=== PATIENT | female | born 1960 | race Caucasian/White ===

== ENCOUNTER → 2017-11-12 09:06 | Outpatient (CLI) | payer BC, SELFPAY ==
--- NOTE | 2017-11-12 09:13 | RAD_ITS ---
STUDY: X-RAY - LUMBAR SPINE REASON FOR EXAM: Female, 57 years old. Low back pain. Evaluate for degenerative arthritis. TECHNIQUE: 5 view(s) of the lumbar spine were obtained. COMPARISON: None FINDINGS: There is mild generalized osteopenia. Normal lumbar lordosis. There is no substantial scoliosis. There is a normal alignment of the vertebrae. Normal vertebral bodies and endplates. There is intervertebral disc space narrowing at L5-S1 with subchondral sclerosis and small osteophytes. There is mild diffuse facet sclerosis. There are calcifications overlying both renal shadows which may represent nephrocalcinosis. There are phleboliths in the pelvis. RAD/L/S Spine Min 4 Views IMPRESSION: Osteopenia with mild lumbar spondylosis as described. Calcifications overlying both renal shadows which may represent nephrocalcinosis. Electronically Signed: Robbie Garcia MD at 17:03 EST , Service support ,
--- NOTE | 2017-11-12 09:13 | RAD_ITS ---
STUDY: X-RAY - PELVIS AND LEFT HIP REASON FOR EXAM: Female, 57 years old. Bilateral hip pain. TECHNIQUE: Radiological exam, hip, unilateral, with pelvis when performed; 2 or 3 views. COMPARISON: None. FINDINGS: There is a non-specific bowel gas pattern. Normal visualized soft tissue structures. Normal bilateral iliac wings, sacroiliac joints and visualized sacrum. Normal bilateral superior and inferior pubic rami. Normal pubic symphysis. Normal bilateral ischial tuberosities. There is mild medial arthrosis of both hips. RAD/Hip 2-3 Views with Pelvis IMPRESSION: Mild medial arthrosis of both hips. Electronically Signed: Robbie Garcia MD at 17:01 EST , Service support ,
== END ==
PROVIDERS: Family Provider Family Medicine; PCP Family Medicine; Visit Provider Family Medicine
DX: M16.0 Bilateral primary osteoarthritis of hip (principal); M51.36 Other intervertebral disc degeneration, lumbar region; M85.88 Other specified disorders of bone density and structure, other site; M47.896 Other spondylosis, lumbar region; N28.89 Other specified disorders of kidney and ureter
CPT/HCPCS: 72110; 73502

== ENCOUNTER 2018-02-27 12:30 | Outpatient (RCR) | payer SELFPAY ==
--- NOTE | 2017-08-21 14:36 | HP.PTEVAL_ITS ---
Patient's Visit Information MALGORZATA PATTERSON is a 57 year old F referred to Physical Therapy by Out of Town Doctor with a diagnosis of Upper Trap. Date of Evaluation: 08/21/17 Physical Therapist: Jerica Manuel - Visit Plan Frequency: 2x /Week Duration: 4 Weeks Plan: Dry Needling - Subjective Subjective: Patient reports that she gets migraines and slept on a sleeper sofa over . Got a massage at [facility] [employer]-yesterday which helped a little bit. Most of the pain on the left side of the upper trap- radiates to the elbow. Describes as dull/achy pains. Does have numbness in her fingers on the left side- if she shakes it out it goes away quickly. more the last 3 digits. Gets SHANNON- 3x a month- controlled with medication Verapamil and break through Replax. Always the left side and the pain is along the entire head- last SHANNON was 2 weeks ago- goes to bed. Reports pain in the scapula- right handed- does carry babies on the left. PMHx: migraines Meds: Verapmil, Wellbutrin, Cymbalta, Replax - Objective Posture: FH, RS, guarding of the left side of the neck. ROM: cervical SB and rotation decreased by 25% Shoulder: WNL. Strength: Scap: fair plus, shoulder: 4 +/5 Cervical: 4/5 isometric. Palpation: tender with trigger points along the upper trap, levator, scm, medial border of the scapula and up the cervical paraspinals. - Goals Goal 1:: Patient will be I with HEP and progression Goal Time Frame: 4-6 Weeks Goal 2:: Patient will report 0/10 pain for 1 week - Rehabilitation Potential Physical Therapy Diagnosis: Patient presents with hypmobility- she has decreased ROM and increased pain in the cervical spine Rehabilitation Potential: Good - Anticipated Interventions Manual Therapy Techniques to Include: Functional dry needling Thank you for the opportunity to evaluate your patient. For Medicare and Medicare HMO plans, please review the plan of care and approve it. It will need to be FAXED BACK to us at [phone] for Medicare purposes. Please let me know if there are questions or concerns regarding this plan of care. Physician Signature: Date:
== END 2018-02-27 19:00 | disposition home or self-care (01) ==
LOC: PT 12:30
PROVIDERS: Family Provider Family Medicine; PCP Family Medicine
DX: R69 Illness, unspecified (principal)

== ENCOUNTER → 2018-08-05 08:57 | Outpatient (CLI) | payer BC, SELFPAY ==
--- NOTE | 2018-08-05 09:00 | BI_ITS ---
MAMMOGRAPHY - BILATERAL DIAGNOSTIC REASON FOR EXAM: Female, 58 years old. Left breast burning and pain. PERTINENT HISTORY: Grandmother with breast cancer. TECHNIQUE: Digital bilateral breast angy (3D mammographic acquisition) in the CC and MLO projections. 2-D mediolateral oblique (MLO) and craniocaudad (CC) views of both breasts were obtained. CAD: Full Field Digital Mammography with Computer Added Detection was performed. COMPARISON: Comparison is made with prior examination dated September 17, 2017 and February 17, 2015. FINDINGS: Breast Composition: The breasts are heterogeneously dense, which may obscure small masses. There are no dominant masses or suspicious calcifications. No other significant abnormalities are identified. There has been no significant change since the prior study. BI/DIAG MAMM W/CAD, BILAT IMPRESSION: Stable bilateral diagnostic mammogram. One year follow-up recommended. (A) ASSESSMENT CATEGORY: BIRADS Category 1: Negative. A letter regarding these results will be sent to the patient by the facility within 30 days. Approximately 10% of breast cancers are not detected by mammography. A normal mammogram should not delay biopsy of a clinically suspicious abnormality. Electronically Signed: Torsten Lamas MD at 11:25 EST Tel [phone], Service support ,
--- NOTE | 2018-08-05 09:40 | US_ITS ---
STUDY: ULTRASOUND BREAST - LEFT REASON FOR EXAM: Female, 58 years old. Pain in the left breast. TECHNIQUE: Axial and longitudinal images of the LEFT breast were performed with a high resolution ultrasound transducer. COMPARISON: Comparison is made with prior mammogram done earlier in the day. FINDINGS: LEFT Breast: The lateral aspect of the left breast was examined by ultrasound. There is homogeneous fibroglandular tissue. No solid or cystic mass lesion is seen. US/Breast Limited Unilateral IMPRESSION: Unremarkable sonogram of the lateral aspect of the left breast. ASSESSMENT CATEGORY: BIRADS Category 1: Negative. A letter regarding these results will be sent to the patient by the facility within 30 days. Electronically Signed: Torsten Lamas MD at 10:48 EST Tel [phone], Service support ,
--- OUTSIDE RECORDS SUMMARY | 2018-09-16 21:52 | XMS RPT_ITS ---
:1960 Author Organization OHIP Care Team Providers Name Role Phone Casper Franklin Primary Care Unavailable Referred, Self Attending Unavailable Sunita Andino Attending Unavailable Sunita Andino Referring Unavailable Casper Franklin Primary Care Unavailable Casper Franklin Attending Unavailable Casper Franklin Referring Unavailable Franklin, Casper Primary Care Unavailable Sunita Andino Attending Unavailable Sunita Andino Referring Unavailable Casper Franklin Primary Care Unavailable BASILIO SIMON Attending Unavailable Casper Franklin Primary Care Unavailable BASILIO SIMON Consulting Unavailable PROBLEMS PROBLEMS DATE TYPE CONDITION / CODE ATTENDING STATUS SOURCE 08/05/2018 Unknown N63.0 - Sunita Andino Active [place] Unspecified lump Community in unspecified Hospital breast / Repository N63.0(ICD-10) 05/22/2018 Unknown R69 - Illness, Referred, Self Active [place] unspecified / Community R69(ICD-10) Hospital Repository 11/12/2017 Unknown M19.90 - Casper Franklin Active [place] Unspecified Community osteoarthritis, Hospital unspecified site Repository / M19.90(ICD-10) PROCEDURES PROCEDURES No Procedure Records FoundRESULTS RESULTS DEXA BONE DENSITY Observed: 08/07/2018 Status: F Source: [place] STUDY 1:33 PM [facility] REPOSITORY [facility] Imaging Services [address] [place] [address] Dexa Bone Density Study MR#: [id number] Acct: [id number] Name: MALGORZATA SHINE Rep #: [id number] : 1960 F 58 From: Torsten Lamas MD PCP: Casper Franklin MD Status: REG CLI Study: Dexa Bone Density Study Date of Exam: 08/07/18 Exam# [id number] Ordering Dr: JUSTIN DE LA CRUZ STUDY: DUAL ENERGY X-RAY ABSORPTIOMETRY / DXA REASON FOR EXAM: Female, 58 years old. The patient is postmenopausal. Loss of height. TECHNIQUE: Bone Mineral Density (BMD) measurements of lumbar spine and bilateral hips were obtained. COMPARISON: Comparison is made with prior study dated February 17, 2015. FINDINGS: Lumbar Spine (L1-L4): g/cm2 (0.934) / T-score (-2.0) / Z-score (-0.7) Findings are suggestive of osteopenia with a moderate fracture risk. Left Femur Total: g/cm2 (0.723) / T-score (-2.3) / Z- score (-1.3) Left Femoral Neck: g/cm2 (0.678) / T-score (-2.6) / Z- score (-1.3) Right Femur Total: g/cm2 (0.784) / T-score (-1.8) / Z- score (-0.8) Right Femoral Neck: g/cm2 (0.709) / T-score (-2.4) / Z-score (-1.1) The T-Scores on the most recent prior examination were: Lumbar Spine (L1-L4): There has been improvement of bone density since the previous examination. Left Femur Total: which represents a worsening of 4.2%. Right Femur Total: which represents an improvement of 3.3%. BD/Dexa Bone Density Study IMPRESSION: The patient is considered osteopenic as outlined below according to World [place] Organization (WHO) criteria with a moderate fracture risk. There has been improvement of bone density since the previous examination. Reference Information: The T-score is the number of standard deviations above or below the standard which is normal for young adults at their peak bone mineral density. The World Health Organization (WHO) interprets the T-scores as follows: Above -1 Normal bone density Between -1 and -2.5 Osteopenia Equal to / or below -2.5 Osteoporosis As a practical clinical guideline, osteopenia may be graded as follows: Mild -1 through -1.5 Moderate -1.6 through -2.0 Severe -2.1 through -2.4 The Z-score is the number of standard deviations above or below age-matched controls. A Z-score of less than -1.5 would be considered abnormal. References: 1. NIH Osteoporosis and Related Bone Diseases http://www.osteo.org 2. International Society for Clinical Densitometry http://www.iscd.org 3. National Osteoporosis Foundation http://www.nof.org Electronically Signed: Torsten Lamas MD at 15:34 EST Tel [phone], Service support , CC: Casper Franklin MD; JUSTIN DE LA CRUZ Systems Administration Analyst: Signed BREAST LIMITED Observed: 08/05/2018 Status: F Source: [place] UNILATERAL 9:40 AM [facility] REPOSITORY [facility] Imaging Services [address] [place] [address] Breast Limited Unilateral MR#: [id number] Acct: [id number] Name: MALGORZATA SHINE Rep #: [id number] : 1960 F 58 From: Torsten Lamas MD PCP: Casper Franklin MD Status: REG CLI Study: Breast Limited Unilateral Date of Exam: 08/05/18 Exam# [id number] Ordering Dr: Sunita Andino MD STUDY: ULTRASOUND BREAST - LEFT REASON FOR EXAM: Female, 58 years old. Pain in the left breast. TECHNIQUE: Axial and longitudinal images of the LEFT breast were performed with a high resolution ultrasound transducer. COMPARISON: Comparison is made with prior mammogram done earlier in the day. FINDINGS: LEFT Breast: The lateral aspect of the left breast was examined by ultrasound. There is homogeneous fibroglandular tissue. No solid or cystic mass lesion is seen. US/Breast Limited Unilateral IMPRESSION: Unremarkable sonogram of the lateral aspect of the left breast. ASSESSMENT CATEGORY: BIRADS Category 1: Negative. A letter regarding these results will be sent to the patient by the facility within 30 days. Electronically Signed: Torsten Lamas MD at 10:48 EST Tel [phone], Service support , CC: Sunita Andino MD; Casper Franklin MD Systems Administration Analyst: Signed DIAG MAMM W/CAD, Observed: 08/05/2018 Status: F Source: [facility] 9:01 AM [facility] [place] [place] REPOSITORY [facility] Imaging Services [address] [place] [id number] DIAG MAMM W/CAD, BILAT MR#: [id number] Acct: [id number] Name: MALGORZATA SHINE Rep #: [id number] : 1960 F 58 From: Torsten Lamas MD PCP: Casper Franklin MD Status: REG CLI Study: DIAG MAMM W/CAD, BILAT Date of Exam: 08/05/18 Exam# [id number] Ordering Dr: Sunita Andino MD MAMMOGRAPHY - BILATERAL DIAGNOSTIC REASON FOR EXAM: Female, 58 years old. Left breast burning and pain. PERTINENT HISTORY: Grandmother with breast cancer. TECHNIQUE: Digital bilateral breast angy (3D mammographic acquisition) in the CC and MLO projections. 2-D mediolateral oblique (MLO) and craniocaudad (CC) views of both breasts were obtained. CAD: Full Field Digital Mammography with Computer Added Detection was performed. COMPARISON: Comparison is made with prior examination dated September 17, 2017 and February 17, 2015. FINDINGS: Breast Composition: The breasts are heterogeneously dense, which may obscure small masses. There are no dominant masses or suspicious calcifications. No other significant abnormalities are identified. There has been no significant change since the prior study. BI/DIAG MAMM W/CAD, BILAT IMPRESSION: Stable bilateral diagnostic mammogram. One year follow-up recommended. (A) ASSESSMENT CATEGORY: BIRADS Category 1: Negative. A letter regarding these results will be sent to the patient by the facility within 30 days. Approximately 10% of breast cancers are not detected by mammography. A normal mammogram should not delay biopsy of a clinically suspicious abnormality. Electronically Signed: Torsten Lamas MD at 11:25 EST Tel [phone], Service support , CC: Sunita Andino MD; Casper Franklin MD Systems Administration Analyst: Signed HIP 2-3 VIEWS WITH Observed: 11/12/2017 Status: F Source: [place] PELVIS 9:14 AM [facility] [place] [place] REPOSITORY [facility] Imaging Services [address] [place] [address] Hip 2-3 Views with Pelvis MR#: [id number] Acct: [id number] Name: MALGORZATA SHINE Rep #: [id number] : 1960 F 57 From: Robbie Garcia MD PCP: Casper Franklin MD Status: REG CLI Study: Hip 2-3 Views with Pelvis Date of Exam: 11/12/17 Exam# [id number] Ordering Dr: Casper Franklin MD STUDY: X-RAY - PELVIS AND LEFT HIP REASON FOR EXAM: Female, 57 years old. Bilateral hip pain. TECHNIQUE: Radiological exam, hip, unilateral, with pelvis when performed; 2 or 3 views. COMPARISON: None. FINDINGS: There is a non-specific bowel gas pattern. Normal visualized soft tissue structures. Normal bilateral iliac wings, sacroiliac joints and visualized sacrum. Normal bilateral superior and inferior pubic rami. Normal pubic symphysis. Normal bilateral ischial tuberosities. There is mild medial arthrosis of both hips. RAD/Hip 2-3 Views with Pelvis IMPRESSION: Mild medial arthrosis of both hips. Electronically Signed: Robbie Garcia MD at 17:01 EST , Service support , CC: Casper Franklin MD Systems Administration Analyst: Signed L/S SPINE MIN 4 Observed: 11/12/2017 Status: F Source: [place] VIEWS 9:14 AM [facility] [place] [place] REPOSITORY [facility] Imaging Services [address] [place] [address] L/S Spine Min 4 Views MR#: [id number] Acct: [id number] Name: MALGORZATA SHINE Rep #: [id number] : 1960 F 57 From: Robbie Garcia MD PCP: Casper Franklin MD Status: REG CLI Study: L/S Spine Min 4 Views Date of Exam: 11/12/17 Exam# [id number] Ordering Dr: Casper Franklin MD STUDY: X-RAY - LUMBAR SPINE REASON FOR EXAM: Female, 57 years old. Low back pain. Evaluate for degenerative arthritis. TECHNIQUE: 5 view(s) of the lumbar spine were obtained. COMPARISON: None FINDINGS: There is mild generalized osteopenia. Normal lumbar lordosis. There is no substantial scoliosis. There is a normal alignment of the vertebrae. Normal vertebral bodies and endplates. There is intervertebral disc space narrowing at L5-S1 with subchondral sclerosis and small osteophytes. There is mild diffuse facet sclerosis. There are calcifications overlying both renal shadows which may represent nephrocalcinosis. There are phleboliths in the pelvis. RAD/L/S Spine Min 4 Views IMPRESSION: Osteopenia with mild lumbar spondylosis as described. Calcifications overlying both renal shadows which may represent nephrocalcinosis. Electronically Signed: Robbie Garcia MD at 17:03 EST , Service support , CC: Casper Franklin MD Systems Administration Analyst: Signed PROGRESS Observed: 09/21/2017 Status: COMPLETED Source: [place] 2:04 PM [facility] REPOSITORY HNO ID: [id number] Author: April (Maricarmen Mckinney Service: (none) Author Type: Nurse Practitioner Type: Progress Notes Filed: 09/21/2017 2:17 PM Note Text: HPI Malgorzata Shine is a 57 year old female who presents today for CC of laceration of left hand This happened today when she use a new knife. She is also having small amount of bleeding, that is stopped with pressure. She has full range of motion of thumb and hand, able to make the OK sign. PMH not significant, see problem list. Last tetanus > 5 years BP 92/58 Pulse 72 Temp 36.6 ?C (97.8 ?F) (Tympanic) Resp 20 ALLERGIES Allergen Reactions - Codeine ACTIVE PROBLEM LIST Esophagitis, Unspecified Abdominal Pain, Epigastric Anemia, Unspecified Special Screening for Malignant Neoplasms, Colon Thyroiditis Hypoglycemia Migraines Osteoarthritis Constipation Osteoporosis Abdominal Pain Family History Problem Relation Age of Onset - Alcohol/Drug Father - Cancer Father - Hypertension Father - Prostate Cancer Paternal Grandfather - Diabetes Son Type I - Stroke Paternal Grandmother - Alzheimer's Disease Mother Social History Marital status: Spouse name: Years of education: Number of children: 3 Social History Main Topics Smoking status: Never Smoker Smokeless status: Never Used Alcohol use: Yes 0.0 oz/week Comment: 3 glasses a month Drug use: No REVIEW OF SYSTEMS PAIN ASSESSMENT: CURRENTLY HAVING PAIN; PAIN SCALE: 4 on 0-10 scale per patient GENERAL: No weight loss, malaise or fevers RESPIRATORY: Negative for cough, hemoptysis, wheezing, COPD, dyspnea or shortness of breath CARDIOVASCULAR: Negative for chest pain, leg swelling, hypertension, CHF or palpitations SKIN: Negative for lesions, rash and itching, Positive for laceration on left hand below PIP joint in fat pad Physical Exam Constitutional: She appears well-developed and well-nourished. Cardiovascular: Normal rate and regular rhythm. Pulses: Radial pulses are 2+ on the right side, and 2+ on the left side. Brisk +2 cap refill in extremities of left hand Musculoskeletal: Left hand: She exhibits tenderness (at laceration), disruption of two-point discrimination and laceration. She exhibits normal range of motion, no bony tenderness, normal capillary refill, no deformity and no swelling. Normal sensation noted. Normal strength noted. She exhibits no thumb/finger opposition. Hands: Skin: Skin is warm and dry. Laceration noted. Nursing note and vitals reviewed. LAC REPAIR Date/Time: 09/21/2017/ 2:00 pm Performed by: OMAR May Consent: Verbal consent obtained. Consent given by: patient Patient understanding: patient states understanding of the procedure being performed Body area: see diagram Location details: fat pad below pip thumb joint Laceration length: 1 cm Foreign bodies: none Tendon involvement: none, able to do thumb sign Nerve involvement: none Anesthesia: local infiltration Local anesthetic: lidocaine 1% without epinephrine Anesthetic total: 2 ml Preparation: Patient was prepped and draped in the usual sterile fashion. Irrigation solution: saline Irrigation method: lavage Amount of cleaning: extensive Skin closure: 5-0 Ethilon Number of sutures: 2 Technique: simple Approximation: close Approximation difficulty: simple Dressing: antibiotic ointment and pressure dressing Patient tolerance: Patient tolerated the procedure well with no immediate complications ASSESSMENT/PLAN: 1. Laceration of left hand without foreign body, initial encounter - ICD9: 882.0, ICD10: S61.412A (primary diagnosis) Wound Care - Keep wound clean and dry. No soaking in water. May shower/wash with soap -Clean with soap and water . Apply mupirocin ointment 2 - 3 times a day. -Tylenol or Ibuprofen for discomfort -Observe area for signs of infection: redness, warmth, foul odor, drainage or increase in discomfort. Call you primary care physician if this occurs. -Return for suture removal in 10-14 days 2. Need for vaccination - ICD9: V05.9, ICD10: Z23 - TDAP VACCINE AGE 7+ IM Diagnosis and treatment plan were discussed and questions were answered to the patient's satisfaction. Pt acknowledged understanding of concepts and follow up plan. Specific signs and symptoms that would indicate the need for higher level of care were discussed in detail warranting prompt ER evaluation. April Mckinney CNP CNOV Observed: 09/21/2017 Status: COMPLETED Source: [place] 1:30 PM [facility] REPOSITORY Office Visit (WSTR) MALGORZATA SHINE ([id number]) 1960 F Date Time Provider Department 09/21/17 1:30 PM APRIL MCKINNEY) [facility] During your visit today, we recorded the following information about you: Temperature Pulse Respiration Blood pressure 97.8 degrees 72/minute 20/minute 92/58 April Mckinney CNP 09/21/2017 2:06 PM Addendum ASSESSMENT/PLAN: 1. Laceration of left hand without foreign body, initial encounter - ICD9: 882.0, ICD10: S61.412A (primary diagnosis) Wound Care - Keep wound clean and dry. No soaking in water. May shower/wash with soap -Clean with soap and water . Apply mupirocin ointment 2 - 3 times a day. -Tylenol or Ibuprofen for discomfort -Observe area for signs of infection: redness, warmth, foul odor, drainage or increase in discomfort. Call you primary care physician if this occurs. -Return for suture removal in 10-14 days 2. Need for vaccination - ICD9: V05.9, ICD10: Z23 - TDAP VACCINE AGE 7+ IM April Mckinney CNP 09/21/2017 2:17 PM Signed HPI Malgorzata Shine is a 57 year old female who presents today for CC of laceration of left hand This happened today when she use a new knife. She is also having small amount of bleeding, that is stopped with pressure. She has full range of motion of thumb and hand, able to make the OK sign. PMH not significant, see problem list. Last tetanus ANDgt; 5 years BP 92/58 Pulse 72 Temp 36.6 ?C (97.8 ?F) (Tympanic) Resp 20 ALLERGIES Allergen Reactions - Codeine ACTIVE PROBLEM LIST Esophagitis, Unspecified Abdominal Pain, Epigastric Anemia, Unspecified Special Screening for Malignant Neoplasms, Colon Thyroiditis Hypoglycemia Migraines Osteoarthritis Constipation Osteoporosis Abdominal Pain Family History Problem Relation Age of Onset - Alcohol/Drug Father - Cancer Father - Hypertension Father - Prostate Cancer Paternal Grandfather - Diabetes Son Type I - Stroke Paternal Grandmother - Alzheimer's Disease Mother Social History Marital status: Spouse name: Years of education: Number of children: 3 Social History Main Topics Smoking status: Never Smoker Smokeless status: Never Used Alcohol use: Yes 0.0 oz/week Comment: 3 glasses a month Drug use: No REVIEW OF SYSTEMS PAIN ASSESSMENT: CURRENTLY HAVING PAIN; PAIN SCALE: 4 on 0-10 scale per patient GENERAL: No weight loss, malaise or fevers RESPIRATORY: Negative for cough, hemoptysis, wheezing, COPD, dyspnea or shortness of breath CARDIOVASCULAR: Negative for chest pain, leg swelling, hypertension, CHF or palpitations SKIN: Negative for lesions, rash and itching, Positive for laceration on left hand below PIP joint in fat pad Physical Exam Constitutional: She appears well-developed and well-nourished. Cardiovascular: Normal rate and regular rhythm. Pulses: Radial pulses are 2+ on the right side, and 2+ on the left side. Brisk +2 cap refill in extremities of left hand Musculoskeletal: Left hand: She exhibits tenderness (at laceration), disruption of two-point discrimination and laceration. She exhibits normal range of motion, no bony tenderness, normal capillary refill, no deformity and no swelling. Normal sensation noted. Normal strength noted. She exhibits no thumb/finger opposition. Hands: Skin: Skin is warm and dry. Laceration noted. Nursing note and vitals reviewed. LAC REPAIR Date/Time: 09/21/2017/ 2:00 pm Performed by: OMAR May Consent: Verbal consent obtained. Consent given by: patient Patient understanding: patient states understanding of the procedure being performed Body area: see diagram Location details: fat pad below pip thumb joint Laceration length: 1 cm Foreign bodies: none Tendon involvement: none, able to do thumb sign Nerve involvement: none Anesthesia: local infiltration Local anesthetic: lidocaine 1% without epinephrine Anesthetic total: 2 ml Preparation: Patient was prepped and draped in the usual sterile fashion. Irrigation solution: saline Irrigation method: lavage Amount of cleaning: extensive Skin closure: 5-0 Ethilon Number of sutures: 2 Technique: simple Approximation: close Approximation difficulty: simple Dressing: antibiotic ointment and pressure dressing Patient tolerance: Patient tolerated the procedure well with no immediate complications ASSESSMENT/PLAN: 1. Laceration of left hand without foreign body, initial encounter - ICD9: 882.0, ICD10: S61.412A (primary diagnosis) Wound Care - Keep wound clean and dry. No soaking in water. May shower/wash with soap -Clean with soap and water . Apply mupirocin ointment 2 - 3 times a day. -Tylenol or Ibuprofen for discomfort -Observe area for signs of infection: redness, warmth, foul odor, drainage or increase in discomfort. Call you primary care physician if this occurs. -Return for suture removal in 10-14 days 2. Need for vaccination - ICD9: V05.9, ICD10: Z23 - TDAP VACCINE AGE 7+ IM Diagnosis and treatment plan were discussed and questions were answered to the patient's satisfaction. Pt acknowledged understanding of concepts and follow up plan. Specific signs and symptoms that would indicate the need for higher level of care were discussed in detail warranting prompt ER evaluation. April Mckinney CNP Referring Provider: SELF [[id number]] Allergies As of Date: 09/21/2017 Noted Allergy Reaction CODEINE 12/19/2005 Date Reviewed: 09/21/2017 Reviewed by: Toma Quezada LPN - Fully Assessed Reason for Visit: Laceration [1747] Cmt: Left hand x 1 hour cut by a knife Primary Visit Diagnosis:Laceration of left hand without foreign body, initial encounter [S61.412A] Other Visit Diagnosis:Need for vaccination [Z23] Order(s):TDAP VACCINE AGE 7+ IM [[id number]] Order #: [id number] mupirocin (BACTROBAN) 2 % ointmentApply 1 application to affected area three times daily. Location: woundDisp: 30 gRfl: 0 Prescriptions as of 09/21/2017 Sig: POLYETHYLENE GLYCOL 3350 17 G* Take 17 g by mouth once daily* DULOXETINE 30 MG CAPSULE,CRISTINA* Take 1 capsule by mouth twice* VERAPAMIL ER (SR) 240 MG TABL* Take 1 tablet by mouth twice * COMPOUNDED PRESCRIPTION imitrex as needed WELLBUTRIN SR 150 MG TABLET, * one tab daily MUPIROCIN 2 % TOPICAL OINTMENT Apply 1 application to affect* Problem List As Of Date 09/21/2017 Noted Resolved ESOPHAGITIS, UNSPECIFIED [K20.9] INVALID FOR* ABDOMINAL PAIN EPIGASTRIC [R10.13] INVALID FOR* ANEMIA NOS [D64.9] INVALID FOR* SCREENING MAL NEOP-COLON [Z12.11] INVALID FOR* Thyroiditis [E06.9] INVALID FOR* Hypoglycemia [E16.2] INVALID FOR* Migraines [G43.909] INVALID FOR* Osteoarthritis [M19.90] INVALID FOR* Constipation [K59.00] Osteoporosis [M81.0] Abdominal pain [R10.9] Other instructions from your clinician: ASSESSMENT/PLAN: 1. Laceration of left hand without foreign body, initial encounter - ICD9: 882.0, ICD10: S61.412A (primary diagnosis) Wound Care - Keep wound clean and dry. No soaking in water. May shower/wash with soap -Clean with soap and water . Apply mupirocin ointment 2 - 3 times a day. -Tylenol or Ibuprofen for discomfort -Observe area for signs of infection: redness, warmth, foul odor, drainage or increase in discomfort. Call you primary care physician if this occurs. -Return for suture removal in 10-14 days 2. Need for vaccination - ICD9: V05.9, ICD10: Z23 - TDAP VACCINE AGE 7+ IM Prescriptions ordered this encounter Disp Refills Start End MUPIROCIN 2 % TOPICAL OINTMENT 30 g 0 09/21/2017 Route: TOPICAL Sig: Apply 1 application to affected area three times daily. Location: wound Encounter Status:Closed by APRIL MCKINNEY CNP on 09/21/17 SCREENING MAMM (CAD), Observed: 09/17/2017 Status: F Source: [place] 2:05 PM [facility] [place] [place] REPOSITORY [facility] Imaging Services [address] [place] [address] SCREENING MAMM (CAD), BILAT MR#: [id number] Acct: [id number] Name: MALGORZATA SHINE Rep #: [id number] : 1960 F 57 From: Torsten Lamas MD PCP: Casper Franklin MD Status: REG CLI Study: SCREENING MAMM (CAD), BILAT Date of Exam: 09/17/17 Exam# [id number] Ordering Dr: uSnita Andino MD MAMMOGRAPHY - BILATERAL SCREENING REASON FOR EXAM: Female, 57 years old. Routine annual screening examination. PERTINENT HISTORY: Non-contributory. TECHNIQUE: Digital bilateral breast angy (3D mammographic acquisition) in the CC and MLO projections. 2-D mediolateral oblique (MLO) and craniocaudad (CC) views of both breasts were obtained. CAD: Full Field Digital Mammography with Computer Added Detection was performed. COMPARISON: Comparison is made with prior study dated February 17, 2015 and October 05, 2010. FINDINGS: Breast Composition: The breasts are heterogeneously dense, which may obscure small masses. There are no dominant masses or suspicious calcifications. Stable bilateral benign appearing axillary lymph nodes. No other significant abnormalities are identified. There has been no significant change since the prior study. HPBI/SCREENING MAMM (CAD), BILAT IMPRESSION: Stable bilateral screening mammogram. Yearly follow-up mammogram recommended. (A) ASSESSMENT CATEGORY: BIRADS Category 2: Benign. A letter regarding these results will be sent to the patient by the facility within 30 days. Approximately 10% of breast cancers are not detected by mammography. A normal mammogram should not delay biopsy of a clinically suspicious abnormality. [id number] Electronically Signed: Torsten Lamas MD at 15:01 EST Tel [phone], Service support , CC: Sunita Andino MD; Casper Franklin MD Systems Administration Analyst: Signed ALLERGIES ALLERGIES DATE TYPE / CODE NAME / CODE REACTION SEVERITY SOURCE 02/07/2015 Drug codeine/[id number] Unknown Unknown [facility] Allergy[facility]4160 1550[facility] [place] [id number]([facility] Repository CT) 02/07/2015 Drug levofloxacin/F Unknown Unknown [facility] Allergy/4160 [id number]([place] [address](SNOMED RM) Repository CT) 12/19/2005 DRUG CODEINE [facility] INGREDI/4195 [facility] [address](SNOMED Repository CT) ENCOUNTERS ENCOUNTERS ADMIT/DISCHARGE ACCOUNT ADMITTING ENCOUNTER LOCATION SOURCE NUMBER CLASS 08/07/2018 [id number] [facility] ing:OPBD Repository 08/05/2018 [id number] [facility] ing:OPBI Repository 02/27/2018/02/28/[id number] ing:PT Repository 11/12/2017 [id number] [facility] ing:MTLAB Repository 09/21/2017/09/24/[id number] Repository 09/17/2017 [id number] [facility] ing:BI Repository PAYERS PAYERS ENCOUNTER GUARANTOR PAYER SUBSCRIBER SOURCE 08/07/2018 CASPER SHINE532 Primary CASPER Harrison [place] [facility] [place] Number: [id number] Hospital [address]Kit: (161) [id number] Repository [phone] (HP) Date:7974-47-26DG [address] [place] [address] 87701ET: 08/07/2018 Secondary NOT GIVENUNK [place] Insurance:SELF PAY [facility] Number: Effective Repository Date:2018-08-05 08/05/2018 CASPER SHINE532 Primary CASPER C [place] Insurance:ANTHEMPolic MEENANDOB: [facility], [place] Number: [id number] Hospital [address]Hrq: (330) [id number] Repository [phone] () Date:2745-77-04JH [address] [place] [address] 14118MW: 08/05/2018 Secondary NOT GIVENUNK [place] Insurance:SELF PAY [facility] Number: Effective Repository Date:2018-07-25 02/27/2018 CASPER SHINE532 Primary NOT GIVENUNK [place] Insurance:SELF PAY [place] [id number]: [phone]) Number: Effective Repository [phone] () Date:2017-08-14 11/12/2017 CASPER SHINE532 Primary CASPER C [place] Insurance:ANTHEMPolic MEENANDOB: [facility] [place] y Number: [id number] Hospital 13[address]Rng: [id number] Repository [phone] Date:7627-04-60WT [address] () [address] [place] [address] 80184TI: 11/12/2017 Secondary NOT GIVENUNK [place] Insurance:SELF PAY [facility] Number: Effective Repository Date:2017-11-12 09/17/2017 Casper Shine532 Primary Casper C [place] Insurance:ANTHEM MeenanDOB: [place], [place] [facility] [id number] Hospital [address]Vwk: ([phone]) Number: Repository [phone] () [id number] Date:[id number] [address] [place] [address] 86279ES: 09/17/2017 Secondary NOT GIVENUNK [place] Insurance[facility]LF PAY [facility] Number: Effective Repository Date:2017-08-05
== END ==
PROVIDERS: Family Provider Family Medicine; PCP Family Medicine; Referring Provider Obstetrics & Gynecology; Visit Provider Obstetrics & Gynecology
DX: N63.0 Unspecified lump in unspecified breast (principal); N64.4 Mastodynia
CPT/HCPCS: 76642; 77062; 77066; G0279

== ENCOUNTER → 2018-08-07 13:30 | Outpatient (CLI) | payer BC, SELFPAY ==
--- NOTE | 2018-08-07 13:36 | BD_ITS ---
STUDY: DUAL ENERGY X-RAY ABSORPTIOMETRY / DXA REASON FOR EXAM: Female, 58 years old. The patient is postmenopausal. Loss of height. TECHNIQUE: Bone Mineral Density (BMD) measurements of lumbar spine and bilateral hips were obtained. COMPARISON: Comparison is made with prior study dated February 17, 2015. FINDINGS: Lumbar Spine (L1-L4): g/cm2 (0.934) / T-score (-2.0) / Z-score (-0.7) Findings are suggestive of osteopenia with a moderate fracture risk. Left Femur Total: g/cm2 (0.723) / T-score (-2.3) / Z-score (-1.3) Left Femoral Neck: g/cm2 (0.678) / T-score (-2.6) / Z-score (-1.3) Right Femur Total: g/cm2 (0.784) / T-score (-1.8) / Z-score (-0.8) Right Femoral Neck: g/cm2 (0.709) / T-score (-2.4) / Z-score (-1.1) The T-Scores on the most recent prior examination were: Lumbar Spine (L1-L4): There has been improvement of bone density since the previous examination. Left Femur Total: which represents a worsening of 4.2%. Right Femur Total: which represents an improvement of 3.3%. BD/Dexa Bone Density Study IMPRESSION: The patient is considered osteopenic as outlined below according to World [place] Organization (WHO) criteria with a moderate fracture risk. There has been improvement of bone density since the previous examination. Reference Information: The T-score is the number of standard deviations above or below the standard which is normal for young adults at their peak bone mineral density. The World Health Organization (WHO) interprets the T-scores as follows: Above -1 Normal bone density Between -1 and -2.5 Osteopenia Equal to / or below -2.5 Osteoporosis As a practical clinical guideline, osteopenia may be graded as follows: Mild -1 through -1.5 Moderate -1.6 through -2.0 Severe -2.1 through -2.4 The Z-score is the number of standard deviations above or below age-matched controls. A Z-score of less than -1.5 would be considered abnormal. References: 1. NIH Osteoporosis and Related Bone Diseases http://www.osteo.org 2. International Society for Clinical Densitometry http://www.iscd.org 3. National Osteoporosis Foundation http://www.nof.org Electronically Signed: Torsten Lamas MD at 15:34 EST Tel [phone], Service support ,
--- OUTSIDE RECORDS SUMMARY | 2018-10-02 18:00 | XMS RPT_ITS ---
[...] BONE DENSITY Observed: 08/07/2018 Status: F Source: [place] STUDY 1:33 PM [facility] REPOSITORY [facility] Imaging Services [address] [place] [address] Dexa Bone Density Study MR#: [id number] Acct: [id number] Name: MALGORZATA SHINE Rep #: [id number] : 1960 F 58 From: Torsten Lamas MD PCP: Casper Franklin MD Status: REG CLI Study: Dexa Bone Density Study Date of Exam: 08/07/18 Exam# [id number] Ordering Dr: JUSTIN DE LA CRUZ STUDY: [...] Torsten Lamas MD at 15:34 EST Tel [phone], Service support , CC: Casper Franklin MD; JUSTIN DE LA CRUZ Farmworkers: 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 BREAST LIMITED Observed: 08/05/2018 Status: F Source: [place] UNILATERAL 9:40 AM [facility] REPOSITORY [facility] Imaging Services [address] [place] [address] Breast Limited Unilateral MR#: [id number] Acct: [id number] Name: MALGORZATA SHINE Rep #: [id number] : 1960 F 58 From: Torsten Lamas MD PCP: Casper Franklin MD Status: REG CLI Study: Breast Limited Unilateral Date of Exam: 08/05/18 Exam# [id number] Ordering Dr: Sunita Andino MD STUDY: ULTRASOUND [...] Torsten Lamas MD at 10:48 EST Tel [phone], Service support , CC: Sunita Andino MD; Casper Franklin MD Farm[employer]: Signed DIAG MAMM W/CAD, Observed: 08/05/2018 Status: F Source: [facility] 9:01 AM [facility] REPOSITORY [facility] Imaging Services [address] [place] [address] DIAG MAMM W/CAD, BILAT MR#: [id number] Acct: [id number] Name: MALGORZATA SHINE Rep #: [id number] : 1960 F 58 From: Torsten Lamas MD PCP: Casper Franklin MD Status: REG CLI Study: DIAG MAMM W/CAD, BILAT Date of Exam: 08/05/18 Exam# [id number] Ordering Dr: Sunita Andino MD MAMMOGRAPHY - [...] Torsten Lamas MD at 11:25 EST Tel [phone], Service support , CC: Sunita Andino MD; Casper Franklin MD [employer]: Signed HIP 2-3 VIEWS WITH Observed: 11/12/2017 Status: F Source: [place] PELVIS 9:14 AM [facility] REPOSITORY [facility] Imaging Services [address] [place] [address] Hip 2-3 Views with Pelvis MR#: [id number] Acct: [id number] Name: MALGORZATA SHINE Rep #: [id number] : 1960 F 57 From: Robbie Garcia MD PCP: Casper Franklin MD Status: REG CLI Study: Hip 2-3 Views with Pelvis Date of Exam: 11/12/17 Exam# [id number] Ordering Dr: Casper Franklin MD STUDY: X-RAY [...] Service support , CC: Casper Franklin MD Farmworkers: Signed L/S SPINE MIN 4 Observed: 11/12/2017 Status: F Source: [place] VIEWS 9:14 AM [facility] REPOSITORY [facility] Imaging Services [address] [place] [address] L/S Spine Min 4 Views MR#: [id number] Acct: [id number] Name: MALGORZATA SHINE Rep #: [id number] : 1960 F 57 From: Robbie Garcia MD PCP: Casper Franklin MD Status: REG CLI Study: L/S Spine Min 4 Views Date of Exam: 11/12/17 Exam# [id number] Ordering Dr: Casper Franklin MD STUDY: X-RAY [...] Service support , CC: Casper Franklin MD Farmworkers: Signed PROGRESS Observed: 09/21/2017 Status: COMPLETED Source: [place] 2:04 PM [facility] REPOSITORY HNO ID: [id number] Author: April (Maricarmen Mckinney Service: (none) Author [...] CNP CNOV Observed: 09/21/2017 Status: COMPLETED Source: [place] 1:30 PM [facility] REPOSITORY Office Visit (WSTR) MALGORZATA SHINE ([id number]) 1960 F Date Time Provider Department 09/21/17 [...] vaccination [Z23] Order(s):TDAP VACCINE AGE 7+ IM [26099TZB] Order #: [id number] mupirocin (BACTROBAN) 2 % ointmentApply 1 application [...] MAMM (CAD), Observed: 09/17/2017 Status: F Source: [place] BIL 2:05 PM [facility] REPOSITORY [facility] Imaging Services [address] [place] [address] SCREENING MAMM (CAD), BILAT MR#: [id number] Acct: [id number] Name: MALGORZATA SHINE Rep #: [id number] : 1960 F 57 From: Torsten Lamas MD PCP: Casper Franklin MD Status: REG CLI Study: SCREENING MAMM (CAD), BILAT Date of Exam: 09/17/17 Exam# [id number] Ordering Dr: Sunita Andino MD MAMMOGRAPHY - BILATERAL SCREENING REASON [...] delay biopsy of a clinically suspicious abnormality. [id number] Electronically Signed: Torsten Lamas MD at 15:01 EST Tel [phone], Service support , CC: Sunita Andino MD; Casper Franklin MD Farmworkers: Signed ALLERGIES ALLERGIES DATE TYPE / CODE NAME / CODE REACTION SEVERITY SOURCE 02/07/2015 Drug codeine/Q26245 Unknown Unknown [facility]ergy[facility]4160 [facility] [place] [id number](SNOMED Repository CT) 02/07/2015 Drug levofloxacin/F Unknown Unknown [facility] Allergy/4160 [id number]([place] [address](SNOMED RM) Repository CT) 12/19/2005 DRUG CODEINE [facility] INGREDI/4195 [facility] [address](SNOMED Repository CT) ENCOUNTERS ENCOUNTERS ADMIT/DISCHARGE ACCOUNT ADMITTING ENCOUNTER LOCATION SOURCE NUMBER CLASS 08/07/2018 [id number] [facility] ing:OPBD Repository 08/05/2018 [id number] [facility] ing:OPBI Repository 02/27/2018/02/28/[id number] ing:PT Repository 11/12/2017 [id number] [facility] ing:MTLAB Repository 09/21/2017/09/24/[id number] Repository 09/17/2017 [id number] [facility] ing:BI Repository PAYERS PAYERS ENCOUNTER GUARANTOR PAYER SUBSCRIBER SOURCE 08/07/2018 CASPER SHINE532 Primary CASPER Harrison [place] Insurance:[facility]MPCity Hospital[facility]: [place] Number: [id number] Hospital [address]Xte: (022) [id number] Repository [phone] (HP) Date:7197-26-20AB [address] [place] [address] 79497UQ: 08/07/2018 Secondary NOT GIVENUNK [place] Insurance:SELF PAY [facility] Number: Effective Repository Date:2018-08-05 08/05/2018 CASPER SHINE532 Primary CASPER C [place] Insurance:ANTHEMPolic MEENANDOB: [facility] [place] Number: [id number] Hospital [address]Hbx: (330) [id number] Repository [phone] () Date:4029-18-04VR [address] [place] [address] 43345XJ: 08/05/2018 Secondary NOT GIVENUNK [place] Insurance:SELF PAY [facility] Number: Effective Repository Date:2018-07-25 02/27/2018 CASPER SHINE532 Primary NOT GIVENUNK [place] Insurance:SELF PAY [place] [id number]: (330) Number: Effective Repository [phone] () Date:2017-08-14 11/12/2017 CASPER SHINE532 Primary CASPER C [place] Insurance:ANTHEMPolic MEENANDOB: [facility] [place] Number: [id number] [address]Emw: [id number] Repository [phone] Date:0778-24-78HF [address] () [address] [place] [address] 12513KM: 11/12/2017 Secondary NOT GIVENUNK [place] Insurance:SELF PAY [facility] Number: Effective Repository Date:2017-11-12 09/17/2017 Casper Shine532 Primary Casper C [place] Insurance:ANTHEM MeenanDOB: [place] [facility] [id number] Hospital [address]Nng: (330) Number: Repository [phone] () [id number] Date:1339-19-77UB [address] [place] [address] 81192PS: 09/17/2017 Secondary NOT GIVENUNK [place] Insurance:SELF PAY [facility] Number: Effective Repository Date:2017-08-05
== END ==
PROVIDERS: Family Provider Family Medicine; PCP Family Medicine
DX: M81.0 Age-related osteoporosis without current pathological fracture (principal)
CPT/HCPCS: 77080

== ENCOUNTER → 2018-08-28 09:39 | Outpatient (CLI) | payer BC, SELFPAY ==
[2018-08-28 12:29] LABS: Absolute Lymphocyte Count 6.98 X10^3/ul (0.83-4.51); Absolute Neutrophil Count 2.6 X10^3/uL (2.0-7.7); Basophil# 0.07 X10^3/uL; Basophil% 0.7 % (0-1); Differential Indicated SCAN CRITERIA MET; Eosinophils% 1.9 % (0-5); Hematocrit 42.3 % (37-47); Hemoglobin 14.1 g/dl (12.0-15.0); Lymphocyte # 6.98 X10^3/ul (4.0); Lymphocyte % 67.8 % (19-41); Mean Corp Hgb Conc 33.3 g/gl (32-36); Mean Corpuscular Hgb 31.8 pg (27.0-32.0); Mean Corpuscular Volume 95.5 fL (81-99); Mean Platelet Vol. 10.9 fl (6.2-12.0); Monocyte# 0.44 X10^3/uL; Monocyte% 4.3 % (0-10); Neutrophil # 2.58 X10^3/uL (2.7-7.7); Neutrophil % 25.1 % (47-70); POSITIVE COUNT NO; POSITIVE DIFFERENTIAL YES; POSITIVE MORPHOLOGY NO; Platelet Count 290 K/mm3 (150-450); RBC Distribution Width CV 12.5 % (11.6-14.6); RBC Distribution Width SD 43.6 fl (35.1-43.9); Red Blood Count 4.43 M/mm3 (4.2-5.4); White Blood Count 10.3 K/mm3 (4.4-11.0)
[2018-08-28 12:39] LABS: Vitamin D,25 Hydroxy 31.2 ng/mL (29.95-100.01)
[2018-08-28 12:56] LABS: Reactive Lymphocyte 1+
== END ==
PROVIDERS: Family Provider Family Medicine; PCP Family Medicine; Visit Provider Family Medicine
DX: D50.9 Iron deficiency anemia, unspecified (principal); E55.9 Vitamin D deficiency, unspecified
CPT/HCPCS: 36415; 82306; 85025

== ENCOUNTER → 2018-09-26 12:10 | Outpatient (CLI) | payer OTHER, SELFPAY ==
[2018-09-26 13:50] LABS: Anion Gap 7 (5-15); BUN 12 mg/dL (7-18); BUN/Creat Ratio 19.7 RATIO (10-20); Chloride 107 mmol/L (98-107); Cholesterol 190 mg/dL (200); Creatinine, Serum 0.61 mg/dL (0.55-1.02); EST Glomerular Filtration Rate 106 mL/min (>60); Est Glom Filt Rate - Afr Amer 128 mL/min (>60); Glucose 87 mg/dL (74-106); High Density Lipoprotein 94 mg/dL; Potassium 4.1 mmol/L (3.5-5.1); Sodium Level 141 mmol/L (136-145); Thyroid Stim Hormone (TSH) 0.74 uIU/mL (0.358-3.74); Triglycerides 66 mg/dL; Very Low Density Lipoprotein 13 mg/dL (5-40)
--- OUTSIDE RECORDS SUMMARY | 2018-12-01 01:30 | XMS RPT_ITS ---
:1960 Author Organization OHIP Care Team Providers Name Role Phone Rigoberto Casper Attending Unavailable Casper Franklin Primary Care Unavailable Casper Franklin Attending Unavailable Casper Franklin Primary Care Unavailable Casper Franklin Primary Care Unavailable Referred, Self Attending Unavailable Casper Franklin Attending Unavailable Casper Franklin Referring Unavailable Casper Franklin Primary Care Unavailable Sunita Andino Attending Unavailable Sunita Andino Referring Unavailable Casper Franklin Primary Care Unavailable BASILIO SIMON Attending Unavailable Casper Franklin Primary Care Unavailable BASILIO SIMON Consulting Unavailable PROBLEMS PROBLEMS DATE TYPE CONDITION / CODE ATTENDING STATUS SOURCE 09/29/2018 Unknown V77.91 - Screening Casper Franklin [facility] [place] for lipoid [facility] disorders / Hospital V77.91(ICD-9) Repository 09/29/2018 Unknown Z13.220 - Encounter Casper Franklin [facility] for screening for Community lipoid disorders / Hospital Z13.220(ICD-10) Repository 09/29/2018 Unknown 281.1 - Other Casper Franklin [facility] [place] vitamin B12 Community deficiency anemia / Hospital 281.1(ICD-9) Repository 09/29/2018 Unknown 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, not Hospital elsewhere Repository classified / D53.1(ICD-10) 09/29/2018 Unknown 790.6 - Other [facility] Franklin [facility] [place] abnormal blood Community chemistry / Hospital 790.6(ICD-9) Repository 09/29/2018 Unknown R94.6 - Abnormal Casper Franklin results of thyroid Community function studies / Hospital R94.6(ICD-10) Repository 08/28/2018 Unknown E55.9 - Vitamin D Casper Franklin [facility] deficiency, Community unspecified / Hospital E55.9(ICD-10) Repository 08/28/2018 Unknown D50.9 - Iron Casper Franklin [facility] [place] deficiency anemia, Community unspecified / Hospital D50.9(ICD-10) Repository 08/05/2018 Unknown N63.0 - Unspecified ShrSunita cabrera Active [place] lump in unspecified Community breast / Hospital N63.0(ICD-10) Repository 05/22/2018 Unknown R69 - Illness, Referred, Self [facility] unspecified / Community R69(ICD-10) Hospital Repository 11/12/2017 Unknown M19.90 - [place] [facility] [place] Unspecified Community osteoarthritis, Hospital unspecified site / Repository M19.90(ICD-10) PROCEDURES PROCEDURES No Procedure Records FoundRESULTS RESULTS BASIC METABOLIC Collected: 09/26/2018 Status: F Source: [place] PROFILE (BMP) 12:11 PM [facility] REPOSITORY TYPE CODE TESTS RESULT OUT OF RANGE REFERENCE UNITS LAB L501.0100 74-106 mg/dL Normal GLU 87 Result Comment: Please note revised GLUCOSE reference range effective 2017. LAB L501.1000 7-18 mg/dL Normal BUN 12 LAB L501.1100 0.55-1.02 mg/dL Normal CREAT,SERUM 0.61 Result Comment: The validity of the calculated GFR AND GFRAA in patients over 70 years has not been determined. Clinical correlation is essential. LAB L501.1110 >60 mL/min Normal EST GFR 106 Result Comment: Non- GFR Calc LAB L501.1115 >60 mL/min Normal EST GFR - AA 128 Result Comment: GFR Calc LAB L501.1300 10-20 RATIO Normal BUN/CRE 19.7 LAB L501.2200 8.5-10.1 mg/dL CA Normal 9.0 LAB L501.5300 136-145 mmol/L NA Normal 141 LAB L501.5600 3.5-5.1 mmol/L K Normal 4.1 LAB L501.5900 98-107 mmol/L CL Normal 107 LAB L501.6100 21.0-32.0 mmol/L Normal CO2 27.0 LAB L501.6200 5-15 Normal GAP 7 Performed By: #### L500.2500, L500.4100, L501.9520 #### [facility] [address] [place], [place], [id number] LIPID PROFILE Collected: 09/26/2018 Status: F Source: [place] 12:11 PM [facility] [place] REPOSITORY TYPE CODE TESTS RESULT OUT OF RANGE REFERENCE UNITS LAB L501.4900 200 mg/dL Normal CHOL 190 Result Comment: <200 mg/dL Desirable 200-240 mg/dL Borderline >240 mg/dL High Risk LAB L501.5000 mg/dL Normal TRIG 66 Result Comment: The drugs N-Acetylcysteine and Metamizole may falsely depress this assay. Serum Triglycerides Reference Interval Normal <150 mg/dL Borderline high 150 - 199 mg/dL High 200 - 499 mg/dL Very High > or = 500 mg/dL LAB L501.6400 mg/dL Normal HDL 94 Result Comment: The drugs N-Acetylcysteine and Metamizole may falsely depress this assay. Reference Range HDL <40 mg/dL Low HDL Cholesterol HDL >or= 60 mg/dL High HDL Cholesterol LAB L501.6500 0-130 mg/dL Normal LDL 83 LAB L501.6600 5-40 mg/dL Normal VLDL 13 Performed By: #### L500.2500, L500.4100, L501.9520 #### [facility] [address] [place], [place], [id number] THYROID STIM HORMONE Collected: 09/26/2018 Status: F Source: [place] (TSH) 12:11 PM [facility] [place] REPOSITORY TYPE CODE TESTS RESULT OUT OF RANGE REFERENCE UNITS LAB L501.9520 0.358-3.74 uIU/mL Normal TSH 0.74 Performed By: #### L500.2500, L500.4100, L501.9520 #### [facility] [address] [place], [place], [id number] CBC W/DIFF, AUTOMATED Collected: 08/28/2018 Status: F Source: [place] 9:46 AM [facility] [place] REPOSITORY TYPE CODE TESTS RESULT OUT OF RANGE REFERENCE UNITS LAB L100.1000 4.4-11.0 K/mm3 Normal WBC 10.3 LAB L100.1200 4.2-5.4 M/mm3 Normal RBC 4.43 LAB L100.1300 12.0-15.0 g/dl Normal HGB 14.1 LAB L100.1400 37-47 % Normal HCT 42.3 LAB L100.1500 81-99 fL Normal MCV 95.5 LAB L100.1600 27.0-32.0 pg Normal MCH 31.8 LAB L100.1700 32-36 g/gl Normal MCHC 33.3 LAB L100.1810 11.6-14.6 % Normal RDW CV 12.5 LAB L100.1820 35.1-43.9 fl Normal RDW SD 43.6 LAB L100.1900 150-450 K/mm3 Normal PLT 290 LAB L100.2000 6.2-12.0 fl Normal MPV 10.9 LAB L100.2100 47-70 % Low NEUT% 25.1 LAB L100.2200 19-41 % High LY% 67.8 LAB L100.2300 0-10 % Normal MONO% 4.3 LAB L100.2400 0-5 % Normal EO% 1.9 LAB L100.2500 0-1 % Normal BASO% 0.7 LAB L100.2550 0.0-0.9 % Normal IM GRAN % 0.200 Result Comment: IG% - Immature Granulocytes (promyelocytes, myelocytes and metamyelocytes) > 1% indicates that a LEFT SHIFT is Present. LAB L100.2620 2.0-7.7 X10 3/uL Normal Absolute Neut 2.6 LAB L100.2720 0.83-4.51 X10 3/ul High Absolute Lymph 6.98 LAB L100.4700 Normal REACTIVE LYMPH 1+ Performed By: #### L100.0100, L506.1000 #### [facility] [address] [place], [address] VITAMIN D,25 HYDROXY Collected: 08/28/2018 Status: F Source: [place] 9:46 AM [facility] [place] REPOSITORY TYPE CODE TESTS RESULT OUT OF RANGE REFERENCE UNITS LAB L506.1000 29.95-100.01 ng/mL Normal Vitamin D 31.2 25-OH Result Comment: Vitamin D 25(OH) Status Range Deficiency <20 ng/mL (50nmol/L) Insuffciency 20 - 30 ng/mL (50 - 75 nmol/L) Sufficiency 30 - 100 ng/mL (75 - 250 nmol/L) Toxicity >100 ng/mL (>250 nmol/L) Performed By: #### L100.0100, L506.1000 #### [facility] [address] [place], [address] DEXA BONE DENSITY Observed: 08/07/2018 Status: F Source: [place] STUDY 1:33 PM [facility] REPOSITORY [facility] Imaging Services [address] [place] [address] Dexa Bone Density Study MR#: [id number] Acct: [id number] Name: MALGORZATA PATTERSON Rep #: [id number] : 1960 F 58 From: Torsten Lamas MD PCP: Casper Franklin MD Status: [facility] Study: Dexa Bone Density Study Date of Exam: 08/07/18 Exam# [id number] Ordering Dr: JUSTIN DE LA CRUZ STUDY: [...] Torsten Lamas MD at 15:34 EST Tel [phone], Service support , CC: Casper Franklin MD; JUSTIN DE LA CRUZ Track Welder: Signed BREAST LIMITED Observed: 08/05/2018 Status: F Source: [place] UNILATERAL 9:40 AM [facility] REPOSITORY [facility] Imaging Services [address] [place] [address] Breast Limited Unilateral MR#: [id number] Acct: [id number] Name: MALGORZATA PATTERSON Rep #: [id number] : 1960 F 58 From: Torsten Lamas MD PCP: Casper Franklin MD Status: REG CLI Study: Breast Limited Unilateral Date of Exam: 08/05/18 Exam# [id number] Ordering Dr: Sunita Andino MD STUDY: ULTRASOUND [...] Torsten Lamas MD at 10:48 EST Tel [phone], Service support , CC: Sunita Andino MD; Casper Franklin MD Track Welder: Signed DIAG MAMM W/CAD, Observed: 08/05/2018 Status: F Source: [place] BILAT 9:01 AM [facility] REPOSITORY [facility] Imaging Services [address] [place] [address] DIAG MAMM W/CAD, BILAT MR#: [id number] Acct: [id number] Name: MALGORZATA PATTERSON Rep #: [id number] : 1960 F 58 From: Torsten Lamas MD PCP: Casper Franklin MD Status: REG CLI Study: DIAG MAMM W/CAD, BILAT Date of Exam: 08/05/18 Exam# [id number] Ordering Dr: Sunita Andino MD MAMMOGRAPHY - [...] Torsten Lamas MD at 11:25 EST Tel [phone], Service support , CC: Sunita Andino MD; Casper Franklin MD Track Welder: Signed HIP 2-3 VIEWS WITH Observed: 11/12/2017 Status: F Source: [place] PELVIS 9:14 AM [facility] [place] REPOSITORY [facility] Imaging Services [address] [place] [address] Hip 2-3 Views with Pelvis MR#: [id number] Acct: [id number] Name: MALGORZATA PATTERSON Rep #: [id number] : 1960 F 57 From: Robbie Garcia MD PCP: Casper Franklin MD Status: REG CLI Study: Hip 2-3 Views with Pelvis Date of Exam: 11/12/17 Exam# [id number] Ordering Dr: Casper Franklin MD STUDY: X-RAY [...] medial arthrosis of both hips. Electronically Signed: Robibe Garcia MD at 17:01 EST , Service support , CC: Casper Franklin MD Track Welder: Signed L/S SPINE MIN 4 Observed: 11/12/2017 Status: F Source: [place] VIEWS 9:14 AM [facility] REPOSITORY [facility] Imaging Services [address] [place] [address] L/S Spine Min 4 Views MR#: [id number] Acct: [id number] Name: MALGORZATA PATTERSON Rep #: [id number] : 1960 F 57 From: Robbie Garcia MD PCP: Casper Franklin MD Status: REG CLI Study: L/S Spine Min 4 Views Date of Exam: 11/12/17 Exam# [id number] Ordering Dr: Casper Franklin MD STUDY: X-RAY [...] Service support , CC: Casper Franklin MD Track Welder: Signed ALLERGIES ALLERGIES DATE TYPE / CODE NAME / CODE REACTION SEVERITY SOURCE 02/07/2015 Drug codeine/F006 Unknown Unknown [facility] Allergy/4160 614005([facility] [address](SNOMED M) Repository CT) 02/07/2015 Drug levofloxacin Unknown Unknown [place] [facility] Allergy/4160 /[id number]( Hospital [facility](SNOMED RXNORM) Repository CT) ENCOUNTERS ENCOUNTERS ADMIT/DISCHARGE ACCOUNT ADMITTING ENCOUNTER LOCATION SOURCE NUMBER CLASS 09/26/2018 [id number] [place] [facility] ing:MFPLAB Repository 08/28/2018 [id number] [facility] [place] [facility] ing:MFPLAB Repository 08/07/2018 [id number] Ambulatory [place] [facility] ing:OPBD Repository 08/05/2018 [id number] [facility] [place] [facility] ing:OPBI Repository 02/27/2018/ [id number] [facility]ulatory [place] 8 6 [facility] ing:PT Repository 11/12/2017 [id number] [place] [facility] ing:MTLAB Repository PAYERS PAYERS ENCOUNTER GUARANTOR PAYER SUBSCRIBER SOURCE 09/26/2018 [place] PATTER[place]532 Primary MALGORZATA MEENANDOB: [place] [id number] [address] [address]Qug: (330) Number: Repository [phone] () [id number] Date:0472-14-26[address], [place] [address]HY: 09/26/2018 Secondary NOT GIVENUNK [place] Insurance:SELF PAY [facility] Number: Effective Repository Date:2018-09-26 08/28/2018 CAS[place] PATTERSON532 Primary [place] Insurance:ANTHEMPolic MEENANDOB: [facility] Number: [id number] [address]32[address]Zhi: (330) [id number] Repository [phone] () Date:1443-59-65[address], [place] [address]YS: 08/28/2018 Secondary NOT GIVENUNK [place] Insurance:SELF PAY [facility] Number: Effective Repository Date:2018-08-28 08/07/2018 CAS[place] PATTERSON532 Primary [place] Insurance:ANTHEMPolic [place] Number: [id number] Hospital 189[address]Zhr: (330) [id number] Repository [phone] () Date:6761-16-67[address] [place] [address]ML: 08/07/2018 Secondary NOT GIVENUNK [place] Insurance:SELF PAY [facility] Number: Effective Repository Date:2018-08-05 08/05/2018 [place] PATTERSON532 Primary [place] Insurance:ANTHEMPolic MEENANDOB: [facility] [place] Number: [id number] [address]Uum: (330) [id number] Repository [phone] () Date:5735-49-04[address] [place] [address] 21463XN: 08/05/2018 Secondary NOT GIVENUNK [place] Insurance:SELF PAY [facility] Number: Effective Repository Date:2018-07-25 02/27/2018 [place] PATTERSON532 Primary NOT GIVENUNK [place] Insurance:SELF PAY [facility] [place] [place] [facility] [address]Gub: (330) Number: Effective Repository [phone] () Date:2017-08-14 11/12/2017 CAS[place] PATTERSON532 Primary [place] Insurance:ANTHEMPolic [place]: [id number] Hospital 77[address]Qrs: [id number] Repository [phone] Date:3432-54-40VG [address] () [address] [place] [address]MC: 11/12/2017 Secondary NOT GIVENUNK [place] Insurance:SELF PAY [facility] Number: Effective Repository Date:2017-11-12
== END ==
PROVIDERS: Family Provider Family Medicine; PCP Family Medicine; Visit Provider Family Medicine
DX: Z13.220 Encounter for screening for lipoid disorders (principal); D53.1 Other megaloblastic anemias, not elsewhere classified; R94.6 Abnormal results of thyroid function studies
CPT/HCPCS: 36415; 80048; 80061; 84443

== ENCOUNTER → 2018-11-20 13:53 | Outpatient (CLI) | payer OTHER, SELFPAY ==
--- NOTE | 2018-11-20 13:56 | US_ITS ---
STUDY: ULTRASOUND OF THE FEMALE PELVIS - COMPLETE REASON FOR EXAM: Female, 58 years old. Pelvic pain mostly right-sided. Partial hysterectomy. LMP: TECHNIQUE: Transabdominal and transvaginal. TECHNICAL QUALITY: Adequate. COMPARISON: 07/24/2017. FINDINGS: Postsurgical absence of the uterus. The right ovary is not visualized. The left ovary is not visualized. There is no fluid in the cul-de-sac. The pre void volume of the bladder was 493.87 ml. US/Pelvic (Non ) IMPRESSION: 1. Postsurgical absence of the uterus. 2. Nonvisualization of both ovaries. Electronically Signed: Eligio Garcia MD at 15:35 EDT , Service support ,
--- NOTE | 2018-11-20 13:57 | US_ITS ---
STUDY: ULTRASOUND OF THE FEMALE PELVIS - COMPLETE REASON FOR EXAM: Female, 58 years old. Pelvic pain mostly right-sided. Partial hysterectomy. LMP: TECHNIQUE: Transabdominal and transvaginal. TECHNICAL QUALITY: Adequate. COMPARISON: 07/24/2017. FINDINGS: Postsurgical absence of the uterus. The right ovary is not visualized. The left ovary is not visualized. There is no fluid in the cul-de-sac. The pre void volume of the bladder was 493.87 ml. US/Transvaginal Non- IMPRESSION: 1. Postsurgical absence of the uterus. 2. Nonvisualization of both ovaries. Electronically Signed: Eligio Garcia MD at 15:35 EDT , Service support ,
== END ==
PROVIDERS: Family Provider Family Medicine; PCP Family Medicine; Referring Provider Obstetrics & Gynecology; Visit Provider Obstetrics & Gynecology
DX: R10.2 Pelvic and perineal pain (principal); M54.5 Low back pain
CPT/HCPCS: 76830; 76856

== ENCOUNTER → 2018-11-27 12:36 | Outpatient (CLI) | payer OTHER, SELFPAY ==
[2018-11-27 13:42] LABS: Hemoglobin A1c 5.4 % (4.2-6.3)
[2018-11-27 13:54] LABS: Progesterone Level 0.06 ng/mL (See Comment)
[2018-11-27 13:55] LABS: Estradiol 15.9 pg/mL; T4 Free Direct 0.97 ng/dL (0.76-1.46); Thyroid Stim Hormone (TSH) 0.74 uIU/mL (0.358-3.74)
== END ==
PROVIDERS: Family Provider Family Medicine; PCP Family Medicine; Referring Provider Obstetrics & Gynecology; Visit Provider Obstetrics & Gynecology
DX: R10.9 Unspecified abdominal pain (principal)
CPT/HCPCS: 36415; 82670; 83036; 84144; 84439; 84443; 84481

== ENCOUNTER → 2019-03-09 16:19 | Outpatient (CLI) | payer OTHER, SELFPAY ==
--- NOTE | 2019-03-09 16:24 | RAD_ITS ---
STUDY: X-RAY - LEFT FOOT CLINICAL: Female, 59 years old. Fall, foot pain TECHNIQUE: 3 view(s) of the foot. COMPARISON: None. FINDINGS: Normal talus, calcaneus, and tarsal bones. Normal visualized subtalar, talonavicular, calcaneocuboid, tarsal and tarsometatarsal articulations. Normal metatarsi. Normal metatarsophalangeal joint of the great toe. Normal tibial and fibular sesamoid bones. Normal interphalangeal joint of the great toe. Normal phalanges of the great toe. Normal second through fifth metatarsophalangeal joints. Normal interphalangeal joints and phalanges of the lesser toes. The soft tissue structures are unremarkable. RAD/Foot min 3 Views IMPRESSION: Normal x-ray examination of the foot. Electronically Signed: Orestes Torres MD at 16:37 EDT Tel , Service support ,
== END ==
PROVIDERS: Family Provider Family Medicine; PCP Family Medicine; Referring Provider Family Medicine; Visit Provider Family Medicine
DX: M79.672 Pain in left foot (principal)
CPT/HCPCS: 73630

== ENCOUNTER → 2019-07-21 09:02 | Outpatient (CLI) | payer OTHER, SELFPAY ==
--- NOTE | 2019-07-21 09:06 | RAD_ITS ---
STUDY: X-RAY - LEFT HAND REASON FOR EXAM: Female, 59 years old. Hand pain TECHNIQUE: 3 view(s) of the hand. COMPARISON: None. FINDINGS: Normal radiocarpal articulation. Normal distal radioulnar joint. Normal visualized carpal bones. Normal carpal articulations Mild arthrosis of the carpometacarpal articulation of the thumb. Normal second through fifth carpometacarpal joints. Normal metacarpi. Normal metacarpophalangeal joint of the thumb. Normal interphalangeal joint of the thumb. Normal proximal and distal phalanges of the thumb. Normal metacarpophalangeal joints of the second through fifth fingers. Normal proximal and distal interphalangeal joints of the second through fifth fingers. Normal phalanges of the second through fifth fingers. The soft tissue structures are unremarkable. RAD/Hand Min 3 Views IMPRESSION: Mild degenerative changes of the thumb. . No acute fracture or other significant bony pathology Electronically Signed: Thanh Stephenson MD at 22:57 EST , Service support ,
--- NOTE | 2019-07-21 09:06 | RAD_ITS ---
STUDY: X-RAY - RIGHT HAND REASON FOR EXAM: Female, 59 years old. Pain TECHNIQUE: 3 view(s) of the hand. COMPARISON: None. FINDINGS: Normal radiocarpal articulation. Normal distal radioulnar joint. Normal visualized carpal bones. 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 Normal second through fifth carpometacarpal joints. Normal metacarpi. Normal metacarpophalangeal joint of the thumb. Normal interphalangeal joint of the thumb. Normal proximal and distal phalanges of the thumb. Normal metacarpophalangeal joints of the second through fifth fingers. Normal proximal and distal interphalangeal joints of the second through fifth fingers. Normal phalanges of the second through fifth fingers. The soft tissue structures are unremarkable. RAD/Hand Min 3 Views IMPRESSION: Degenerative changes of the base of the thumb.. No acute fracture or other significant bony pathology Electronically Signed: Thanh Stephenson MD at 21:56 EST , Service support ,
[2019-07-21 12:34] LABS: Amphetamine Urine VISTA NEGATIVE (<1000 ng/mL); Barbiturate Urine VISTA NEGATIVE (< 200 ng/mL); Benzodiazepine Urine VISTA NEGATIVE (< 200 ng/mL); Cocaine Urine VISTA NEGATIVE (< 300 ng/mL); Ecstacy Urine VISTA POSITIVE (< 500 ng/mL); Methadone Urine VISTA NEGATIVE (< 300 ng/mL); PCP Urine VISTA NEGATIVE (< 25 ng/mL); THC Urine VISTA NEGATIVE (< 50 ng/mL); Vista UDS pH Range 7
== END ==
PROVIDERS: Family Provider Family Medicine; PCP Family Medicine; Referring Provider Family Medicine; Visit Provider Family Medicine
DX: M19.041 Primary osteoarthritis, right hand (principal); M19.042 Primary osteoarthritis, left hand
CPT/HCPCS: 73130; 80307

== ENCOUNTER → 2019-08-04 13:25 | Outpatient (CLI) | payer OTHER, SELFPAY ==
[2019-08-04 13:49] LABS: Absolute Lymphocyte Count 8.06 X10^3/uL (0.83-4.51); Absolute Neutrophil Count 3.9 X10^3/uL (2.0-7.7); Basophil# 0.11 X10^3/uL; Basophil% 0.8 % (0-1); Eosinophil# 0.34 X10^3/uL; Eosinophils% 2.6 % (0-5); Hematocrit 45.1 % (37-47); Hemoglobin 15.3 g/dL (12.0-15.0); Lymphocyte # 8.06 X10^3/ul (4.0); Lymphocyte % 60.8 % (19-41); Mean Corp Hgb Conc 33.9 g/dL (32-36); Mean Corpuscular Hgb 32.3 pg (27.0-32.0); Mean Corpuscular Volume 95.1 fL (81-99); Mean Platelet Vol. 10.9 fl (6.2-12.0); Monocyte# 0.81 X10^3/uL; Monocyte% 6.1 % (0-10); NRBC Flagged by Analyzer 0 % (0-5); Neutrophil % 29.5 % (47-70); POSITIVE DIFFERENTIAL YES; Platelet Count 266 K/mm3 (150-450); RBC Distribution Width CV 12.6 % (11.6-14.6); RBC Distribution Width SD 44.3 fl (35.1-43.9); Red Blood Count 4.74 M/mm3 (4.2-5.4); White Blood Count 13.3 K/mm3 (4.4-11.0)
[2019-08-04 13:50] LABS: Differential Indicated SCAN CRITERIA MET
[2019-08-04 14:07] LABS: Reactive Lymphocyte 1+; Smudge Cells 1+
[2019-08-04 14:21] LABS: Anion Gap 4 (5-15); BUN 12 mg/dL (7-18); BUN/Creat Ratio 16.1 RATIO (10-20); Chloride 106 mmol/L (98-107); Creatinine, Serum 0.74 mg/dL (0.55-1.02); EST Glomerular Filtration Rate 84 mL/min (>60); Est Glom Filt Rate - Afr Amer 102 mL/min (>60); Glucose 86 mg/dL (74-106); Potassium 4.4 mmol/L (3.5-5.1); Sodium Level 139 mmol/L (136-145)
--- NOTE | 2019-08-04 14:30 | RAD_ITS ---
STUDY: X-RAY CHEST REASON FOR EXAM: Female, 59 years old. TECHNIQUE: 2 views COMPARISON: October 31, 2015 FINDINGS: The lungs are clear and expanded. There is no demonstrated pleural abnormality. Normal size heart. Normal mediastinum and wilton. Normal visualized pulmonary arteries. Normal visualized aortic arch and descending thoracic aorta. Normal visualized thoracic spine. Normal visualized ribs, clavicles, and shoulders. There is no demonstrated abnormality of the visualized soft tissue structures of the upper abdomen. RAD/Chest PA and Lateral IMPRESSION: Normal x-ray examination of the chest unchanged since October 31, 2015. Electronically Signed: John Velazco, at 15:13 EST Tel , Service support ,
[2019-08-05 14:34] LABS: Pathologist Review Reviewed
== END ==
PROVIDERS: Family Provider Family Medicine; PCP Family Medicine; Referring Provider Otolaryngology Otolaryngology/Facial Plastic Surgery; Visit Provider Otolaryngology Otolaryngology/Facial Plastic Surgery
DX: J40 Bronchitis, not specified as acute or chronic (principal); J32.9 Chronic sinusitis, unspecified
CPT/HCPCS: 36415; 71046; 80048; 85025; 87070; 87077; 87186; 87205

== ENCOUNTER → 2019-09-21 14:27 | Outpatient (CLI) | payer OTHER, SELFPAY ==
[2019-09-21 15:27] LABS: Erythrocyte Sedimentation Rate 8 mm/hr (0-30)
[2019-09-21 16:08] LABS: CRP < 2.90 mg/L (0.0-3.0); Rheumatoid Factor < 10.0 IU/mL (<15); Thyroid Stim Hormone (TSH) 1.01 uIU/mL (0.358-3.74)
[2019-09-23 13:17] LABS: ANTINUCLEAR ANTIBODIES DIRECT Negative (Negative)
== END ==
PROVIDERS: Family Provider Family Medicine; PCP Family Medicine; Referring Provider Family Medicine; Visit Provider Family Medicine
DX: M13.0 Polyarthritis, unspecified (principal); R68.89 Other general symptoms and signs
CPT/HCPCS: 36415; 84443; 85652; 86038; 86140; 86431

== ENCOUNTER → 2019-11-12 13:39 | Outpatient (CLI) | payer OTHER, SELFPAY ==
--- NOTE | 2019-11-12 13:45 | CT_ITS ---
STUDY: CT ABDOMEN AND PELVIS WITHOUT CONTRAST REASON FOR EXAM: Female, 59 years old. BILAT FLANK PAIN RADIATION DOSAGE (If Supplied By Facility): CTDIvol = ( 8.73 ) mGy, DLP = ( 371.46 ) mGycm TECHNIQUE: Transaxial images were obtained from the dome of the diaphragm to the symphysis pubis without oral contrast, and without intravenous contrast. Sagittal and coronal images were reconstructed. Individualized dose optimization techniques were used for this CT. COMPARISON: CT abdomen and pelvis with oral and IV contrast January 25, 2010; pelvic ultrasound November 20, 2018. FINDINGS: The visualized lung bases are unremarkable. The visualized portions of the heart are within normal limits. Normal liver. The portal vein diameter is 10.7 mm. Normal gallbladder and extrahepatic biliary system. Normal spleen. Normal pancreas. Normal bilateral adrenal glands. A pair of nonobstructing stones are seen in the lateral upper midpole calyx of the right kidney. The larger and more medial stone is 6.5 x 5 x 5 mm. There are numerous nonobstructing left renal calyceal stones. One of the largest is at the lower pole, measuring 4 x 4.5 x 2.5 mm. No hydronephrosis. Normal visualized stomach. Normal small intestine. Normal colon. There is non-visualization of the appendix. There is minimal atherosclerotic calcification of the abdominal aorta. No demonstrated aneurysm. Normal inferior vena cava. Normal retroperitoneum. Normal urinary bladder. There is absence of the uterus consistent with a prior hysterectomy. Normal abdominal wall. There is stable degenerative changes of the spine at L5-S1. CT/Abdomen/Pelvis without Cont IMPRESSION: 1. Bilateral nonobstructing nephrolithiasis again noted. No hydronephrosis. 2. The patient has undergone hysterectomy since prior study. 3. Degenerative disc disease and reactive endplate osteophytes at L5-S1. Electronically Signed: Boo Alford MD at 11:00 EST , Service support ,
== END ==
PROVIDERS: PCP Family Medicine; Referring Provider Family Medicine; Visit Provider Family Medicine
DX: N20.0 Calculus of kidney (principal); Z90.710 Acquired absence of both cervix and uterus
CPT/HCPCS: 74176

== ENCOUNTER → 2019-11-17 14:56 | Outpatient (CLI) | payer OTHER, SELFPAY ==
[2019-11-17 17:44] LABS: Absolute Lymphocyte Count 7.53 X10^3/uL (0.83-4.51); Absolute Neutrophil Count 3.1 X10^3/uL (2.0-7.7); Basophil# 0.09 X10^3/uL; Basophil% 0.8 % (0-1); Eosinophil# 0.18 X10^3/uL; Eosinophils% 1.6 % (0-5); Hematocrit 47.1 % (37-47); Hemoglobin 15.4 g/dL (12.0-15.0); Lymphocyte # 7.53 X10^3/ul (4.0); Lymphocyte % 65.3 % (19-41); Mean Corp Hgb Conc 32.7 g/dL (32-36); Mean Corpuscular Hgb 31.5 pg (27.0-32.0); Mean Corpuscular Volume 96.3 fL (81-99); Mean Platelet Vol. 11.5 fl (6.2-12.0); Monocyte# 0.66 X10^3/uL; Monocyte% 5.7 % (0-10); NRBC Flagged by Analyzer 0 % (0-5); Neutrophil # 3.05 X10^3/uL (2.7-7.7); Neutrophil % 26.3 % (47-70); POSITIVE DIFFERENTIAL YES; Platelet Count 267 K/mm3 (150-450); RBC Distribution Width CV 12.5 % (11.6-14.6); RBC Distribution Width SD 44.6 fl (35.1-43.9); Red Blood Count 4.89 M/mm3 (4.2-5.4); White Blood Count 11.5 K/mm3 (4.4-11.0)
[2019-11-17 17:51] LABS: Differential Indicated SCAN CRITERIA MET
[2019-11-17 18:00] LABS: Vitamin D,25 Hydroxy 37.4 ng/mL
[2019-11-17 18:12] LABS: ALB/GLOB Ratio 1.2 RATIO (0.9-2.4); AST(SGOT) 16 U/L (15-37); Alanine Aminotransfer ALT/SGPT 27 U/L (13-56); Albumin, Serum 4.1 g/dL (3.2-5.0); Alkaline Phosphatase 93 U/L (45-117); Anion Gap 5 (5-15); BUN 10 mg/dL (7-18); BUN/Creat Ratio 13.9 RATIO (10-20); Calcium,Total 9.3 mg/dL (8.5-10.1); Chloride 105 mmol/L (98-107); Creatinine, Serum 0.72 mg/dL (0.55-1.02); EST Glomerular Filtration Rate 88 mL/min (>60); Est Glom Filt Rate - Afr Amer 106 mL/min (>60); Ferritin 27 ng/mL (8-252); Globulin 3.3 g/dL (2.2-4.2); Glucose 84 mg/dL (74-106); Iron Binding Capacity,Total 343 ug/dL (250-450); Potassium 3.9 mmol/L (3.5-5.1); Protein, Total 7.4 g/dL (6.4-8.2); Sodium Level 139 mmol/L (136-145); Thyroid Stim Hormone (TSH) 0.93 uIU/mL (0.358-3.74)
[2019-11-17 18:18] LABS: Anisocytosis RARE; Atypical Lymphocyte 2+ %; Macrocytosis RARE; Platelet Estimate ADEQUATE (ADEQ)
[2019-11-17 18:38] LABS: Vitamin B12 > 2000 pg/mL (211-911)
[2019-11-18 12:31] LABS: Pathologist Review Reviewed
== END ==
PROVIDERS: PCP Family Medicine; Referring Provider Family Medicine; Visit Provider Family Medicine
DX: R53.83 Other fatigue (principal); Z86.39 Personal history of other endocrine, nutritional and metabolic disease
CPT/HCPCS: 36415; 80053; 82306; 82607; 82728; 83550; 84443; 85025

== ENCOUNTER → 2020-03-08 16:58 | Outpatient (CLI) | payer OTHER, SELFPAY ==
--- NOTE | 2020-03-08 17:01 | RAD_ITS ---
STUDY: X-RAY - RIGHT FOOT CLINICAL: Female, 60 years old. Dorsal foot pain after wording high heels for a long period of time. TECHNIQUE: 3 view(s) of the foot. COMPARISON: None. FINDINGS: Normal talus, calcaneus, and tarsal bones. Normal visualized subtalar, talonavicular, calcaneocuboid, tarsal and tarsometatarsal articulations. Normal metatarsi. Normal metatarsophalangeal joint of the great toe. Normal tibial and fibular sesamoid bones. Normal interphalangeal joint of the great toe. Normal phalanges of the great toe. Normal second through fifth metatarsophalangeal joints. Normal interphalangeal joints and phalanges of the lesser toes. The soft tissue structures are unremarkable. RAD/Foot min 3 Views IMPRESSION: Normal x-ray examination of the foot. Electronically Signed: Omar Ramirez DO at 19:20 EDT Tel [phone], Service support ,
== END ==
PROVIDERS: PCP Family Medicine; Referring Provider Family Medicine; Visit Provider Family Medicine
DX: M79.671 Pain in right foot (principal)
CPT/HCPCS: 73630

== ENCOUNTER → 2020-09-07 15:21 | Outpatient (CLI) | payer OTHER, SELFPAY | PROVIDERS: PCP Family Medicine; Visit Provider Nurse Practitioner Adult Health | DX: Z20.828 Contact with and (suspected) exposure to other viral communicable diseases (principal) | CPT/HCPCS: 87635; U0003 ==

== ENCOUNTER → 2020-10-04 13:31 | Outpatient (CLI) | payer OTHER, SELFPAY ==
[2020-09-28 13:50] VITALS: BMI 25.4
== END ==
PROVIDERS: PCP Family Medicine; Referring Provider Internal Medicine Cardiovascular Disease; Visit Provider Internal Medicine Cardiovascular Disease
DX: R00.2 Palpitations (principal)
CPT/HCPCS: 93225; 93226

== ENCOUNTER → 2020-10-13 08:55 | Outpatient (CLI) | payer OTHER, SELFPAY ==
[2020-09-28 13:50] VITALS: BMI 25.4
--- NOTE | 2020-10-13 09:00 | BI_ITS ---
MAMMOGRAPHY - BILATERAL DIAGNOSTIC REASON FOR EXAM: Female, 60 years old. Left lateral breast pain. PERTINENT HISTORY: Grandmother with breast cancer. TECHNIQUE: Digital bilateral breast angy (3D mammographic acquisition) in the CC and MLO projections. 2-D mediolateral oblique (MLO) and craniocaudad (CC) views of both breasts were obtained. CAD: Full Field Digital Mammography with Computer Added Detection was performed. COMPARISON: Comparison is made with prior examination dated 08/05/2018 and 09/17/2017. FINDINGS: Breast Composition: The breasts are heterogeneously dense, which may obscure small masses. There are no dominant masses or suspicious calcifications. Benign-appearing bilateral axillary lymph nodes. No other significant abnormalities are identified. There has been no significant change since the prior study. BI/DIAG MAMM W/CAD, BILAT IMPRESSION: Stable bilateral diagnostic mammogram. One year follow-up recommended. (A) ASSESSMENT CATEGORY: BIRADS Category 2: Benign. A letter regarding these results will be sent to the patient by the facility within 30 days. Approximately 10% of breast cancers are not detected by mammography. A normal mammogram should not delay biopsy of a clinically suspicious abnormality. Electronically Signed: Torsten Lamas MD at 10:12 EST , Service support ,
--- NOTE | 2020-10-13 09:01 | US_ITS ---
STUDY: ULTRASOUND BREAST - LEFT REASON FOR EXAM: Female, 60 years old. Pain in the left breast. TECHNIQUE: Axial and longitudinal images of the LEFT breast were performed with a high resolution ultrasound transducer. # OF IMAGES: 60 COMPARISON: Comparison is made with prior mammogram done earlier in the day. FINDINGS: LEFT Breast: The lateral aspect of the left breast was examined. No sonographic abnormality is seen. US/Breast Limited Unilateral IMPRESSION: No sonographic abnormality is seen. ASSESSMENT CATEGORY: BIRADS Category 1: Negative. A letter regarding these results will be sent to the patient by the facility within 30 days. Electronically Signed: Torsten Lamas MD at 12:59 EST , Service support ,
== END ==
PROVIDERS: PCP Family Medicine; Referring Provider Nurse Practitioner Family; Visit Provider Nurse Practitioner Family
DX: N64.4 Mastodynia (principal)
CPT/HCPCS: 76642; 77062; 77066; G0279

== ENCOUNTER → 2020-10-14 11:10 | Outpatient (CLI) | payer OTHER, SELFPAY ==
[2020-09-28 13:50] VITALS: BMI 25.4
[2020-10-14 18:00] LABS: Anion Gap 5 (5-15); BUN 10 mg/dL (7-18); BUN/Creat Ratio 14.1 RATIO (10-20); Calcium,Total 9.1 mg/dL (8.5-10.1); Chloride 108 mmol/L (98-107); Cholesterol 162 mg/dL (200); Creatinine, Serum 0.71 mg/dL (0.55-1.02); EST Glomerular Filtration Rate 88 mL/min (>60); Est Glom Filt Rate - Afr Amer 107 mL/min (>60); Glucose 89 mg/dL (74-106); High Density Lipoprotein 92 mg/dL; Potassium 4.1 mmol/L (3.5-5.1); Sodium Level 140 mmol/L (136-145); Triglycerides 40 mg/dL; Very Low Density Lipoprotein 8 mg/dL (5-40)
== END ==
PROVIDERS: PCP Family Medicine; Referring Provider Family Medicine; Visit Provider Family Medicine
DX: Z13.1 Encounter for screening for diabetes mellitus (principal); Z13.220 Encounter for screening for lipoid disorders
CPT/HCPCS: 36415; 80048; 80061

== ENCOUNTER → 2020-10-17 14:20 | Outpatient (CLI) | payer OTHER, SELFPAY ==
[2020-09-28 13:50] VITALS: BMI 25.4
--- NOTE | 2020-10-17 14:25 | RAD_ITS ---
STUDY: X-RAY - UNILATERAL RIBS ( RIGHT ) WITH CHEST REASON FOR EXAM: Female, 60 years old. RIGHT AXILLARY/ ANTERIOR RIB PAIN S/P FALL TECHNIQUE - RIBS: 3 view(s) of the ribs. TECHNIQUE - CHEST: 08/04/2019 COMPARISON: None. FINDINGS - RIBS: Normal visualized ribs without a demonstrated fracture. FINDINGS - CHEST: The lungs are clear and expanded. There is no demonstrated pleural abnormality. Normal size heart. Normal mediastinum and wilton. Normal visualized pulmonary arteries. Normal visualized aortic arch and descending thoracic aorta. Normal visualized thoracic spine. Normal visualized ribs, clavicles, and shoulders. There is no demonstrated abnormality of the visualized soft tissue structures of the upper abdomen. RAD/Ribs Uni Min 3V w/PA Chest IMPRESSION: RIBS: Normal x-ray examination of the ribs. CHEST: Normal x-ray examination of the chest. Electronically Signed: Orestes Torres MD at 15:33 EST Tel , Service support ,
== END ==
PROVIDERS: PCP Family Medicine; Referring Provider Nurse Practitioner Adult Health; Visit Provider Nurse Practitioner Adult Health
DX: S23.41XA Sprain of ribs, initial encounter (principal); W19.XXXA Unspecified fall, initial encounter
CPT/HCPCS: 71101

== ENCOUNTER → 2020-10-21 10:01 | Outpatient (CLI) | payer OTHER, SELFPAY ==
[2020-09-28 13:50] VITALS: BMI 25.4
[2020-10-21 12:13] LABS: Absolute Lymphocyte Count 6.91 X10^3/uL (0.83-4.51); Absolute Neutrophil Count 2.6 X10^3/uL (2.0-7.7); Basophil# 0.06 X10^3/uL; Basophil% 0.6 % (0-1); Eosinophil# 0.37 X10^3/uL; Eosinophils% 3.5 % (0-5); Hematocrit 43.1 % (37-47); Hemoglobin 14.6 g/dL (12.0-15.0); Lymphocyte # 6.91 X10^3/ul (4.0); Lymphocyte % 64.5 % (19-41); Mean Corp Hgb Conc 33.9 g/dL (32-36); Mean Corpuscular Volume 94.5 fL (81-99); Mean Platelet Vol. 11.8 fl (6.2-12.0); Monocyte# 0.72 X10^3/uL; Monocyte% 6.7 % (0-10); NRBC Flagged by Analyzer 0 % (0-5); Neutrophil # 2.64 X10^3/uL (2.7-7.7); Neutrophil % 24.5 % (47-70); POSITIVE DIFFERENTIAL YES; Platelet Count 267 K/mm3 (150-450); RBC Distribution Width CV 12.5 % (11.6-14.6); RBC Distribution Width SD 43.7 fl (35.1-43.9); Red Blood Count 4.56 M/mm3 (4.2-5.4); White Blood Count 10.7 K/mm3 (4.4-11.0)
[2020-10-21 12:18] LABS: Differential Indicated SCAN CRITERIA MET
[2020-10-21 12:33] LABS: Vitamin B12 1517 pg/mL (211-911); Vitamin D,25 Hydroxy 54.6 ng/mL
[2020-10-21 13:07] LABS: Ferritin 50 ng/mL (8-252)
== END ==
PROVIDERS: PCP Family Medicine; Referring Provider Family Medicine; Visit Provider Family Medicine
DX: E55.9 Vitamin D deficiency, unspecified (principal); D53.1 Other megaloblastic anemias, not elsewhere classified
CPT/HCPCS: 36415; 82306; 82607; 82728; 85025

== ENCOUNTER → 2020-11-14 | Outpatient (CLI) | payer OTHER, SELFPAY ==
[2020-09-28 13:50] VITALS: BMI 25.4
== END | disposition home or self-care (01) ==
LOC: LABSPEC 14:35
PROVIDERS: PCP Family Medicine; Referring Provider Family Medicine; Visit Provider Family Medicine
DX: Z20.822 Contact with and (suspected) exposure to COVID-19 (principal)
CPT/HCPCS: 87635; U0005; U0003

== ENCOUNTER → 2020-11-21 08:11 | Outpatient (CLI) | payer OTHER, SELFPAY ==
[2020-11-16 14:19] VITALS: BMI 25.4
--- NOTE | 2020-11-21 08:12 | US_ITS ---
EXAM: US SOFT TISSUES OF THE NECK CLINICAL INDICATION: Right posterior lymphadenopathy 2 enlarged nodes TECHNIQUE: Real-time ultrasound scan of the soft tissues of the neck with image documentation. This report was created using [employer] report generation technology. COMPARISON: None. FINDINGS: SOFT TISSUES: Unremarkable. No abscess. No foreign body. LYMPH NODES: Small reactive appearing lymph nodes are identified with preserved reniform shape most of which demonstrate central echogenic wilton. The lymph nodes measure less than 5 mm in short axis. US/Head/Neck Soft Tissue IMPRESSION: Reactive appearing lymph nodes without dominant jenelle mass. Electronically Signed: Rober Mcnulty MD ([place]) at 15:18 EDT , Service support ,
== END ==
PROVIDERS: PCP Family Medicine; Referring Provider Family Medicine; Visit Provider Family Medicine
DX: R59.1 Generalized enlarged lymph nodes (principal)
CPT/HCPCS: 76536

== ENCOUNTER → 2020-12-01 13:26 | Outpatient (CLI) | payer OTHER, SELFPAY ==
[2020-09-28 13:50] VITALS: BMI 25.4
[2020-11-16 14:19] VITALS: BMI 25.4
--- NOTE | 2020-12-01 13:29 | BD_ITS ---
STUDY: DUAL ENERGY X-RAY ABSORPTIOMETRY / DXA REASON FOR EXAM: Female, 60 years old. 627.8Menopausal post menopausal BONE DENSITY REASON FOR EXAM TECHNIQUE: Bone Mineral Density (BMD) measurements of lumbar spine and bilateral hips were obtained. COMPARISON: Comparison is made with prior study dated 08/07/2018. FINDINGS: Lumbar Spine (L1-L4): g/cm2 (0.915) / T-score (-2.1) / Z-score (-0.7) Findings are suggestive of osteopenia with a high fracture risk. Left Femur Total: g/cm2 (0.662) / T-score (-2.7) / Z-score (-1.7) Left Femoral Neck: g/cm2 (0.655) / T-score (-2.8) / Z-score (-1.4) Right Femur Total: g/cm2 (0.692) / T-score (-2.5) / Z-score (-1.4) Right Femoral Neck: g/cm2 (0.648) / T-score (-2.8) / Z-score (-1.4) The T-Scores on the most recent prior examination were: Lumbar Spine (L1-L4): There has been worsening of bone density since the previous examination. Left Femur Total: which represents a worsening of 8.4%. Right Femur Total: which represents a worsening of 11.7%. BD/Dexa Bone Density Study IMPRESSION: The patient is considered osteoporotic as outlined below according to World [employer] Organization (WHO) criteria with a high fracture risk. There has been worsening of bone density since the previous examination. Reference Information: The T-score is the number of standard deviations above or below the standard which is normal for young adults at their peak bone mineral density. The World Health Organization (WHO) interprets the T-scores as follows: Above -1 Normal bone density Between -1 and -2.5 Osteopenia Equal to / or below -2.5 Osteoporosis As a practical clinical guideline, osteopenia may be graded as follows: Mild -1 through -1.5 Moderate -1.6 through -2.0 Severe -2.1 through -2.4 The Z-score is the number of standard deviations above or below age-matched controls. A Z-score of less than -1.5 would be considered abnormal. References: 1. NIH Osteoporosis and Related Bone Diseases www osteo.org 2. International Society for Clinical Densitometry www iscd.org 3. National Osteoporosis Foundation www nof.org Electronically Signed: Torsten Lamas MD at 13:08 EDT , Service support ,
== END ==
PROVIDERS: PCP Family Medicine; Referring Provider Family Medicine; Visit Provider Family Medicine
DX: M81.0 Age-related osteoporosis without current pathological fracture (principal)
CPT/HCPCS: 77080

== ENCOUNTER 2020-12-22 09:30 | Outpatient (RCR) | payer OTHER, SELFPAY ==
[2020-11-16 14:19] VITALS: BMI 25.4
--- NOTE | 2020-11-24 12:49 | HP.PTEVAL_ITS ---
Patient's Visit Information MALGORZATA PATTERSON is a 60 year old F referred to Physical Therapy by Dr. Satya Nixon MD with a diagnosis of L knee pain. Date of Evaluation: 11/24/20 Physical Therapist: Timothy Cole DPT - Visit Plan Frequency: 2x /Week Duration: 4 Weeks Plan: to increase LE strength to support patellar stability, increase flexbility, increase balance and stair negotiation. manual knee extension mobs, quad, HS strengthening. IE HEP: hip add with ball ,hip abd with YTB, hamstring stretch, gastroc stretch - Subjective Pt was skiing in [facility] and ski got caught with R LE ER and didnt feel great pain just thought it was muscle pain. Imaging- none. Pt has been wearing knee brace for 3 weeks and that provided some support. Pt reports yesterday was the best day. Pain: 3/10. medial aspect of knee sharp pain, achey, very tender to touch. worse: 5/10 descending steps sitting too long, side sitting better: 3/10 straight leg. home setup: bedroom is upstairs. having trouble picking uo laundry. sleep: pain wakes up at night but is able to go back to sleep if in wrong position. occupation: not working currently. Meds: tried antiinflammatory and that seemed to help but does not take oftne. BP meds for migraines. PMHx: unremarkable, - Objective Posture: FH,RS. Gait: decreased stand time on L leg, antaglic. Stairs: ascend with single HR step to with two steps recip, descend with step to pattern and bilateral HR. palpation: tender along medial aspect of knee, patellar mobility poor mobility medial/lateral, increase pain with inferior. HR/TR: able with no increase in pain. SLS:10 seconds on R with single UE support 8 seconds on L with UE support. ROM: hip: flex: WFL ext L: 5, all other planes WFL knee: L 130-40deg. R WFL, ankle: WFL. Strength: hip: flex 4-/5 ext: 3+/5, abd/add: 4- /5, IR/ER: 4-/5. knee: flex/ext: 4/5 ankle: DF/PF: 4/5. Special Test: varus/valgus test -, mcmurrary test + - Goals Goal 1:: Pt will be I with HEP and progression Goal Time Frame: 4-6 Weeks Goal 2:: Pt will ambulate >300ft with proper gait mechanics in order to promote I fucntional mobility Goal Time Frame: 4-6 Weeks Goal 3:: Pt will be able to perform stair negotiation reciporcally with single HR in order to demonstrate improved LE strength. Goal Time Frame: 4-6 Weeks Goal 4:: LTG: pt. to have increased ROM of L knee to full without increase in symptoms. Goal Time Frame: 2-4 Weeks Goal 5:: LTG: Pt. to have increased LLE strength increased by 1/2 grade of all effected musculature. Goal Time Frame: 4-6 Weeks - Rehabilitation Potential Physical Therapy Diagnosis: Pt presents with decreasd ROM, decreased strength, and poor stability impacting ability to perform I functional mobility. Her symptoms do appear to be most likely coming from a medial meniscal injury. I would like to work on getting her knee straight both with stretching and joint mobs and progress to strengthening. If not improving alternate course of action may be required. Rehabilitation Potential: Good - Anticipated Interventions Patient/Client Instruction: Educate patient on: Plan of Care For the Purpose of:: To improve muscle performance and motor function Therapeutic Exercise to Include: Strength training, Power training, Endurance training, Balance training, Coordination, Agility training, Body mechanics, Postural training, Flexibilty training, Gait and locomotor training For the Purpose of:: To improve muscle performance and motor function, To improve performance and independence with ADL's Cryotherapy (ice pack, ice massage): Yes Thermo therapy (hot pack): Yes Thank you for the opportunity to evaluate your patient. For Medicare and Medicare HMO plans, please review the plan of care and approve it. It will need to be FAXED BACK to us at [phone] for Medicare purposes. For Medicare only, by signing this I certify the plan of care. Please let me know if there are questions or concerns regarding this plan of care. Physician Signature: Date:
--- NOTE | 2020-12-22 14:10 | HP.PTDCSUM ---
It has been my pleasure to treat MALGORZATA PATTERSON referred by Dr. Satya Nixon MD, with the diagnosis of L knee pain for a total of 5 visit(s). Discharge Date: 12/22/20 Please see the following information for a summary of their discharge status. Subjective: Pt. arrived today with reports that she is nolonger having much L knee pain. She reports occassional soreness, but overall is doing very well. Pt. is back to most activities without limitations. She is having some low back pain that is bothering her near L4/S1 range that radiates into B hips, and did have some groin pain B the other day. She has been using ice and heat with some mild success. She is following up with physician about her back next week. L knee Pain Intensity (Out of 10): 0 Lumbar spine Pain Intensity (Out of 10): 4 % Improvement: 90 Objective/Function: Pt's knee is overall doing very well. She has full ROM without increase in symptoms with self over pressue. Pt. has good HS length and good quad length. MMT: 5/5 throughout without increase in symptoms. GAIT: Pt. has normal gait pattern without increase in symptoms. Pt. reports no pain with walking today. STAIRS: pt. was able to negotiate a full flight of stairs without use of HRs with reciprocal pattern and no pain. I did assess her back which she had difficulty with flexing, but extension progressions did very well and reduced her along with allowing her to flex better post. Pt. left with less LBP. Pt. is to trial these exercises prior to following up with physician. Pt. consents. I will DC her this date for her L knee. Goal 1:: Pt will be I with HEP and progression Goal Progress: Goal Met Goal 2:: Pt will ambulate >300ft with proper gait mechanics in order to promote I fucntional mobility Goal Progress: Goal Met Goal 3:: Pt will be able to perform stair negotiation reciporcally with single HR in order to demonstrate improved LE strength. Goal Progress: Goal Met Goal 4:: LTG: pt. to have increased ROM of L knee to full without increase in symptoms. Goal Progress: Goal Met Goal 5:: LTG: Pt. to have increased LLE strength increased by 1/2 grade of all effected musculature. Goal Progress: Goal Met Plan: Pt. to be DC to HEP for L knee at this point in time. Discharge Comments: Pt. did well with her progression with stability of her L knee. Pt. is having occassional soreness, but not much. She reports overall being 75% better. Pt. is hasving some low back pain presents, which I gave her some extension progression for HEP. Pt. will be DC back to physician at this point in time. If there are questions or concerns regarding this patient's physical therapy, please feel free to call me at [phone]. Thank you for the referral of this patient. Sincerely, Timothy Cole DPT
== END 2020-12-22 15:07 | disposition home or self-care (01) ==
LOC: PT 09:30
PROVIDERS: PCP Family Medicine; Referring Provider Family Medicine; Visit Provider Family Medicine
DX: M81.0 Age-related osteoporosis without current pathological fracture (principal); M25.562 Pain in left knee
CPT/HCPCS: 97110; 97162; 97164

== ENCOUNTER → 2020-12-30 15:24 | Outpatient (CLI) | payer OTHER, SELFPAY | PROVIDERS: PCP Family Medicine; Visit Provider Family Medicine | DX: Z20.822 Contact with and (suspected) exposure to COVID-19 (principal) | CPT/HCPCS: 87635; U0002 ==

== ENCOUNTER → 2021-01-05 14:04 | Outpatient (CLI) | payer OTHER, SELFPAY ==
[2020-11-16 14:19] VITALS: BMI 25.4
[2021-01-05 14:11] VITALS: BP 119/49; PULSE 72; RESP 16; TEMP 36.6; O2SAT 72; BMI 23.8
[2021-01-05] MEDS: Zoledronic Acid 5 MG 100 ML 300 MG IV (14:21)
[2021-01-05] MEDS: 0.9% NaCl Peripheral Flush Adult/Peds IV (14:24)
[2021-01-05 14:47] VITALS: BP 103/44; PULSE 76; RESP 16; O2SAT 97
== END ==
PROVIDERS: PCP Family Medicine; Referring Provider Family Medicine; Visit Provider Family Medicine
DX: M81.0 Age-related osteoporosis without current pathological fracture (principal)
CPT/HCPCS: 96365; A4216; J3489

== ENCOUNTER 2021-01-23 14:30 | Outpatient (RCR) | payer OTHER, SELFPAY ==
[2020-11-16 14:19] VITALS: BMI 25.4
--- NOTE | 2021-01-05 14:35 | HP.PTEVAL ---
Patient's Visit Information MALGORZATA PATTERSON is a 60 year old F referred to Physical Therapy by Dr. Jesus Lopez DO with a diagnosis of Lumbar Pain. Date of Evaluation: 01/05/21 Physical Therapist: Jerica Manuel DPT - Visit Plan Frequency: 2x /Week Duration: 4 Weeks Plan: Aquatic Therapy- focus on LE and core strength/stabilization - Subjective Patient reports that she has always had a low disk issues. She was carrying something around Easter and she was in so much pain and did home stuff like Advil. Went and saw Dr. Lopez who did an x-ray and she showed arthritis and ordered an MRI. Wants her to do water therapy. Its gotten a lot better but its not there. The pain is in the low back and she is more aware of it. Worst: 310 Agg: lifting heavy things, over did in the pool. Best: being in the pool, heat, Advil. No radiating pain. Describes the pain as dull and achy. No N/T in the foot. Feels that she is 85% back to normal. She has not had any injections. But does have an injection for osteoporosis today. MRI scheduled next week- follow up with Dr. Lopez after. No change in bowel or bladder. Busy person but does not work. - Objective Posture: FH, RS- can correct with tactile and verbal cues- can correct but is unable to maintain. Gait: no deviation noted HR/TR: able with UE A. SLS: 15 sec without LOB but did have increased sway Sensation: WFL to gross touch in LE. Reflex: Patellar bilateral WFL. ROM: Lumbar: Flexion: hands to ankles, Extn: WFL, SB: WFL, Rotation: WFL. Hip/Knee/Ankle: WFL. Strength: Core: fair minus, Hip: Left 4-/5 throughout Right: 4/5 throughout Knee: 5/5, Ankle: 5/5. Flex: HS: mod, Gastroc: severe. Special Test: Slump: positive, SLR: positive, Dural Signs: positive. Palpation: tender along belt line and into the gluts bilaterally - Goals Goal 1:: Patient will be I with HEP and progression Goal Time Frame: 4-6 Weeks Goal 2:: Patient will maintain proper posture t/o tx session to demo increased core s/s. Goal Time Frame: 4-6 Weeks Goal 3:: Patient will report no back pain for 1 week Goal Time Frame: 4-6 Weeks - Rehabilitation Potential Physical Therapy Diagnosis: Patient presents with hypomobility- she has decrease LE strength, core s/s, flexibility and muscular endurance leading to poor posture and increased pain with ADL's. - Anticipated Interventions Patient/Client Instruction: Educate patient on: Benefits of Fitness Program For the Purpose of:: To decrease pain Therapeutic Exercise to Include: Strength training, Endurance training, Balance training, Agility training, Body mechanics, Postural training, Flexibilty training, Gait and locomotor training, Neuromotor development, In an aquatic setting, Dynamic Lumbar Stabilization, Scapular Strength/Stabilization For the Purpose of:: To improve muscle performance and motor function Thank you for the opportunity to evaluate your patient. For Medicare and Medicare HMO plans, please review the plan of care and approve it. It will need to be FAXED BACK to us at [phone] for Medicare purposes. For Medicare only, by signing this I certify the plan of care. Please let me know if there are questions or concerns regarding this plan of care. Physician Signature: Date:
--- NOTE | 2021-01-23 14:54 | HP.PTREVAL ---
Dr. Jesus Lopez, DO, It has been my pleasure to treat MALGORZATA PATTERSON over the last 5 visits for Lumbar Pain. Please see the progress note below for an update on the physical therapy plan of care! Subjective: Patient reports that she is better- she still has a little bit of pain- the pain comes and goes. Lifting heavier objects is pretty sore. Objective/Function: Posture: FH, RS- can correct with tactile and verbal cues- can correct but is unable to maintain. Gait: no deviation noted HR/TR: able with UE A. Sensation: WFL to gross touch in LE. Reflex: Patellar bilateral WFL. ROM: Lumbar: Flexion: hands to ankles, Extn: WFL, SB: WFL, Rotation: WFL. Hip/Knee/Ankle: WFL. Strength: Core: fair, Hip: Left 4/5 throughout Right: 4/5 throughout Knee: 5/5, Ankle: 5/5. Flex: HS: mod, Gastroc: severe. Special Test: Slump: positive, SLR: positive, Dural Signs: positive. Palpation: tender along belt line and into the gluts bilaterally Plan Plan: 01/23/2021: Continue with [facility] in [place] for instruction of core and mechanics (making up missed apts due to illness). *Discuss rescheduling missed appts. *f/u with postural corrections and good gait mechanics. *Add hip flexor/quad and piriformis stretches next. Aquatic Therapy- focus on LE and core strength/stabilization Goals Goal 1:: Patient will be I with HEP and progression Goal Time Frame: 4-6 Weeks Goal Progress: Progressing Goal 2:: Patient will maintain proper posture t/o tx session to demo increased core s/s. Goal Time Frame: 4-6 Weeks Goal Progress: Progressing Goal 3:: Patient will report no back pain for 1 week Goal Time Frame: 4-6 Weeks Goal Progress: Progressing Anticipated Interventions Patient/Client Instruction: Educate patient on: Benefits of Fitness Program For the Purpose of:: To decrease pain Therapeutic Exercise to Include: Strength training, Endurance training, Balance training, Agility training, Body mechanics, Postural training, Flexibilty training, Gait and locomotor training, Neuromotor development, In an aquatic setting, Dynamic Lumbar Stabilization, Scapular Strength/Stabilization For the Purpose of:: To improve muscle performance and motor function Please do not hesitate to contact me at [phone] by phone or if you have questions or concerns regarding this new plan of care! Sincerely, TAHIR SilverioT
== END 2021-01-23 19:00 | disposition home or self-care (01) ==
LOC: PT 14:30
PROVIDERS: PCP Family Medicine; Visit Provider Orthopaedic Surgery
DX: M54.5 Low back pain (principal)
CPT/HCPCS: 97113; 97162; 97164

== ENCOUNTER → 2021-03-31 10:09 | Outpatient (CLI) | payer OTHER, SELFPAY ==
[2021-02-15 13:40] VITALS: BMI 23.8
[2021-03-31 12:38] LABS: Free T3 2.8 pg/mL (2.18-3.98); T4 Total, Thyroxin 7.9 ug/dL (4.8-13.9)
== END ==
PROVIDERS: PCP Family Medicine; Referring Provider Family Medicine; Visit Provider Family Medicine
DX: E04.1 Nontoxic single thyroid nodule (principal)
CPT/HCPCS: 36415; 84436; 84443; 84481

== ENCOUNTER → 2021-04-18 08:59 | Outpatient (CLI) | payer OTHER, SELFPAY ==
[2021-02-15 13:40] VITALS: BMI 23.8
--- NOTE | 2021-04-18 09:03 | US_ITS ---
STUDY: THYROID ULTRASOUND REASON FOR EXAM: Female, 61 years old. Thyroid nodule. TECHNIQUE: Ultrasound evaluation of the thyroid was performed with real-time and static chang-scale imaging. COMPARISON: None. FINDINGS: RIGHT LOBE: The right lobe of the thyroid gland measures 1.5 x 1.8 x 1.8 cm. There is a homogeneous echotexture. There is a 0.3 cm cystic nodule in the mid thyroid. No abnormal vascularity on DOPPLER imaging. LEFT LOBE: The left lobe of the thyroid gland measures 4.7 x 1.6 x 1.6 cm. There is a homogeneous echotexture. In the upper pole is 0.6 x 0.3 x 0.4 cm cyst with internal soft tissue nodule. Also in the posterior upper pole there is a 0.5 cm isoechoic mass. ISTHMUS: The isthmus measures 0.5 cm. The regional lymph nodes are normal. US/Thyroid IMPRESSION: 1. Bilateral thyroid cysts. These require no follow-up. 2. Mixed solid and cystic nodule in the right thyroid. This could consider is a TIRADS category TR 2 this nodule is considered benign and no follow-up is necessary. Electronically Signed: Omar Ramirez DO at 17:32 EDT Tel [phone], Service support ,
== END ==
PROVIDERS: PCP Family Medicine; Referring Provider Family Medicine; Visit Provider Family Medicine
DX: E04.1 Nontoxic single thyroid nodule (principal)
CPT/HCPCS: 76536

== ENCOUNTER 2021-07-14 11:00 | Outpatient (RCR) | payer OTHER, SELFPAY ==
[2021-02-15 13:40] VITALS: BMI 23.8
--- NOTE | 2021-05-09 12:34 | HP.OTEVAL_ITS ---
Patient's Visit Information MALGORZATA PATTERSON is a 61 year old F, referred to Occupational Therapy by Dr. Satya Nixon MD, with a diagnosis of bilateral cmc OA. Date of Evaluation: 05/08/21 Occupational Therapist: Shanika Carbajal, REGLA/Cornelia, CHT - Subjective This 61 year old female was seen for OT eval with dx of bilateral thumb OA, CMC bilaterally. 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 pt states she did get a thumb brace on line and they do help some- pt would like to know what she can do to decrease her pain and gain more ind. with ADLs and IADL s - ADLs Dressing: Pants, Socks, Shoes Kitchen: Chop with knife, Peel fruits & vegetables, Ziplock bags, Take dish out of oven Household: Vacuum, Sweep/mop Miscellaneous: Operate spray bottle, Operate aerosol cans - Pain right thumb 2 Pain Intensity Range: 9 left thumb 2 Pain Intensity Range: 9 - ROM Wrist: right 60/55 left 65/45 CMC: right 30 left 20 MP: right 45* left 35* IP: right 30 left 45 Radial Abduction: right 30 left 45 Opposition: right 10 left 10 - Strength Water Resources Technical Officer: right 30# left 25# Lateral Pinch: right 4# left 2# Tripod Pinch: right unable left unable - Sensation Sensation Comments: denies - Quick DASH-Disab of Arm,Shoulder& Hand Quick DASH Score: 22.7250 - Goals Goal:: pt will demo a increase in bilateral presales senior specialist strength by 10# or greater to increase pts ind, with ALDs by d/c. pt will demo increase in pinch strength by 3# with no pain greater than 1/10 and use of supportive thumb braces by d/c Goal:: pt will report pain no greater than 2/10 with use of bilateral hands with ADLs by following joint protection wilda. by d/c Goal:: Pt will demo understanding of joint protection and ergonomics when performing BADLs and IADLs by d/c. Pt will demo understanding of adaptive Equipment use to decrease stress on joints to allow pt to perform BADSL and IADLS at ASHLEY level. - Rehabilitation General Assessment: pt demo with thumb instability due to OA of cmc- this is increasing pain with presales senior specialist and pinch and limiting her ind. with ADLs and IADLs- pt would benefit from skilled OT services 2x week for 4 weeks to ensure understanding of joint protection wilda. thumb stabilization ex. ed. on ad. eq. to limit stress on joints and home modification. Pt agree to POC. Rehabilitation Potential: Good - Anticipated Interventions A/AAROM/PROM, Strengthening, Modalities, Orthoses, Joint Protection/Energy Conservation, Ergonomic Education, Education re assistive Equipment, Education re Diagnosis - Visit Plan Frequency: 1-2x /Week Duration: 4 Weeks TEXT: Thank you for the opportunity to evaluate your patient. For Medicare and Medicare HMO plans, please review the plan of care and approve it. It will need to be FAXED BACK to us at [phone] for Medicare purposes. Please let me know if there are questions or concerns regarding this plan of care. Physician Signature: Date:
--- NOTE | 2021-05-31 17:59 | HP.PTEVAL_ITS ---
Patient's Visit Information MALGORZATA PATTERSON is a 61 year old F referred to Physical Therapy by Dr. Satya Nixon MD with a diagnosis of Cervicalgia. Date of Evaluation: 05/31/21 Physical Therapist: ANKUR Murphy - Visit Plan Frequency: 1-2x /Week Duration: 6 Weeks Plan: 2X/ week for 4 weeks for centralization of symptoms using extension principle, c-spine ROM, pec stretches, MT if needed for tight musculature and pain relief with HEP. HEP: supine chin tucks and corner pec stretch - Subjective Pt got out of bed last Saturday and she turned her neck quick and had some spasms down the L side of her neck and she can not lay down at night. It is all on the L side. It has not gotten any better. Worst part is waking up in the middle of the night with spasms. She went for an hour massage 2 days ago and a chiropractor appt yesterday. She takes Advil and ices it. If she turns slightly to the L it will spasm and she can not raise her L arm up over her head she gets a shooting pain down her L arm and into her neck. She is R handed. She normally sleeps on her L side. She has some tingling in her L hand and that has been going on for awhile. She reports no arm weakness. He did not do an x- ray of the neck. The chiropractor feels it could be OA. PCP is on muscle relaxors (way too strong at bed time and do not help) and he just called in prednizone 40 mg X 5 days. She reports that the spasms are like a edson Horse when she is sleeping. This has not happened before. History of L sided migraines. - Pain neck pain Pain Intensity (Out of 10): 2 Pain Intensity Range: 9 Comment: with ADvil - Objective R hand dominant: R 55# and L 52#. C-spine AROM: flexion 75%, extension 50%, S B L 0(increase pain), SB R 75%, Rot R75%, Rot L 25% (increase pain). L arm to approx 120 degrees elevation due to pain. Tightness in L pec muscle. Chin tuck in sitting X 10... increase neck rotation to the L and less pain... repeated with 2 X 10 and same result. Pt had tenderness at approx C5 on the L side and at mid trap junction on the L. PROM I was not able to rotate her neck to the L more than active due to increase in pain. Chin tucks in supine 3 X 10... pt sat up and felt even more ROM than in sitting - Balance/Special Test Scores Oswestry Neck Score: 13 - Goals Goal 1:: I HEP Goal Time Frame: 4-6 Weeks Goal 2:: Sit with upright posture during treatment sessions Goal Time Frame: 4-6 Weeks Goal 3:: Decrease neck pain and be able to sleep lying down again Goal Time Frame: 4-6 Weeks Goal 4:: Increase L c-spine roatation to 50% normal ROM and SB L to 25% NORMAL ROM Goal Time Frame: 4-6 Weeks - Rehabilitation Potential Rehabilitation Potential: Good - Anticipated Interventions Patient/Client Instruction: Educate patient on: Condition, Plan of Care For the Purpose of:: To decrease pain, To decrease swelling/inflammation, To increase ROM, To improve nutrient delivery to tissue, To improve muscle performance and motor function, To improve ability to perform ADL's, To increase tolerance to activity/condition/position, To improve performance and independence with ADL's, To improve health of tissue, To decrease soft tissue restriction, To increase flexibility/ROM Therapeutic Exercise to Include: Strength training, Postural training, Flexibilty training, Passive ROM, Active ROM, Scapular Strength/Stabilization For the Purpose of:: To decrease pain, To decrease swelling/inflammation, To increase ROM, To improve nutrient delivery to tissue, To improve muscle perfor chato and motor function, To increase tolerance to activity/condition/position, To improve health of tissue, To decrease soft tissue restriction, To increase flexibility/ROM Manual Therapy Techniques to Include: Mobilization, Passive ROM, Soft tissue mobilization For the Purpose of:: To decrease pain, To decrease swelling/inflammation, To increase ROM, To improve nutrient delivery to tissue, To improve muscle performance and motor function, To decrease soft tissue restriction, To increase flexibility/ROM IF ES: Yes Cryotherapy (ice pack, ice massage): Yes Ultrasound (thermal/non thermal): Yes For the Purpose of:: To decrease pain, To decrease swelling/inflammation, To increase ROM, To improve nutrient delivery to tissue Thank you for the opportunity to evaluate your patient. For Medicare and Medicare HMO plans, please review the plan of care and approve it. It will need to be FAXED BACK to us at [phone] for Medicare purposes. For Medicare only, by signing this I certify the plan of care. Please let me know if there are questions or concerns regarding this plan of care. Physician Signature: Date:
--- NOTE | 2021-10-18 13:47 | HP.PT.NRP ---
MALGORZATA PATTERSON was seen in my office for initial evaluation on 05/31/21. The following Plan of Care was established for this patient: Initial Frequency: 1-2x /Week Initial Duration: 6 Weeks Patient/Client Instruction: Educate patient on: Condition, Plan of Care For the Purpose of:: To decrease pain, To decrease swelling/inflammation, To increase ROM, To improve nutrient delivery to tissue, To improve muscle performance and motor function, To improve ability to perform ADL's, To increase tolerance to activity/condition/position, To improve performance and independence with ADL's, To improve health of tissue, To decrease soft tissue restriction, To increase flexibility/ROM Therapeutic Exercise to Include: Strength training, Postural training, Flexibilty training, Passive ROM, Active ROM, Scapular Strength/Stabilization For the Purpose of:: To decrease pain, To decrease swelling/inflammation, To increase ROM, To improve nutrient delivery to tissue, To improve muscle performance and motor function, To increase tolerance to activity/condition/position, To improve health of tissue, To decrease soft tissue restriction, To increase flexibility/ROM Manual Therapy Techniques to Include: Mobilization, Passive ROM, Soft tissue mobilization For the Purpose of:: To decrease pain, To decrease swelling/inflammation, To increase ROM, To improve nutrient delivery to tissue, To improve muscle performance and motor function, To decrease soft tissue restriction, To increase flexibility/ROM IF ES: Yes Cryotherapy (ice pack, ice massage): Yes Ultrasound (thermal/non thermal): Yes For the Purpose of:: To decrease pain, To decrease swelling/inflammation, To increase ROM, To improve nutrient delivery to tissue This patient was last seen in our office 07/14/21. Pertinent comments regarding their Physical therapy will appear below: [facility] PT At this point I will be discontinuing this patient from physical therapy. I would be happy to see this patient again in the future if found appropriate by the physician. Thank you! Dana Dias, ANKUR Balance/Gait/Functional tests - Balance/Special Test Scores Oswestry Neck Score: 2
== END 2021-07-14 19:00 | disposition home or self-care (01) ==
LOC: PT 11:00
PROVIDERS: PCP Family Medicine; Visit Provider Family Medicine
DX: M18.0 Bilateral primary osteoarthritis of first carpometacarpal joints (principal)
CPT/HCPCS: 97018; 97110; 97140; 97161; 97166; 97530

== ENCOUNTER → 2021-07-17 | Outpatient (CLI) | payer OTHER, SELFPAY | END | disposition home or self-care (01) | LOC: LABSPEC 07-18 12:53 | PROVIDERS: PCP Family Medicine; Visit Provider Registered Nurse | DX: J06.9 Acute upper respiratory infection, unspecified (principal) | CPT/HCPCS: 87633; 87635; U0005; U0003 ==

== ENCOUNTER → 2021-08-24 | Outpatient (CLI) | payer OTHER, SELFPAY | END | disposition home or self-care (01) | PROVIDERS: PCP Family Medicine | DX: Z20.822 Contact with and (suspected) exposure to COVID-19 (principal) | CPT/HCPCS: 87633; 87635; U0005; U0003 ==

== ENCOUNTER 2021-09-13 13:58 | Outpatient (CLI) | payer OTHER, SELFPAY ==
[2021-09-13 15:45] LABS: Absolute Lymphocyte Count 10.07 X10^3/uL (0.83-4.51); Absolute Neutrophil Count 4.6 X10^3/uL (2.0-7.7); Basophil# 0.07 X10^3/uL; Basophil% 0.4 % (0-1); Eosinophil# 0.23 X10^3/uL; Eosinophils% 1.4 % (0-5); Hematocrit 42.3 % (37-47); Hemoglobin 13.8 g/dL (12.0-15.0); Lymphocyte # 10.07 X10^3/ul (0.83-4.51); Lymphocyte % 63.5 % (19-41); Mean Corp Hgb Conc 32.6 g/dL (32-36); Mean Corpuscular Hgb 31.6 pg (27.0-32.0); Mean Corpuscular Volume 96.8 fL (81-99); Monocyte# 0.81 X10^3/uL; Monocyte% 5.1 % (0-10); NRBC Flagged by Analyzer 0 % (0-5); Neutrophil # 4.64 X10^3/uL (2.7-7.7); Neutrophil % 29.3 % (47-70); POSITIVE DIFFERENTIAL YES; Platelet Count 282 K/mm3 (150-450); RBC Distribution Width SD 46.3 fl (35.1-43.9); Red Blood Count 4.37 M/mm3 (4.2-5.4); White Blood Count 15.9 K/mm3 (4.4-11.0)
[2021-09-13 15:53] LABS: Differential Indicated SCAN CRITERIA MET
[2021-09-13 16:06] LABS: Differential Comment SCANNED
[2021-09-13 16:39] LABS: ALB/GLOB Ratio 1.3 RATIO (0.9-2.4); AST(SGOT) 14 U/L (15-37); Alanine Aminotransfer ALT/SGPT 30 U/L (13-56); Albumin, Serum 3.7 g/dL (3.2-5.0); Alkaline Phosphatase 86 U/L (45-117); Anion Gap 5 (5-15); BUN 17 mg/dL (7-18); BUN/Creat Ratio 24.1 RATIO (10-20); Calcium,Total 8.8 mg/dL (8.5-10.1); Chloride 107 mmol/L (98-107); EST Glomerular Filtration Rate 89 mL/min (>60); Est Glom Filt Rate - Afr Amer 108 mL/min (>60); Free T3 2.5 pg/mL (2.18-3.98); Globulin 2.9 g/dL (2.2-4.2); Glucose 80 mg/dL (74-106); Potassium 4.3 mmol/L (3.5-5.1); Protein, Total 6.6 g/dL (6.4-8.2); Sodium Level 143 mmol/L (136-145); T4 Total, Thyroxin 5.7 ug/dL (4.8-13.9); Thyroid Stim Hormone (TSH) 0.78 uIU/mL (0.358-3.74)
== END 2021-09-13 23:59 | disposition short-term general hospital (02) ==
PROVIDERS: PCP Family Medicine; Referring Provider Family Medicine; Visit Provider Family Medicine
DX: R53.83 Other fatigue (principal)
CPT/HCPCS: 36415; 80053; 84436; 84443; 84481; 85025

== ENCOUNTER 2021-09-18 07:58 | Outpatient (CLI) | payer OTHER, SELFPAY | END 2021-09-18 23:59 | disposition short-term general hospital (02) | PROVIDERS: PCP Family Medicine; Referring Provider Nurse Practitioner Family; Visit Provider Nurse Practitioner Family | DX: Z20.822 Contact with and (suspected) exposure to COVID-19 (principal) | CPT/HCPCS: 87635; U0003; U0005 ==

== ENCOUNTER 2021-09-21 16:04 | Outpatient (CLI) | payer OTHER, SELFPAY | END 2021-09-21 23:59 | disposition short-term general hospital (02) | LOC: LABSPEC 16:05 | PROVIDERS: PCP Family Medicine; Referring Provider Family Medicine; Visit Provider Registered Nurse | DX: U07.1 COVID-19 (principal) | CPT/HCPCS: 87635; U0003; U0005 ==

== ENCOUNTER 2021-09-26 12:17 | Outpatient (CLI) | payer OTHER, SELFPAY ==
[2021-09-26] MEDS: 0.9% Saline Lock 10 ML Syringe IV (12:36)
[2021-09-26 12:37] VITALS: BP 124/73; PULSE 72; RESP 16; TEMP 36.6; O2SAT 98; BMI 25.6
[2021-09-26 13:02] VITALS: BP 106/57; PULSE 58; RESP 16; TEMP 36.9; O2SAT 100
[2021-09-26 13:54] VITALS: BP 110/45; PULSE 64; RESP 16; TEMP 36.7; O2SAT 99
== END 2021-09-26 23:59 | disposition home or self-care (01) ==
LOC: MS3OUT 12:17 → MS3 12:18
PROVIDERS: PCP Family Medicine; Referring Provider Nurse Practitioner Acute Care; Visit Provider Nurse Practitioner Acute Care
DX: Z23 Encounter for immunization (principal); U07.1 COVID-19
CPT/HCPCS: J7050; M0245; Q0245; A4216

== ENCOUNTER 2021-10-23 15:40 | Outpatient (CLI) | payer OTHER, SELFPAY ==
--- NOTE | 2021-10-23 15:42 | BI_ITS ---
MAMMOGRAPHY - BILATERAL SCREENING REASON FOR EXAM: Female, 61 years old. Routine annual screening examination. PERTINENT HISTORY: Grandmother with breast cancer. TECHNIQUE: Digital bilateral breast haley (3D mammographic acquisition) in the CC and MLO projections. 2-D mediolateral oblique (MLO) and craniocaudad (CC) views of both breasts were obtained. CAD: Full Field Digital Mammography with Computer Added Detection was performed. COMPARISON: Comparison is made with prior study dated 10/13/2020 and 08/05/2018. FINDINGS: Breast Composition: The breasts are heterogeneously dense, which may obscure small masses. There are no dominant masses or suspicious calcifications. Stable small benign-appearing bilateral axillary lymph nodes. No other significant abnormalities are identified. There has been no significant change since the prior study. BI/SCRN MAMM (CAD)W/HALEY BILAT IMPRESSION: Stable bilateral screening mammogram. Yearly follow-up mammogram recommended. (A) ASSESSMENT CATEGORY: BIRADS Category 2: Benign. A letter regarding these results will be sent to the patient by the facility within 30 days. Approximately 10% of breast cancers are not detected by mammography. A normal mammogram should not delay biopsy of a clinically suspicious abnormality. [id number] Electronically Signed: Torsten Lamas MD at 8:38 EST ,
== END 2021-10-23 23:59 | disposition home or self-care (01) ==
LOC: OPBI 15:40
PROVIDERS: PCP Family Medicine; Referring Provider Family Medicine; Visit Provider Family Medicine
DX: Z12.31 Encounter for screening mammogram for malignant neoplasm of breast (principal); Z80.3 Family history of malignant neoplasm of breast
CPT/HCPCS: 77063; 77067

== ENCOUNTER 2021-12-18 13:30 | Outpatient (CLI) | payer OTHER, SELFPAY ==
--- NOTE | 2021-12-18 13:32 | US_ITS ---
STUDY: ULTRASOUND BREAST - LEFT REASON FOR EXAM: Female, 61 years old. Pain in the left breast. TECHNIQUE: Axial and longitudinal images of the LEFT breast were performed with a high resolution ultrasound transducer. # OF IMAGES: 37 COMPARISON: Comparison is made with prior mammogram dated 10/23/2021 and prior sonogram of the left breast dated 10/13/2020. FINDINGS: LEFT Breast: The entire lateral aspect of the left breast was examined by ultrasound. No sonographic abnormality is seen. US/Breast Limited Unilateral IMPRESSION: No sonographic abnormality is seen. ASSESSMENT CATEGORY: BIRADS Category 1: Negative. A letter regarding these results will be sent to the patient by the facility within 30 days. Electronically Signed: Torsten Lamas MD at 14:33 EDT ,
== END 2021-12-18 23:59 | disposition home or self-care (01) ==
PROVIDERS: PCP Family Medicine; Visit Provider Student in an Organized Health Care Education/Training Program
DX: N64.4 Mastodynia (principal)
CPT/HCPCS: 76642

== ENCOUNTER → 2022-01-26 | Outpatient (CLI) | payer OTHER, SELFPAY ==
[2022-01-26 12:55] LABS: CREATININE FINGERSTICK < 0.9 mg/dL (0.55-1.02); EGFR FINGERSTICK > 60.0000 mL/min (>60)
--- NOTE | 2022-01-26 13:00 | MRI_ITS ---
STUDY: BILATERAL BREAST MR WITHOUT AND WITH CONTRAST REASON FOR EXAM: Female, 62 years old. Left breast pain. Grandmother with breast cancer. TECHNIQUE: Multi-sequence multi-echo imaging of both breasts was performed with a dedicated breast coil. T1-weighted and T2-weighted images were performed before the administration of contrast. T1-weighted images were also performed after the intravenous administration of 12 mL of Dotarem contrast. COMPARISON: Mammograms dated 10/23/2021 and unilateral left breast ultrasound dated 12/18/2021. FINDINGS: RIGHT BREAST: The breast tissue is heterogeneously dense with minimal background enhancement. There are no abnormal enhancing masses or areas of non-mass enhancement in the right breast. LEFT BREAST: The breast tissue is heterogeneously dense with minimal background enhancement. There are no abnormal enhancing masses or areas of non-mass enhancement in the left breast. There are no enlarged or abnormal lymph nodes. There is no abnormality in the visualized regions of the chest or liver. MRI/Breast Bilateral W/O and W IMPRESSION: No abnormality on the breast MRI examination with contrast. Annual screening mammogram recommended. CATEGORY: BIRADS Category 2: Benign. A letter regarding these results will be sent to the patient by the facility within 30 days. Electronically Signed: Robbie Garcia MD at 9:30 EDT ,
== END | disposition home or self-care (01) ==
LOC: MRI 12:24
PROVIDERS: PCP Family Medicine; Referring Provider Student in an Organized Health Care Education/Training Program; Visit Provider Student in an Organized Health Care Education/Training Program
DX: N64.4 Mastodynia (principal)
CPT/HCPCS: 77049; A9575; A4216; C8908

== ENCOUNTER 2022-02-16 09:46 | Emergency (ER) | payer OTHER, SELFPAY ==
[2022-02-16 09:46] VITALS: BP 117/74; PULSE 81; RESP 16; TEMP 36.8; O2SAT 96; BMI 23.8
--- NOTE | 2022-02-16 10:07 | CT_ITS ---
STUDY: CT BRAIN WITHOUT CONTRAST REASON FOR EXAM: Female, 62 years old. fall, headache RADIATION DOSAGE (If Supplied By Facility): CTDIvol = ( 44.99 ) mGy, DLP = ( 779.24 ) mGycm TECHNIQUE: Transaxial CT imaging of the brain was performed without administration of intravenous contrast material. Individualized dose optimization techniques were used for this CT. COMPARISON: No relevant priors. FINDINGS: Normal soft tissue structures. Normal calvarium. Normal size ventricles and extra-axial spaces for the patient''s age. Normal white matter tracts of the cerebral hemispheres. Normal basal ganglia and thalami. Normal brainstem. Normal cerebellum. There is no intracranial hemorrhage. There are no findings of an acute ischemic infarction. Normal visualized paranasal sinuses. CT/Brain/Head without Contrast IMPRESSION: Normal unenhanced CT scan of the brain. Electronically Signed: Orestes Torres MD at 11:18 EDT ,
--- NOTE | 2022-02-16 10:07 | CT_ITS ---
STUDY: CT FACIAL BONES WITHOUT CONTRAST REASON FOR EXAM: Female, 62 years old. fall facial pain RADIATION DOSAGE (If Supplied By Facility): CTDIvol = ( 29.38 ) mGy, DLP = ( 569.49 ) mGycm TECHNIQUE: The patient was scanned in a multi detector CT scanner. Sagittal and coronal images were reconstructed. Individualized dose optimization techniques were used for this CT. COMPARISON: None. FINDINGS: Normal soft tissue structures. Normal orbital murillo and orbital contents. Normal nasal bones and anterior nasal spine. Normal facial bones. There is no demonstrated fracture. Normal visualized paranasal sinuses. CT/Sinus/Facial Bone IMPRESSION: Normal unenhanced CT of the facial bones. Electronically Signed: Orestes Torres MD at 11:34 EDT ,
--- NOTE | 2022-02-16 10:07 | CT_ITS ---
STUDY: CT CERVICAL SPINE WITHOUT CONTRAST REASON FOR EXAM: Female, 62 years old. fall, neck pain RADIATION DOSAGE (If Supplied By Facility): CTDIvol = ( 19.97 ) mGy, DLP = ( 435.05 ) mGycm TECHNIQUE: High resolution transaxial imaging was performed without contrast material. Sagittal and coronal images were reconstructed. Individualized dose optimization techniques were used for this CT. COMPARISON: None FINDINGS: Normal craniovertebral junction. Normal anterior atlantoaxial articulation. Normal odontoid process. There is reversal of the normal cervical lordosis. Normal vertebral bodies and posterior osseous elements. C2-3: Normal endplates. Normal disc height and morphology. Normal central canal and intervertebral neuroforamina. C3-4: Normal endplates. Normal disc height and morphology. Normal central canal and intervertebral neuroforamina. C4-5: Mild broad disc osteophyte complex and bilateral uncovertebral hypertrophy produces mild spinal stenosis and mild bilateral neural foraminal stenosis. C5-6: Mild broad discussed by complex bilaterally due to hypertrophy produces mild spinal stenosis and mild bilateral neural foraminal stenosis. C6-7: Mild broad disc artifact complex bilaterally due to hypertrophy produces mild spinal stenosis and mild bilateral neural foraminal stenosis. C7-T1: Normal endplates. Normal disc height and morphology. Normal central canal and intervertebral neuroforamina. Normal visualized soft tissue structures. CT/Spine Cervical without Contras IMPRESSION: 1. No acute fractures or fixation. 2. Degenerative disc disease with reversal of the normal lordotic curvature. Electronically Signed: Orestes Torres MD at 11:31 EDT ,
--- NOTE | 2022-02-16 10:09 | RAD_ITS ---
STUDY: X-RAY - LEFT KNEE REASON FOR EXAM: Female, 62 years old. fall, knee pain TECHNIQUE: 4 view(s) of the knee. COMPARISON: None. FINDINGS: Normal visualized distal femur. Normal visualized proximal tibia and fibula. Normal proximal tibiofibular articulation. Normal medial femorotibial compartment. Normal lateral femorotibial compartment. Normal patellofemoral articulation. The soft tissue structures are unremarkable. RAD/Knee 4 or More Views IMPRESSION: Normal x-ray examination of the knee. Electronically Signed: Orestes Torres MD at 11:19 EDT ,
--- NOTE | 2022-02-16 10:11 | EX.ED.DYSGE1 ---
HPI <JIM Nagy - Last Filed: 02/16/22 11:40> History of Present Illness Chief Complaint: Fall Narrative Narrative: 62-year-old female who is currently on any blood thinners presents to the emergency department after a fall from a stool in the standing position. Patient was using a stool to reach something, she lost her balance fell falling on her left side and striking her face on the ground. Patient has pain to the left knee, face, nose. Patient does have a laceration to the lower lip, patient denies any dental pain. Patient denies any LOC. Patient here for evaluation [facility] <JIM Nagy - Last Filed: 02/16/22 11:40> [facility] Medical History (Updated 02/16/22 @ 10:[address] Antonio Velazquez MD) Bilateral nephrolithiasis Bloating Constipation COVID-19 virus detected (09/21/21) Depression Irritable bowel syndrome with constipation Migraine Osteoarthrosis of hip Palpitations Thyroid nodule Home Medications bupropion HCl 150 mg 24 hr tablet, extended release 150 mg PO QAM tab 09/27/20 [History Last Taken Unknown] celecoxib 200 mg capsule 200 mg PO DAILY PRN 09/27/20 [History Last Taken Unknown] cholecalciferol (vitamin D3) 25 mcg (1,000 unit) tablet 25 mcg PO DAILY 09/27/20 [History Last Taken Unknown] fluticasone propionate 50 mcg/actuation nasal spray,suspension 1 spray INTRANASAL DAILY PRN 09/27/20 [History Last Taken Unknown] magnesium oxide 400 mg (241.3 mg magnesium) tablet 400 mg PO DAILY 09/27/20 [History Last Taken Unknown] riboflavin (vitamin B2) 25 mg tablet 25 mg PO DAILY 09/27/20 [History Last Taken Unknown] sumatriptan succinate 6 mg/0.5 mL subcutaneous pen injector 6 mg SC Q1-4H PRN 09/27/20 [History Last Taken Unknown] tramadol 50 mg tablet 50 mg PO TID PRN 09/27/20 [History Last Taken Unknown] verapamil 80 mg tablet 80 mg PO BID 09/27/20 [History Last Taken Unknown] duloxetine 20 mg capsule,delayed release 40 mg PO DAILY cap 09/28/20 [History Last Taken Unknown] esomeprazole magnesium 40 mg capsule,delayed release 40 mg PO DAILY PRN cap 09/28/20 [History Last Taken Unknown] verapamil 120 mg tablet,extended release 120 mg PO QHS tab 09/28/20 [History Last Taken Unknown] diclofenac sodium 1 % topical gel 2 g TOPICAL ONCE 05/23/21 [History Last Taken Unknown] doxycycline hyclate 100 mg capsule 100 mg PO BID #60 cap 05/23/21 [Rx Last Taken Unknown] zoledronic acid 5 mg/100 mL in mannitol 5 %-water intravenous piggybck 5 ea .ROUTE 05/23/21 [History Last Taken Unknown] lactobacillus combo no.11 15 billion cell sprinkle capsule 1 cap PO DAILY 06/12/21 [History Last Taken Unknown] loratadine 10 mg tablet 10 mg PO DAILY PRN 06/12/21 [History Last Taken Unknown] prednisone 20 mg tablet 40 mg PO DAILY PRN tab 06/12/21 [History Last Taken Unknown] tizanidine 2 mg tablet 2 - 4 mg PO BID PRN tab 06/12/21 [History Last Taken Unknown] rifaximin 550 mg tablet 550 mg PO TID #42 tab 07/27/21 [Rx Last Taken Unknown] penicillin V potassium 500 mg PO 4X/DAY #20 tab 02/16/22 [Rx Last Taken Unknown] Allergy/AdvReac Type Severity Reaction Status Date / Time naproxen [From Naprosyn] Allergy Intermediate GI upset Verified 02/16/22 09:49 omeprazole [From Prilosec] Allergy Intermediate headache Verified 02/16/22 09:49 codeine Allergy Unknown Verified 02/16/22 09:49 levofloxacin [From Levaquin] Allergy Unknown Verified 02/16/22 09:49 Family History Son Diabetes Grandmother Breast cancer Surgical History History of hysterectomy Social History Smoking Status: Never smoker alcohol intake: current ROS <JIM Nayg - Last Filed: 02/16/22 11:40> ROS ED ROS Narrative Constitutional: Negative for fever, chills, weight loss, weakness Eyes: Negative for vision loss, vision change, double vision ENT: Negative for any sore throat, ear pain, congestion. Positive for lower lip laceration, nasal laceration Cardiovascular: Negative for any chest pain, tightness, palpitations Respiratory: Negative for any cough, sputum production, hemoptysis, dyspnea, dyspnea on exertion, orthopnea Gastrointestinal: Negative for any abdominal pain, nausea, vomiting, diarrhea, constipation, blood in stool, blood in vomit : Negative for any urinary frequency, dysuria, retention, blood in urine Muscle skeletal: Negative for any muscle joint pain, stiffness, myalgias, arthralgias, neck pain, back pain. Positive for left knee pain Neurological: Negative for any syncope, numbness or tingling, dizziness. Positive for headache Skin: Negative for any rashes, lumps, itching, abrasions, lacerations Psychiatric: Negative for any depression, anxiety, stress, suicidal ideation, homicidal ideation Hematologic: Negative for any easy bruising, excessive bruising, easy bleeding Allergies: Negative for any eczema, hives, rash EXAM <JIM Nagy - Last Filed: 02/16/22 11:40> Physical Exam Narrative Exam Narrative: Vital signs reviewed. HEET: Head normocephalic atraumatic, TMs clear bilaterally. Posterior pharynx is clear, moist mucous membranes. Nares clear bilaterally. Pupils are equal round react to light. Negative for hematemesis, septal hematoma. Patient does have a laceration to the midline of the lower lip. It does cross the vermilion border. It does appear that may be the lower tooth that go through the lower lip. Patient has no dental pain. Teeth are stable. Patient does have a superficial laceration across the bridge of the nose. Patient has no tongue, posterior pharynx injury. No neck injury. Neck: Supple with no lymphadenopathy or tenderness. No signs of meningismus, negative jolt sign. Cardiac: Regular rate and rhythm no murmurs gallops or rubs, equal peripheral pulses bilaterally. Respiratory: Lungs clear to auscultation bilaterally. No chest tenderness. Abdomen: Soft, nontender, nondistended. No abdominal bruit or pulsatile masses. No hepatosplenomegaly Extremities: No peripheral edema, no signs of gross trauma or deformity. Patient has pain to the inferior anterior knee, patient does have intact extensor mechanism. He does have pain on palpation. Neuro: Cranial nerves II through XII intact, no focal neurological deficits. Neurovascular intact Skin: Clean dry and intact with no rash, purpura, petechiae, vesicles or pustules. Backs/flank: No CVA tenderness, no midline spinal tenderness, no deformity. Psych: Normal mood and affect. No SI, HI or acute psychosis. Const Vital Signs: 02/16/22 09:46 02/16/22 10:26 Temperature 98.2 F Temperature Source Temporal Pulse Rate 81 Respiratory Rate 16 Respiratory Effort Normal Non-Labored Respiratory Depth Normal Respiratory Pattern Normal Blood Pressure 117/74 Blood Pressure Mean 88 Pulse Ox 96 Oxygen Delivery Method Room Air Room Air Positive well nourished and well developed General Appearance ED: well developed <Dr. Antonio Velazquez MD - Last Filed: 02/16/22 10:52> Physical Exam Const Vital Signs: 02/16/22 09:46 02/16/22 10:26 Temperature 98.2 F Temperature Source Temporal Pulse Rate 81 Respiratory Rate 16 Respiratory Effort Normal Non-Labored Respiratory Depth Normal Respiratory Pattern Normal Blood Pressure 117/74 Blood Pressure Mean 88 Pulse Ox 96 Oxygen Delivery Method Room Air Room Air MDM <JIM Nagy - Last Filed: 02/16/22 11:40> [facility] Narrative Medical decision making narrative: Patient appears well patient appears nontoxic, vital signs are stable. Patient presents to the emergency department after a mechanical fall off his stool, she presents with facial lacerations, left lower lip laceration. Patient did receive multiple scans of her cervical spine, head as well as facial bones, these were all negative for any acute process. Patient did receive a left knee x-ray, this was unremarkable, read by the ER attending. Patient received a [place] here for discomfort, the lip wound was irrigated, sutured by ER attending, with 6 total sutures of Vicryl 5?0. 4 in the inside, 2 on the outside, patient tolerated well. Patient be placed on Pen-Vee K 4 times a day for 5 days to decrease any signs of infection. Patient instructed to rest, ice, to use Tylenol for any discomfort. She will follow-up with her PCP and instructed return here for any worsening symptoms, fever chills, or drainage from the lip. Patient be diagnosed with 1. Fall 2. Concussion 3. Facial contusions 4. Complicated lip laceration 5. Left knee contusion Lab Data Attestation: I reviewed the patient's lab results. Radiography Diagnostic Testing: Clinical Impression(s) from Imaging Studies Brain CT 02/16/22 10:07 IMPRESSION: Normal unenhanced CT scan of the brain. Electronically Signed: Orestes Torres MD at 11:18 EDT Reading Location ID and State: [id number] / [employer] , Service support , Cervical Spine CT 02/16/22 10:07 IMPRESSION: 1. No acute fractures or fixation. 2. Degenerative disc disease with reversal of the normal lordotic curvature. Electronically Signed: Orestes Torres MD at 11:31 EDT Reading Location ID and State: [id number] / [employer] , Service support , Facial/Sinus 02/16/22 10:07 IMPRESSION: Normal unenhanced CT of the facial bones. Electronically Signed: Orestes Torres MD at 11:34 EDT Reading Location ID and State: [id number] / [employer] , Service support , Knee X-Ray 02/16/22 10:09 IMPRESSION: Normal x-ray examination of the knee. Electronically Signed: Orestes Torres MD at 11:19 EDT Reading Location ID and State: [id number] / [employer] , Service support , <Dr. Anotnio Velazquez MD - Last Filed: 02/16/22 10:52> [facility] Narrative Medical decision making narrative: I have personally performed a face to face assessment of the patient and have reviewed the RICHY Note. I performed a substantive portion of the visit including all aspects of the following. My coleman findings include: History is [62-year-old female on a stepstool lost her balance fell striking her face and chin causing a laceration to her lower lip on the inside and out. Also injuring her left knee. No LOC. Not on any blood thinners. Denies any neck pain. No other complaints. Tetanus will be updated.] Exam is [62-year-old female no acute distress vital signs stable afebrile. H EENT exam she has a through and through lip laceration midline of her lower lip. It is about an inch in length on the inner surface of the lip and about half inch on the outer surface. Dentition intact. Jaw nontender swollen. No malocclusion. C-spine nontender. Scalp nontender. Lungs are clear. Heart regular rhythm. Chest wall nontender. Abdomen soft nontender. Pelvic girdle intact. Patient is moving all 4 extremities. She has a contusion to the medial aspect of her left knee but her tendons and ligaments are intact. She is able to flex and extend both knees, hips, ankles and feet. Neurologically she is awake and alert. GCS of 15.] Medical Decision Making [female fall with a head injury. CAT scan C-spine x-ray will be obtained. We did a block of the sensory nerve to the lip. Washed the laceration out with saline. Explored. Closed using a total of 6 simple interrupted 5-0 Vicryl sutures. Proper hemostasis and wound closure is obtained. The inner laceration was approximately 1 inch in length. Required 4 sutures. The outer laceration was about a half an inch in length. And required to sutures.] Other additions or changes: [None] Radiography Diagnostic Testing: Clinical Impression(s) from Imaging Studies Brain CT 02/16/22 10:07 IMPRESSION: Normal unenhanced CT scan of the brain. Electronically Signed: Orestes Torres MD at 11:18 EDT , Cervical Spine CT 02/16/22 10:07 IMPRESSION: 1. No acute fractures or fixation. 2. Degenerative disc disease with reversal of the normal lordotic curvature. Electronically Signed: Orestes Torres MD at 11:31 EDT , Facial/Sinus 02/16/22 10:07 IMPRESSION: Normal unenhanced CT of the facial bones. Electronically Signed: Orestes Torres MD at 11:34 EDT , Knee X-Ray 02/16/22 10:09 IMPRESSION: Normal x-ray examination of the knee. Electronically Signed: Orestes Torres MD at 11:19 EDT , <Dr. Antonio Velazquez MD - Last Filed: 02/16/22 10:52> Lacerations Through and through lower lip laceration: Length: 1 in Depth: Sub Q Shape: Linear Prep: Sterile Conditions Laceration repair: Local, Nerve block and Skin sutures Number of Sutures/[place]: 6 Suture Information: Vicryl and 5-0 Comment: Through and through lip laceration of the lower lip. 4 sutures on the inner surface. 2 on the outer surface. 2 simple interrupted 5-0 Vicryl. Patient tolerated procedure well. Regional nerve block was done. Discharge Plan Triage Chief Complaint: Fall ED Midlevel Provider: Leonardo Wise ED Provider: Antonio Velazquez Dx/Rx/DC Orders Clinical Impression: Fall, Laceration of lip, Contusion of knee, left, Head injury Instructions: After a Concussion, Concussion Dc, ED Contusion, Lower Extremity, ED Laceration, Lip or Mouth Prescriptions: New penicillin V potassium 500 mg tablet 500 mg PO 4X/DAY Qty: 20 RF: 0 No Action verapamil 120 mg tablet extended release 120 mg PO QHS RF: 0 esomeprazole magnesium 40 mg capsule,delayed release(DR/EC) 40 mg PO DAILY PRN (Reason: Heartburn) RF: 0 bupropion HCl 150 mg tablet extended release 24 hr 150 mg PO QAM RF: 0 tramadol 50 mg tablet 50 mg PO TID PRN (Reason: Pain, Mild) RF: 0 celecoxib [Celebrex] 200 mg capsule 200 mg PO DAILY PRN (Reason: Anxiety) RF: 0 cholecalciferol (vitamin D3) 25 mcg (1,000 unit) tablet 25 mcg PO DAILY RF: 0 fluticasone propionate [Allergy Relief (fluticasone)] 50 mcg/actuation spray,suspension 1 spray INTRANASAL DAILY PRN (Reason: ALLERGIES) RF: 0 verapamil 80 mg tablet 80 mg PO BID RF: 0 sumatriptan succinate 6 mg/0.5 mL pen injector 6 mg SC Q1-4H PRN (Reason: Headache) RF: 0 magnesium oxide 400 mg (241.3 mg magnesium) tablet 400 mg PO DAILY RF: 0 riboflavin (vitamin B2) 25 mg tablet 25 mg PO DAILY RF: 0 duloxetine 20 mg capsule,delayed release(DR/EC) 40 mg PO DAILY RF: 0 loratadine [Claritin] 10 mg tablet 10 mg PO DAILY PRN (Reason: Allergic Symptoms) RF: 0 zoledronic [id number]-ptqif [Reclast] 5 mg/100 mL piggyback 5 ea .Route RF: 0 diclofenac sodium 1 % gel 2 g topical ONCE RF: 0 doxycycline hyclate 100 mg capsule 100 mg PO BID Qty: 60 RF: 0 prednisone 20 mg tablet 40 mg PO DAILY PRN (Reason: Inflammation) RF: 0 Probiotic 15 billion cell capsule, sprinkle 1 cap PO DAILY RF: 0 tizanidine 2 mg tablet 2 - 4 mg PO BID PRN (Reason: Anxiety) RF: 0 Xifaxan 550 mg tablet 550 mg PO TID Qty: 42 RF: 0 Primary Care Provider: Leonardo Argueta Referrals: Leonardo Argueta MD [Primary Care Provider] - Activity Restrictions/Additional Instructions: Please take antibiotics until completion. Use Tylenol for any pain. Use ice, return for any signs or symptoms Print Language: Occitan Disposition Disposition: Home, Self Care
[2022-02-16] MEDS: HYDROcodone Bitartrate/Apap 5/325 Tablet PO (10:19)
[2022-02-16] MEDS: Diphth,Pertuss(Acell),Tet Vac 0.5 ML Vial IM (10:21)
[2022-02-16] MEDS: Lidocaine 1% (20 ml mdv) 20 ML Vial 3 ML INFILT (10:21)
== END 2022-02-16 11:58 | disposition home or self-care (01) ==
LOC: ED 11:16
PROVIDERS: Emergency Provider Emergency Medicine; PCP Family Medicine; Visit Provider Emergency Medicine
DX: S01.511A Laceration without foreign body of lip, initial encounter (principal); S06.0X0A Concussion without loss of consciousness, initial encounter; S00.83XA Contusion of other part of head, initial encounter; S80.02XA Contusion of left knee, initial encounter; W17.89XA Other fall from one level to another, initial encounter; Y93.89 Activity, other specified; F32.A Depression, unspecified; Z79.899 Other long term (current) drug therapy; Z86.16 Personal history of COVID-19
CPT/HCPCS: 12051; 70450; 70486; 72125; 73564; 90715; 99282

== ENCOUNTER → 2022-07-02 | Outpatient (CLI) | payer OTHER, SELFPAY ==
--- NOTE | 2022-07-02 11:49 | NM_ITS ---
CLINICAL: 62-year-old female with history of early satiety. SEMI-SOLID PHASE 99m Tc SULFUR COLLOID GASTRIC EMPTYING STUDY COMPARISON: None available FINDINGS: The patient was administered 1.2 mCi of 99m Tc sulfur colloid mixed with oatmeal and consumed per os. Image acquisitions in the anterior-posterior projections were obtained for 60 minutes. There is prompt visualization of the stomach. There is no gastroesophageal reflux identified. The T ? emptying was calculated to be 20.56 minutes, (Normal: 12-56 minutes). NM/Gastric Emptying Study IMPRESSION: 1. NORMAL 99m Tc sulfur colloid semi-solid phase (oatmeal) gastric emptying imaging examination. A. There is normal and preserved semi-solid phase gastric emptying compared to normal controls. (Gloria et al, J Nucl Med Tech 38: 186, 2010). Electronically Signed: Orestes Espinal, at 20:45 EDT ,
== END | disposition home or self-care (01) ==
PROVIDERS: PCP Family Medicine; Referring Provider Nurse Practitioner Adult Health; Visit Provider Nurse Practitioner Adult Health
DX: R68.81 Early satiety (principal)
CPT/HCPCS: 78264; A9541

== ENCOUNTER → 2022-08-17 | Outpatient (CLI) | payer OTHER, SELFPAY ==
--- NOTE | 2022-08-17 13:41 | STE_ITS ---
Reason For Study: PALPITATIONS, CHEST PAIN Stress Results Protocol: Raymundo Protocol Maximum Predicted HR: 156 bpm Target HR: 133 bpm % Maximum Predicted HR: 83 % DurationHeart Rate Stage (mm:ss) (bpm) BP BASELINE 70 122/70 STAGE 1 3:00 92 120/62 STAGE 2 3:00 98 132/62 STAGE 3 3:00 123 138/52 STAGE 4 0:31 129 / RECOVERY 72 130/82 Stress Duration: 9:31 mm:ss Maximum Stress HR: 129 bpm Baseline Echocardiogram Findings Stress Echo Wall motion Data Resting WM Intermediate WM Stress WM ECHO/Stress Test Echo w/o Contrast Interpretation Summary Decide stress echocardiogram. 62-year-old lady with a history of chest pain. Stress protocol: Resting EKG demonstrates normal sinus rhythm with a rate of 67 bpm normal inter vals are noted resting blood pressure is 122/70 mmHg. The patient exercised according to the r egular Raymundo protocol for total duration of 9 minutes and 31 seconds patient completed 31 seconds int o stage IV of the Raymundo protocol the maximum heart rate attained was 130 bpm which was 83% of max impacted heart rate the maximum workload was 11.7 metabolic equivalents. At rest there were no ST o r T wave changes noted to suggest ischemia and at peak exercise upsloping ST changes only were n oted with did not meet the criteria for ischemia. No clinical angina was noted. The test was term inated due to leg fatigue. Target heart rate was also achieved. The peak blood pressure was 140/8 2 mmHg. Stress echocardiogram. The resting echocardiogram demonstrated preserved ejecti on fraction of 60% with no wall motion abnormalities noted at rest. At peak exercise there was thi ckening of all murillo and reduction of low ventricular cavity size peaking at 70%. No new wall motion abnormalities were noted. Conclusion: Normal exercise myocardial perfusion stress test at a high workload. Good functional aerobic capacity. No clinical angina Ordering Physician: Shanika Patrick Performed By: Aure Wilcox, SIM, RVT
== END | disposition home or self-care (01) ==
PROVIDERS: PCP Family Medicine; Visit Provider Physician Assistant Medical
DX: R07.9 Chest pain, unspecified (principal); R00.2 Palpitations
CPT/HCPCS: 93017; 93350; Q9957; A4216

== ENCOUNTER → 2022-11-22 | Outpatient (CLI) | payer OTHER, SELFPAY ==
--- NOTE | 2022-11-22 15:23 | RAD_ITS ---
EXAM: XR BILATERAL HIPS WITH PELVIS WHEN PERFORMED, 2 VIEWS CLINICAL INDICATION: BILATERAL HIP PAIN TECHNIQUE: Frontal view of the bilateral hips with pelvis when performed. This report was created using [employer] report generation technology. COMPARISON: None. FINDINGS: BONES/JOINTS: Unremarkable. No displaced fracture. No destructive or sclerotic lesions. Note that overlapping bowel shadows may however obscure fine detail. Sacroiliac joint is unremarkable. No widening of the pubic symphysis. The articular structures are unremarkable. SOFT TISSUES: Unremarkable. No soft tissue swelling or gas. RAD/Hips B/L min 2 views w/ Pelvis IMPRESSION: No evidence of displaced pelvic or hip fracture. Electronically Signed: Dennys Casas MD at 15:44 EDT ,
== END | disposition home or self-care (01) ==
LOC: RAD 15:19
PROVIDERS: PCP Family Medicine; Referring Provider Anesthesiology Pain Medicine; Visit Provider Anesthesiology Pain Medicine
DX: M25.559 Pain in unspecified hip (principal)
CPT/HCPCS: 73521

== ENCOUNTER → 2023-01-03 | Outpatient (CLI) | payer OTHER, SELFPAY ==
--- NOTE | 2023-01-03 07:02 | CT_ITS ---
STUDY: CT ABDOMEN AND PELVIS WITH CONTRAST REASON FOR EXAM: Female, 62 years old. PELVIC AND PERINEAL PAIN. Patient has history of chronic lymphocytic leukemia. RADIATION DOSAGE (If Supplied By Facility): CTDIvol = ( 13.82 ) mGy, DLP = ( 654.93 ) mGycm TECHNIQUE: Transaxial images were obtained from the dome of the diaphragm to the symphysis pubis with oral contrast. Oral and amp; IV Readi-CAT and amp; 100mL Isovue-300 was administered. Sagittal and coronal images were reconstructed. Individualized dose optimization techniques were used for this CT. COMPARISON: Comparison is made with prior study dated November 12, 2019. FINDINGS: Stable minimal scarring in the medial aspect of the right middle lobe as well as the lingular segment of the left upper lobe. The visualized portions of the heart are within normal limits. Normal liver. Normal gallbladder and extrahepatic biliary system. Normal spleen. Normal pancreas. Normal bilateral adrenal glands. There are 2 tiny nonobstructive intrarenal calculi in the upper pole of the right kidney. 2 tiny nonobstructive calculi are also seen in the upper pole calyx of the left kidney. Retroaortic left renal vein. Normal visualized stomach. Normal small intestine. Large amount of fecal material is seen throughout the colon. Scattered sigmoid diverticula. There is non-visualization of the appendix. There is scattered atherosclerotic calcification of the abdominal aorta, without a demonstrated aneurysm. Normal inferior vena cava. Normal retroperitoneum. Normal urinary bladder. There is absence of the uterus consistent with a prior hysterectomy. Normal abdominal wall. Disc space narrowing and disc degeneration at the L5-S1 level. CT/Abdomen/Pelvis WITH Contrast IMPRESSION: Small bilateral nonobstructive intrarenal calculi in the upper poles of both kidneys. Sigmoid diverticulosis. Prior hysterectomy. Electronically Signed: Torsten Lamas MD at 11:01 EDT ,
[2023-01-03 07:46] LABS: CREATININE FINGERSTICK < 0.9 mg/dL (0.55-1.02); EGFR FINGERSTICK > 60.0000 mL/min (>60)
== END | disposition home or self-care (01) ==
PROVIDERS: PCP Family Medicine; Referring Provider Student in an Organized Health Care Education/Training Program; Visit Provider Student in an Organized Health Care Education/Training Program
DX: N20.0 Calculus of kidney (principal); C95.91 Leukemia, unspecified, in remission; K57.30 Diverticulosis of large intestine without perforation or abscess without bleeding; Z90.710 Acquired absence of both cervix and uterus
CPT/HCPCS: 74177; Q9967

== ENCOUNTER → 2023-01-14 | Outpatient (CLI) | payer OTHER, SELFPAY ==
--- NOTE | 2023-01-14 12:49 | CT_ITS ---
INDICATION: CP -- OVER READ ONLY, CALCIUM SCORE EXAMINATION: CT CHEST WITHOUT CONTRAST - CT Chest W/O Contrast Injection TECHNIQUE: Helically acquired images were obtained of the chest. A radiation dose optimization technique was used for this scan. IV Contrast dosage and agent: None. COMPARISON: None. FINDINGS: LUNGS, PLEURA AND LARGE AIRWAYS: Minimal linear scarring in the anterior medial aspect of the right middle lobe as well as in the medial aspect of the lingular segment of the left upper lobe. No mass lesion or infiltration is seen. No pleural effusion or thickening. No pneumothorax. THYROID: No thyroid lesions. HEART AND PERICARDIUM: Heart size is normal. No pericardial effusion. CORONARY ARTERIES: Coronary artery calcification is not seen. VESSELS: Thoracic aorta is not dilated. MEDIASTINUM AND SILVIA: No mediastinal or hilar adenopathy. Esophagus is unremarkable. No hiatal hernia. UPPER ABDOMEN: No acute pathology. BONES: No suspicious lytic or blastic abnormality. CT/Cardiac Calcium Scoring IMPRESSION: Mild scarring in the anterior medial aspect of the right middle lobe as well as the lingular segment of the left upper lobe. Electronically Signed: Torsten Lamas MD at 15:14 EDT ,
--- NOTE | 2023-01-14 12:49 | CT_ITS ---
INDICATION: CP -- OVER READ ONLY, CALCIUM SCORE EXAMINATION: CT CHEST WITHOUT CONTRAST - CT Chest W/O Contrast Injection TECHNIQUE: Helically acquired images were obtained of the chest. A radiation dose optimization technique was used for this scan. IV Contrast dosage and agent: None. COMPARISON: None. FINDINGS: LUNGS, PLEURA AND LARGE AIRWAYS: Minimal linear scarring in the anterior medial aspect of the right middle lobe as well as in the medial aspect of the lingular segment of the left upper lobe. No mass lesion or infiltration is seen. No pleural effusion or thickening. No pneumothorax. THYROID: No thyroid lesions. HEART AND PERICARDIUM: Heart size is normal. No pericardial effusion. CORONARY ARTERIES: Coronary artery calcification is not seen. VESSELS: Thoracic aorta is not dilated. MEDIASTINUM AND SILVIA: No mediastinal or hilar adenopathy. Esophagus is unremarkable. No hiatal hernia. UPPER ABDOMEN: No acute pathology. BONES: No suspicious lytic or blastic abnormality. CT/Limited Chest CT Cardiac Only IMPRESSION: Mild scarring in the anterior medial aspect of the right middle lobe as well as the lingular segment of the left upper lobe. Electronically Signed: Torsten Lamas MD at 15:14 EDT ,
--- NOTE | 2023-01-14 13:58 | CA.SCORE ---
Calcium Scoring Date of Study:: 01/14/23 Indications Indications: Assessment of cardiac risk Coronary Calcium Scoring: High-resolution Computed Tomographic imaging of the chest was performed on [01/14/2023], with particular attention paid to the coronary arteries. Images from the examination were analyzed for the presence and extent of coronary artery calcification , using coronary calcium quantification software. The patient tolerated the procedure well and there were no complications. The results of the coronary calcification analysis are provided below. Findings Coronary Artery Left Main (LM): 0 Left Anterior Descending (LAD): 0 Left Circumflex (LCX): 0 Right Coronary Artery (RCA): 0 Total Agatston Score: 0 Percentile Rankin Calcium Scoring Interpretation: Different methods to categorize the overall amount of coronary plaque. Overall amount CAC SIS Visual of coronary plaque P1 Mild -100 <2 1-2 vessels with mild amount of plaque P2 Moderate 101-300 3-4 1-2 vessels with moderate amount, 3 vessels with mild amount of plaque P3 Severe 301-999 5-7 3 vessels with moderate amount, 1 vessel with severe amount of plaque P4 Extensive >1000 >8 2-3 vessels with severe amount of plaque Conclusion: No significant atherosclerotic plaquing noted
== END | disposition home or self-care (01) ==
LOC: CT 12:47
PROVIDERS: PCP Family Medicine; Referring Provider Physician Assistant Medical; Visit Provider Physician Assistant Medical
DX: R07.9 Chest pain, unspecified (principal); Z82.49 Family history of ischemic heart disease and other diseases of the circulatory system
CPT/HCPCS: 75571; 76380

== ENCOUNTER → 2023-02-21 | Outpatient (CLI) | payer OTHER, SELFPAY ==
--- NOTE | 2023-02-21 09:32 | RAD_ITS ---
STUDY: X-RAY - BILATERAL RIBS WITH CHEST REASON FOR EXAM: Female, 63 years old. Right rib injury 3 weeks ago. Posterior pain extending under the right breast. TECHNIQUE - RIBS: 4 view(s) of the ribs. TECHNIQUE - CHEST: Single PA view of the chest. COMPARISON: Chest, August 04, 2019. Right RIBS, October 17, 2020 FINDINGS - RIBS : Normal visualized ribs without a demonstrated fracture. FINDINGS - CHEST: The lungs are clear and expanded. There is no demonstrated pleural abnormality. Normal size heart. Normal mediastinum and wilton. Normal visualized pulmonary arteries. Normal visualized aortic arch and descending thoracic aorta. There are diffuse degenerative changes of the visualized thoracic spine. There is degenerative osteoarthritis of the bilateral shoulders. There is no demonstrated abnormality of the visualized soft tissue structures of the upper abdomen. RAD/Ribs Chin Min 4V w/PA Chest IMPRESSION: RIBS: Normal x-ray examination of the bilateral ribs. CHEST: Degenerative changes, as described above. No demonstrated acute cardiopulmonary process. No major interval change. Electronically Signed: Omar Ramirez DO at 19:34 EDT Reading Location ID and State: [address] [place] [address] Tel [phone], Service support ,
== END | disposition home or self-care (01) ==
LOC: MTRAD 09:32
PROVIDERS: PCP Family Medicine; Referring Provider Family Medicine; Visit Provider Family Medicine
DX: R07.81 Pleurodynia (principal)
CPT/HCPCS: 71111

== ENCOUNTER → 2023-03-05 | Outpatient (CLI) | payer OTHER, SELFPAY ==
[2023-03-05 12:50] LABS: Absolute Lymphocyte Count 10.23 X10^3/uL (0.83-4.51); Absolute Neutrophil Count 4.7 X10^3/uL (2.0-7.7); Basophil% 0.6 % (0-1); Eosinophils% 1.2 % (0-5); Hematocrit 46.5 % (37-47); Hemoglobin 15.4 g/dL (12.0-15.0); Lymphocyte # 10.23 X10^3/ul (0.83-4.51); Lymphocyte % 62.8 % (19-41); Mean Corp Hgb Conc 33.1 g/dL (32-36); Mean Corpuscular Hgb 32.5 pg (27.0-32.0); Mean Corpuscular Volume 98.1 fL (81-99); Mean Platelet Vol. 11.1 fl (6.2-12.0); Monocyte# 1.05 X10^3/uL; Monocyte% 6.4 % (0-10); NRBC Flagged by Analyzer 0 % (0-5); Neutrophil # 4.67 X10^3/uL (2.7-7.7); Neutrophil % 28.7 % (47-70); POSITIVE DIFFERENTIAL YES; Platelet Count 298 K/mm3 (150-450); RBC Distribution Width CV 13.2 % (11.6-14.6); RBC Distribution Width SD 47.8 fl (35.1-43.9); Red Blood Count 4.74 M/mm3 (4.2-5.4); White Blood Count 16.3 K/mm3 (4.4-11.0)
[2023-03-05 13:03] LABS: Differential Indicated SCAN CRITERIA MET
[2023-03-05 13:39] LABS: Vitamin D,25 Hydroxy 43.2 ng/mL
[2023-03-05 14:25] LABS: ALB/GLOB Ratio 1.1 RATIO (0.9-2.4); AST(SGOT) 16 U/L (15-37); Alanine Aminotransfer ALT/SGPT 32 U/L (13-56); Albumin, Serum 3.6 g/dL (3.2-5.0); Alkaline Phosphatase 107 U/L (45-117); Anion Gap 5 (5-15); BUN 23 mg/dL (7-18); BUN/Creat Ratio 31.1 RATIO (10-20); Calcium,Total 9.2 mg/dL (8.5-10.1); Chloride 105 mmol/L (98-107); Creatinine, Serum 0.74 mg/dL (0.55-1.02); EST Glomerular Filtration Rate 84 mL/min (>60); Est Glom Filt Rate - Afr Amer 101 mL/min (>60); Ferritin 59 ng/mL (8-252); Globulin 3.4 g/dL (2.2-4.2); Glucose 81 mg/dL (74-106); Iron 147 ug/dL (50-170); Iron Binding Capacity,Total 310 ug/dL (250-450); PERCENT IRON SATURATION 47.4 % (15.0-55.0); Potassium 4.1 mmol/L (3.5-5.1); Sodium Level 138 mmol/L (136-145); Thyroid Stim Hormone (TSH) 0.75 uIU/mL (0.358-3.74)
== END | disposition home or self-care (01) ==
LOC: MTLAB 10:47
PROVIDERS: PCP Family Medicine; Referring Provider Family Medicine; Visit Provider Family Medicine
DX: R53.83 Other fatigue (principal); M81.0 Age-related osteoporosis without current pathological fracture; Z86.2 Personal history of diseases of the blood and blood-forming organs and certain disorders involving the immune mechanism
CPT/HCPCS: 36415; 80053; 82306; 82728; 83540; 83550; 84443; 85025

== ENCOUNTER 2023-04-16 10:59 | Day surgery (SDC) | payer OTHER, SELFPAY ==
[2023-04-16] VITALS (8 sets, daily range): BP systolic 98–116; BP diastolic 53–71; PULSE 56–65; RESP 14–16; TEMP 36.3–36.8; O2SAT 96–99; BMI 25.3
[2023-04-16] MEDS: Lactated Ringers 1,000 ML 15 ML IV (11:31)
--- NOTE | 2023-04-16 11:47 | HP.PCM_ITS ---
History and Physical Date of Admission: 04/16/23 Sonya Shine is a 62 year old female that presents today for an egd and colonoscopy Last colonoscopy 10 yrs ago, last EGD 15-20 yrs ago, diagnosed with a hiatal hernia. Last office visit 07/12/[address] Byrd for irritable bowel syndrome with constipation. Takes Miralax daily which is very helpful at managing her constipation, as well as eating a healthy diet. Gets LBP if constipation not controlled; then also has worse heartburn, even to the point of regurgitation. If heartburn flares then she just eats oatmeal for a couple of days. Only takes esomeprazole prn, was concerned about side effects if taken daily. No issues with diarrhea. Gets full quickly, then tender epigastrium, feels bloated--these are regardless of constipation; not relieved with course of doxycycline last year. Has early satiety, can't eat as much as she used to. No nausea or vomiting. No melena or hematochezia. 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 Intake Vital Signs 07/26/2209:33 12/19/2313:03 12/19/2313:03 Height 5 ft 2 in 5 ft 2 in 5 ft 2 in Weight: 141 lb BMI 25.7 BP 116/72 Blood Pressure Location Lt brachial Position Sitting Respiration 18 Pulse 70 Pulse Source Monitor Pulse Oximetry (%) 94 Intake Visit Reasons: 2 M Pockets And Pieces Necktie Operator Required: No Is patient in pain?: No Allergies naproxen [From Naprosyn] Allergy (Intermediate, Verified 12/19/22 14:05) GI upsetomeprazole [From Prilosec] Allergy (Intermediate, Verified 12/19/22 14:05) headachecodeine Allergy (Verified 12/19/22 14:05) Unknownlevofloxacin [From Levaquin] Allergy (Verified 12/19/22 14:05) Unknown Medications bupropion HCl 150 mg 24 hr tablet, extended release 150 mg PO QAM 09/27/20 [History Confirmed 12/19/22] cholecalciferol (vitamin D3) 25 mcg (1,000 unit) tablet 25 mcg PO DAILY 09/27/20 [History Confirmed 12/19/22] magnesium oxide 400 mg (241.3 mg magnesium) tablet 400 mg PO DAILY 09/27/20 [History Confirmed 12/19/22] riboflavin (vitamin B2) 25 mg tablet 25 mg PO DAILY 09/27/20 [History Confirmed 12/19/22] sumatriptan succinate 6 mg/0.5 mL subcutaneous pen injector 6 mg subcut Q1-4H PRN Headache 09/27/20 [History Confirmed 12/19/22] tramadol 50 mg tablet 50 mg PO TID PRN Pain, Mild 09/27/20 [History Confirmed 12/19/22] verapamil 80 mg tablet 80 mg PO BID SHANNON 09/27/20 [History Confirmed 12/19/22] duloxetine 20 mg capsule,delayed release 40 mg PO DAILY 09/28/20 [History Confirmed 12/19/22] verapamil 120 mg tablet,extended release 120 mg PO QHS SHANNON 09/28/20 [History Confirmed 12/19/22] diclofenac sodium 1 % topical gel 2 g topical ONCE PRN Pain 05/23/21 [History Confirmed 12/19/22] zoledronic acid 5 mg/100 mL in mannitol 5 %-water intravenous piggybck (Reclast) 5 ea .Route .YEARLY 05/23/21 [History Confirmed 12/19/22] loratadine 10 mg tablet (Claritin) 10 mg PO DAILY PRN Allergic Symptoms 06/12/21 [History Confirmed 12/19/22] calcium citrate 250 mg calcium-vitamin D3 5 mcg (200 unit) tablet 1 tab PO BID 06/26/22 [History Confirmed 12/19/22] coenzyme Q10 100 mg capsule (CoQ-10) 100 mg PO DAILY 06/26/22 [History Confirmed 12/19/22] cyanocobalamin (vitamin B-12) 1,000 mcg tablet (Vitamin B-12) 1,000 mcg PO DAILY 06/26/22 [History Confirmed 12/19/22] mogligpt-qjt-Yw-FA 1 mg tablet 1 tab PO DAILY 06/26/22 [History Confirmed 12/19/22] vitamin C 500 mg-quercetin 250 mg-bioflavonoids, citrus 33 mg capsule (Quercetin Complex) 1 cap PO DAILY 06/26/22 [History Confirmed 12/19/22] Nurse's Note: Per patient, no changes in medications PFSH Medical History Alcohol use Anemia Anxiety Arthritis Back pain Bilateral nephrolithiasis Bloating Cardiology follow-up encounter Chest pain Constipation COVID-19 virus detected (09/21/21) Depression Easy bruising Gastric reflux History of echocardiogram History of hiatal hernia History of leukemia History of steroid therapy Hypertension Hypoglycemia Irritable bowel syndrome with constipation Kidney stones Migraine Non-smoker Osteoarthrosis of hip Palpitations Post-menopausal Thyroid nodule Wears contact lenses Wears glasses Surgical History History of carpal tunnel surgery of right wrist History of hysterectomy Hx of section Hx of tonsillectomy Family History Son DiabetesGrandmother Breast cancer Social History Smoking Status: Never smoker alcohol intake: current ROS Const Const: Negative for fatigue, weakness, fever(s) or headache(s) Eyes Eyes: Negative for blind spots, loss of peripheral vision or transient loss of vision ENT ENT: Negative for headache(s), dizziness, tinnitus, Nosebleed/epistaxis or balance problems Cardio Chest Pain: No Palpitations: No Edema: None Muscle aches with walking: None Resp Respiratory: Negative for SOB with activity, SOB at rest, SOB orthopnea\SOB lying down or Cough GI GI: Negative nausea, vomiting, heartburn or vomiting blood/hematemesis : Negative for hematuria Musc Musc: Negative for muscle aches/ myalgia, muscle weakness, joint pain or balance problems Neuro Neuro: Negative for dizziness, lightheadedness, near syncope, syncope, orthostatic symptoms, headache(s) or weakness Stone Hematologic/Lymphatic: Negative for easy bleeding Endo Endo: Negative for fatigue Cardiology Exam Const Appearance: cooperative, healthy appearing, comfortable, no acute distress and well developed Orientation: alert, awake and oriented x3 Head Head: normal to inspection Ears: hearing grossly normal bilaterally Nose: external nose normal Face and Sinus: face symmetric Mouth: oral mucosae normal, lip normal and moist mucous membranes Eyes General: appearance normal, both eyes and all related structures Eyelids: eyelids normal Conjunctivae: conjunctivae normal Pupils: PERRL EOM: EOM intact bilaterally Neck Neck: normal visual inspection and trachea midline; Negative no JVD Carotids: Negative bruit Chest Chest inspection: normal inspection of the chest Auscultation: Bilateral: Clear to Auscultation Cardio Palpation: normal PMI Rate: regular rate Rhythm: regular rhythm Heart sounds: S1 normal and S2 normal; Negative rub, gallop or murmur GI GI: soft, no hepatosplenomegaly and bowel sounds present Neuro General: patient alert, patient awake, patient oriented x3 and CN's II-XI intact bilaterally Extremities Pulses: Normal: Right Posterior Tibial Pulse, Left Posterior Tibial Pulse, Right Radial Pulse and Left Radial Pulse Lower Extremity Edema: None: Bilateral Psych Psychological: normal affect Supplemental Info Supplemental Information Stress echo 08/2022: ? Stress protocol: Resting EKG demonstrates normal sinus rhythm with a rate of 67 bpm normal intervals are noted resting blood pressure is 122/70 mmHg. The patient exercised according to the regular Raymundo protocol for total duration of 9 minutes and 31 seconds patient completed 31 seconds into stage IV of the Raymundo protocol the maximum heart rate attained was 130 bpm which was 83% of max impacted heart rate the maximum workload was 11.7 metabolic equivalents. At rest there were no ST or T wave changes noted to suggest ischemia and at peak exercise upsloping ST changes only were noted with did not meet the criteria for ischemia. No clinical angina was noted. The test was terminated due to leg fatigue. Target heart rate was also achieved. The peak blood pressure was 140/82 mmHg. ? Stress echocardiogram. The resting echocardiogram demonstrated preserved ejection fraction of 60% with no wall motion abnormalities noted at rest. At peak exercise there was thickening of all murillo and reduction of low ventricular cavity size peaking at 70%. No new wall motion abnormalities were noted. (1) Constipation: Status: Acute Plan: Continue daily miralax. Add castor oil which she has at home, titrate as needed. (2) GERD (gastroesophageal reflux disease): Status: Acute Plan: Try daily PPI, rx sent in for esomeprazole 40 mg qam (3) Early satiety: Status: Acute Plan: Will get gastric emptying study, will send portal msg with result, then will see what EGD shows She will be scheduled for EGD to evnd for esophagitis, lemus's, hiatal hernia, PUD, duodenitis; and screening colonoscopy, with f/u 2 wks later Orders: Orders Gastric Emptying Study Today R68.81 - Early satiety Medications: Changed From esomeprazole magnesium 40 mg PO DAILY PRN Heartburn To esomeprazole magnesium 40 mg PO QAM PRN 90 caps 3RF Heartburn Discontinued rifaximin (Xifaxan) Discontinued Reason: None 550 mg PO TID 42 tabs 0RF IBS-d
--- NOTE | 2023-04-16 12:00 | IMM_PTH ---
PATIENT: MALGORZATA PATTERSON LOC: EN U#:[id number] AGE/SX: 63/F ROOM: RE04/16/[address]: Dr. Gene Byrd DO : 1960 BED: DIS: 04/16/2023 SPEC #: [id number] RECD: 04/16/23 14:07 STATUS: JUNAID REQ #: [id number] JAMES: 04/16/23 12:[address]: Gene Byrd DEPT: IMMUNOHISTOCHEMISTRY RECD BY: Tanika Rendon ENTERED: 04/16/23 14:08 SP TYPE: IMMUNO OTHR DR: Elvira Hardin DO Tissues: B - Stomach, NOS Procedures: H Pylori (initial) PHYSICIAN & INSTITUTION [place] [address] SPECIMEN INFORMATION: Tissue Source: B - Antrum Clinical Info: Constipation, GERD, early satiety Specimen Number: [id number] CPT code: 36255 METHODOLOGY: Deparaffinized sections of prefer/formalin-fixed tissue or PAP/DQ stained slides are incubated with monoclonal/polyclonal antibodies/oligonucleotide probes. Localization is made via biotin free immunoperoxidase method. Appropriate controls are performed and reacted as expected. Results on target cell population are indicated in the following table: RESULTS: ANTIBODY / CLONE RESULT Block B H Pylori (polyclonal) negative These tests were developed and their performance characteristics determined by [facility]. They may not have been cleared or approved by the U.S. Food and Drug Administration. The FDA has determined that such clearance or approval is not necessary. The above immunohistochemical/dualISH markers are ordered and reviewed by the Pathologist. INTERPRETATION: B. Antrum, biopsy: Negative for Helicobacter pylori organisms. AM:niyah 04/17/2023
--- NOTE | 2023-04-16 12:00 | EGD_PTH ---
PATIENT: MALGORZATA PATTERSON LOC: [facility] U#:[id number] AGE/SX: 63/F ROOM: RE04/16/[address]: Dr. Gene Byrd DO : 1960 BED: DIS: 04/16/2023 SPEC #: [id number] RECD: 04/16/23 13:14 STATUS: JUNAID KIRTI #: [id number] JAMES: 04/16/23 12:[address]: Gene Byrd DEPT: SURGICAL PATHOLOGY RECD BY: Jennifer Lynn ENTERED: 04/16/23 13:26 SP TYPE: EGD BIOPSY OT DR: Elvira Hardin DO Tissues: A - Duodenum, NOS B - Gastric mucous membrane C - Gastric mucous membrane D - Esophagus, NOS Procedures: Surgery Specimen Level IV HEADER OPERATION: Colonoscopy, EGD with biopsies (MAC) PRE-OP DIAGNOSIS: Constipation, GERD, early satiety TISSUE SUBMITTED: A - Duodenum, B - Antrum for H. pylori and path, C - Gastric body, D - Random esophagus MICROSCOPIC DIAGNOSIS A. Duodenum, biopsy: No pathologic change. B. Gastric antrum, biopsy: Mild chronic inflammation. See comment. C. Gastric body, biopsy: Mild chronic inflammation. D. Esophagus, random biopsy: No pathologic change. AM:niyah 04/17/2023 COMMENT B. The results of immunohistochemistry for Helicobacter pylori will be reported separately ([id number]). MICROSCOPIC DESCRIPTION Slides are reviewed. GROSS DESCRIPTION A - Received in fixative is one container labeled with the patient's name and designated duodenum. The specimen consists of two irregular fragments of light clayton soft tissue that in aggregate measure 0.6 x 0.3 x 0.1 cm. The specimen is totally submitted in one cassette. B - Received in fixative is one container labeled with the patient's name and designated antrum biopsy. The specimen consists of two irregular fragments of light clayton soft tissue that in aggregate measure 0.6 x 0.3 x 0.1 cm. The specimen is totally submitted in one cassette. C - Received in fixative is one container labeled with the patient's name and designated gastric body. The specimen consists of two irregular fragments of light clayton soft tissue that in aggregate measure 0.5 x 0.5 x 0.1 cm. The specimen is totally submitted in one cassette. D - Received in fixative is one container labeled with the patient's name and designated random esophagus. The specimen consists of two irregular fragments of light clayton soft tissue that in aggregate measure 0.7 x 0.4 x 0.1 cm. The specimen is totally submitted in one cassette. / SJ:rg 04/16/2023 TC:3 CPT: 23062 x4
--- NOTE | 2023-04-16 12:48 | OP.CCLET_ITS ---
04/16/2023 Elvira Hardin Do Re : Upper GI endoscopy procedure for Sonya Shine Dear Lashawn This procedure was performed on Sunday, April 16, 2023. My impressions and recommendations are as follows: Impressions : - Esophageal mucosal changes suggestive of eosinophilic esophagitis. Biopsied. - Small hiatal hernia. - Erythematous mucosa in the antrum. Biopsied. - No gross lesions in the second portion of the duodenum. Biopsied. Recommendations : - Discharge patient to home. - Resume previous diet. - Continue present medications. - Await pathology results. My findings are described in the full procedure note, which is enclosed. If I can be of further assistance, please feel free to contact me at . Sincerely, Gene Byrd, 04/16/2023 12:48:18 PM This report has been signed electronically.
--- NOTE | 2023-04-16 12:48 | OP.EGD_ITS ---
Patient Name: Sonya Shine Procedure Date: 04/16/2023 11:37 AM Date of : 1960 Age: 63 Procedure: Upper GI endoscopy Indications: Functional Dyspepsia, Heartburn Providers: Gene Byrd DO Medicines: Monitored Anesthesia Care Patient Profile: This is a 63 year old female. Refer to note in patient chart for documentation of history and physical. Patient has symptoms of chronic heartburn and chronic nausea. Complications: No immediate complications. Procedure: Pre-Anesthesia Assessment: - Prior to the procedure, a History and Physical was performed, and patient medications and allergies were reviewed. The patient is competent. The risks and benefits of the procedure and the sedation options and risks were discussed with the patient. All questions were answered and informed consent was obtained. Patient identification and proposed procedure were verified by the physician in the pre-procedure area. Mental Status Examination: alert and oriented. Airway Examination: normal oropharyngeal airway and neck mobility. Respiratory Examination: clear to auscultation. Prophylactic Antibiotics: The patient does not require prophylactic antibiotics. Prior Anticoagulants: The patient has taken no previous anticoagulant or antiplatelet agents. After reviewing the risks and benefits, the patient was deemed in satisfactory condition to undergo the procedure. The anesthesia plan was to use monitored anesthesia care (MAC). Immediately prior to administration of medications, the patient was re-assessed for adequacy to receive sedatives. The heart rate, respiratory rate, oxygen saturations, blood pressure, adequacy of pulmonary ventilation, and response to care were monitored throughout the procedure. The physical status of the patient was re-assessed after the procedure. After obtaining informed consent, the endoscope was passed under direct vision. Throughout the procedure, the patient's blood pressure, pulse, and oxygen saturations were monitored continuously. The pediatric colonoscope was introduced through the mouth, and advanced to the second part of duodenum. The upper GI endoscopy was accomplished without difficulty. The patient tolerated the procedure well. Scope In: 12:18:57 PM Scope Out: 12:25:23 PM Total Procedure Duration Time 0 hours 6 minutes 26 seconds Findings: Mucosal changes including ringed esophagus, small-caliber esophagus, circumferential folds and congestion (edema) were found in the lower third of the esophagus. Biopsies were obtained from the proximal and distal esophagus with cold forceps for histology of suspected eosinophilic esophagitis. Verification of patient identification for the specimen was done. Estimated blood loss was minimal. A small hiatal hernia was present. Patchy mildly erythematous mucosa without bleeding was found in the gastric antrum. Biopsies were taken with a cold forceps for histology. Verification of patient identification for the specimen was done. Estimated blood loss was minimal. No gross lesions were noted in the second portion of the duodenum. Biopsies were taken with a cold forceps for histology. Verification of patient identification for the specimen was done. Estimated blood loss was minimal. Impression: - Esophageal mucosal changes suggestive of eosinophilic esophagitis. Biopsied. - Small hiatal hernia. - Erythematous mucosa in the antrum. Biopsied. - No gross lesions in the second portion of the duodenum. Biopsied. Recommendation: - Discharge patient to home. - Resume previous diet. - Continue present medications. - Await pathology results. Procedure Code(s): --- Professional --- 25885, Esophagogastroduodenoscopy, flexible, transoral; with biopsy, single or multiple CPT copyright 2017 [employer] [place] [employer]. All rights reserved. The codes documented in this report are preliminary and upon electrician assistant review may be revised to meet current compliance requirements. Gene Byrd DO 04/16/2023 12:48:18 PM This report has been signed electronically. Number of Addenda: 0 Note Initiated On: 04/16/2023 11:37 AM
--- NOTE | 2023-04-16 12:51 | OP.CCLET_ITS ---
04/16/2023 Elvira Hardin Do Re : Colonoscopy procedure for Sonya Shine Dear Lashawn This procedure was performed on Sunday, April 16, 2023. My impressions and recommendations are as follows: Impressions : - Diverticulosis in the recto-sigmoid colon, in the sigmoid colon and in the descending colon. - The examination was otherwise normal on direct and retroflexion views. - No specimens collected. Recommendations : - Discharge patient to home. - Resume previous diet. - Continue present medications. - Repeat colonoscopy in 10 years for screening purposes. My findings are described in the full procedure note, which is enclosed. If I can be of further assistance, please feel free to contact me at . Sincerely, Gene Byrd, 04/16/2023 12:50:58 PM This report has been signed electronically.
--- NOTE | 2023-04-16 12:51 | OP.COLON_ITS ---
Patient Name: Sonya Shine Procedure Date: 04/16/2023 12:26 PM Date of : 1960 Age: 63 Procedure: Colonoscopy Indications: Screening for colorectal malignant neoplasm Providers: Gene Byrd DO Medicines: Monitored Anesthesia Care Patient Profile: This is a 63 year old female. Refer to note in patient chart for documentation of history and physical. Patient has symptoms of chronic heartburn and chronic nausea. Last Colonoscopy: more than 10 years ago. Complications: No immediate complications. Procedure: Pre-Anesthesia Assessment: - Prior to the procedure, a History and Physical was performed, and patient medications and allergies were reviewed. The patient is competent. The risks and benefits of the procedure and the sedation options and risks were discussed with the patient. All questions were answered and informed consent was obtained. Patient identification and proposed procedure were verified by the physician in the pre-procedure area. Mental Status Examination: alert and oriented. Airway Examination: normal oropharyngeal airway and neck mobility. Respiratory Examination: clear to auscultation. Prophylactic Antibiotics: The patient does not require prophylactic antibiotics. Prior Anticoagulants: The patient has taken no previous anticoagulant or antiplatelet agents. After reviewing the risks and benefits, the patient was deemed in satisfactory condition to undergo the procedure. The anesthesia plan was to use monitored anesthesia care (MAC). Immediately prior to administration of medications, the patient was re-assessed for adequacy to receive sedatives. The heart rate, respiratory rate, oxygen saturations, blood pressure, adequacy of pulmonary ventilation, and response to care were monitored throughout the procedure. The physical status of the patient was re-assessed after the procedure. After I obtained informed consent, the scope was passed under direct vision. Throughout the procedure, the patient's blood pressure, pulse, and oxygen saturations were monitored continuously. The pediatric colonoscope was introduced through the anus and advanced to the cecum, identified by appendiceal orifice and ileocecal valve. The colonoscopy was performed without difficulty. The patient tolerated the procedure well. The quality of the bowel preparation was good. Scope In: 12:27:36 PM Scope Withdrawal Time 0 hours 7 minutes 56 seconds Scope Out: 12:39:10 PM Total Procedure Duration Time 0 hours 11 minutes 34 seconds Findings: The perianal and digital rectal examinations were normal. A few small-mouthed diverticula were found in the recto-sigmoid colon, sigmoid colon and descending colon. The exam was otherwise without abnormality on direct and retroflexion views. Impression: - Diverticulosis in the recto-sigmoid colon, in the sigmoid colon and in the descending colon. - The examination was otherwise normal on direct and retroflexion views. - No specimens collected. Recommendation: - Discharge patient to home. - Resume previous diet. - Continue present medications. - Repeat colonoscopy in 10 years for screening purposes. Procedure Code(s): --- Professional --- G0121, Colorectal cancer screening; colonoscopy on individual not meeting criteria for high risk CPT copyright 2017 [employer]. All rights reserved. The codes documented in this report are preliminary and upon sausage meat trimmer review may be revised to meet current compliance requirements. Gene Byrd DO 04/16/2023 12:50:58 PM This report has been signed electronically. Number of Addenda: 0 Note Initiated On: 04/16/2023 12:26 PM
== END 2023-04-16 14:07 | disposition home or self-care (01) ==
LOC: EN 11:03 → AC 11:05
PROVIDERS: PCP Family Medicine; Referring Provider Internal Medicine Gastroenterology; Visit Provider Internal Medicine Gastroenterology
PROC: 0DJD8ZZ Inspection of Lower Intestinal Tract, Via Natural or Artificial Opening Endoscopic (ICD-10-PCS; CPT 45378; principal; 2023-04-16 11:55)
DX: Z12.11 Encounter for screening for malignant neoplasm of colon (principal); C91.10 Chronic lymphocytic leukemia of B-cell type not having achieved remission; K57.30 Diverticulosis of large intestine without perforation or abscess without bleeding; K30 Functional dyspepsia; K44.9 Diaphragmatic hernia without obstruction or gangrene; K21.9 Gastro-esophageal reflux disease without esophagitis; K58.1 Irritable bowel syndrome with constipation; I10 Essential (primary) hypertension; G43.709 Chronic migraine without aura, not intractable, without status migrainosus; F32.A Depression, unspecified; F41.9 Anxiety disorder, unspecified; F10.90 Alcohol use, unspecified, uncomplicated; R68.81 Early satiety; Z79.899 Other long term (current) drug therapy; Z86.16 Personal history of COVID-19
CPT/HCPCS: G0121; 43239; 88305; 88342; J7120; J2405

== ENCOUNTER 2023-05-14 09:38 | Outpatient (CLI) | payer OTHER, SELFPAY ==
[2023-05-16 16:09] LABS: Beef <0.10 kU/L (Class 0); Chocolate <0.10 kU/L (Class 0); Clam <0.10 kU/L (Class 0); Codfish <0.10 kU/L (Class 0); Corn <0.10 kU/L (Class 0); Egg, White <0.10 kU/L (Class 0); Egg, Whole <0.10 kU/L (Class 0); Milk (Cow) <0.10 kU/L (Class 0); Peanut <0.10 kU/L (Class 0); Pork <0.10 kU/L (Class 0); SCALLOP <0.10 kU/L (Class 0); SESAME SEED <0.10 kU/L (Class 0); Shrimp <0.10 kU/L (Class 0); Soybean <0.10 kU/L (Class 0); Walnut, (Food) <0.10 kU/L (Class 0); Wheat <0.10 kU/L (Class 0)
== END 2023-05-14 23:59 | disposition home or self-care (01) ==
LOC: LAB 09:39
PROVIDERS: PCP Family Medicine; Referring Provider Internal Medicine Gastroenterology; Visit Provider Internal Medicine Gastroenterology
DX: K59.09 Other constipation (principal); K21.9 Gastro-esophageal reflux disease without esophagitis
CPT/HCPCS: 36415; 86003; 86005

== ENCOUNTER 2023-06-06 14:56 | Outpatient (RCR) | payer SELFPAY | END 2023-06-06 19:00 | disposition home or self-care (01) | LOC: PT 14:56 | PROVIDERS: PCP Family Medicine | DX: M54.2 Cervicalgia (principal) ==

== ENCOUNTER → 2023-07-23 | Outpatient (CLI) | payer OTHER, SELFPAY ==
[2023-07-23 12:44] LABS: Absolute Lymphocyte Count 8.58 X10^3/uL (0.83-4.51); Absolute Neutrophil Count 4.4 X10^3/uL (2.0-7.7); Basophil% 0.7 % (0-1); Differential Indicated SCAN CRITERIA MET; Eosinophil# 0.31 X10^3/uL; Eosinophils% 2.1 % (0-5); Hematocrit 47.2 % (37-47); Hemoglobin 15.1 g/dL (12.0-15.0); Lymphocyte # 8.58 X10^3/ul (0.83-4.51); Lymphocyte % 58.5 % (19-41); Mean Corpuscular Hgb 31.7 pg (27.0-32.0); Mean Corpuscular Volume 99.2 fL (81-99); Mean Platelet Vol. 10.9 fl (6.2-12.0); Monocyte# 1.19 X10^3/uL; Monocyte% 8.1 % (0-10); NRBC Flagged by Analyzer 0 % (0-5); Neutrophil # 4.43 X10^3/uL (2.7-7.7); Neutrophil % 30.3 % (47-70); POSITIVE DIFFERENTIAL YES; Platelet Count 338 K/mm3 (150-450); RBC Distribution Width CV 13.1 % (11.6-14.6); RBC Distribution Width SD 48.1 fl (35.1-43.9); Red Blood Count 4.76 M/mm3 (4.2-5.4); White Blood Count 14.7 K/mm3 (4.4-11.0)
[2023-07-23 13:06] LABS: Differential Comment SCANNED
[2023-07-23 13:12] LABS: Vitamin B12 1083 pg/mL (211-911); Vitamin D,25 Hydroxy 59.9 ng/mL
[2023-07-23 13:16] LABS: ALB/GLOB Ratio 1.2 RATIO (0.9-2.4); AST(SGOT) 16 U/L (15-37); Alanine Aminotransfer ALT/SGPT 27 U/L (13-56); Albumin, Serum 3.8 g/dL (3.2-5.0); Alkaline Phosphatase 102 U/L (45-117); Anion Gap 4 (5-15); BUN 15 mg/dL (7-18); BUN/Creat Ratio 22.8 RATIO (10-20); Calcium,Total 9.1 mg/dL (8.5-10.1); Chloride 107 mmol/L (98-107); Creatinine, Serum 0.66 mg/dL (0.55-1.02); EST Glomerular Filtration Rate 96 mL/min (>60); Est Glom Filt Rate - Afr Amer 116 mL/min (>60); Ferritin 49 ng/mL (8-252); Free T3 2.7 pg/mL (2.18-3.98); Globulin 3.3 g/dL (2.2-4.2); Glucose 88 mg/dL (74-106); Magnesium 2.8 mg/dL (1.6-2.6); Potassium 4.1 mmol/L (3.5-5.1); Protein, Total 7.1 g/dL (6.4-8.2); Sodium Level 141 mmol/L (136-145); T4 Free Direct 0.88 ng/dL (0.76-1.46); Thyroid Stim Hormone (TSH) 0.65 uIU/mL (0.358-3.74)
[2023-07-24 18:07] LABS: Anti-Thyroglobulin AB < 1.0 IU/mL (0.0-0.9); Thyroglobulin, Serum Qt. 17.5 ng/mL (1.5-38.5); Thyroid Peroxidase AB < 9 IU/mL (0-34)
== END | disposition home or self-care (01) ==
LOC: MFPLAB 11:07
PROVIDERS: PCP Family Medicine; Visit Provider Family Medicine
DX: R53.83 Other fatigue (principal)
CPT/HCPCS: 36415; 80053; 82306; 82607; 82728; 83735; 84432; 84439; 84443; 84481; 85025; 86376; 86800

== ENCOUNTER → 2023-09-13 | Outpatient (CLI) | payer OTHER, SELFPAY ==
--- OUTSIDE RECORDS SUMMARY | 2023-09-13 16:34 | XMS RPT_ITS | CCD ---
Author Name Unknown Address [address] [place] [address] Organization [facility] Care Team Providers Care Credit Analyst Name Role Phone SHAYNA EDMONDS Admitting Unavailable SHAYNA EDMONDS Attending Unavailable SHAYNA EDMONDS Primary Care Unavailable Satya Franklin MD Primary Care Provider Mary Gonzalez MD Unavailable Satya Franklin MD Primary Care Provider Mary Gonzalez MD Unavailable Laya Hardin DO Primary Care Provider [phone] Satya Franklin MD Primary Care Provider Mary Gonzalez MD Unavailable Laya Hardin DO Primary Care Provider [phone] Mary Gonzalez MD Unavailable LAYA HARDIN Primary Care Unavailable MARY GONZALEZ Referring Unavailmukesh e ASHLEY-MARY GARZA Attending UnavailLAYA Antoine Primary Care Unavailable ASHLEY-MARY GARZA Referring Unavailmukesh e ASHLEY-MARY GARZA Attending UnavailLAYA Antoine Primary Care Unavailable MARY GONZALEZ Attending UnavailTOSHA Olmos Attending Unavailable LAYA HARDIN Primary Care Unavailable LAYA HARDIN Primary Care Unavailable MARY GONZALEZ Referring UnavailLAYA Antoine Primary Care Unavailable KARL MAGALLON Attending Unavailable LAYA HARDIN Referring Unavailable LAYA HARDIN Primary Care Unavailable TOSHA DISLA Attending Unavailable LAYA HARDIN Primary Care Unavailable MARY GONZALEZ Referring UnavailTOSHA Olmos Attending Unavailable LAYA HARDIN Primary Care Unavailable ALYA HARDIN Primary Care Unavailable MARY GONZALEZ Referring UnavailTOSHA Olmos Attending Unavailable LAYA HARDIN Primary Care Unavailable Allergies Allergy Classification Reported Allergen(s) Allergy Type Date of Onset Reaction(s) Facility (20 sources) Codeine; Translations: [CODEINE] Drug Allergy 12-19-2005 Vomiting [facility] Work Phone: (20 sources) levoFLOXacin; Translations: [LEVOFLOXACIN] Drug Allergy 09-28-2020 Other: See Comments [facility] Work Phone: (20 sources) Naproxen; Translations: [NAPROXEN] Drug Allergy 09-28-2020 GI Upset [facility] Work Phone: Medications Current Medications Medication Drug Class(es) Dates Sig (Normalized) Sig (Original) cefdinir 300 mg oral capsule (2 sources) Cephalosporin Antibacterial Start: 07-11-2023 End: 07-25-2023 take 1 capsule by mouth twice daily cefdinir (OMNICEF) 300 mg capsule Take 1 capsule by mouth two times a day for 14 days. 28 capsule 0 07/11/2023 07/25/2023 Active Completed/Discontinued Medications Medication Drug Class(es) Dates Sig (Normalized) Sig (Original) amoxicillin 875 mg / clavulanate 125 mg oral tablet (20 sources) Penicillin-class Antibacterial Start: 07-05-2023 End: 07-19-2023 take 1 tablet by mouth every twelve hours amoxicillin-clavul anate potassium (AUGMENTIN) 875-125 mg per tablet Take 1 tablet by mouth every 12 hours for 14 days. 28 tablet 0 07/05/2023 07/11/2023 Discontinued Problems Active Problems Problem Classification Problem Date Documented Da te Episodic/Chronic Abdominal pain (20 sources) Epigastric pain; Translations: [Epigastric pain] Onset: 06-25-2008 06-25-2008 Episodic Diseases of white blood cells (20 sources) Leukocytosis; Translations: [Elevated white blood cell count, unspecified] Onset: 10-09-2021 10-09-2021 Chronic Fever of unknown origin (1 source) Fever, unspecified; Translations: [Fever, unspecified] Onset: 03-22-2020 Episodic Headache; including migraine (20 sources) Migraine; Translations: [Migraine, unspecified, not intractable, without status migrainosus] Onset: 11-12-2011 11-12-2011 Chronic Immunity disorders (20 sources) Hypogammaglobulinem ia; 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] Onset: 11-20-2021 11-20-2021 Chronic Immunizations and screening for infectious disease (3 sources) Encounter for observation for suspected exposure to other biological agents ruled out; Translations: [Encounter for observation for suspected exposure to other biological agents ruled out] Onset: 03-22-2020 Episodic Leukemias (20 sources) Chronic lymphoid leukemia, disease; Translations: [Chronic lymphocytic leukemia of B-cell type not having achieved remission] Onset: 01-31-2022 Chronic Osteoarthritis (20 sources) Osteoarthritis; Translations: [Unspecified osteoarthritis, unspecified site] Onset: 11-12-2011 11-12-2011 Chronic Osteoporosis (20 sources) Osteoporosis; Translations: [Age-related osteoporosis without current pathological fracture] 12-05-2015 Chronic Other endocrine disorders (20 sources) Hypoglycemia; Translations: [Hypoglycemia, unspecified] Onset: 11-12-2011 11-12-2011 Chronic Other gastrointestinal disorders (20 sources) Constipation; Translations: [Constipation, unspecified] 12-05-2015 Episodic Other gastrointestinal disorders (4 sources) Splenomegaly; Translations: [Splenomegaly, not elsewhere classified] Episodic Other lower respiratory disease (3 sources) Multiple nodules of lung; Translations: [Other nonspecific abnormal finding of lung field] Episodic Other skin disorders (2 sources) Finding of neck region; Translations: [Localized swelling, mass and lump, neck] Episodic Other upper respiratory disease (20 sources) Chronic rhinitis; Translations: [Chronic rhinitis] Onset: 10-09-2021 10-09-2021 Chronic Other upper respiratory disease (20 sources) Vasomotor rhinitis; Translations: [Vasomotor rhinitis] Onset: 11-20-2021 11-20-2021 Chronic Other upper respiratory disease (1 source) Nasal discharge; Translations: [Other specified disorders of nose and nasal sinuses] Episodic Other upper respiratory infections (2 sources) Chronic sinusitis; Translations: [Other chronic sinusitis] Chronic Thyroid disorders (20 sources) Thyroiditis; Translations: [Thyroiditis, unspecified] Onset: 11-12-2011 11-12-2011 Chronic Unclassified (1 source) APPOINTMENT CANCELLED Unclassified (1 source) Established Patient Onset: 09-18-2022 Past or Other Problems Problem Classification Problem Date Documented Da te Episodic/Chronic Deficiency and other anemia (20 sources) Anemia; Translations: [Anemia, unspecified] Onset: 06-25-2008 06-25-2008 Episodic Esophageal disorders (20 sources) Esophagitis; Translations: [Esophagitis, unspecified] Onset: 06-25-2008 06-25-2008 Episodic Malaise and fatigue (20 sources) Malaise and fatigue; Translations: [Other malaise] Onset: 10-09-2021 10-09-2021 Episodic Other screening for suspected conditions (not mental disorders or infectious disease) (20 sources) Patient encounter status; Translations: [Encounter for screening for malignant neoplasm of colon] Onset: 06-25-2008 06-25-2008 Episodic Other upper respiratory infections (20 sources) Recurrent acute sinusitis; Translations: [Acute recurrent sinusitis, unspecified] Onset: 10-09-2021 10-09-2021 Episodic Residual codes; unclassified (17 sources) Inadequate sleep hygiene; Translations: [Inadequate sleep hygiene] Onset: 10-01-2022 Episodic Results Test Name Value Interpretation Reference Range Facil ity Vital Signs Date Time Vital Sign Value Performing Clinician Julioi litmars 05-21-2023 14:13040 Body height 157.5 cm Mary Gonzalez MD Work Phone: [facility] 05-21-2023 14:13040 Body temperature 97.3 [degF] Mary Gonzalez MD Work Phone: [facility] 05-21-2023 14:13040 Body weight 64.41 kg Mary Gonzalez MD Work Phone: [facility] 05-21-2023 14:13-040 Diastolic blood pressure 66 mm[Hg] Mary Gonzalez MD Work Phone: [facility] 05-21-2023 14:13-0400 Heart rate 75 /min Mary Gonzalez MD Work Phone: [facility] 05-21-2023 14:13-0400 SaO2% (BldA) [Mass fraction] 95 % Mary Gonzalez MD Work Phone: [facility] 05-21-2023 14:13-0400 Systolic blood pressure 102 mm[Hg] Mary Gonzalez MD Work Phone: [facility] 04-09-2023 14:08-0400 Body height 157.5 cm Tosha Disla MD Work Phone: [facility] 04-09-2023 14:08-0400 Body temperature 97 [degF] Tosha Disla MD Work Phone: [facility] 04-09-2023 14:08-0400 Body weight 63.87 kg Tosha Disla MD Work Phone: [facility] 04-09-2023 14:08-0400 Diastolic blood pressure 53 mm[Hg] Tosha Disla MD Work Phone: [facility] 04-09-2023 14:08-0400 Heart rate 70 /min Tosha Disla MD Work Phone: [facility] 04-09-2023 14:08-0400 Respiratory rate 16 /min Tosha Disla MD Work Phone: [facility] 04-09-2023 14:08-0400 SaO2% (BldA) [Mass fraction] 97 % Tosha Disla MD Work Phone: [facility] 04-09-2023 14:08-0400 Systolic blood pressure 119 mm[Hg] Tosha Disla MD Work Phone: [facility] 10-01-2022 15:35-0500 Body height 157.5 cm Tosha Disla MD Work Phone: [facility] 10-01-2022 15:35-0500 Body weight 66.68 kg Tosha Disla MD Work Phone: [facility] 10-01-2022 15:35-0500 Diastolic blood pressure 54 mm[Hg] Tosha Disla MD Work Phone: [facility] 10-01-2022 15:35-0500 Heart rate 73 /min Tosha Disla MD Work Phone: [facility] 10-01-2022 15:35-0500 Respiratory rate 17 /min Tosha Disla MD Work Phone: [facility] 10-01-2022 15:35-0500 SaO2% (BldA) [Mass fraction] 93 % Tosha Disla MD Work Phone: [facility] 10-01-2022 15:35-0500 Systolic blood pressure 112 mm[Hg] Tosha Disla MD Work Phone: [facility] 09-18-2022 14:07-0500 Body height 157.5 cm Mary Gonzalez MD Work Phone: [facility] 09-18-2022 14:07-0500 Body weight 65.32 kg Mary Gonzalez MD Work Phone: [facility] 09-18-2022 14:07-0500 Diastolic blood pressure 74 mm[Hg] Mary Gonzalez MD Work Phone: [facility] 09-18-2022 14:07-0500 Heart rate 72 /min Mary Gonzalez MD Work Phone: [facility] 09-18-2022 14:07-0500 SaO2% (BldA) [Mass fraction] 93 % Mary Gonzalez MD Work Phone: [facility] 09-18-2022 14:07-0500 Systolic blood pressure 120 mm[Hg] Mary Gonzalez MD Work Phone: [facility] 05-25-2022 11:10-0400 Body height 157.5 cm Ansley Tolliver DO Work Phone: [facility] 05-25-2022 11:10-0400 Body weight 64.41 kg Ansley Trejoey DO Work Phone: [facility] 05-25-2022 11:10-0400 Diastolic blood pressure 80 mm[Hg] Asnley Trejoey DO Work Phone: [facility] 05-25-2022 11:10-0400 Heart rate 60 /min Ansley Tolliver DO Work Phone: [facility] 05-25-2022 11:10-0400 Respiratory rate 16 /min Ansley Tolliver DO Work Phone: [facility] 05-25-2022 11:10-0400 Systolic blood pressure 130 mm[Hg] Ansley Tolliver DO Work Phone: [facility] 04-03-2022 14:58-0400 Body height 157.5 cm Mary Gonzalez MD Work Phone: [facility] 04-03-2022 14:58-0400 Body temperature 97.3 [degF] Mary Gonzalez MD Work Phone: [facility] 04-03-2022 14:58-0400 Body weight 64.5 kg Mary Gonzalez MD Work Phone: [facility] 04-03-2022 14:58-0400 Diastolic blood pressure 76 mm[Hg] Mary Gonzalez MD Work Phone: [facility] 04-03-2022 14:58-0400 Heart rate 75 /min Mary Gonzalez MD Work Phone: [facility] 04-03-2022 14:58-0400 SaO2% (BldA) [Mass fraction] 94 % Mary Gonzalez MD Work Phone: [facility] 04-03-2022 14:58-0400 Systolic blood pressure 124 mm[Hg] Mary Gonzalez MD Work Phone: [facility] 01-31-2022 08:32-0400 Body height 157.5 cm Tosha Disla MD Work Phone: [facility] 01-31-2022 08:32-0400 Body temperature 97.2 [degF] Tosha Disla MD Work Phone: [facility] 01-31-2022 08:32-0400 Body weight 63.05 kg Tosha Disla MD Work Phone: [facility] 01-31-2022 08:32-0400 Diastolic blood pressure 61 mm[Hg] Tosha Disla MD Work Phone: [facility] 01-31-2022 08:32-0400 Heart rate 63 /min Tosha Disla MD Work Phone: [facility] 01-31-2022 08:32-0400 Respiratory rate 16 /min Tosha Disla MD Work Phone: [facility] 01-31-2022 08:32-0400 SaO2% (BldA) [Mass fraction] 96 % Tosha Disla MD Work Phone: [facility] 01-31-2022 08:32-0400 Systolic blood pressure 119 mm[Hg] Tosha Disla MD Work Phone: [facility] 12-26-2021 13:21-0400 Body height 157.5 cm Mary Gonzalez MD Work Phone: [facility] 12-26-2021 13:21-0400 Body temperature 97.3 [degF] Mary Gonzalez MD Work Phone: [facility] 12-26-2021 13:21-0400 Diastolic blood pressure 76 mm[Hg] Mary Gonzalez MD Work Phone: [facility] 12-26-2021 13:21-0400 Heart rate 67 /min Mary Gonzalez MD Work Phone: [facility] 12-26-2021 13:21-0400 SaO2% (BldA) [Mass fraction] 95 % Mary Gonzalez MD Work Phone: [facility] 12-26-2021 13:21-0400 Systolic blood pressure 125 mm[Hg] Mary Gonzalez MD Work Phone: [facility] 12-04-2021 14:12-0400 Body height 157.5 cm Mary Gonzalez MD Work Phone: [facility] 12-04-2021 14:12-0400 Body temperature 97.3 [degF] Mary Gonzalez MD Work Phone: [facility] 12-04-2021 14:12-0400 Body weight 64.95 kg Mary Gonzalez MD Work Phone: [facility] 12-04-2021 14:12-0400 Diastolic blood pressure 70 mm[Hg] Mary Gonzalez MD Work Phone: [facility] 12-04-2021 14:12-0400 Heart rate 73 /min Mary Goznalez MD Work Phone: [facility] 12-04-2021 14:12-0400 SaO2% (BldA) [Mass fraction] 98 % Mary Gonzalez MD Work Phone: [facility] 12-04-2021 14:12-0400 Systolic blood pressure 116 mm[Hg] Mary Gonzalez MD Work Phone: [facility] Encounters Encounter Date Encounter Type Care Provider Facility Start: 09-04-2023 End: 09-05-2023 ambulatory LAYA HARDIN Facility:[facility] Start: 07-18-2023 Telephone encounter Tosha becerra MD Work Phone: Allergy Procedures Date Procedure Procedure Detail Performing Clinician Start: 06-08-2022 Ct maxillofacial w/o contrast material Ansley Tolliver DO Work Phone: Start: 04-13-2022 Ct thorax w/contrast material Mary Gonzalez MD Work Phone: Start: 12-13-2021 Ct abdomen & pelvis w/contrast material Mary Gonzalez MD Work Phone: Start: 12-13-2021 Ct soft tissue neck w/contrast material Mary Gonzalez MD Work Phone: Start: 12-13-2021 Ct thorax w/contrast material Mary Gonzalez MD Work Phone: Start: 12-12-2015 Colonoscopy Mary Torres MD Work Phone: Plan of Treatment Date Care Activity Detail Author Start: 02-17-2032 Urine microalbumin profile DTaP,Tdap,Td Vaccine (4 - Td or Tdap) [facility] Start: 09-21-2027 Urine microalbumin profile [facility] Start: 05-17-2026 Diabetes Screening Diabetes Screening [facility] Start: 01-10-2026 DIABETES SCREEN DIABETES SCREEN [facility] Start: 12-11-2025 Colonoscopy COLONOSCOPY [facility] Start: 12-11-2025 COLORECTAL CANCER SCREENING COLORECTAL CANCER SCREENING [facility] Start: 08-09-2025 DIABETES SCREEN DIABETES SCREEN [facility] Start: 04-02-2025 DIABETES SCREEN DIABETES SCREEN [facility] Start: 12-04-2024 DIABETES SCREEN DIABETES SCREEN [facility] Start: 05-10-2023 Influenza vaccination [facility] Start: 2023 ADVANCE DIRECTIVE DISCUSSION ADVANCE DIRECTIVE DISCUSSION [facility] Start: 2023 BONE DENSITY BONE DENSITY [facility] Start: 2023 Bone Density Screening Bone Density Screening [facility] Start: 01-07-2023 End: 01-08-2024 CBC W Auto Differential panel - Blood CBC + DIFF Lab STAT CLL (chronic lymphocytic leukemia) (HCC) Hypogammaglobulinemia (HCC) Expected: 01/07/2023, Expires: 01/08/2024 [facility] Work Phone: Immunizations Immunization Date Immunization Notes Care Provider Fa yuriyty 06-04-2022 influenza, injectabl e, quadrivalent, contains preservative Ct (I-Stat) Work Phone: [facility] 06-04-2022 influenza virus vaccine, unspecified formulation Tsoha Disla MD Work Phone: [facility] 01-31-2022 pneumococcal (PCV20) vaccine, 20 valent (PREVNAR 20) Tosha Disla MD Work Phone: [facility] 01-31-2022 pneumococcal PCV20 vaccine (PREVNAR 20) 0.5 mL injection Tosha Disla MD Work Phone: [facility] Work Phone: Payers Date Payer Category Payer Private Health Insurance [facility] [employer] [id number] 2019-Present [phone] [address] [place] [address] HMO [id number] 2019 Private Health Insurance [facility] [employer] [id number] 2019-Present [phone] [address] [place] [address] O [id number] 2019 Unknown [id number] 1960 Unknown [id number] Private Health Insurance [facility] 5757 Social History Date Type Detail Facility Start: 09-21-2017 End: 05-25-2022 Tobacco smoking status NHIS Never smoked tobacco [facility] Start: 12-04-2021 End: 04-09-2023 Alcohol intake Current drinker of alcohol (finding) [facility] Start: 12-04-2021 End: 01-15-2023 Alcohol intake [facility] Start: 1960 Sex Assigned At Not on file [facility] Start: 11-24-2021 End: 08-09-2022 Exposure to SARS-CoV-2 (event) Not sure [facility] Start: 09-21-2017 End: 05-25-2022 Tobacco use and exposure Smokeless tobacco non-user [facility] Start: 01-15-2023 End: 01-28-2023 Tobacco use panel [facility] Adult Depression Scr eening Assessment 0 [facility] Clinical Notes 12-04-2021 to 07-18-2023 Telephone Encounter - Bianca Mora - 07/18/2023 2:37 PM ESTTelephone Encounter - Tosha Disla MD - 07/18/2023 1:45 PM ESTTelephone Encounter - Bianca Mora - 07/18/2023 1:28 PM EST Note Date & Type Note Facility 07-18-2023 Miscellaneous Notes Patient aware and verbalized understanding. I would recommend giving it more time. Tosha Disla MD Patient called in today and stated that she has been taking the Cefdinir for 7 days and she stated she is still coughing up yellow mucus. She asked if she should give it more time or would you like to call her something else into her pharmacy. documented in this encounter [facility] 07-11-2023 Miscellaneous Notes Called pt and updated with Dr. Disla's new rx. Pt agreeable. Addended by: TOSHA DISLA. on: 07/11/2023 08:15 AM Modules accepted: Orders I sent a prescription for cefdinir. Tosha Disla MD Pt called in 07/10/23 @ 1609. She had a video visit with Dr. Disla on 07/05/23. Pt has a sinus infection. She stated she is not feeling any better and was wondering if she needed a different medication than what was ordered? Please advise documented in this encounter [facility] 07-05-2023 Note HNO ID: [id number] Author: Tosha Disla MD Service: ? Author Type: Physician Type: Progress Notes Filed: 07/05/2023 7:03 AM Note Text: VIRTUAL VISIT PROGRESS NOTE This is a virtual visit using [employer] Zoom Video Visit. It required patient-provider interaction for the medical decision making as documented below. I have communicated my name and active licensure. The patient's identity and physical location were verified at the time of this visit. Either the patient or their legal premium representative has been informed of the risks and benefits of -- and alternatives to -- treatment through a remote evaluation and consents to proceed with the evaluation remotely. Malgorzata Shine is a 63 year old female seen for urgent visit for sinus pressure and drainage for the past week and a half. Patient notes starting Augmentin due to previous trend of immunosuppression and recurrent sinus infections. She has not noted major relief does note that her had the same symptoms and had fairly prolonged recovery.. HISTORY REVIEWED (electronic chart updated): PAST MEDICAL HISTORY Diagnosis Date Abdominal pain Abdominal pain, epigastric Adjustment disorder with depressed mood Anemia, unspecified Anemia, unspecified Calculus of kidney right CLL (chronic lymphocytic leukemia) (HCC) Constipation COVID-19 Esophagitis, unspecified Need for prophylactic hormone replacement therapy (postmenopausal) Osteoporosis Other forms of migraine Sinus infection Snoring Thyroiditis, unspecified PAST SURGICAL HISTORY Procedure Laterality Date COLONOSCOPY FLX DX W/COLLJ SPEC WHEN PFRMD 06/25/08 COLONOSCOPY FLX DX W/COLLJ SPEC WHEN PFRMD 12/12/15 Colonoscopy EGD TRANSORAL BIOPSY SINGLE/MULTIPLE 06/25/08 PAST SURGICAL HISTORY OF 2005 GOSIA Leonard PAST SURGICAL HISTORY OF partial hysterectomy FAMILY HISTORY Problem Relation Age of Onset Alcohol/Drug Father Hypertension Father other (Cancer- liver) Father Prostate Cancer Paternal Grandfather other (Diabetes- type I) Son Type I Stroke Paternal Grandmother Alzheimer's Disease Mother Thyroid Sister Arthritis Sister Hypertension Brother Diabetes Maternal Grandmother Social History Tobacco Use Smoking status: Never Smokeless tobacco: Never Vaping Use Vaping Use: Never used Substance Use Topics Alcohol use: Yes Alcohol/week: 0.0 standard drinks of alcohol Comment: 3 glasses a month Drug use: No Current Outpatient Medications Medication Sig folic acid 400 mcg tablet 1 tablet Orally Once a day for 30 day(s) polyethylene glycol 3350 (MIRALAX) 17 gram/dose powder prn Ca carb-Ca gluc-Mg ox-Mg gluco (CALCIUM MAGNESIUM) 500 mg calcium -250 mg tab 1 tablet with a meal Orally Once a day for 30 day(s) cholecalciferol, vitamin D3, (D3-5000 ORAL) 1 capsule. Ipratropium [place] (ATROVENT) 21 mcg (0.03 %) nasal spray Use 2 Sprays in the nose every 12 hours. Azelastine HCl (OPTIVAR) 0.05 % ophthalmic solution Use 1 Drop in both eyes twice daily. hydrOXYzine HCl (ATARAX) 25 mg tablet Take 1 tablet 2 hours before bedtime. cyanocobalamin (VITAMIN B-12) 1,000 mcg tab Take by mouth. DULoxetine (CYMBALTA) 20 mg capsule Take 40 mg by mouth once daily. magnesium oxide (MAG-OX) 400 mg (241.3 mg magnesium) tablet Take 400 mg by mouth. Riboflavin 25 mg tab Take 25 mg by mouth. buPROPion XL (WELLBUTRIN XL) 150 mg 24 hr tablet Take 150 mg by mouth once daily. esomeprazole (NEXIUM) 20 mg capsule take 1 capsule by mouth twice a day EVERY OTHER DAY verapamil (CALAN, ISOPTIN) 80 mg tablet Take 1 tablet by mouth twice daily. verapamil SR (CALAN SR, ISOPTIN SR) 120 mg CR tablet Take 1 tablet by mouth daily at bedtime. No current facility-administered medications for this visit. ALLERGIES Allergen Reactions Naproxen GI Upset nausea Codeine Vomiting Dizziness and vomiting Levofloxacin Other: See Comments nausea REVIEW OF SYSTEMS: GENERAL: Notes fatigue and malaise HEENT: admits to nasal congestion with clear rhinorrhea, sinus pressure NECK: denies swelling or pain in neck RESPIRATORY: no cough, no wheezing or shortness of breath CARDIOVASCULAR: no chest pain, no palpitations GI: normal appetite, tolerating PO well, BMs normal, and no abdominal pain MUSCULOSKELETAL: denies any painful or swollen joints, no muscle aches SKIN: no rash PSYCH: denies depressed or anxious mood, sleep is normal PHYSICAL EXAMINATION: VIDEO EXAM: (if completed, performed via video enabled technology) GENERAL: alert and appropriate, in no distress, well-hydrated, well nourished, and happy, smiling, interactive SKIN: no rash noted HEAD: normocephalic, no abnormality or lesion noted EYES: no injection and visual acuity is grossly normal EARS: hearing grossly normal NOSE: rhinorrhea noted OROPHARYNX: moist mucus membranes NECK: full ROM, no cervical LNs noted RESPIRATORY: breathing non-labored CHEST: equal chest rise (more content not included)... [facility] 07-05-2023 History of Present illness Narrative VIRTUAL VISIT PROGRESS NOTE This is a virtual visit using [employer] Video Visit. It required patient-provider interaction for the medical decision making as documented below. I have communicated my name and active licensure. The patient's identity and physical location were verified at the time of this visit. Either the patient or their legal premium representative has been informed of the risks and benefits of -- and alternatives to -- treatment through a remote evaluation and consents to proceed with the evaluation remotely. Malgorzata Shine is a 63 year old female seen for urgent visit for sinus pressure and drainage for the past week and a half. Patient notes starting Augmentin due to previous trend of immunosuppression and recurrent sinus infections. She has not noted major relief does note that her had the same symptoms and had fairly prolonged recovery.. HISTORY REVIEWED (electronic chart updated): PAST MEDICAL HISTORY Diagnosis Date Abdominal pain Abdominal pain, epigastric Adjustment disorder with depressed mood Anemia, unspecified Anemia, unspecified Calculus of kidney right CLL (chronic lymphocytic leukemia) (HCC) Constipation COVID-19 Esophagitis, unspecified Need for prophylactic hormone replacement therapy (postmenopausal) Osteoporosis Other forms of migraine Sinus infection Snoring Thyroiditis, unspecified PAST SURGICAL HISTORY Procedure Laterality Date COLONOSCOPY FLX DX W/COLLJ SPEC WHEN PFRMD 06/25/08 COLONOSCOPY FLX DX W/COLLJ SPEC WHEN PFRMD 12/12/15 Colonoscopy EGD TRANSORAL BIOPSY SINGLE/MULTIPLE 06/25/08 PAST SURGICAL HISTORY OF 2005 D& C PAST SURGICAL HISTORY OF partial hysterectomy FAMILY HISTORY Problem Relation Age of Onset Alcohol/Drug Father Hypertension Father other (Cancer- liver) Father Prostate Cancer Paternal Grandfather other (Diabetes- type I) Son Type I Stroke Paternal Grandmother Alzheimer's Disease Mother Thyroid Sister Arthritis Sister Hypertension Brother Diabetes Maternal Grandmother Social History Tobacco Use Smoking status: Never Smokeless tobacco: Never Vaping Use Vaping Use: Never used Substance Use Topics Alcohol use: Yes Alcohol/week: 0.0 standard drinks of alcohol Comment: 3 glasses a month Drug use: No Current Outpatient Medications Medication Sig folic acid 400 mcg tablet 1 tablet Orally Once a day for 30 day(s) polyethylene glycol 3350 (MIRALAX) 17 gram/dose powder prn Ca carb-Ca gluc-Mg ox-Mg gluco (CALCIUM MAGNESIUM) 500 mg calcium -250 mg tab 1 tablet with a meal Orally Once a day for 30 day(s) cholecalciferol, vitamin D3, (D3-5000 ORAL) 1 capsule. Ipratropium [place] (ATROVENT) 21 mcg (0.03 %) nasal spray Use 2 Sprays in the nose every 12 hours. Azelastine HCl (OPTIVAR) 0.05 % ophthalmic solution Use 1 Drop in both eyes twice daily. hydrOXYzine HCl (ATARAX) 25 mg tablet Take 1 tablet 2 hours before bedtime. cyanocobalamin (VITAMIN B-12) 1,000 mcg tab Take by mouth. DULoxetine (CYMBALTA) 20 mg capsule Take 40 mg by mouth once daily. magnesium oxide (MAG-OX) 400 mg (241.3 mg magnesium) tablet Take 400 mg by mouth. Riboflavin 25 mg tab Take 25 mg by mouth. buPROPion XL (WELLBUTRIN XL) 150 mg 24 hr tablet Take 150 mg by mouth once daily. esomeprazole (NEXIUM) 20 mg capsule take 1 capsule by mouth twice a day EVERY OTHER DAY verapamil (CALAN, ISOPTIN) 80 mg tablet Take 1 tablet by mouth twice daily. verapamil SR (CALAN SR, ISOPTIN SR) 120 mg CR tablet Take 1 tablet by mouth daily at bedtime. No current facility-administered medications for this visit. ALLERGIES Allergen Reactions Naproxen GI Upset nausea Codeine Vomiting Dizziness and vomiting Levofloxacin Other: See Comments nausea REVIEW OF SYSTEMS: GENERAL: Notes fatigue and malaise HEENT: admits to nasal congestion with clear rhinorrhea, sinus pressure NECK: denies swelling or pain in neck RESPIRATORY: no cough, no wheezing or shortness of breath CARDIOVASCULAR: no chest pain, no palpitations GI: normal appetite, tolerating PO well, BMs normal, and no abdominal pain MUSCULOSKELETAL: denies any painful or swollen joints, no muscle aches SKIN: no rash PSYCH: denies depressed or anxious mood, sleep is normal PHYSICAL EXAMINATION: VIDEO EXAM: (if completed, performed via video enabled technology) GENERAL: alert and appropriate, in no distress, well-hydrated, well nourished, and happy, smiling, interactive SKIN: no rash noted HEAD: normocephalic, no abnormality or lesion noted EYES: no injection and visual acuity is grossly normal EARS: hearing grossly normal NOSE: rhinorrhea noted OROPHARYNX: moist mucus membranes NECK: full ROM, no cervical LNs noted RESPIRATORY: breathing non-labored CHEST: equal chest rise with normal respiratory effort ASSESSMENT: (J01.91) Acute recurrent sinusitis, unspecified location (primary encounter diagnosis) (D80.1) Hypogammaglobulinemia (HCC) (C91.10) CLL (chronic lymphocytic leukemia) ([facility]) (J30.0) Vasomotor rhinitis (J31.0) Chronic rhinitis (R53.81, R53.83) Malaise and fatigue (D84.9) Immunosuppressed status ([facility]) (D72.820) Lymphocytosis PLAN: Finish current course of Augmentin Add nasal irrigation with saline Sudafed extended release to relieve pressure. Patient was instructed to monitor blood pressure and avoid using caffeine while on Sudafed in the morning only Follow-up as scheduled Consider for IgG replacement if frequency of sinus infections or bronchitis increases. There are no Patient Instructions on file for this visit. I spent a total of 21 minutes on the date of the service which included preparing to see the patient, [id number] patient care, completing clinical documentation, performing a medically appropriate examination, counseling and educating the patient/family/caregiver, and ordering medications, tests, or procedures Tosha Disla MD documented in this encounter [facility] 07-04-2023 Miscellaneous Notes Patient called in to report that she is having issues with head pressure,congestion, body ache and a scratchy throat. Patient denies having a fever or sob. She has not had a recent Covid test, but was encouraged to do so jose cruz. Patient sent to scheduling for a virtual appointment tomorrow at [address] Montgomery per her request. documented in this encounter [facility] 06-19-2023 Miscellaneous Notes Patient called office requesting a refill for Amoxicillin-Clavulanic acid 875-125mg, 28 tablets. [facility]. Patient stated that she is currently taking Amox-Marguerite for post nasal drainage. Has taken for 5 days at present. However patient is leaving for [place] this Saturday and always takes back up dose with her, due to her leukemia. MARY JANE 04/09/[address] Disla. documented in this encounter [facility] 05-21-2023 Note HNO ID: [id number] Author: Mary Gonzalez MD Service: ? Author Type: Physician Type: Progress Notes Filed: 06/23/2023 10:27 PM Note Text: Malgorzata Shine 1960 May 21, 2023 HPI: Malgorzata Shine is a 63 year old female who presents as a new referral from Dr. Disla for lymphocytosis. Per notes from Dr. Disla: I reviewed her recent blood work noted that she would benefit from Prevnar. She wishes to postpone this since she is babysitting multiple grandchildren in the next few days and does not want to be sore. She notes concerns that her lymphocyte count has remained elevated even when she is not sick. She is awaiting referral to hematology has an appointment in the next week or so. She sees him for recurrent sinusitis. Colonoscopy 12/12/15: MORELIA. No CBCs in system except 09/2021. ALC noted of 11.38 with WBC 15.10. Had some blood work done in [place] - has had this for years on her labs from PCP's office from before and was never told or had this worked up with the ALC being elevated. She is not sure how elevated though. Drinks alcohol once week - vodka (no wine due to migraines). Non smoker. Sinus infections - bad one February 2021. Last one was Sep 2021. Usually gets about 3-4 per year. Notices she gets sick easily. No real PNA or UTIs. Babysits her grandchildren. [place] weird before this past sinus infection. Says she was so fatigued and weak that she needed a nap. Describes as a crash . Says it has gotten better now. Lots of OA in joints. +NS - occasionally sheets but clothes for the most part. No weight loss. Eating and drinking ok. Has a spot with LAD on the L side of her neck. Interval History: Today she is here for follow up. GI did an EGD on 05/17/23 and found eosinophilic esophagitis. Has been having GERD symptoms for about a year. Had a food allergy test but hasn't heard from them yet but she didn't see anything wrong. Taking Nexium. Has some ongoing pain in the R groin just above the bend. [facility] did a test and ovary on that side was ok. CT a/p 01/03/23 from [place] was normal. Has been going to pain doc in [place] for pain in her thumbs and her lower back. Still having issues with hair loss. Remembers going on a MVI and that helped. No B symptoms. PAST MEDICAL HISTORY Diagnosis Date Abdominal pain Abdominal pain, epigastric Adjustment disorder with depressed mood Anemia, unspecified Anemia, unspecified Calculus of kidney right CLL (chronic lymphocytic leukemia) (HCC) Constipation COVID-19 Esophagitis, unspecified Need for prophylactic hormone replacement therapy (postmenopausal) Osteoporosis Other forms of migraine Sinus infection Snoring Thyroiditis, unspecified PAST SURGICAL HISTORY Procedure Laterality Date COLONOSCOPY FLX DX W/COLLJ SPEC WHEN PFRMD 06/25/08 COLONOSCOPY FLX DX W/COLLJ SPEC WHEN PFRMD 12/12/15 Colonoscopy EGD TRANSORAL BIOPSY SINGLE/MULTIPLE 06/25/08 PAST SURGICAL HISTORY OF 2005 DAND C PAST SURGICAL HISTORY OF partial hysterectomy Current Outpatient Medications Medication Sig Dispense Refill traMADol (ULTRAM) 50 mg tablet take 1 to 2 tablets by mouth daily if needed folic acid 400 mcg tablet 1 tablet Orally Once a day for 30 day(s) eletriptan (RELPAX) 40 mg tablet prn celecoxib (CELEBREX) 200 mg capsule 1 capsule with food Orally Once a day for 30 day(s) dexAMETHasone 0.1 % ophthalmic solution instill 1 drop into both eyes twice a day for 14 days then DISCONTINUE polyethylene glycol 3350 (MIRALAX) 17 gram/dose powder prn Ca carb-Ca gluc-Mg ox-Mg gluco (CALCIUM MAGNESIUM) 500 mg calcium -250 mg tab 1 tablet with a meal Orally Once a day for 30 day(s) cholecalciferol, vitamin D3, (D3-5000 ORAL) 1 capsule. Ipratropium [place] (ATROVENT) 21 mcg (0.03 %) nasal spray Use 2 Sprays in the nose every 12 hours. 90 mL 3 Azelastine HCl (OPTIVAR) 0.05 % ophthalmic solution Use 1 Drop in both eyes twice daily. 6 mL 11 hydrOXYzine HCl (ATARAX) 25 mg tablet Take 1 tablet 2 hours before bedtime. 180 tablet 3 cyanocobalamin (VITAMIN B-12) 1,000 mcg tab Take by mouth. DULoxetine (CYMBALTA) 20 mg capsule Take 40 mg by mouth once daily. magnesium oxide (MAG-OX) 400 mg (241.3 mg magnesium) tablet Take 400 mg by mouth. Riboflavin 25 mg tab Take 25 mg by mouth. buPROPion XL (WELLBUTRIN XL) 150 mg 24 hr tablet Take 150 mg by mouth once daily. esomeprazole (NEXIUM) 20 mg capsule take 1 capsule by mouth twice a day EVERY OTHER DAY verapamil (CALAN, ISOPTIN) 80 mg tablet Take 1 tablet by mouth twice daily. verapamil SR (CALAN SR, ISOPTIN SR) 120 mg CR tablet Take 1 tablet by mouth daily at bedtime. No current facility-administered medications for this visit. ALLERGIES Allergen Reactions Naproxen GI Upset nausea Codeine Vomiting Dizziness and vomiting Levofloxacin Other: See Comments nausea FAMILY HISTORY Problem Relation Age of Onset Alcohol/Drug Father Hypert (more content not included)... [facility] 05-21-2023 History of Present illness Narrative Malgorzata Shine 1960 May 21, 2023 HPI: Malgorzata Shine is a 63 year old female who presents as a new referral from Dr. Disla for lymphocytosis. Per notes from Dr. Disla: I reviewed her recent blood work noted that she would benefit from Prevnar. She wishes to postpone this since she is babysitting multiple grandchildren in the next few days and does not want to be sore. She notes concerns that her lymphocyte count has remained elevated even when she is not sick. She is awaiting referral to hematology has an appointment in the next week or so. She sees him for recurrent sinusitis. Colonoscopy 12/12/15: MORELIA. No CBCs in system except 09/2021. ALC noted of 11.38 with WBC 15.10. Had some blood work done in [place] - has had this for years on her labs from PCP's office from before and was never told or had this worked up with the ALC being elevated. She is not sure how elevated though. Drinks alcohol once week - vodka (no wine due to migraines). Non smoker. Sinus infections - bad one February 2021. Last one was Sep 2021. Usually gets about 3-4 per year. Notices she gets sick easily. No real PNA or UTIs. Babysits her grandchildren. [place] weird before this past sinus infection. Says she was so fatigued and weak that she needed a nap. Describes as a crash . Says it has gotten better now. Lots of OA in joints. +NS - occasionally sheets but clothes for the most part. No weight loss. Eating and drinking ok. Has a spot with LAD on the L side of her neck. Interval History: Today she is here for follow up. GI did an EGD on 05/17/23 and found eosinophilic esophagitis. Has been having GERD symptoms for about a year. Had a food allergy test but hasn't heard from them yet but she didn't see anything wrong. Taking Nexium. Has some ongoing pain in the R groin just above the bend. [facility] did a test and ovary on that side was ok. CT a/p 01/03/23 from [place] was normal. Has been going to pain doc in [place] for pain in her thumbs and her lower back. Still having issues with hair loss. Remembers going on a MVI and that helped. No B symptoms. PAST MEDICAL HISTORY Diagnosis Date Abdominal pain Abdominal pain, epigastric Adjustment disorder with depressed mood Anemia, unspecified Anemia, unspecified Calculus of kidney right CLL (chronic lymphocytic leukemia) (HCC) Constipation COVID-19 Esophagitis, unspecified Need for prophylactic hormone replacement therapy (postmenopausal) Osteoporosis Other forms of migraine Sinus infection Snoring Thyroiditis, unspecified PAST SURGICAL HISTORY Procedure Laterality Date COLONOSCOPY FLX DX W/COLLJ SPEC WHEN PFRMD 06/25/08 COLONOSCOPY FLX DX W/COLLJ SPEC WHEN PFRMD 12/12/15 Colonoscopy EGD TRANSORAL BIOPSY SINGLE/MULTIPLE 06/25/08 PAST SURGICAL HISTORY OF 2005 D& C PAST SURGICAL HISTORY OF partial hysterectomy Current Outpatient Medications Medication Sig Dispense Refill traMADol (ULTRAM) 50 mg tablet take 1 to 2 tablets by mouth daily if needed folic acid 400 mcg tablet 1 tablet Orally Once a day for 30 day(s) eletriptan (RELPAX) 40 mg tablet prn celecoxib (CELEBREX) 200 mg capsule 1 capsule with food Orally Once a day for 30 day(s) dexAMETHasone 0.1 % ophthalmic solution instill 1 drop into both eyes twice a day for 14 days then DISCONTINUE polyethylene glycol 3350 (MIRALAX) 17 gram/dose powder prn Ca carb-Ca gluc-Mg ox-Mg gluco (CALCIUM MAGNESIUM) 500 mg calcium -250 mg tab 1 tablet with a meal Orally Once a day for 30 day(s) cholecalciferol, vitamin D3, (D3-5000 ORAL) 1 capsule. Ipratropium [place] (ATROVENT) 21 mcg (0.03 %) nasal spray Use 2 Sprays in the nose every 12 hours. 90 mL 3 Azelastine HCl (OPTIVAR) 0.05 % ophthalmic solution Use 1 Drop in both eyes twice daily. 6 mL 11 hydrOXYzine HCl (ATARAX) 25 mg tablet Take 1 tablet 2 hours before bedtime. 180 tablet 3 cyanocobalamin (VITAMIN B-12) 1,000 mcg tab Take by mouth. DULoxetine (CYMBALTA) 20 mg capsule Take 40 mg by mouth once daily. magnesium oxide (MAG-OX) 400 mg (241.3 mg magnesium) tablet Take 400 mg by mouth. Riboflavin 25 mg tab Take 25 mg by mouth. buPROPion XL (WELLBUTRIN XL) 150 mg 24 hr tablet Take 150 mg by mouth once daily. esomeprazole (NEXIUM) 20 mg capsule take 1 capsule by mouth twice a day EVERY OTHER DAY verapamil (CALAN, ISOPTIN) 80 mg tablet Take 1 tablet by mouth twice daily. verapamil SR (CALAN SR, ISOPTIN SR) 120 mg CR tablet Take 1 tablet by mouth daily at bedtime. No current facility-administered medications for this visit. ALLERGIES Allergen Reactions Naproxen GI Upset nausea Codeine Vomiting Dizziness and vomiting Levofloxacin Other: See Comments nausea FAMILY HISTORY Problem Relation Age of Onset Alcohol/Drug Father Hypertension Father other (Cancer- liver) Father Prostate Cancer Paternal Grandfather other (Diabetes- type I) Son Type I Stroke Paternal Grandmother Alzheimer's Disease Mother Thyroid Sister Arthritis Sister Hypertension Brother Diabetes Maternal Grandmother Social History Tobacco Use Smoking status: Never Smokeless tobacco: Never Vaping Use Vaping Use: Never used Substance Use Topics Alcohol use: Yes Alcohol/week: 0.0 standard drinks of alcohol Comment: 3 glasses a month Drug use: No I have reviewed the PMHx, PSHx, social history and ROS on May 21, 2023 - all new information noted. Review of Systems: Constitutional: No fevers, chills, drenching night sweats or unintentional weight loss. +Some fatigue. HEENT: No yellowing of the eyes, no vision changes, no hearing loss or ear pain, no nosebleeds or drainage, no sore throat. +recurrent sinus infections. +hair loss. Neck: No complaints. Chest: No SOB or cough, no CARBAJAL, no hemoptysis, no wheezing. Breast: No complaints. Heart: No chest pain, pressure or tightness. No racing heartbeat. Abdominal: No pain or difficulty with swallowing, no N/V, no early satiety, no abdominal pain or bloating, no diarrhea or constipation, no change in bowel habits, no blood in the urine. Genitourinary: No pain or burning with urination, no incontinence, no blood in the urine. Extremities: no pain or swelling. Neurological: No headaches, no numbness or tingling in the extremities, no double vision. Skin: No rashes or ulcerations, no change in pigmentation. Nodes: Recent enlargement in her L side of her neck about 2 weeks ago. Heme: No easy bruising or bleeding, no yellowing of the eyes or darkening of urine. Psychiatric: no anxiety or depression. Immunologic: No recurrent or persistent infections of the sinuses, lungs or urinary tract. Endocrine: No hair or nail changes, no polyuria, polydipsia, or polyphagia. Appetite normal. I have performed the physical exam on May 21, 2023 - all new findings noted below. Physical Exam: BP 102/66[right arm[ Pulse 75 Temp 97.3 Ht 5' 2 (1.58m) Wt 142 lb (64.4kg) SpO2 95% BMI 25.97 kg/(m^2). ECOG PS: 0 Pain Intensity: 0/10 General: Age-appropriate well developed. Appears well. HEENT: Normocephalic, no sclera icterus, external ears normal, oral cavity clear. +hair loss per pt. Neck: Supple, no thyroid nodules, no JVD. Chest: Clear bilaterally, no wheezes, not labored. Heart: Normal S1 and S2, no abnormal sounds, peripheral pulses synchronized. Abdomen: Soft, nontender, nondistended, bowel sounds present, no organomegaly or mass, no rigidity. ?Splenomegaly R lower pelvic spot TTP - ? Muscle. /Rectal: deferred Extremities: No cyanosis, clubbing, gross deformities, or palpable cords. Neurological: Cranial nerves II through XII are intact bilaterally, strength normal in the upper and lower extremities, no focal deficits. Skin: Warm and dry with no rashes or ulcerations. Nodes: No palpable adenopathy in the cervical, supraclavicular, infraclavicular, or axillary regions. LN noted on L side of neck - about a cm in size. Hematologic: no bruising or petechiae. Psychiatric: Alert and oriented x3. Emotional well-being assessment was performed. Pt denies depression, distress, and or problems with coping or adjustment. Labs CBC: Recent Labs 05/17/23 1512 WBC 13.65* HB 14.7 HCT 43.8 PLT 263 MCV 95.2 RDWCV 12.5 NEUTP 28.0 ABSNEUT 3.82 LYMPHP 67.0 MONOP 2.0 ALC 9.15 COAG: No results for input(s): APTT , INR in the last 168 hours. BMP: Recent Labs 05/17/23 1512 GLUC 81 NA 141 K 4.8 CHLOR 102 CO2 27 ANION 12 BUN 17 CREAT 0.78 CHEM: Recent Labs 05/17/23 1512 ALB 4.5 TPROT 6.2* CA 9.9 Lab Results Component Value Date LD 215 (H) 05/17/2023 LD 200 01/10/2023 LD 204 08/09/2022 LD 210 04/02/2022 LD 232 (H) 12/04/2021 No results found for: URICACID Lab Results Component Value Date IGA 38 (L) 01/10/2023 IGA 40 (L) 12/04/2021 IGA 49 (L) 12/21/2011 Lab Results Component Value Date IGG 610 (L) 05/17/2023 IGG 654 (L) 01/10/2023 IGG 621 (L) 03/05/2022 IGG 633 (L) 12/04/2021 IGG 698 (L) 10/09/2021 Lab Results Component Value Date IGM 35 (L) 01/10/2023 IGM 38 (L) 12/04/2021 Radiology: CT n/c/a/p 12/13/21: MORELIA in the neck. 0.7 cm pleural-based nodule at the posterior aspect of the medial right lower lobe. Subtle groundglass opacity in the right lower lobe adjacent to the nodule. Comparison with any prior outside chest CT would be helpful to assess chronicity. If none are available follow-up CT chest in 3-4 months recommended. No intrathoracic lymphadenopathy. Mildly enlarged bilateral external iliac lymph nodes. Bilateral nephrolithiasis. No hydronephrosis. Pathology: - Flow cytometry 12/04/21: The findings are diagnostic of chronic lymphocytic leukemia/small lymphocytic lymphoma (CLL/SLL). Correlation with the clinical findings is suggested. Assessment and Plan: 1) CLL - noted on flow cytometry of peripheral blood. - CABRERA Stage 0 - currently on observation. - labs stable. 2) Possible splenomegaly - recommend an US of the spleen. - however CTs do not show this as of 12/13/21. 3) Chronic sinus infections - not necessary to do IVIG at this time. - will defer to Dr. Disla though as this could change. 4) Lung nodule - RLL - needs repeat CT in 03/2022. Ordered but was not done. 5) Osteoporosis - Prolia thru [facility]. Got only 1 injection so far. 6) Hypogammaglobulinemia - may need IVIG but will defer to Dr. Disla. 7) Eosinophilic esophagitis - on Nexium first. - GI doc in [place]. - recommend repeat EGD in about 8 weeks. I reviewed with the patient her diagnosis of CLL. I reviewed with the patient that she does not need treatment for her CLL. I also discussed that if treatment was warranted, that chemotherapy would the be treatment and we could meet to discuss further. The patient was able to ask questions and all were answered to her satisfaction. I would like to see her back in 4 months for results. I would hold off on IVIG for now. We discussed reasons to treat her including pancytopenia, B symptoms, doubling of ALC <12 mo time. Reviewed NCCN guidelines with her as well. Continue follow up with pain management for epidural injections. Parts of the HPI, ROS, exam and impression/plan may have been copied from my personal previous clinical note and remain pertinent. Current changes have been made and documented today. Other parts or data were deleted if not relevant for today. The documentation has been reviewed and edited as necessary to support the clinical decision making for today's visit. Mary Gonzalez MD documented in this encounter [facility] 04-09-2023 Note HNO ID: [id number] Author: Tosha Disla MD Service: ? Author Type: Physician Type: Progress Notes Filed: 04/09/2023 3:04 PM Note Text: Allergy AND Immunology Established Visit PATIENT NAME: Malgorzata Shine SERVICE DATE: 04/09/2023 HPI: Malgorzata Shine is a 63 year old female who presents for follow up of recurrent sinusitis, hypogammaglobulinemia, immunosuppression. She has noted more frequent need for antibiotics. She has recurrence of sinus infections ad fatigue within a few weeks of finishing antibiotic regimen' Most recent IgG levels have been in the 600 range.. PAST MEDICAL HISTORY Diagnosis Date Abdominal pain Abdominal pain, epigastric Adjustment disorder with depressed mood Anemia, unspecified Anemia, unspecified Calculus of kidney right CLL (chronic lymphocytic leukemia) (HCC) Constipation COVID-19 Esophagitis, unspecified Need for prophylactic hormone replacement therapy (postmenopausal) Osteoporosis Other forms of migraine Sinus infection Snoring Thyroiditis, unspecified ACTIVE PROBLEM LIST Esophagitis, Unspecified Abdominal Pain, Epigastric Anemia, Unspecified Special Screening for Malignant Neoplasms, Colon Thyroiditis Hypoglycemia Migraines Osteoarthritis Constipation Osteoporosis Abdominal Pain Acute Recurrent Sinusitis Chronic Rhinitis Leukocytosis Malaise and Fatigue Hypogammaglobulinemia (Hcc) Vasomotor Rhinitis Cll (Chronic Lymphocytic Leukemia) (Hcc) Immunosuppressed Status (Hcc) Poor Sleep Hygiene PAST SURGICAL HISTORY Procedure Laterality Date COLONOSCOPY FLX DX W/COLLJ SPEC WHEN PFRMD 06/25/08 COLONOSCOPY FLX DX W/COLLJ SPEC WHEN PFRMD 12/12/15 Colonoscopy EGD TRANSORAL BIOPSY SINGLE/MULTIPLE 06/25/08 PAST SURGICAL HISTORY OF 2005 DAND Aisha PAST SURGICAL HISTORY OF partial hysterectomy Social History Tobacco Use Smoking status: Never Smokeless tobacco: Never Vaping Use Vaping Use: Never used Substance Use Topics Alcohol use: Yes Alcohol/week: 0.0 standard drinks of alcohol Comment: 3 glasses a month Drug use: No CURRENT OUTPATIENT MEDICATIONS: Current Outpatient Medications Medication Sig Dispense Refill Ipratropium [place] (ATROVENT) 21 mcg (0.03 %) nasal spray Use 2 Sprays in the nose every 12 hours. 90 mL 3 Azelastine HCl (OPTIVAR) 0.05 % ophthalmic solution Use 1 Drop in both eyes twice daily. 6 mL 11 hydrOXYzine HCl (ATARAX) 25 mg tablet Take 1 tablet 2 hours before bedtime. 180 tablet 3 cyanocobalamin (VITAMIN B-12) 1,000 mcg tab Take by mouth. DULoxetine (CYMBALTA) 20 mg capsule Take 40 mg by mouth once daily. cholecalciferol (VITAMIN D3) 1,000 unit tab tablet Take 25 mcg by mouth. magnesium oxide (MAG-OX) 400 mg (241.3 mg magnesium) tablet Take 400 mg by mouth. Riboflavin 25 mg tab Take 25 mg by mouth. buPROPion XL (WELLBUTRIN XL) 150 mg 24 hr tablet Take 150 mg by mouth once daily. esomeprazole (NEXIUM) 20 mg capsule take 1 capsule by mouth twice a day EVERY OTHER DAY verapamil (CALAN, ISOPTIN) 80 mg tablet Take 1 tablet by mouth twice daily. verapamil SR (CALAN SR, ISOPTIN SR) 120 mg CR tablet Take 1 tablet by mouth daily at bedtime. polyethylene glycol 3350 (MIRALAX, GLYCOLAX) 17 gram/dose powder Take 17 g by mouth once daily. (that is one (1) capful in 8oz of liquid each day) 527 g 11 No current facility-administered medications for this visit. ALLERGIES: ALLERGIES Allergen Reactions Naproxen GI Upset nausea Codeine Vomiting Dizziness and vomiting Levofloxacin Other: See Comments nausea REVIEW OF SYSTEMS: HEENT: sinus trouble and hoarseness RESPIRATORY: No cough, hemoptysis, recent chest infection, wheezing CONSTITUTIONALl: No acute distress. No weight loss or gain, no fevers or chills CARDIOVASCULAR: negative for chest pain, leg swelling or palpitations. GASTROINTESTINAL: Negative for abdominal discomfort, No blood in stools or black stools MUSCULOSKELETAL: negative for joint pain or swelling, back pain or muscle pain. NEUROLOGIC:Negative for focal numbness or weakness, headaches and dizziness or syncope. DERM/SKIN: no new rashes, hives, or skin eruptions. PSYCHIATRIC: Negative for sleep disturbance, mood disorder and recent psychosocial stressors HEMATOLOGIC/LYMPHATIC/IMMUNOLOGIC:N egative for cold or heat intolerance, polyuria, polydipsia and goiter. PHYSICAL EXAM: BP 119/53 Pulse 70 Temp (Src) 97 (Temporal Artery) Resp 16 Ht 5' 2 (1.58m) Wt 140 lb 12.8 oz (63.9kg) SpO2 97% BMI 25.75 kg/(m2). General appearance: Well appearing, alert, in no acute distress, well-hydrated, well nourished. HENT: External ears normal, canals clear, TM's normal Eyes: no scleral icterus, PERRLA, EOMS, no conjunctivitis Nose/Sinuses: Positive findings: mucosa erythematous and swollen, purulent rhinorrhea Oropharynx: Lips, mucosa, and tongue normal, teeth and gums normal, oropharynx normal M (more content not included)... [facility] 04-09-2023 History of Present illness Narrative Images from the original note were not included. Allergy & Immunology Established Visit PATIENT NAME: Malgorzata Shine SERVICE DATE: 04/09/2023 HPI: Malgorzata Shine is a 63 year old female who presents for follow up of recurrent sinusitis, hypogammaglobulinemia, immunosuppression. She has noted more frequent need for antibiotics. She has recurrence of sinus infections ad fatigue within a few weeks of finishing antibiotic regimen' Most recent IgG levels have been in the 600 range.. PAST MEDICAL HISTORY Diagnosis Date Abdominal pain Abdominal pain, epigastric Adjustment disorder with depressed mood Anemia, unspecified Anemia, unspecified Calculus of kidney right CLL (chronic lymphocytic leukemia) (HCC) Constipation COVID-19 Esophagitis, unspecified Need for prophylactic hormone replacement therapy (postmenopausal) Osteoporosis Other forms of migraine Sinus infection Snoring Thyroiditis, unspecified ACTIVE PROBLEM LIST Esophagitis, Unspecified Abdominal Pain, Epigastric Anemia, Unspecified Special Screening for Malignant Neoplasms, Colon Thyroiditis Hypoglycemia Migraines Osteoarthritis Constipation Osteoporosis Abdominal Pain Acute Recurrent Sinusitis Chronic Rhinitis Leukocytosis Malaise and Fatigue Hypogammaglobulinemia (Hcc) Vasomotor Rhinitis Cll (Chronic Lymphocytic Leukemia) (Hcc) Immunosuppressed Status (Hcc) Poor Sleep Hygiene PAST SURGICAL HISTORY Procedure Laterality Date COLONOSCOPY FLX DX W/COLLJ SPEC WHEN PFRMD 06/25/08 COLONOSCOPY FLX DX W/COLLJ SPEC WHEN PFRMD 12/12/15 Colonoscopy EGD TRANSORAL BIOPSY SINGLE/MULTIPLE 06/25/08 PAST SURGICAL HISTORY OF 2006 D& C PAST SURGICAL HISTORY OF partial hysterectomy Social History Tobacco Use Smoking status: Never Smokeless tobacco: Never Vaping Use Vaping Use: Never used Substance Use Topics Alcohol use: Yes Alcohol/week: 0.0 standard drinks of alcohol Comment: 3 glasses a month Drug use: No CURRENT OUTPATIENT MEDICATIONS: Current Outpatient Medications Medication Sig Dispense Refill Ipratropium [place] (ATROVENT) 21 mcg (0.03 %) nasal spray Use 2 Sprays in the nose every 12 hours. 90 mL 3 Azelastine HCl (OPTIVAR) 0.05 % ophthalmic solution Use 1 Drop in both eyes twice daily. 6 mL 11 hydrOXYzine HCl (ATARAX) 25 mg tablet Take 1 tablet 2 hours before bedtime. 180 tablet 3 cyanocobalamin (VITAMIN B-12) 1,000 mcg tab Take by mouth. DULoxetine (CYMBALTA) 20 mg capsule Take 40 mg by mouth once daily. cholecalciferol (VITAMIN D3) 1,000 unit tab tablet Take 25 mcg by mouth. magnesium oxide (MAG-OX) 400 mg (241.3 mg magnesium) tablet Take 400 mg by mouth. Riboflavin 25 mg tab Take 25 mg by mouth. buPROPion XL (WELLBUTRIN XL) 150 mg 24 hr tablet Take 150 mg by mouth once daily. esomeprazole (NEXIUM) 20 mg capsule take 1 capsule by mouth twice a day EVERY OTHER DAY verapamil (CALAN, ISOPTIN) 80 mg tablet Take 1 tablet by mouth twice daily. verapamil SR (CALAN SR, ISOPTIN SR) 120 mg CR tablet Take 1 tablet by mouth daily at bedtime. polyethylene glycol 3350 (MIRALAX, GLYCOLAX) 17 gram/dose powder Take 17 g by mouth once daily. (that is one (1) capful in 8oz of liquid each day) 527 g 11 No current facility-administered medications for this visit. ALLERGIES: ALLERGIES Allergen Reactions Naproxen GI Upset nausea Codeine Vomiting Dizziness and vomiting Levofloxacin Other: See Comments nausea REVIEW OF SYSTEMS: HEENT: sinus trouble and hoarseness RESPIRATORY: No cough, hemoptysis, recent chest infection, wheezing CONSTITUTIONALl: No acute distress. No weight loss or gain, no fevers or chills CARDIOVASCULAR: negative for chest pain, leg swelling or palpitations. GASTROINTESTINAL: Negative for abdominal discomfort, No blood in stools or black stools MUSCULOSKELETAL: negative for joint pain or swelling, back pain or muscle pain. NEUROLOGIC:Negative for focal numbness or weakness, headaches and dizziness or syncope. DERM/SKIN: no new rashes, hives, or skin eruptions. PSYCHIATRIC: Negative for sleep disturbance, mood disorder and recent psychosocial stressors HEMATOLOGIC/LYMPHATIC/IMMUNOLOGIC:N egative for cold or heat intolerance, polyuria, polydipsia and goiter. PHYSICAL EXAM: BP 119/53 Pulse 70 Temp (Src) 97 (Temporal Artery) Resp 16 Ht 5' 2 (1.58m) Wt 140 lb 12.8 oz (63.9kg) SpO2 97% BMI 25.75 kg/(m^2). General appearance: Well appearing, alert, in no acute distress, well-hydrated, well nourished. HENT: External ears normal, canals clear, TM's normal Eyes: no scleral icterus, PERRLA, EOMS, no conjunctivitis Nose/Sinuses: Positive findings: mucosa erythematous and swollen, purulent rhinorrhea Oropharynx: Lips, mucosa, and tongue normal, teeth and gums normal, oropharynx normal [place] Classification:Class II Respiratory: Lungs clear to auscultation. No wheezing, rhonchi, rales Cardiovascular: RRR without murmur, gallop, or rubs. No ectopy Gastroenterology: normal appearing abdomen on inspection Musculoskeletal: No joint pain, muscle weakness, or impaired gait Integumentary: Negative for lesions, rash, and itching. Psychiatric: Alert and oriented x 3. No mood disorders noted, calm affect. DATA: Diagnostic tests reviewed for today's visit were personally reviewed by me: Most recent labs and imaging results. No textual results found for the specified procedure(s). No question data found. Glucose (mg/dL) Date Value 01/10/2023 79 12/21/2011 91 Potassium (mmol/L) Date Value 01/10/2023 3.9 12/21/2011 3.8 Sodium (mmol/L) Date Value 01/10/2023 141 12/21/2011 140 Chloride (mmol/L) Date Value 01/10/2023 103 12/21/2011 104 CO2 (mmol/L) Date Value 01/10/2023 27 12/21/2011 27 Creatinine (mg/dL) Date Value 01/10/2023 0.68 12/21/2011 0.61 BUN (mg/dL) Date Value 01/10/2023 15 12/21/2011 14 Anion Gap (mmol/L) Date Value 01/10/2023 11 12/21/2011 9 Calcium (mg/dL) Date Value 12/21/2011 9.3 Calcium, Total (mg/dL) Date Value 01/10/2023 9.7 Protein, Total (g/dL) Date Value 01/10/2023 6.5 12/21/2011 6.7 Albumin (g/dL) Date Value 01/10/2023 4.5 12/21/2011 4.4 Bilirubin, Total (mg/dL) Date Value 01/10/2023 0.2 12/21/2011 0.2 Alkaline Phosphatase (U/L) Date Value 01/10/2023 102 12/21/2011 82 AST (U/L) Date Value 01/10/2023 14 12/21/2011 17 ALT (U/L) Date Value 01/10/2023 17 12/21/2011 18 WBC Date Value Ref Range Status 01/10/2023 12.07 (H) 3.70 - 11.00 k/uL Final RBC Date Value Ref Range Status 01/10/2023 4.55 3.90 - 5.20 m/uL Final Hemoglobin Date Value Ref Range Status 01/10/2023 14.7 11.5 - 15.5 g/dL Final Hematocrit Date Value Ref Range Status 01/10/2023 43.0 36.0 - 46.0 % Final MCV Date Value Ref Range Status 01/10/2023 94.5 80.0 - 100.0 fL Final MCH Date Value Ref Range Status 01/10/2023 32.3 26.0 - 34.0 pg Final MCHC Date Value Ref Range Status 01/10/2023 34.2 30.5 - 36.0 g/dL Final RDW-CV Date Value Ref Range Status 01/10/2023 13.0 11.5 - 15.0 % Final Platelet Count Date Value Ref Range Status 01/10/2023 228 150 - 400 k/uL Final MPV Date Value Ref Range Status 01/10/2023 10.8 9.0 - 12.7 fL Final Abs Neut (Segs + Bands) Date Value Ref Range Status 01/10/2023 2.41 1.45 - 7.50 k/uL Final Lymphocytes % Date Value Ref Range Status 01/10/2023 77.0 % Final Abs Lymph (Normal + Reactive) Date Value Ref Range Status 01/10/2023 9.29 (H) 1.00 - 4.00 k/uL Final Monocytes % Date Value Ref Range Status 01/10/2023 1.0 % Final Abs Coffee Date Value Ref Range Status 01/10/2023 0.12 <0.87 k/uL Final Eosin% Date Value Ref Range Status 01/10/2023 2.0 % Final Abs Eosin Date Value Ref Range Status 01/10/2023 0.24 <0.46 k/uL Final Basophils % Date Value Ref Range Status 01/10/2023 0.0 % Final Abs Baso Date Value Ref Range Status 01/10/2023 0.00 <0.11 k/uL Final IgG Date Value Ref Range Status 01/10/2023 654 (L) 700 - 1,600 mg/dL Final No follow-ups on file. (J01.91) Acute recurrent sinusitis, unspecified location (primary encounter diagnosis) (D80.1) Hypogammaglobulinemia (HCC) (C91.10) CLL (chronic lymphocytic leukemia) (HCC) (J30.0) Vasomotor rhinitis (J31.0) Chronic rhinitis (R53.81, R53.83) Malaise and fatigue (D84.9) Immunosuppressed status (HCC) (Z72.821) Poor sleep hygiene PLAN: There are no Patient Instructions on file for this visit. Extend Augmentin additional week. Repeat IgG levels Follow up as scheduled Consider for IgG replacement if infections worsen. I spent a total of 22 minutes on the date of the service which included preparing to see the patient, [id number] patient care, completing clinical documentation, performing a medically appropriate examination, counseling and educating the patient/family/caregiver, and ordering medications, tests, or procedures. Tosha Disla MD documented in this encounter [facility] 03-21-2023 Miscellaneous Notes Addended by: TOSHA DISLA. on: 03/21/2023 12:15 PM Modules accepted: Orders Rx for Atrovent nasal sent. Tosha Disla MD Spoke with patient to update her on the new prescription. She is also requesting a refill on the Ipatropium [place] nasal spray (not on current medication list). I sent Rx for Augmentin. Tosha Disla MD Patient called and requested an antibiotic, can someone reach out at earliest convinience. Leonarda Gallegos documented in this encounter [facility] 03-20-2023 Miscellaneous Notes Pt informed - states she will call her PCP to get labs ordered. Fatigue can come from her CLL however her numbers look stable. I don't see a reason for her fatigue in the labs I see her. Would encourage her to get Vit D, TSH and B12 levels checked. PCP can do. I don't see a reason to see her earlier unless she wants me to. Patient called today with c/o of fatigue for 3 weeks. See scanned 03/05 lab results from PCP. Hgb 15.4 Ferritin 59 Patient scheduled 05/21 for 4 month visit. Any other intervention or move up visit? documented in this encounter [facility] 01-28-2023 Note HNO ID: [id number] Author: Tosha Disla MD Service: ? Author Type: Physician Type: Progress Notes Filed: 01/28/2023 3:31 PM Note Text: VIRTUAL VISIT PROGRESS NOTE This is a virtual visit using [employer] video visit. It required patient-provider interaction for the medical decision making as documented below. I have communicated my name and active licensure. The patient's identity and physical location were verified at the time of this visit. Either the patient or their legal premium representative has been informed of the risks and benefits of -- and alternatives to -- treatment through a remote evaluation and consents to proceed with the evaluation remotely. Malgorzata Shine is a 63 year old female seen for follow-up of immunosuppression, recurrent sinusitis, CLL, recurrent bronchitis. Patient notes that she has done very well up until traveling to [place] previously and quired COVID with subsequent sinus infection. She recovered after course of Augmentin. She had recently seen hematology oncology and then a watch and wait mode on CLL. HISTORY REVIEWED (electronic chart updated): PAST MEDICAL HISTORY Diagnosis Date Abdominal pain Abdominal pain, epigastric Adjustment disorder with depressed mood Anemia, unspecified Anemia, unspecified Calculus of kidney right CLL (chronic lymphocytic leukemia) (HCC) Constipation COVID-19 Esophagitis, unspecified Need for prophylactic hormone replacement therapy (postmenopausal) Osteoporosis Other forms of migraine Sinus infection Snoring Thyroiditis, unspecified PAST SURGICAL HISTORY Procedure Laterality Date COLONOSCOPY FLX DX W/COLLJ SPEC WHEN PFRMD 06/25/08 COLONOSCOPY FLX DX W/COLLJ SPEC WHEN PFRMD 12/12/15 Colonoscopy EGD TRANSORAL BIOPSY SINGLE/MULTIPLE 06/25/08 PAST SURGICAL HISTORY OF 2005 DAND C PAST SURGICAL HISTORY OF partial hysterectomy FAMILY HISTORY Problem Relation Age of Onset Alcohol/Drug Father Hypertension Father other (Cancer- liver) Father Prostate Cancer Paternal Grandfather other (Diabetes- type I) Son Type I Stroke Paternal Grandmother Alzheimer's Disease Mother Thyroid Sister Arthritis Sister Hypertension Brother Diabetes Maternal Grandmother Social History Tobacco Use Smoking status: Never Smokeless tobacco: Never Vaping Use Vaping Use: Never used Substance Use Topics Alcohol use: Yes Alcohol/week: 0.0 standard drinks Comment: 3 glasses a month Drug use: No Current Outpatient Medications Medication Sig hydrOXYzine HCl (ATARAX) 25 mg tablet Take 1 tablet 2 hours before bedtime. cyanocobalamin (VITAMIN B-12) 1,000 mcg tab Take by mouth. DULoxetine (CYMBALTA) 20 mg capsule Take 40 mg by mouth once daily. cholecalciferol (VITAMIN D3) 1,000 unit tab tablet Take 25 mcg by mouth. magnesium oxide (MAG-OX) 400 mg (241.3 mg magnesium) tablet Take 400 mg by mouth. Riboflavin 25 mg tab Take 25 mg by mouth. buPROPion XL (WELLBUTRIN XL) 150 mg 24 hr tablet Take 150 mg by mouth once daily. esomeprazole (NEXIUM) 20 mg capsule take 1 capsule by mouth twice a day EVERY OTHER DAY verapamil (CALAN, ISOPTIN) 80 mg tablet Take 1 tablet by mouth twice daily. verapamil SR (CALAN SR, ISOPTIN SR) 120 mg CR tablet Take 1 tablet by mouth daily at bedtime. polyethylene glycol 3350 (MIRALAX, GLYCOLAX) 17 gram/dose powder Take 17 g by mouth once daily. (that is one (1) capful in 8oz of liquid each day) No current facility-administered medications for this visit. ALLERGIES Allergen Reactions Naproxen GI Upset nausea Codeine Vomiting Dizziness and vomiting Levofloxacin Other: See Comments nausea REVIEW OF SYSTEMS: GENERAL: feeling well without fatigue, no recent change in weight HEENT: denies SHANNON, change in hearing or vision, no other ENT complaints NECK: denies swelling or pain in neck RESPIRATORY: no cough, no wheezing or shortness of breath CARDIOVASCULAR: no chest pain, no palpitations GI: normal appetite, tolerating PO well, BMs normal, and no abdominal pain MUSCULOSKELETAL: denies any painful or swollen joints, no muscle aches SKIN: no rash PSYCH: denies depressed or anxious mood, sleep is normal PHYSICAL EXAMINATION: VIDEO EXAM: (if completed, performed via video enabled technology) GENERAL: alert and appropriate, in no distress, well-hydrated, well nourished, and happy, smiling, interactive SKIN: no rash noted HEAD: normocephalic, no abnormality or lesion noted EYES: no injection and visual acuity is grossly normal EARS: hearing grossly normal NOSE: external nose normal without rhinorrhea OROPHARYNX: moist mucus membranes NECK: full ROM, no cervical LNs noted RESPIRATORY: breathing non-labored CHEST: equal chest rise with normal respiratory effort ASSESSMENT: (J01.91) Acute recurrent sinusitis, unspecified location (primary encounter diagnosis) (D80.1) Hypogammaglobulinemia (HCC) (C91.10) CLL (chronic lymphocytic leukemia (more content not included)... [facility] 01-08-2023 Miscellaneous Notes Patient notified. Kylah Rizo RN Looks like they . All there now. Apologize to pt please Patient called in stating that she went to get her labs drawn for her upcoming appointment, however there are no current orders. She wanted to make sure that she was supposed to get labs done prior to appointment. Please advise. documented in this encounter [facility] 12-12-2022 Instructions Karl Magallon APRN.SUPERINTENDENT DRILLING - 12/12/2022 1:30 PM EDT - Supportive care with rest, fluids, and Tylenol (acetaminophen) - Augmentin (amoxicillin-clavulanic acid) 1 tablet twice daily for 14 days - Follow up if symptoms worsen or do not improve documented in this encounter [facility] 12-12-2022 Note HNO ID: [id number] Author: Karl Magallon APRN.CNS Service: ? Author Type: Nurse Specialist Type: Progress Notes Filed: 12/12/2022 1:32 PM Note Text: VIRTUAL VISIT PROGRESS NOTE This is a virtual visit using [employer] video visit. It required patient-provider interaction for the medical decision making as documented below. I have communicated my name and active licensure. The patient's identity and physical location were verified at the time of this visit. Either the patient or their legal premium representative has been informed of the risks and benefits of -- and alternatives to -- treatment through a remote evaluation and consents to proceed with the evaluation remotely. Malgorzata Shine is a 62 year old female with a history of recurrent sinusitis, hypogammaglobulinemia, CLL, and vasomotor rhinitis being seen for acute visit. Patient travel to [place] for a wedding a couple of weeks ago. She started to feel sick with aches, fever, chills, and congestion 10 days ago. She tested positive to COVID. Symptoms have progressed to facial pain, cough, and thick yellow secretions. Mucinex and Tylenol are helping, but she feels like she needs an antibiotic. She flew to [place] 1 month ago and started to feel sick. She took Augmentin with complete recovery. Bladder irritability has improved hydroxyzine 12.5 mg. Higher doses were too sedating for her. Records were reviewed and summarized as follows: 10/09/21 Skin testing negative to inhalent allergens 01/31/22 diagnosed with CLL, asking about IgGRT - follow clinical course - early antibiotic intervention - Start Atrovent 10/01/22 CT and ENT with no anatomic anomalies to explain infections - trial of hydroxyzine to reduce bladder and interstitial cystitis HISTORY REVIEWED (electronic chart updated): PAST MEDICAL HISTORY Diagnosis Date Abdominal pain Abdominal pain, epigastric Adjustment disorder with depressed mood Anemia, unspecified Anemia, unspecified Calculus of kidney right CLL (chronic lymphocytic leukemia) (HCC) Constipation COVID-19 Esophagitis, unspecified Need for prophylactic hormone replacement therapy (postmenopausal) Osteoporosis Other forms of migraine Sinus infection Snoring Thyroiditis, unspecified PAST SURGICAL HISTORY Procedure Laterality Date COLONOSCOPY FLX DX W/COLLJ SPEC WHEN PFRMD 06/25/08 COLONOSCOPY FLX DX W/COLLJ SPEC WHEN PFRMD 12/12/15 Colonoscopy EGD TRANSORAL BIOPSY SINGLE/MULTIPLE 06/25/08 PAST SURGICAL HISTORY OF 2005 DAND C PAST SURGICAL HISTORY OF partial hysterectomy FAMILY HISTORY Problem Relation Age of Onset Alcohol/Drug Father Hypertension Father other (Cancer- liver) Father Prostate Cancer Paternal Grandfather other (Diabetes- type I) Son Type I Stroke Paternal Grandmother Alzheimer's Disease Mother Thyroid Sister Arthritis Sister Hypertension Brother Diabetes Maternal Grandmother Social History Tobacco Use Smoking status: Never Smokeless tobacco: Never Vaping Use Vaping Use: Never used Substance Use Topics Alcohol use: Yes Alcohol/week: 0.0 standard drinks Comment: 3 glasses a month Drug use: No Current Outpatient Medications Medication Sig hydrOXYzine HCl (ATARAX) 25 mg tablet Take 1 tablet 2 hours before bedtime. cyanocobalamin (VITAMIN B-12) 1,000 mcg tab Take by mouth. DULoxetine (CYMBALTA) 20 mg capsule Take 40 mg by mouth once daily. cholecalciferol (VITAMIN D3) 1,000 unit tab tablet Take 25 mcg by mouth. magnesium oxide (MAG-OX) 400 mg (241.3 mg magnesium) tablet Take 400 mg by mouth. Riboflavin 25 mg tab Take 25 mg by mouth. buPROPion XL (WELLBUTRIN XL) 150 mg 24 hr tablet Take 150 mg by mouth once daily. esomeprazole (NEXIUM) 20 mg capsule take 1 capsule by mouth twice a day EVERY OTHER DAY verapamil (CALAN, ISOPTIN) 80 mg tablet Take 1 tablet by mouth twice daily. verapamil SR (CALAN SR, ISOPTIN SR) 120 mg CR tablet Take 1 tablet by mouth daily at bedtime. polyethylene glycol 3350 (MIRALAX, GLYCOLAX) 17 gram/dose powder Take 17 g by mouth once daily. (that is one (1) capful in 8oz of liquid each day) No current facility-administered medications for this visit. ALLERGIES Allergen Reactions Naproxen GI Upset nausea Codeine Vomiting Dizziness and vomiting Levofloxacin Other: See Comments nausea Review of Systems Constitutional: Negative for chills and fever. HENT: Positive for congestion, postnasal drip and sinus pain. Negative for rhinorrhea, sore throat and trouble swallowing. Respiratory: Positive for cough. Negative for chest tightness, shortness of breath and wheezing. Cardiovascular: Negative for chest pain. Genitourinary: Negative for difficulty urinating. Hematological: Negative for adenopathy. Physical Exam Constitutional: General: She is not in acute distress. Appearance: Normal appearance. She is not ill-appearing. Pulmonary: Effort: Pulmonary effort is normal. Neur (more content not included)... [facility] 12-12-2022 History of Present illness Narrative VIRTUAL VISIT PROGRESS NOTE This is a virtual visit using [employer] video visit. It required patient-provider interaction for the medical decision making as documented below. I have communicated my name and active licensure. The patient's identity and physical location were verified at the time of this visit. Either the patient or their legal premium representative has been informed of the risks and benefits of -- and alternatives to -- treatment through a remote evaluation and consents to proceed with the evaluation remotely. Malgorzata Shine is a 62 year old female with a history of recurrent sinusitis, hypogammaglobulinemia, CLL, and vasomotor rhinitis being seen for acute visit. Patient travel to [place] for a [place] a couple of weeks ago. She started to feel sick with aches, fever, chills, and congestion 10 days ago. She tested positive to COVID. Symptoms have progressed to facial pain, cough, and thick yellow secretions. Mucinex and Tylenol are helping, but she feels like she needs an antibiotic. She flew to [place] 1 month ago and started to feel sick. She took Augmentin with complete recovery. Bladder irritability has improved hydroxyzine 12.5 mg. Higher doses were too sedating for her. Records were reviewed and summarized as follows: 10/09/21 Skin testing negative to inhalent allergens 01/31/22 diagnosed with CLL, asking about IgGRT - follow clinical course - early antibiotic intervention - Start Atrovent 10/01/22 CT and ENT with no anatomic anomalies to explain infections - trial of hydroxyzine to reduce bladder and interstitial cystitis HISTORY REVIEWED (electronic chart updated): PAST MEDICAL HISTORY Diagnosis Date Abdominal pain Abdominal pain, epigastric Adjustment disorder with depressed mood Anemia, unspecified Anemia, unspecified Calculus of kidney right CLL (chronic lymphocytic leukemia) (HCC) Constipation COVID-19 Esophagitis, unspecified Need for prophylactic hormone replacement therapy (postmenopausal) Osteoporosis Other forms of migraine Sinus infection Snoring Thyroiditis, unspecified PAST SURGICAL HISTORY Procedure Laterality Date COLONOSCOPY FLX DX W/COLLJ SPEC WHEN PFRMD 06/25/08 COLONOSCOPY FLX DX W/COLLJ SPEC WHEN PFRMD 12/12/15 Colonoscopy EGD TRANSORAL BIOPSY SINGLE/MULTIPLE 06/25/08 PAST SURGICAL HISTORY OF 2005 D& C PAST SURGICAL HISTORY OF partial hysterectomy FAMILY HISTORY Problem Relation Age of Onset Alcohol/Drug Father Hypertension Father other (Cancer- liver) Father Prostate Cancer Paternal Grandfather other (Diabetes- type I) Son Type I Stroke Paternal Grandmother Alzheimer's Disease Mother Thyroid Sister Arthritis Sister Hypertension Brother Diabetes Maternal Grandmother Social History Tobacco Use Smoking status: Never Smokeless tobacco: Never Vaping Use Vaping Use: Never used Substance Use Topics Alcohol use: Yes Alcohol/week: 0.0 standard drinks Comment: 3 glasses a month Drug use: No Current Outpatient Medications Medication Sig hydrOXYzine HCl (ATARAX) 25 mg tablet Take 1 tablet 2 hours before bedtime. cyanocobalamin (VITAMIN B-12) 1,000 mcg tab Take by mouth. DULoxetine (CYMBALTA) 20 mg capsule Take 40 mg by mouth once daily. cholecalciferol (VITAMIN D3) 1,000 unit tab tablet Take 25 mcg by mouth. magnesium oxide (MAG-OX) 400 mg (241.3 mg magnesium) tablet Take 400 mg by mouth. Riboflavin 25 mg tab Take 25 mg by mouth. buPROPion XL (WELLBUTRIN XL) 150 mg 24 hr tablet Take 150 mg by mouth once daily. esomeprazole (NEXIUM) 20 mg capsule take 1 capsule by mouth twice a day EVERY OTHER DAY verapamil (CALAN, ISOPTIN) 80 mg tablet Take 1 tablet by mouth twice daily. verapamil SR (CALAN SR, ISOPTIN SR) 120 mg CR tablet Take 1 tablet by mouth daily at bedtime. polyethylene glycol 3350 (MIRALAX, GLYCOLAX) 17 gram/dose powder Take 17 g by mouth once daily. (that is one (1) capful in 8oz of liquid each day) No current facility-administered medications for this visit. ALLERGIES Allergen Reactions Naproxen GI Upset nausea Codeine Vomiting Dizziness and vomiting Levofloxacin Other: See Comments nausea Review of Systems Constitutional: Negative for chills and fever. HENT: Positive for congestion, postnasal drip and sinus pain. Negative for rhinorrhea, sore throat and trouble swallowing. Respiratory: Positive for cough. Negative for chest tightness, shortness of breath and wheezing. Cardiovascular: Negative for chest pain. Genitourinary: Negative for difficulty urinating. Hematological: Negative for adenopathy. Physical Exam Constitutional: General: She is not in acute distress. Appearance: Normal appearance. She is not ill-appearing. Pulmonary: Effort: Pulmonary effort is normal. Neurological: Mental Status: She is alert. Psychiatric: Mood and Affect: Mood normal. Behavior: Behavior is cooperative. Pertinent Lab Results Component Latest Ref Rng & Units 10/09/2021 03/05/2022 Pneumo Serotype 1 IgG (P13,PNX) ug/mL 0.43 2.92 Pneumo Serotype 3 IgG (P13,PNX) ug/mL 0.24 0.73 Pneumo Serotype 4 IgG (P7,P13,PNX) ug/mL 0.08 0.48 Pneumo Serotype 5 IGG (P13,PNX) ug/mL 1.68 3.62 Pneumo Serotype 6B IgG (P7,P13,PNX) ug/mL 0.80 3.29 Pneumo Serotype 7F IgG (P13,PNX) ug/mL 1.04 4.39 Pneumo Serotype 8 IgG (PNX) ug/mL 1.27 11.38 Pneumo Serotype 9N IgG (PNX) ug/mL 0.88 0.74 Pneumo Serotype 9V IgG (P7,P13,PNX) ug/mL 0.51 0.62 Pneumo Serotype 12F IgG (PNX) ug/mL 0.06 0.86 Pneumo Serotype 14 IgG (P7,P13,PNX) ug/mL 5.71 8.79 Pneumo Serotype 18C IgG (P7,P13,PNX) ug/mL 2.29 9.68 Pneumo Serotype 19F IgG (P7,P13,PNX) ug/mL 1.17 16.94 Pneumo Serotype 23F IgG (P7,P13,PNX) ug/mL 0.12 2.35 IgG 700-1,600 mg/dL 698 (L) 621 (L) Immunizations pneumococcal (PCV20) vaccine 01/31/2022 pneumococcal (PPV23) vaccine 07/19/2016 ASSESSMENT/PLAN: (J01.91) Acute recurrent sinusitis, unspecified location (primary encounter diagnosis) (D80.1) Hypogammaglobulinemia (HCC) (C91.10) CLL (chronic lymphocytic leukemia) ([facility]) (J30.0) Vasomotor rhinitis Recurrent sinus infections in the setting of hypogammaglobulinemia and CLL. - Supportive care with rest, fluids, and acetaminophen - Augmentin (amoxicillin-clavulanic acid) 1 tablet twice daily for 14 days - Follow up if symptoms worsen or do not improve Patient Instructions - Supportive care with rest, fluids, and Tylenol (acetaminophen) - Augmentin (amoxicillin-clavulanic acid) 1 tablet twice daily for 14 days - Follow up if symptoms worsen or do not improve I spent a total of 33 minutes on the date of the service which included preparing to see the patient, [id number] patient care, completing clinical documentation, obtaining and/or reviewing separately obtained history, performing a medically appropriate examination, counseling and educating the patient/family/caregiver, ordering medications, tests, or procedures, and independently interpreting results (not separately reported) Karl Magallon APRN.[employer] Allergy & Clinical Immunology documented in this encounter [facility] 11-05-2022 Miscellaneous Notes Patient called requesting the following refill. [place] and does not have her backup antibiotic she keeps on hand. She wanted to know if you could call in a refill for her to take with her? Requested Prescriptions Pending Prescriptions Disp Refills amoxicillin-clavulanic acid (AUGMENTIN) 875-125 mg per tablet 28 tablet 0 Sig: Take 1 tablet by mouth every 12 hours for 14 days. Patient Phone numbers: [phone] (home) Request is for script(s) to be escript to pharmacy. Charity Lorenzana documented in this encounter [facility] 10-01-2022 Note HNO ID: [id number] Author: Tosha Disla MD Service: ? Author Type: Physician Type: Progress Notes Filed: 10/01/2022 4:01 PM Note Text: Allergy AND Immunology Established Visit PATIENT NAME: Malgorzata Shine SERVICE DATE: 10/01/2022 HPI: Malgorzata Shine is a 62 year old female who presents for follow-up of hypogammaglobulinemia, recurrent sinusitis. Patient notes recent flareup with sinus infections. She had seen ENT and both CT and ENT evaluation did not indicate any anatomic anomalies that would make her more prone to sinus infections. 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 She has stopped exercising regularly and notes that she is not going to her arthritis classes at the with water aerobics.. PAST MEDICAL HISTORY Diagnosis Date Abdominal pain Abdominal pain, epigastric Adjustment disorder with depressed mood Anemia, unspecified Anemia, unspecified Calculus of kidney right CLL (chronic lymphocytic leukemia) (HCC) Constipation COVID-19 Esophagitis, unspecified Need for prophylactic hormone replacement therapy (postmenopausal) Osteoporosis Other forms of migraine Sinus infection Snoring Thyroiditis, unspecified ACTIVE PROBLEM LIST Esophagitis, Unspecified Abdominal Pain, Epigastric Anemia, Unspecified Special Screening for Malignant Neoplasms, Colon Thyroiditis Hypoglycemia Migraines Osteoarthritis Constipation Osteoporosis Abdominal Pain Acute Recurrent Sinusitis Chronic Rhinitis Leukocytosis Malaise and Fatigue Hypogammaglobulinemia (Hcc) Vasomotor Rhinitis Cll (Chronic Lymphocytic Leukemia) (Hcc) Immunosuppressed Status (Hcc) PAST SURGICAL HISTORY Procedure Laterality Date COLONOSCOPY FLX DX W/COLLJ SPEC WHEN PFRMD 06/25/08 COLONOSCOPY FLX DX W/COLLJ SPEC WHEN PFRMD 12/12/15 Colonoscopy EGD TRANSORAL BIOPSY SINGLE/MULTIPLE 06/25/08 PAST SURGICAL HISTORY OF 2005 GOSIA Leonard PAST SURGICAL HISTORY OF partial hysterectomy Social History Tobacco Use Smoking status: Never Smokeless tobacco: Never Vaping Use Vaping Use: Never used Substance Use Topics Alcohol use: Yes Alcohol/week: 0.0 standard drinks Comment: 3 glasses a month Drug use: No CURRENT OUTPATIENT MEDICATIONS: Current Outpatient Medications Medication Sig Dispense Refill amoxicillin-clavulanic acid (AUGMENTIN) 875-125 mg per tablet Take 1 tablet by mouth every 12 hours for 14 days. 28 tablet 0 Calcium Citrate-Vitamin D3 250 mg-5 mcg (200 unit) tab Take by mouth. cyanocobalamin (VITAMIN B-12) 1,000 mcg tab Take by mouth. diclofenac (VOLTAREN) 1 % topical gel Apply 2 g to affected area. DULoxetine (CYMBALTA) 20 mg capsule Take 40 mg by mouth once daily. penicillin V potassium (V-CILLIN, VEETIDS) 500 mg tablet Take by mouth. SUMAtriptan (IMITREX) 6 mg/0.5 mL kit Sumatriptan Succinate Active 6 MG SC every 1 to 4 hours September 27, 2020 12:00am do not exceed 2 doses in a 24 hour period coenzyme Q10 (COENZYME Q-10) 100 mg cap capsule Take by mouth. zoledronic acid (RECLAST) 5 mg/100 mL pgbk PREMIX piggyback Zoledronic Ubpw-Izvrgznz-Mkvyu (Reclast) 5 mg/100 mL piggyback Active 5 EACH .Route .YEARLY May 22, 2021 11:00pm Yearly infusion starting 12/06/2020 valACYclovir (VALTREX) 1 gram TAKE 1 TABLET BY MOUTH THREE TIMES A DAY FOR 7 DAYS fluticasone (FLONASE) 50 mcg/actuation nasal spray Use 2 Sprays in each nostril once daily. 15.8 mL 5 traMADol (ULTRAM) 50 mg tablet take 1 tablet by mouth three times a day if needed for 7 days celecoxib (CELEBREX) 200 mg capsule Take by mouth. cholecalciferol (VITAMIN D3) 1,000 unit tab tablet Take 25 mcg by mouth. magnesium oxide (MAG-OX) 400 mg (241.3 mg magnesium) tablet Take 400 mg by mouth. Riboflavin 25 mg tab Take 25 mg by mouth. XIFAXAN 550 mg tablet buPROPion XL (WELLBUTRIN XL) 150 mg 24 hr tablet Take 150 mg by mouth once daily. esomeprazole (NEXIUM) 20 mg capsule take 1 capsule by mouth twice a day EVERY OTHER DAY verapamil SR (CALAN SR, ISOPTIN SR) 120 mg CR tablet Take by mouth. verapamil (CALAN, ISOPTIN) 80 mg tablet Take 1 tablet by mouth twice daily. verapamil SR (CALAN SR, ISOPTIN SR) 120 mg CR tablet Take 1 tablet by mouth daily at bedtime. polyethylene glycol 3350 (MIRALAX, GLYCOLAX) 17 gram/dose powder Take 17 g by mouth once daily. (that is one (1) capful in 8oz of liquid each day) 527 g 11 COMPOUNDED PRESCRIPTION imitrex as needed 0 bupropion hcl(WELLBUTRIN SR 150 MG TAB) Take by mouth. DO NOT CRUSH. SWALLOW WHOLE 0 No current facility-administered medications for this visit. ALLERGIES: ALLERGIES Allergen Reactions Naproxen GI Upset nausea Codeine Vomiting Dizziness and vomiting Levofloxacin Other: See Comments nausea REVIEW OF SYSTEMS: MARLEEN (more content not included)... [facility] 10-01-2022 History of Present illness Narrative Images from the original note were not included. Allergy & Immunology Established Visit PATIENT NAME: Malgorzata Shine SERVICE DATE: 10/01/2022 HPI: Malgorzata Shine is a 62 year old female who presents for follow-up of hypogammaglobulinemia, recurrent sinusitis. Patient notes recent flareup with sinus infections. She had seen ENT and both CT and ENT evaluation did not indicate any anatomic anomalies that would make her more prone to sinus infections. 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 She has stopped exercising regularly and notes that she is not going to her arthritis classes at the with water aerobics.. PAST MEDICAL HISTORY Diagnosis Date Abdominal pain Abdominal pain, epigastric Adjustment disorder with depressed mood Anemia, unspecified Anemia, unspecified Calculus of kidney right CLL (chronic lymphocytic leukemia) (HCC) Constipation COVID-19 Esophagitis, unspecified Need for prophylactic hormone replacement therapy (postmenopausal) Osteoporosis Other forms of migraine Sinus infection Snoring Thyroiditis, unspecified ACTIVE PROBLEM LIST Esophagitis, Unspecified Abdominal Pain, Epigastric Anemia, Unspecified Special Screening for Malignant Neoplasms, Colon Thyroiditis Hypoglycemia Migraines Osteoarthritis Constipation Osteoporosis Abdominal Pain Acute Recurrent Sinusitis Chronic Rhinitis Leukocytosis Malaise and Fatigue Hypogammaglobulinemia (Hcc) Vasomotor Rhinitis Cll (Chronic Lymphocytic Leukemia) (Hcc) Immunosuppressed Status (Hcc) PAST SURGICAL HISTORY Procedure Laterality Date COLONOSCOPY FLX DX W/COLLJ SPEC WHEN PFRMD 06/25/08 COLONOSCOPY FLX DX W/COLLJ SPEC WHEN PFRMD 12/12/15 Colonoscopy EGD TRANSORAL BIOPSY SINGLE/MULTIPLE 06/25/08 PAST SURGICAL HISTORY OF 2006 D& C PAST SURGICAL HISTORY OF partial hysterectomy Social History Tobacco Use Smoking status: Never Smokeless tobacco: Never Vaping Use Vaping Use: Never used Substance Use Topics Alcohol use: Yes Alcohol/week: 0.0 standard drinks Comment: 3 glasses a month Drug use: No CURRENT OUTPATIENT MEDICATIONS: Current Outpatient Medications Medication Sig Dispense Refill amoxicillin-clavulanic acid (AUGMENTIN) 875-125 mg per tablet Take 1 tablet by mouth every 12 hours for 14 days. 28 tablet 0 Calcium Citrate-Vitamin D3 250 mg-5 mcg (200 unit) tab Take by mouth. cyanocobalamin (VITAMIN B-12) 1,000 mcg tab Take by mouth. diclofenac (VOLTAREN) 1 % topical gel Apply 2 g to affected area. DULoxetine (CYMBALTA) 20 mg capsule Take 40 mg by mouth once daily. penicillin V potassium (V-CILLIN, VEETIDS) 500 mg tablet Take by mouth. SUMAtriptan (IMITREX) 6 mg/0.5 mL kit Sumatriptan Succinate Active 6 MG SC every 1 to 4 hours September 27, 2020 12:00am do not exceed 2 doses in a 24 hour period coenzyme Q10 (COENZYME Q-10) 100 mg cap capsule Take by mouth. zoledronic acid (RECLAST) 5 mg/100 mL pgbk PREMIX piggyback Zoledronic Qirk-Jhpfravt-Ijcec (Reclast) 5 mg/100 mL piggyback Active 5 EACH .Route .YEARLY May 22, 2021 11:00pm Yearly infusion starting 12/06/2020 valACYclovir (VALTREX) 1 gram TAKE 1 TABLET BY MOUTH THREE TIMES A DAY FOR 7 DAYS fluticasone (FLONASE) 50 mcg/actuation nasal spray Use 2 Sprays in each nostril once daily. 15.8 mL 5 traMADol (ULTRAM) 50 mg tablet take 1 tablet by mouth three times a day if needed for 7 days celecoxib (CELEBREX) 200 mg capsule Take by mouth. cholecalciferol (VITAMIN D3) 1,000 unit tab tablet Take 25 mcg by mouth. magnesium oxide (MAG-OX) 400 mg (241.3 mg magnesium) tablet Take 400 mg by mouth. Riboflavin 25 mg tab Take 25 mg by mouth. XIFAXAN 550 mg tablet buPROPion XL (WELLBUTRIN XL) 150 mg 24 hr tablet Take 150 mg by mouth once daily. esomeprazole (NEXIUM) 20 mg capsule take 1 capsule by mouth twice a day EVERY OTHER DAY verapamil SR (CALAN SR, ISOPTIN SR) 120 mg CR tablet Take by mouth. verapamil (CALAN, ISOPTIN) 80 mg tablet Take 1 tablet by mouth twice daily. verapamil SR (CALAN SR, ISOPTIN SR) 120 mg CR tablet Take 1 tablet by mouth daily at bedtime. polyethylene glycol 3350 (MIRALAX, GLYCOLAX) 17 gram/dose powder Take 17 g by mouth once daily. (that is one (1) capful in 8oz of liquid each day) 527 g 11 COMPOUNDED PRESCRIPTION imitrex as needed 0 bupropion hcl(WELLBUTRIN SR 150 MG TAB) Take by mouth. DO NOT CRUSH. SWALLOW WHOLE 0 No current facility-administered medications for this visit. ALLERGIES: ALLERGIES Allergen Reactions Naproxen GI Upset nausea Codeine Vomiting Dizziness and vomiting Levofloxacin Other: See Comments nausea REVIEW OF SYSTEMS: HEENT: sinus trouble RESPIRATORY: No cough, hemoptysis, recent chest infection, wheezing CONSTITUTIONALl: No acute distress. No weight loss or gain, no fevers or chills CARDIOVASCULAR: negative for chest pain, leg swelling or palpitations. GASTROINTESTINAL: Negative for abdominal discomfort, No blood in stools or black stools MUSCULOSKELETAL: negative for joint pain or swelling, back pain or muscle pain. NEUROLOGIC:Negative for focal numbness or weakness, headaches and dizziness or syncope. DERM/SKIN: no new rashes, hives, or skin eruptions. PSYCHIATRIC: Negative for sleep disturbance, mood disorder and recent psychosocial stressors HEMATOLOGIC/LYMPHATIC/IMMUNOLOGIC:N egative for cold or heat intolerance, polyuria, polydipsia and goiter. PHYSICAL EXAM: BP 112/54 Pulse 73 Resp 17 Ht 5' 2 (1.58m) Wt 147 lb (66.7kg) SpO2 93% BMI 26.88 kg/(m^2). General appearance: Well appearing, alert, in no acute distress, well-hydrated, well nourished. HENT: External ears normal, canals clear, TM's normal Eyes: no scleral icterus, PERRLA, EOMS, no conjunctivitis Nose/Sinuses: Nares normal. Septum midline. Mucosa normal. No drainage or sinus tenderness. Oropharynx: Lips, mucosa, and tongue normal, teeth and gums normal, oropharynx normal [place] Classification:Class II Respiratory: Lungs clear to auscultation. No wheezing, rhonchi, rales Cardiovascular: RRR without murmur, gallop, or rubs. No ectopy Gastroenterology: normal appearing abdomen on inspection Musculoskeletal: No joint pain, muscle weakness, or impaired gait Integumentary: Negative for lesions, rash, and itching. Psychiatric: Alert and oriented x 3. No mood disorders noted, calm affect. DATA: Diagnostic tests reviewed for today's visit were personally reviewed by me: Most recent labs and imaging results. No textual results found for the specified procedure(s). No question data found. Glucose (mg/dL) Date Value 08/09/2022 95 12/21/2011 91 Potassium (mmol/L) Date Value 08/09/2022 4.1 12/21/2011 3.8 Sodium (mmol/L) Date Value 08/09/2022 138 12/21/2011 140 Chloride (mmol/L) Date Value 08/09/2022 103 12/21/2011 104 CO2 (mmol/L) Date Value 08/09/2022 29 12/21/2011 27 Creatinine (mg/dL) Date Value 08/09/2022 0.71 12/21/2011 0.61 BUN (mg/dL) Date Value 08/09/2022 19 12/21/2011 14 Anion Gap (mmol/L) Date Value 08/09/2022 6 12/21/2011 9 Calcium (mg/dL) Date Value 12/21/2011 9.3 Calcium, Total (mg/dL) Date Value 08/09/2022 9.2 Protein, Total (g/dL) Date Value 08/09/2022 6.0 12/21/2011 6.7 Albumin (g/dL) Date Value 08/09/2022 4.2 12/21/2011 4.4 Bilirubin, Total (mg/dL) Date Value 08/09/2022 0.2 12/21/2011 0.2 Alkaline Phosphatase (U/L) Date Value 08/09/2022 112 12/21/2011 82 AST (U/L) Date Value 08/09/2022 13 12/21/2011 17 ALT (U/L) Date Value 08/09/2022 19 12/21/2011 18 WBC Date Value Ref Range Status 08/09/2022 12.63 (H) 3.70 - 11.00 k/uL Final RBC Date Value Ref Range Status 08/09/2022 4.44 3.90 - 5.20 m/uL Final Hemoglobin Date Value Ref Range Status 08/09/2022 14.3 11.5 - 15.5 g/dL Final Hematocrit Date Value Ref Range Status 08/09/2022 41.8 36.0 - 46.0 % Final MCV Date Value Ref Range Status 08/09/2022 94.1 80.0 - 100.0 fL Final MCH Date Value Ref Range Status 08/09/2022 32.2 26.0 - 34.0 pg Final MCHC Date Value Ref Range Status 08/09/2022 34.2 30.5 - 36.0 g/dL Final RDW-CV Date Value Ref Range Status 08/09/2022 12.5 11.5 - 15.0 % Final Platelet Count Date Value Ref Range Status 08/09/2022 267 150 - 400 k/uL Final MPV Date Value Ref Range Status 08/09/2022 11.1 9.0 - 12.7 fL Final Abs Neut (Segs + Bands) Date Value Ref Range Status 08/09/2022 2.53 1.45 - 7.50 k/uL Final Lymph% Date Value Ref Range Status 08/09/2022 73.0 % Final Abs Lymph (Normal + Reactive) Date Value Ref Range Status 08/09/2022 9.22 (H) 1.00 - 4.00 k/uL Final Coffee% Date Value Ref Range Status 08/09/2022 5.0 % Final Abs Coffee Date Value Ref Range Status 08/09/2022 0.63 <0.87 k/uL Final Eosin% Date Value Ref Range Status 08/09/2022 1.0 % Final Abs Eosin Date Value Ref Range Status 08/09/2022 0.13 <0.46 k/uL Final Baso% Date Value Ref Range Status 08/09/2022 1.0 % Final Abs Baso Date Value Ref Range Status 08/09/2022 0.13 (H) <0.11 k/uL Final IgG Date Value Ref Range Status 03/05/2022 621 (L) 700-1,600 mg/dL Final No follow-ups on file. (J01.91) Acute recurrent sinusitis, unspecified location (primary encounter diagnosis) (J31.0) Chronic rhinitis (C91.10) CLL (chronic lymphocytic leukemia) (HCC) (R53.81, R53.83) Malaise and fatigue (J30.0) Vasomotor rhinitis (D80.1) Hypogammaglobulinemia (HCC) (D84.9) Immunosuppressed status ([facility]) PLAN: There are no Patient Instructions on file for this visit. Keep antibiotic on hand for recurrence of infections Sleep hygiene with goal of greater than 60 about her sleep per night Trial hydroxyzine 2 hours before bedtime to reduce bladder and interstitial cystitis I spent a total of 30 minutes on the date of the service which included preparing to see the patient, [id number] patient care, completing clinical documentation, performing a medically appropriate examination, counseling and educating the patient/family/caregiver, and ordering medications, tests, or procedures. Tosha Disla MD documented in this encounter [facility] 09-26-2022 Miscellaneous Notes Patient does have a scheduled appointment in [place] on 10/01/22 and was updated on the prescription that was sent in. Rx for Augmentin sent. Patient needs to set up follow up with next available provider. Tosha Disla MD Patient called in requesting an antibiotic for a sinus infection. Patient reports swollen glands, productive cough with yellow mucus and head pressure. Patient denies any sob, fever etc. Prescription can be sent to her pharmacy on record. Patient called in 09/26/22 @ 9:24 am. She stated she is very sick and want to know if she can get a prescription of some sort.till she see you on 10/01/22. Can someone reach out to patient or send prescription to pharmacy of patient choice Thank you Leonarda Gallegos documented in this encounter [facility] 09-18-2022 Note HNO ID: [id number] Author: Mary Gonzalez MD Service: ? Author Type: Physician Type: Progress Notes Filed: 04/16/2023 9:38 PM Note Text: Malgorzata Shine 1960 September 18, 2022 HPI: Malgorzata Shine is a 62 year old female who presents as a new referral from Dr. Disla for lymphocytosis. Per notes from Dr. Disla: I reviewed her recent blood work noted that she would benefit from Prevnar. She wishes to postpone this since she is babysitting multiple grandchildren in the next few days and does not want to be sore. She notes concerns that her lymphocyte count has remained elevated even when she is not sick. She is awaiting referral to hematology has an appointment in the next week or so. She sees him for recurrent sinusitis. Colonoscopy 12/12/15: [facility]. No CBCs in system except 09/2021. ALC noted of 11.38 with WBC 15.10. Had some blood work done in [place] - has had this for years on her labs from PCP's office from before and was never told or had this worked up with the ALC being elevated. She is not sure how elevated though. Drinks alcohol once week - vodka (no wine due to migraines). Non smoker. Sinus infections - bad one February 2021. Last one was Sep 2021. Usually gets about 3-4 per year. Notices she gets sick easily. No real PNA or UTIs. Babysits her grandchildren. [place] weird before this past sinus infection. Says she was so fatigued and weak that she needed a nap. Describes as a crash . Says it has gotten better now. Lots of OA in joints. +NS - occasionally sheets but clothes for the most part. No weight loss. Eating and drinking ok. Has a spot with LAD on the L side of her neck. Interval History: Today she is here for follow up. Having issues with pain in her joints and does not have a irrigation system operator or ortho. Takes tylenol that doesn't help much. Took some tramadol and it took the edge off. She had some prednisone left over at home and that helped. She is wondering if she should see a irrigation system operator. Has been going to pain doc in [place] for pain in her thumbs and her lower back. Still having issues with hair loss. Remembers going on a MVI and that helped. No B symptoms. PAST MEDICAL HISTORY Diagnosis Date Abdominal pain Abdominal pain, epigastric Adjustment disorder with depressed mood Anemia, unspecified Anemia, unspecified Calculus of kidney right CLL (chronic lymphocytic leukemia) (HCC) Constipation COVID-19 Esophagitis, unspecified Need for prophylactic hormone replacement therapy (postmenopausal) Osteoporosis Other forms of migraine Sinus infection Snoring Thyroiditis, unspecified PAST SURGICAL HISTORY Procedure Laterality Date COLONOSCOPY FLX DX W/COLLJ SPEC WHEN PFRMD 06/25/08 COLONOSCOPY FLX DX W/COLLJ SPEC WHEN PFRMD 12/12/15 Colonoscopy EGD TRANSORAL BIOPSY SINGLE/MULTIPLE 06/25/08 PAST SURGICAL HISTORY OF 2005 DAND C PAST SURGICAL HISTORY OF partial hysterectomy Current Outpatient Medications Medication Sig Dispense Refill Calcium Citrate-Vitamin D3 250 mg-5 mcg (200 unit) tab Take by mouth. cyanocobalamin (VITAMIN B-12) 1,000 mcg tab Take by mouth. diclofenac (VOLTAREN) 1 % topical gel Apply 2 g to affected area. DULoxetine (CYMBALTA) 20 mg capsule Take 40 mg by mouth once daily. penicillin V potassium (V-CILLIN, VEETIDS) 500 mg tablet Take by mouth. SUMAtriptan (IMITREX) 6 mg/0.5 mL kit Sumatriptan Succinate Active 6 MG SC every 1 to 4 hours September 27, 2020 12:00am do not exceed 2 doses in a 24 hour period coenzyme Q10 (COENZYME Q-10) 100 mg cap capsule Take by mouth. zoledronic acid (RECLAST) 5 mg/100 mL pgbk PREMIX piggyback Zoledronic Zkpw-Qcruomfr-Pnhlr (Reclast) 5 mg/100 mL piggyback Active 5 EACH .Route .YEARLY May 22, 2021 11:00pm Yearly infusion starting 12/06/2020 valACYclovir (VALTREX) 1 gram TAKE 1 TABLET BY MOUTH THREE TIMES A DAY FOR 7 DAYS fluticasone (FLONASE) 50 mcg/actuation nasal spray Use 2 Sprays in each nostril once daily. 15.8 mL 5 traMADol (ULTRAM) 50 mg tablet take 1 tablet by mouth three times a day if needed for 7 days celecoxib (CELEBREX) 200 mg capsule Take by mouth. cholecalciferol (VITAMIN D3) 1,000 unit tab tablet Take 25 mcg by mouth. magnesium oxide (MAG-OX) 400 mg (241.3 mg magnesium) tablet Take 400 mg by mouth. Riboflavin 25 mg tab Take 25 mg by mouth. XIFAXAN 550 mg tablet buPROPion XL (WELLBUTRIN XL) 150 mg 24 hr tablet Take 150 mg by mouth once daily. esomeprazole (NEXIUM) 20 mg capsule take 1 capsule by mouth twice a day EVERY OTHER DAY verapamil SR (CALAN SR, ISOPTIN SR) 120 mg CR tablet Take by mouth. verapamil (CALAN, ISOPTIN) 80 mg tablet Take 1 tablet by mouth twice daily. verapamil SR (CALAN SR, ISOPTIN SR) 120 mg CR tablet Take 1 tablet by mouth daily at bedtime. polyethylene glycol 3350 (MIRALAX, GLYCOLAX) 17 gram/dose powder Take 17 g by mouth once daily. (that is one (1) capful in 8oz of liquid each day) (more content not included)... [facility] 09-18-2022 History of Present illness Narrative Malgorzata Shine 1960 September 18, 2022 HPI: Malgorzata Shine is a 62 year old female who presents as a new referral from Dr. Disla for lymphocytosis. Per notes from Dr. Disla: I reviewed her recent blood work noted that she would benefit from Prevnar. She wishes to postpone this since she is babysitting multiple grandchildren in the next few days and does not want to be sore. She notes concerns that her lymphocyte count has remained elevated even when she is not sick. She is awaiting referral to hematology has an appointment in the next week or so. She sees him for recurrent sinusitis. Colonoscopy 12/12/15: MORELIA. No CBCs in system except 09/2021. ALC noted of 11.38 with WBC 15.10. Had some blood work done in [place] - has had this for years on her labs from PCP's office from before and was never told or had this worked up with the ALC being elevated. She is not sure how elevated though. Drinks alcohol once week - vodka (no wine due to migraines). Non smoker. Sinus infections - bad one February 2021. Last one was Sep 2021. Usually gets about 3-4 per year. Notices she gets sick easily. No real PNA or UTIs. Babysits her grandchildren. [place] weird before this past sinus infection. Says she was so fatigued and weak that she needed a nap. Describes as a crash . Says it has gotten better now. Lots of OA in joints. +NS - occasionally sheets but clothes for the most part. No weight loss. Eating and drinking ok. Has a spot with LAD on the L side of her neck. Interval History: Today she is here for follow up. Having issues with pain in her joints and does not have a irrigation system operator or ortho. Takes tylenol that doesn't help much. Took some tramadol and it took the edge off. She had some prednisone left over at home and that helped. She is wondering if she should see a irrigation system operator. Has been going to pain doc in [place] for pain in her thumbs and her lower back. Still having issues with hair loss. Remembers going on a MVI and that helped. No B symptoms. PAST MEDICAL HISTORY Diagnosis Date Abdominal pain Abdominal pain, epigastric Adjustment disorder with depressed mood Anemia, unspecified Anemia, unspecified Calculus of kidney right CLL (chronic lymphocytic leukemia) (HCC) Constipation COVID-19 Esophagitis, unspecified Need for prophylactic hormone replacement therapy (postmenopausal) Osteoporosis Other forms of migraine Sinus infection Snoring Thyroiditis, unspecified PAST SURGICAL HISTORY Procedure Laterality Date COLONOSCOPY FLX DX W/COLLJ SPEC WHEN PFRMD 06/25/08 COLONOSCOPY FLX DX W/COLLJ SPEC WHEN PFRMD 12/12/15 Colonoscopy EGD TRANSORAL BIOPSY SINGLE/MULTIPLE 10/17/08 PAST SURGICAL HISTORY OF 2005 D& C PAST SURGICAL HISTORY OF partial hysterectomy Current Outpatient Medications Medication Sig Dispense Refill Calcium Citrate-Vitamin D3 250 mg-5 mcg (200 unit) tab Take by mouth. cyanocobalamin (VITAMIN B-12) 1,000 mcg tab Take by mouth. diclofenac (VOLTAREN) 1 % topical gel Apply 2 g to affected area. DULoxetine (CYMBALTA) 20 mg capsule Take 40 mg by mouth once daily. penicillin V potassium (V-CILLIN, VEETIDS) 500 mg tablet Take by mouth. SUMAtriptan (IMITREX) 6 mg/0.5 mL kit Sumatriptan Succinate Active 6 MG SC every 1 to 4 hours September 27, 2020 12:00am do not exceed 2 doses in a 24 hour period coenzyme Q10 (COENZYME Q-10) 100 mg cap capsule Take by mouth. zoledronic acid (RECLAST) 5 mg/100 mL pgbk PREMIX piggyback Zoledronic Uzip-Axsnpzxc-Pxcqz (Reclast) 5 mg/100 mL piggyback Active 5 EACH .Route .YEARLY May 22, 2021 11:00pm Yearly infusion starting 12/06/2020 valACYclovir (VALTREX) 1 gram TAKE 1 TABLET BY MOUTH THREE TIMES A DAY FOR 7 DAYS fluticasone (FLONASE) 50 mcg/actuation nasal spray Use 2 Sprays in each nostril once daily. 15.8 mL 5 traMADol (ULTRAM) 50 mg tablet take 1 tablet by mouth three times a day if needed for 7 days celecoxib (CELEBREX) 200 mg capsule Take by mouth. cholecalciferol (VITAMIN D3) 1,000 unit tab tablet Take 25 mcg by mouth. magnesium oxide (MAG-OX) 400 mg (241.3 mg magnesium) tablet Take 400 mg by mouth. Riboflavin 25 mg tab Take 25 mg by mouth. XIFAXAN 550 mg tablet buPROPion XL (WELLBUTRIN XL) 150 mg 24 hr tablet Take 150 mg by mouth once daily. esomeprazole (NEXIUM) 20 mg capsule take 1 capsule by mouth twice a day EVERY OTHER DAY verapamil SR (CALAN SR, ISOPTIN SR) 120 mg CR tablet Take by mouth. verapamil (CALAN, ISOPTIN) 80 mg tablet Take 1 tablet by mouth twice daily. verapamil SR (CALAN SR, ISOPTIN SR) 120 mg CR tablet Take 1 tablet by mouth daily at bedtime. polyethylene glycol 3350 (MIRALAX, GLYCOLAX) 17 gram/dose powder Take 17 g by mouth once daily. (that is one (1) capful in 8oz of liquid each day) 527 g 11 COMPOUNDED PRESCRIPTION imitrex as needed 0 bupropion hcl(WELLBUTRIN SR 150 MG TAB) Take by mouth. DO NOT CRUSH. SWALLOW WHOLE 0 No current facility-administered medications for this visit. ALLERGIES Allergen Reactions Naproxen GI Upset nausea Codeine Vomiting Dizziness and vomiting Levofloxacin Other: See Comments nausea FAMILY HISTORY Problem Relation Age of Onset Alcohol/Drug Father Hypertension Father other (Cancer- liver) Father Prostate Cancer Paternal Grandfather other (Diabetes- type I) Son Type I Stroke Paternal Grandmother Alzheimer's Disease Mother Thyroid Sister Arthritis Sister Hypertension Brother Diabetes Maternal Grandmother Social History Tobacco Use Smoking status: Never Smokeless tobacco: Never Vaping Use Vaping Use: Never used Substance Use Topics Alcohol use: Yes Alcohol/week: 0.0 standard drinks Comment: 3 glasses a month Drug use: No I have reviewed the PMHx, PSHx, social history and ROS on September 18, 2022 - all new information noted. Review of Systems: Constitutional: No fevers, chills, drenching night sweats or unintentional weight loss. +Some fatigue. HEENT: No yellowing of the eyes, no vision changes, no hearing loss or ear pain, no nosebleeds or drainage, no sore throat. +recurrent sinus infections. +hair loss. Neck: No complaints. Chest: No SOB or cough, no CARBAJAL, no hemoptysis, no wheezing. Breast: No complaints. Heart: No chest pain, pressure or tightness. No racing heartbeat. Abdominal: No pain or difficulty with swallowing, no N/V, no early satiety, no abdominal pain or bloating, no diarrhea or constipation, no change in bowel habits, no blood in the urine. Genitourinary: No pain or burning with urination, no incontinence, no blood in the urine. Extremities: no pain or swelling. Achy hands. Neurological: No headaches, no numbness or tingling in the extremities, no double vision. Skin: No rashes or ulcerations, no change in pigmentation. Nodes: Recent enlargement in her L side of her neck about 2 weeks ago. Heme: No easy bruising or bleeding, no yellowing of the eyes or darkening of urine. Psychiatric: no anxiety or depression. Immunologic: No recurrent or persistent infections of the sinuses, lungs or urinary tract. Endocrine: No hair or nail changes, no polyuria, polydipsia, or polyphagia. Appetite normal. I have performed the physical exam on September 18, 2022 - all new findings noted below. Physical Exam: BP 120/74[left arm[ Pulse 72 Ht 5' 2 (1.58m) Wt 144 lb (65.3kg) SpO2 93% BMI 26.33 kg/(m^2). ECOG PS: 0 Pain Intensity: 0/10 General: Age-appropriate well developed. Appears well. HEENT: Normocephalic, no sclera icterus, external ears normal, oral cavity clear. +hair loss per pt. Neck: Supple, no thyroid nodules, no JVD. Chest: Clear bilaterally, no wheezes, not labored. Heart: Normal S1 and S2, no abnormal sounds, peripheral pulses synchronized. Abdomen: Soft, nontender, nondistended, bowel sounds present, no organomegaly or mass, no rigidity. ?Splenomegaly /Rectal: deferred Extremities: No cyanosis, clubbing, gross deformities, or palpable cords. Neurological: Cranial nerves II through XII are intact bilaterally, strength normal in the upper and lower extremities, no focal deficits. Skin: Warm and dry with no rashes or ulcerations. Nodes: No palpable adenopathy in the cervical, supraclavicular, infraclavicular, or axillary regions. ? LN noted on L side of neck. Hematologic: no bruising or petechiae. Psychiatric: Alert and oriented x3. Emotional well-being assessment was performed. Pt denies depression, distress, and or problems with coping or adjustment. Labs CBC: No results for input(s): WBC, HB, HCT, PLT, MCV, RDWCV, NEUTP, ABSNEUT, LYMPHP, MONOP, EODINP in the last 168 hours. ALC 11.39 COAG: No results for input(s): APTT, INR in the last 168 hours. BMP: No results for input(s): GLUC, NA, K, CHLOR, CO2, ANION, BUN, CREAT in the last 168 hours. CHEM: No results for input(s): ALB, TPROT, CA, MG in the last 168 hours. Appointment on 08/09/2022 Component Date Value WBC 08/09/2022 12.63 (A) RBC 08/09/2022 4.44 Hemoglobin 08/09/2022 14.3 Hematocrit 08/09/2022 41.8 MCV 08/09/2022 94.1 MCH 08/09/2022 32.2 MCHC 08/09/2022 34.2 RDW-CV 08/09/2022 12.5 Platelet Count 08/09/2022 267 MPV 08/09/2022 11.1 NRBC 08/09/2022 0.0 Absolute nRBC 08/09/2022 <0.01 Neut% 08/09/2022 20.0 Abs Neut (Segs + Bands) 08/09/2022 2.53 Lymph% 08/09/2022 73.0 Abs Lymph (Normal + Reac* 08/09/2022 9.22 (A) Coffee% 08/09/2022 5.0 Abs Coffee 08/09/2022 0.63 Eosin% 08/09/2022 1.0 Abs Eosin 08/09/2022 0.13 Baso% 08/09/2022 1.0 Abs Baso 08/09/2022 0.13 (A) Platelet Estimate 08/09/2022 Adequate Red Cell Morph 08/09/2022 Reviewed: unremarkable Diff Type 08/09/2022 Manual Protein, Total 08/09/2022 6.0 (A) Albumin 08/09/2022 4.2 Calcium, Total 08/09/2022 9.2 Bilirubin, Total 08/09/2022 0.2 Alkaline Phosphatase 08/09/2022 112 AST 08/09/2022 13 ALT 08/09/2022 19 Glucose 08/09/2022 95 BUN 08/09/2022 19 Creatinine 08/09/2022 0.71 Sodium 08/09/2022 138 Potassium 08/09/2022 4.1 Chloride 08/09/2022 103 CO2 08/09/2022 29 Anion Gap 08/09/2022 6 (A) Estimated Glomerular Paul* 08/09/2022 95 LD 08/09/2022 204 Magnesium 08/09/2022 2.3 TSH 08/09/2022 0.553 Lab Results Component Value Date LD 204 08/09/2022 LD 210 04/02/2022 LD 232 (H) 12/04/2021 No results found for: URICACID Lab Results Component Value Date IGA 40 (L) 12/04/2021 IGA 49 (L) 12/21/2011 Lab Results Component Value Date IGG 621 (L) 03/05/2022 IGG 633 (L) 12/04/2021 IGG 698 (L) 10/09/2021 Lab Results Component Value Date IGM 38 (L) 12/04/2021 Radiology: CT n/c/a/p 12/13/21: MORELIA in the neck. 0.7 cm pleural-based nodule at the posterior aspect of the medial right lower lobe. Subtle groundglass opacity in the right lower lobe adjacent to the nodule. Comparison with any prior outside chest CT would be helpful to assess chronicity. If none are available follow-up CT chest in 3-4 months recommended. No intrathoracic lymphadenopathy. Mildly enlarged bilateral external iliac lymph nodes. Bilateral nephrolithiasis. No hydronephrosis. Pathology: - Flow cytometry 12/04/21: The findings are diagnostic of chronic lymphocytic leukemia/small lymphocytic lymphoma (CLL/SLL). Correlation with the clinical findings is suggested. Assessment and Plan: 1) CLL - noted on flow cytometry of peripheral blood. - CABRERA Stage 0 - currently on observation. - labs stable. 2) Possible splenomegaly - recommend an US of the spleen. - however CTs do not show this as of 12/13/21. 3) Chronic sinus infections - not necessary to do IVIG at this time. - will defer to Dr. Disla though as this could change. 4) Lung nodule - RLL - needs repeat CT in 03/2022. Already ordered. 5) Osteoporosis - Prolia thru [facility]. Got only 1 injection so far. 6) Hypogammaglobulinemia - may need IVIG but will defer to Dr. Disla. I reviewed with the patient her diagnosis of CLL. I reviewed with the patient that she does not need treatment for her CLL. I also discussed that if treatment was warranted, that chemotherapy would the be treatment and we could meet to discuss further. The patient was able to ask questions and all were answered to her satisfaction. I would like to see her back in 4 months for results. I would hold off on IVIG for now. We discussed reasons to treat her including pancytopenia, B symptoms, doubling of ALC <12 mo time. Reviewed NCCN guidelines with her as well. Continue follow up with pain management for epidural injections. Parts of the HPI, ROS, exam and impression/plan may have been copied from my personal previous clinical note and remain pertinent. Current changes have been made and documented today. Other parts or data were deleted if not relevant for today. The documentation has been reviewed and edited as necessary to support the clinical decision making for today's visit. Mary Gonzalez MD documented in this encounter [facility] 06-10-2022 Miscellaneous Notes Please let patient know her CT sinus did not show any abnormalities with her sinus cavities. Her nasal symptoms are not related to a sinus disorder. Ok to follow with her hearing specialist. 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 These sit near her ears which is most likely causing her ear pain/pressure. The arthritis is on both sides but worse on the left. I would discuss this with her dentist. Thanks. documented in this encounter [facility] 06-08-2022 History of Present illness Narrative Radiology Service Progress Note PATIENT NAME: Malgorzata Shine DATE OF SERVICE: June 08, 2022 TIME: 3:11 PM PATIENT IDENTITY VERIFICATION COMPLETED USING TWO (2) IDENTIFIERS: Name and Date of confirmed by patient verbally. FALL SCREENING: Has the patient had 2 falls in the last year or 1 fall with injury or currently using an Ambulatory Assistive Device (Walker, Cane, Wheelchair, Crutches, etc.)? No PATIENT GENDER DATA: Female. status: : No status: NO. PATIENT RELEVANT IMPLANT DATA REVIEWED: Yes RADIOLOGY DEPARTMENT: CT; Exam(s) Completed: Sinus PERIPHERAL IV DATA: Not applicable SIGNED BY: RT Jesus(R) June 08, 2022 3:11 PM documented in this encounter [facility] 05-25-2022 Miscellaneous Notes Patient called today with c/o of not feeling well for a few days. She did not discuss any specific symptoms. She has some bone pain. Patient scheduled with PCP on Monday 05/28. Patient will have standing lab work drawn. Patient will update office. documented in this encounter [facility] 05-25-2022 Nurse Note Review of Systems Constitutional: Positive for LOSS OF APPETITE, CHILLS, and NIGHT SWEAT Negative for Weight Loss and Fever Dental: Negative for teeth grinding, T.M.J. symptoms, braces Eyes: Negative for failing vision, blindness, double vision, dry eyes, and glaucoma Ears:Positive for HEARING LOSS Negative for Drainage, Pain, and History of ear surgery Nose: Positive for DRAINAGE and SINUS INFECTION Negative for Obstruction, Nose bleed, and Dryness Throat: Positive for FREQUENT SORE THROAT, LUMP IN NECK, and HOARSNESS Oral: Postive for SNORING Negative for Mouth breathing and Difficulty swallowing GI: Positive for STOMACH PAIN, NAUSEA, REFLUX, HIATAL HERNIA, and ACID INDIGESTION : Negative for burning, bleeding, pain, or other problems passing urine Heart::Positive for IRREGULAR HEART BEAT Negative for Chest Pain, Murmurs, and Valve problems Lungs:Negative for cough or shortness of breath Neurological: Positive for HEADACHES and MIGRAINES Negative for Convulsions, Seizures, and Memory loss Endocrine: Negative for dry skin, dry hair, and heat or cold intolerance Hematologic:Positive for BRUSING Negative for Swollen glands, Easy bleeding, and Anemia Psychiatric: Positive for DEPRESSION Negative for Moodiness, Nervousness, and Anxiety documented in this encounter [facility] 05-25-2022 History of Present illness Narrative HPI: Malgorzata Shine is a 62 year old female who presents to the office for evaluation of postnasal drainage and concern for sinus issues. Recently diagnosed with leukemia. She started experiencing her symptoms around a year ago. She has a lot of nasal drainage along with a raw throat. She has soreness and facial pressure. She intermittently experiences pressure in her left ear. Has a hard time tolerating antihistamines. Nasal steroid sprays have not helped in the past. She was prescribed antibiotics with minimal relief. Sense of smell and taste are normal. PAST MEDICAL HISTORY Diagnosis Date Abdominal pain Abdominal pain, epigastric Adjustment disorder with depressed mood Anemia, unspecified Anemia, unspecified Calculus of kidney right CLL (chronic lymphocytic leukemia) (HCC) Constipation COVID-19 Esophagitis, unspecified Need for prophylactic hormone replacement therapy (postmenopausal) Osteoporosis Other forms of migraine Sinus infection Snoring Thyroiditis, unspecified Current Outpatient Medications Medication Sig Dispense Refill fluticasone (FLONASE) 50 mcg/actuation nasal spray Use 2 Sprays in each nostril once daily. 15.8 mL 5 traMADol (ULTRAM) 50 mg tablet take 1 tablet by mouth three times a day if needed for 7 days celecoxib (CELEBREX) 200 mg capsule Take by mouth. cholecalciferol (VITAMIN D3) 1,000 unit tab tablet Take 25 mcg by mouth. magnesium oxide (MAG-OX) 400 mg (241.3 mg magnesium) tablet Take 400 mg by mouth. Riboflavin 25 mg tab Take 25 mg by mouth. XIFAXAN 550 mg tablet take 1 tablet by mouth three times a day for IBS-D buPROPion XL (WELLBUTRIN XL) 150 mg 24 hr tablet Take 150 mg by mouth once daily. esomeprazole (NEXIUM) 20 mg capsule take 1 capsule by mouth twice a day EVERY OTHER DAY verapamil SR (CALAN SR, ISOPTIN SR) 120 mg CR tablet Take by mouth. verapamil (CALAN, ISOPTIN) 80 mg tablet Take 1 tablet by mouth twice daily. verapamil SR (CALAN SR, ISOPTIN SR) 120 mg CR tablet Take 1 tablet by mouth daily at bedtime. polyethylene glycol 3350 (MIRALAX, GLYCOLAX) 17 gram/dose powder Take 17 g by mouth once daily. (that is one (1) capful in 8oz of liquid each day) 527 g 11 COMPOUNDED PRESCRIPTION imitrex as needed 0 bupropion hcl(WELLBUTRIN SR 150 MG TAB) Take by mouth. DO NOT CRUSH. SWALLOW WHOLE 0 No current facility-administered medications for this visit. ALLERGIES Allergen Reactions Naproxen GI Upset nausea Codeine Vomiting Dizziness and vomiting Levofloxacin Other: See Comments nausea PAST SURGICAL HISTORY Procedure Laterality Date COLONOSCOPY FLX DX W/COLLJ SPEC WHEN PFRMD 06/25/08 COLONOSCOPY FLX DX W/COLLJ SPEC WHEN PFRMD 12/12/15 Colonoscopy EGD TRANSORAL BIOPSY SINGLE/MULTIPLE 06/25/08 PAST SURGICAL HISTORY OF 2006 D& C PAST SURGICAL HISTORY OF partial hysterectomy Social History Tobacco Use Smoking status: Never Smokeless tobacco: Never Vaping Use Vaping Use: Never used Substance Use Topics Alcohol use: Yes Alcohol/week: 0.0 standard drinks Comment: 3 glasses a month Drug use: No FAMILY HISTORY Problem Relation Age of Onset Alcohol/Drug Father Hypertension Father other (Cancer- liver) Father Prostate Cancer Paternal Grandfather other (Diabetes- type I) Son Type I Stroke Paternal Grandmother Alzheimer's Disease Mother Thyroid Sister Arthritis Sister Hypertension Brother Diabetes Maternal Grandmother Review of Systems Nursing Notes: Francia Ann MA 05/25/2022 11:22 AM Signed Review of Systems Constitutional: Positive for LOSS OF APPETITE, CHILLS, and NIGHT SWEAT Negative for Weight Loss and Fever Dental: Negative for teeth grinding, T.M.J. symptoms, braces Eyes: Negative for failing vision, blindness, double vision, dry eyes, and glaucoma Ears:Positive for HEARING LOSS Negative for Drainage, Pain, and History of ear surgery Nose: Positive for DRAINAGE and SINUS INFECTION Negative for Obstruction, Nose bleed, and Dryness Throat: Positive for FREQUENT SORE THROAT, LUMP IN NECK, and HOARSNESS Oral: Postive for SNORING Negative for Mouth breathing and Difficulty swallowing GI: Positive for STOMACH PAIN, NAUSEA, REFLUX, HIATAL HERNIA, and ACID INDIGESTION : Negative for burning, bleeding, pain, or other problems passing urine Heart::Positive for IRREGULAR HEART BEAT Negative for Chest Pain, Murmurs, and Valve problems Lungs:Negative for cough or shortness of breath Neurological: Positive for HEADACHES and MIGRAINES Negative for Convulsions, Seizures, and Memory loss Endocrine: Negative for dry skin, dry hair, and heat or cold intolerance Hematologic:Positive for BRUSING Negative for Swollen glands, Easy bleeding, and Anemia Psychiatric: Positive for DEPRESSION Negative for Moodiness, Nervousness, and Anxiety Physical Exam BP 130/80 (BP Site: Right Arm, BP Position: Sitting, BP Cuff Size: Regular Adult) Pulse 60 Resp 16 Ht 157.5 cm (5' 2 ) Wt 64.4 kg (142 lb) BMI 25.97 kg/m General Appearance: Well-developed, well-nourished, no acute distress Communication: Reasonable historian whose voice is normal. Psych/Mental Status: Oriented x 3 and a normal affect. Head/Face: Normocephalic, without evidence of trauma. There are no palpable lesions in the scalp. Facial muscles appear to be functioning normally. Sinuses are nonerythematous and nontender. Temporomandibular joints move satisfactorily and are nontender. Eyes: Extraocular muscles appear intact. Salivary Glands: Parotid/Emery's-normal to palpation without evidence of duct abnormality. Submandibular/Randolph's-without evidence of palpable abnormality and no visible duct lesions. Ears: External ears appear normally formed. Canals appear of normal caliber without inflammatory changes. No wax bilaterally . Visualized tympanic membranes are not inflamed and with normal landmarks. Nose: External nose is grossly normal. Anterior rhinoscopy finds the mucous membranes to be moist and without obvious lesions. There is mild septal deviation with prominence of the inferior turbinates. Oral Cavity/Oropharynx: The mucous membranes of the pharynx, lips and tongue appear grossly normal. Dentition is unremarkable. Palate and floor of mouth are intact. Neck: There are no masses, adenopathy, or thyromegaly and the trachea is midline. Respiratory: no stridor or wheezing ASSESSMENT/PLAN: 1. Other chronic sinusitis - ICD9: 473.8, ICD10: J32.8 - CT SINUS WO IVCON 2. Nasal drainage - ICD9: 478.19, ICD10: J34.89 Given her ongoing symptoms despite medications and history of cancer, I recommended a CT sinus. Recommended starting Flonase again once daily. Proper use discussed. Procedure: Nasal Endoscopy, bilateral Topical lidocaine and decongestant applied to the nasal cavity. After an adequate time had elapsed, a rigid endoscope was used. No purulent drainage or epistaxis. No masses, polyps, or foreign bodies. Nasopharynx was patent. Scope was removed and patient tolerated it well. Attestation: Scribe Statement: I Dana Goss-VERONICA Lr am scribing for and in the presence of, Ansley Tolliver DO. Physician Statement: I, Ansley Tolliver DO, personally performed the services described in this documentation, as scribed by VERONICA Cline in my presence, and it is both accurate and complete. I have confirmed and edited as necessary, the PFSH and ROS obtained by others. 30 minute total time including preparation, obtaining/reviewing history, exam, interpreting results, ordering, counseling/education, referring/communicating and documentation. Ansley Tolliver DO documented in this encounter [facility] 05-08-2022 Miscellaneous Notes Patient called in and said she will be going out of town for a week and wanted to know if you would call in a prescription for antibiotics in case she gets a sinus infection. She said you told her you would do this for her so she could have the antibiotics on hand. If you do order the prescription, please send it to [facility]. documented in this encounter [facility] 04-13-2022 History of Present illness Narrative Radiology Service Progress Note DATE OF SERVICE: April 13, 2022 TIME: 4:00 PM PATIENT IDENTITY VERIFICATION COMPLETED USING TWO (2) STANDARD IDENTIFIERS: Name and Date of confirmed by patient verbally and Name and Date of confirmed by identification band. FALL SCREENING: Has the patient had 2 falls in the last year or 1 fall with injury or currently using an Ambulatory Assistive Device (Walker, Cane, Wheelchair, Crutches, etc.)? No PATIENT GENDER DATA: Female. status: : No status: NO. PATIENT RELEVANT IMPLANT DATA REVIEWED: Not Applicable ALLERGIES: Reviewed and unchanged CONTRAST ALLERGY: NO. EXAM: CT -CONTRAST INDUCED NEPHROPATHY RISK FACTORS: Patient age > 60 years CREATININE: Creatinine Date Value Ref Range Status 04/02/2022 0.62 0.58 - 0.96 mg/dL Final 12/04/2021 0.82 0.58 - 0.96 mg/dL Final 12/21/2011 0.61 (L) 0.70 - 1.40 mg/dL Final Estimated Glomerular Filtration Rate Date Value Ref Range Status 04/02/2022 100 >=60 mL/min/1.73m Final Comment: Estimated Glomerular Filtration Rate (eGFR) is calculated using the 2020 CKD-EPI creatinine equation. This equation utilizes serum creatinine, sex, and age as parameters. The creatinine assay has traceable calibration to isotope dilution-mass spectrometry. Refer to KDIGO guidelines for clinical interpretation. In patients with unstable renal function, e.g. those with acute kidney injury, the eGFR may not accurately reflect actual GFR. eGFR- Date Value Ref Range Status 12/21/2011 >60 Final P.O.C.T. RESULTS: POC done: Yes, See Lab Tab April 13, 2022 TREATMENT: N/A PERIPHERAL IV DATA: Ambulatory: A peripheral IV was started in the Right antecubital site with a Angio cath/Butterfly: 24 gauge. RADIOLOGY DEPARTMENT: CT; Exam(s) Completed: Chest SIGNATURE: RT Rachel(R) PATIENT NAME: Malgorzata Shine DATE: April 13, 2022 TIME: 4:00 PM documented in this encounter [facility] 04-13-2022 Miscellaneous Notes Patient called notes relapse of sinus infection with purulent drainage. She had requested an additional course of antibiotics. I discussed that she should start this given her immune compromised state and set up a follow-up visit. Tosha Disla MD documented in this encounter [facility] 04-03-2022 History of Present illness Narrative Malgorzata Shine 1960 April 03, 2022 HPI: Malgorzata Shine is a 62 year old female who presents as a new referral from Dr. Disla for lymphocytosis. Per notes from Dr. Disla: I reviewed her recent blood work noted that she would benefit from Prevnar. She wishes to postpone this since she is babysitting multiple grandchildren in the next few days and does not want to be sore. She notes concerns that her lymphocyte count has remained elevated even when she is not sick. She is awaiting referral to hematology has an appointment in the next week or so. She sees him for recurrent sinusitis. Colonoscopy 12/12/15: MORELIA. No CBCs in system except 09/2021. ALC noted of 11.38 with WBC 15.10. Had some blood work done in [place] - has had this for years on her labs from PCP's office from before and was never told or had this worked up with the ALC being elevated. She is not sure how elevated though. Drinks alcohol once week - vodka (no wine due to migraines). Non smoker. Sinus infections - bad one February 2021. Last one was Sep 2021. Usually gets about 3-4 per year. Notices she gets sick easily. No real PNA or UTIs. Babysits her grandchildren. [place] weird before this past sinus infection. Says she was so fatigued and weak that she needed a nap. Describes as a crash . Says it has gotten better now. Lots of OA in joints. +NS - occasionally sheets but clothes for the most part. No weight loss. Eating and drinking ok. Has a spot with LAD on the L side of her neck. Interval History: Today she is here for follow up. Still having issues with hair loss. Remembers going on a MVI and that helped. No B symptoms. PAST MEDICAL HISTORY Diagnosis Date Abdominal pain Abdominal pain, epigastric Adjustment disorder with depressed mood Anemia, unspecified Anemia, unspecified Calculus of kidney right CLL (chronic lymphocytic leukemia) (HCC) Constipation COVID-19 Esophagitis, unspecified Need for prophylactic hormone replacement therapy (postmenopausal) Osteoporosis Other forms of migraine Sinus infection Snoring Thyroiditis, unspecified PAST SURGICAL HISTORY Procedure Laterality Date COLONOSCOPY FLX DX W/COLLJ SPEC WHEN PFRMD 06/25/08 COLONOSCOPY FLX DX W/COLLJ SPEC WHEN PFRMD 12/12/15 Colonoscopy EGD TRANSORAL BIOPSY SINGLE/MULTIPLE 06/25/08 PAST SURGICAL HISTORY OF 2006 D& C PAST SURGICAL HISTORY OF partial hysterectomy Current Outpatient Medications Medication Sig Dispense Refill amoxicillin-clavulanic acid (AUGMENTIN) 875-125 mg per tablet Take 1 tablet by mouth every 12 hours for 14 days. 28 tablet 0 Ipratropium [place] (ATROVENT) 21 mcg (0.03 %) nasal spray Use 2 Sprays in the nose every 12 hours. 30 mL 3 traMADol (ULTRAM) 50 mg tablet take 1 tablet by mouth three times a day if needed for 7 days celecoxib (CELEBREX) 200 mg capsule Take by mouth. (Patient not taking: Reported on 01/10/2022 ) cholecalciferol (VITAMIN D3) 1,000 unit tab tablet Take 25 mcg by mouth. diclofenac (VOLTAREN) 1 % topical gel Apply 2 g to affected area. (Patient not taking: Reported on 01/31/2022 ) doxycycline hyclate (VIBRAMYCIN) 100 mg capsule Take 100 mg by mouth. (Patient not taking: Reported on 01/10/2022 ) eletriptan (RELPAX) 40 mg tablet 1 tablet as needed one time (Patient not taking: Reported on 01/31/2022) fluticasone (FLONASE) 50 mcg/actuation nasal spray Use 1 [place] in the nose as needed. folic acid 400 mcg tablet Take 1 tablet by mouth. (Patient not taking: Reported on 01/10/2022 ) magnesium oxide (MAG-OX) 400 mg (241.3 mg magnesium) tablet Take 400 mg by mouth. meloxicam (MOBIC) 15 mg tablet Take 1 tablet by mouth. (Patient not taking: Reported on 01/10/2022 ) Riboflavin 25 mg tab Take 25 mg by mouth. XIFAXAN 550 mg tablet take 1 tablet by mouth three times a day for IBS-D (Patient not taking: Reported on 01/10/2022) buPROPion XL (WELLBUTRIN XL) 150 mg 24 hr tablet Take 150 mg by mouth once daily. DULoxetine (CYMBALTA) 60 mg capsule Take 60 mg by mouth once daily. (Patient not taking: Reported on 01/10/2022 ) esomeprazole (NEXIUM) 20 mg capsule take 1 capsule by mouth twice a day EVERY OTHER DAY verapamil SR (CALAN SR, ISOPTIN SR) 120 mg CR tablet Take by mouth. DULoxetine (CYMBALTA) 20 mg capsule Take 2 capsules by mouth once daily. (Patient not taking: Reported on 01/31/2022 ) verapamil (CALAN, ISOPTIN) 80 mg tablet Take 1 tablet by mouth twice daily. verapamil SR (CALAN SR, ISOPTIN SR) 120 mg CR tablet Take 1 tablet by mouth daily at bedtime. esomeprazole (NEXIUM) 40 mg capsule Take 1 capsule by mouth daily before breakfast. 1/2 hr before meal. polyethylene glycol 3350 (MIRALAX, GLYCOLAX) 17 gram/dose powder Take 17 g by mouth once daily. (that is one (1) capful in 8oz of liquid each day) 527 g 11 COMPOUNDED PRESCRIPTION imitrex as needed (Patient not taking: Reported on 01/31/2022) 0 bupropion hcl(WELLBUTRIN SR 150 MG TAB) Take by mouth. DO NOT CRUSH. SWALLOW WHOLE 0 No current facility-administered medications for this visit. ALLERGIES Allergen Reactions Naproxen GI Upset nausea Codeine Vomiting Dizziness and vomiting Levofloxacin Other: See Comments nausea FAMILY HISTORY Problem Relation Age of Onset Alcohol/Drug Father Hypertension Father other (Cancer- liver) Father Prostate Cancer Paternal Grandfather other (Diabetes- type I) Son Type I Stroke Paternal Grandmother Alzheimer's Disease Mother Thyroid Sister Arthritis Sister Hypertension Brother Diabetes Maternal Grandmother Social History Tobacco Use Smoking status: Never Smoker Smokeless tobacco: Never Used Vaping Use Vaping Use: Never used Substance Use Topics Alcohol use: Yes Alcohol/week: 0.0 standard drinks Comment: 3 glasses a month Drug use: No I have reviewed the PMHx, PSHx, social history and ROS on April 03, 2022 - all new information noted. Review of Systems: Constitutional: No fevers, chills, drenching night sweats or unintentional weight loss. +Some fatigue. HEENT: No yellowing of the eyes, no vision changes, no hearing loss or ear pain, no nosebleeds or drainage, no sore throat. +recurrent sinus infections. +hair loss. Neck: No complaints. Chest: No SOB or cough, no CARBAJAL, no hemoptysis, no wheezing. Breast: No complaints. Heart: No chest pain, pressure or tightness. No racing heartbeat. Abdominal: No pain or difficulty with swallowing, no N/V, no early satiety, no abdominal pain or bloating, no diarrhea or constipation, no change in bowel habits, no blood in the urine. Genitourinary: No pain or burning with urination, no incontinence, no blood in the urine. Extremities: no pain or swelling. Neurological: No headaches, no numbness or tingling in the extremities, no double vision. Skin: No rashes or ulcerations, no change in pigmentation. Nodes: Recent enlargement in her L side of her neck about 2 weeks ago. Heme: No easy bruising or bleeding, no yellowing of the eyes or darkening of urine. Psychiatric: no anxiety or depression. Immunologic: No recurrent or persistent infections of the sinuses, lungs or urinary tract. Endocrine: No hair or nail changes, no polyuria, polydipsia, or polyphagia. Appetite normal. I have performed the physical exam on April 03, 2022 - all new findings noted below. Physical Exam: BP 124/76 Pulse 75 Temp (Src) 97.3 (Tympanic) Ht 5' 2 (1.58m) Wt 142 lb 3.2 oz (64.5kg) SpO2 94% BMI 26.00 kg/(m^2). ECOG PS: 0 Pain Intensity: 0/10 General: Age-appropriate well developed. Appears well. HEENT: Normocephalic, no sclera icterus, external ears normal, oral cavity clear. +hair loss per pt. Neck: Supple, no thyroid nodules, no JVD. Chest: Clear bilaterally, no wheezes, not labored. Heart: Normal S1 and S2, no abnormal sounds, peripheral pulses synchronized. Abdomen: Soft, nontender, nondistended, bowel sounds present, no organomegaly or mass, no rigidity. ?Splenomegaly /Rectal: deferred Extremities: No cyanosis, clubbing, gross deformities, or palpable cords. Neurological: Cranial nerves II through XII are intact bilaterally, strength normal in the upper and lower extremities, no focal deficits. Skin: Warm and dry with no rashes or ulcerations. Nodes: No palpable adenopathy in the cervical, supraclavicular, infraclavicular, or axillary regions. ? LN noted on L side of neck. Hematologic: no bruising or petechiae. Psychiatric: Alert and oriented x3. Emotional well-being assessment was performed. Pt denies depression, distress, and or problems with coping or adjustment. Labs CBC: Recent Labs 04/02/22 1521 WBC 17.26* HB 14.6 HCT 43.0 PLT 242 MCV 97.5 RDWCV 13.1 NEUTP 29.0 ABSNEUT 5.01 LYMPHP 66.0 MONOP 3.0 ALC 11.39 COAG: No results for input(s): APTT, INR in the last 168 hours. BMP: Recent Labs 04/02/22 1521 GLUC 90 NA 140 K 4.1 CHLOR 103 CO2 28 ANION 9 BUN 16 CREAT 0.62 CHEM: Recent Labs 04/02/22 1521 ALB 4.2 TPROT 6.0* CA 8.8 Lab Results Component Value Date LD 210 04/02/2022 LD 232 (H) 12/04/2021 No results found for: URICACID Lab Results Component Value Date IGA 40 (L) 12/04/2021 IGA 49 (L) 12/21/2011 Lab Results Component Value Date IGG 621 (L) 03/05/2022 IGG 633 (L) 12/04/2021 IGG 698 (L) 10/09/2021 Lab Results Component Value Date IGM 38 (L) 12/04/2021 Radiology: CT n/c/a/p 12/13/21: MORELIA in the neck. 0.7 cm pleural-based nodule at the posterior aspect of the medial right lower lobe. Subtle groundglass opacity in the right lower lobe adjacent to the nodule. Comparison with any prior outside chest CT would be helpful to assess chronicity. If none are available follow-up CT chest in 3-4 months recommended. No intrathoracic lymphadenopathy. Mildly enlarged bilateral external iliac lymph nodes. Bilateral nephrolithiasis. No hydronephrosis. Pathology: - Flow cytometry 12/04/21: The findings are diagnostic of chronic lymphocytic leukemia/small lymphocytic lymphoma (CLL/SLL). Correlation with the clinical findings is suggested. Assessment and Plan: 1) CLL - noted on flow cytometry of peripheral blood. - CABRERA Stage 0 - currently on observation. - labs stable. 2) Possible splenomegaly - recommend an US of the spleen. - however CTs do not show this as of 12/13/21. 3) Chronic sinus infections - not necessary to do IVIG at this time. - will defer to Dr. Disla though as this could change. 4) Lung nodule - RLL - needs repeat CT in 03/2022. Ordered today. 5) Osteoporosis - Prolia thru [facility]. Got only 1 injection so far. 6) Hypogammaglobulinemia - may need IVIG but will defer to Dr. Disla. I reviewed with the patient her diagnosis of CLL. I reviewed with the patient that she does not need treatment for her CLL. I also discussed that if treatment was warranted, that chemotherapy would the be treatment and we could meet to discuss further. The patient was able to ask questions and all were answered to her satisfaction. I would like to see her back in 4 months for results. I would hold off on IVIG for now. We discussed reasons to treat her including pancytopenia, B symptoms, doubling of ALC <12 mo time. Reviewed NCCN guidelines with her as well. Continue follow up with pain management for epidural injections. Parts of the HPI, ROS, exam and impression/plan may have been copied from my personal previous clinical note and remain pertinent. Current changes have been made and documented today. Other parts or data were deleted if not relevant for today. The documentation has been reviewed and edited as necessary to support the clinical decision making for today's visit. Mary Gonzalez MD documented in this encounter [facility] 03-26-2022 History of Present illness Narrative VIRTUAL VISIT PROGRESS NOTE This is a virtual visit using [employer] video visit. It required patient-provider interaction for the medical decision making as documented below. Malgorzata Shine is a 62 year old female seen for follow-up of chronic rhinitis, recurrent sinusitis. Patient notes that she had 1 episode of sinus pressure since her last visit and thought this was going to progress to sinus infection but this resolved on its own. She has noted no recent problems. She is scheduled for follow-up with ENT and hematology. She had pneumonia vaccine and subsequent post vaccine titers which showed improvement in response to vaccine. HISTORY REVIEWED (electronic chart updated): PAST MEDICAL HISTORY Diagnosis Date Abdominal pain Abdominal pain, epigastric Adjustment disorder with depressed mood Anemia, unspecified Anemia, unspecified Calculus of kidney right CLL (chronic lymphocytic leukemia) (HCC) Constipation COVID-19 Esophagitis, unspecified Need for prophylactic hormone replacement therapy (postmenopausal) Osteoporosis Other forms of migraine Sinus infection Snoring Thyroiditis, unspecified PAST SURGICAL HISTORY Procedure Laterality Date COLONOSCOPY FLX DX W/COLLJ SPEC WHEN PFRMD 06/25/08 COLONOSCOPY FLX DX W/COLLJ SPEC WHEN PFRMD 12/12/15 Colonoscopy EGD TRANSORAL BIOPSY SINGLE/MULTIPLE 06/25/08 PAST SURGICAL HISTORY OF 2005 D& C PAST SURGICAL HISTORY OF partial hysterectomy FAMILY HISTORY Problem Relation Age of Onset Alcohol/Drug Father Hypertension Father other (Cancer- liver) Father Prostate Cancer Paternal Grandfather other (Diabetes- type I) Son Type I Stroke Paternal Grandmother Alzheimer's Disease Mother Thyroid Sister Arthritis Sister Hypertension Brother Diabetes Maternal Grandmother Social History Tobacco Use Smoking status: Never Smoker Smokeless tobacco: Never Used Vaping Use Vaping Use: Never used Substance Use Topics Alcohol use: Yes Alcohol/week: 0.0 standard drinks Comment: 3 glasses a month Drug use: No Current Outpatient Medications Medication Sig amoxicillin-clavulanic acid (AUGMENTIN) 875-125 mg per tablet Take 1 tablet by mouth every 12 hours for 14 days. Ipratropium [place] (ATROVENT) 21 mcg (0.03 %) nasal spray Use 2 Sprays in the nose every 12 hours. traMADol (ULTRAM) 50 mg tablet take 1 tablet by mouth three times a day if needed for 7 days cholecalciferol (VITAMIN D3) 1,000 unit tab tablet Take 25 mcg by mouth. fluticasone (FLONASE) 50 mcg/actuation nasal spray Use 1 [place] in the nose as needed. magnesium oxide (MAG-OX) 400 mg (241.3 mg magnesium) tablet Take 400 mg by mouth. Riboflavin 25 mg tab Take 25 mg by mouth. buPROPion XL (WELLBUTRIN XL) 150 mg 24 hr tablet Take 150 mg by mouth once daily. esomeprazole (NEXIUM) 20 mg capsule take 1 capsule by mouth twice a day EVERY OTHER DAY verapamil SR (CALAN SR, ISOPTIN SR) 120 mg CR tablet Take by mouth. verapamil (CALAN, ISOPTIN) 80 mg tablet Take 1 tablet by mouth twice daily. verapamil SR (CALAN SR, ISOPTIN SR) 120 mg CR tablet Take 1 tablet by mouth daily at bedtime. esomeprazole (NEXIUM) 40 mg capsule Take 1 capsule by mouth daily before breakfast. 1/2 hr before meal. polyethylene glycol 3350 (MIRALAX, GLYCOLAX) 17 gram/dose powder Take 17 g by mouth once daily. (that is one (1) capful in 8oz of liquid each day) bupropion hcl(WELLBUTRIN SR 150 MG TAB) Take by mouth. DO NOT CRUSH. SWALLOW WHOLE celecoxib (CELEBREX) 200 mg capsule Take by mouth. (Patient not taking: Reported on 01/10/2022 ) diclofenac (VOLTAREN) 1 % topical gel Apply 2 g to affected area. (Patient not taking: Reported on 01/31/2022 ) doxycycline hyclate (VIBRAMYCIN) 100 mg capsule Take 100 mg by mouth. (Patient not taking: Reported on 01/10/2022 ) eletriptan (RELPAX) 40 mg tablet 1 tablet as needed one time (Patient not taking: Reported on 01/31/2022) folic acid 400 mcg tablet Take 1 tablet by mouth. (Patient not taking: Reported on 01/10/2022 ) meloxicam (MOBIC) 15 mg tablet Take 1 tablet by mouth. (Patient not taking: Reported on 01/10/2022 ) XIFAXAN 550 mg tablet take 1 tablet by mouth three times a day for IBS-D (Patient not taking: Reported on 01/10/2022) DULoxetine (CYMBALTA) 60 mg capsule Take 60 mg by mouth once daily. (Patient not taking: Reported on 01/10/2022 ) DULoxetine (CYMBALTA) 20 mg capsule Take 2 capsules by mouth once daily. (Patient not taking: Reported on 01/31/2022 ) COMPOUNDED PRESCRIPTION imitrex as needed (Patient not taking: Reported on 01/31/2022) No current facility-administered medications for this visit. ALLERGIES Allergen Reactions Naproxen GI Upset nausea Codeine Vomiting Dizziness and vomiting Levofloxacin Other: See Comments nausea REVIEW OF SYSTEMS: GENERAL: feeling well without fatigue, no recent change in weight HEENT: denies SHANNON, change in hearing or vision, no other ENT complaints NECK: denies swelling or pain in neck RESPIRATORY: no cough, no wheezing or shortness of breath CARDIOVASCULAR: no chest pain, no palpitations GI: normal appetite, tolerating PO well, BMs normal and no abdominal pain MUSCULOSKELETAL: denies any painful or swollen joints, no muscle aches SKIN: no rash PSYCH: denies depressed or anxious mood, sleep is normal PHYSICAL EXAMINATION: VIDEO EXAM: (if completed, performed via video enabled technology) GENERAL: alert and appropriate, in no distress, well-hydrated, well nourished and happy, smiling, interactive SKIN: no rash noted HEAD: normocephalic, no abnormality or lesion noted EYES: no injection and visual acuity is grossly normal EARS: hearing grossly normal NOSE: external nose normal without rhinorrhea OROPHARYNX: moist mucus membranes NECK: full ROM, no cervical LNs noted RESPIRATORY: breathing non-labored CHEST: equal chest rise with normal respiratory effort ASSESSMENT: (J01.91) Acute recurrent sinusitis, unspecified location (primary encounter diagnosis) (J31.0) Chronic rhinitis (C91.10) CLL (chronic lymphocytic leukemia) (HCC) (R53.81, R53.83) Malaise and fatigue (J30.0) Vasomotor rhinitis (D80.1) Hypogammaglobulinemia (HCC) (D84.9) Immunosuppressed status (HCC) PLAN: Continue to monitor for worsening of symptoms Await ENT input Follow-up in 6 4 to 6 months There are no Patient Instructions on file for this visit. I spent a total of 25 minutes on the date of the service which included preparing to see the patient, [id number] patient care, completing clinical documentation, performing a medically appropriate examination, counseling and educating the patient/family/caregiver and ordering medications, tests, or procedures Tosha Disla MD documented in this encounter [facility] 03-20-2022 Miscellaneous Notes Called and updated patient. No further questions at this time. Addended by: TOSHA DISLA. on: 03/20/2022 08:27 AM Modules accepted: Orders I sent in Rx for Augmentin. Recommend COVID testing as well and if follow up with next available provider after COVI testing (virtual versus live) Tosha Disla MD Patient called into office and requesting a prescription for an antibiotic. She says due to her leukemia when she feels like she is getting a sinus infection Dr. Disla calls in an antibiotic. Patient currently having post nasal drainage, pressure behind eyes, not feeling a 100%. Fatigue, chills. No fever. Patient has not taken a COVID test, but she says she has not been exposed. Please advise. documented in this encounter [facility] 02-28-2022 Miscellaneous Notes Called and updated patient. No further questions at this time. Addended by: TOSHA DISLA on: 02/28/2022 10:03 AM Modules accepted: Orders I put in a referral to Dr. Tolliver. I sent a prescription for Augmentin. Tosha Disla MD Patient transferred back to nurse line. Patient said at her last appointment you discussed her seeing ENT. She wanted to see if you could put in a referral for ENT and who you would recommend. She is struggling with a sinus infection and wanted to know if you could call in another antibiotic. Please advise. Patient called requesting a refill. She is currently feeling very weak and states it's another sinus infection. She has already used her back up antibiotic you prescribed to her. Requesting medications to be escript to the [facility] Cleopatra Falk Pss documented in this encounter [facility] 01-31-2022 Miscellaneous Notes Addended by: TOSHA DISLA on: 01/31/2022 10:50 AM Modules accepted: Orders documented in this encounter [facility] 01-31-2022 History of Present illness Narrative Images from the original note were not included. Allergy & Immunology Established Visit PATIENT NAME: Malgorzata Shine SERVICE DATE: 01/31/2022 HPI: Malgorzata Shine is a 62 year old female who presents for follow up of recurrent sinus infections. She has been diagnosed with CLL and follows up with Dr. Galeana. She has questions related to what to do with her immune function. She notes frequent contact with young infants to small children and has infectious exposure as a result. She is regularly caring for her grandchildren. I discussed that she would benefit from Prevnar 20 and we should check immune response to this. I suspect that she will respond well with inducible vaccine response in the past based on her baseline levels. She had questions related to IgG replacement. I discussed that we would follow her clinical course and IgG levels but at the current time this was unlikely to be necessary. PAST MEDICAL HISTORY Diagnosis Date Abdominal pain Abdominal pain, epigastric Adjustment disorder with depressed mood Anemia, unspecified Anemia, unspecified Calculus of kidney right CLL (chronic lymphocytic leukemia) (HCC) Constipation COVID-19 Esophagitis, unspecified Need for prophylactic hormone replacement therapy (postmenopausal) Osteoporosis Other forms of migraine Sinus infection Snoring Thyroiditis, unspecified ACTIVE PROBLEM LIST Esophagitis, Unspecified Abdominal Pain, Epigastric Anemia, Unspecified Special Screening for Malignant Neoplasms, Colon Thyroiditis Hypoglycemia Migraines Osteoarthritis Constipation Osteoporosis Abdominal Pain Acute Recurrent Sinusitis Chronic Rhinitis Leukocytosis Malaise and Fatigue Hypogammaglobulinemia (Hcc) Vasomotor Rhinitis Cll (Chronic Lymphocytic Leukemia) (Hcc) PAST SURGICAL HISTORY Procedure Laterality Date COLONOSCOPY FLX DX W/COLLJ SPEC WHEN PFRMD 06/25/08 COLONOSCOPY FLX DX W/COLLJ SPEC WHEN PFRMD 12/12/15 Colonoscopy EGD TRANSORAL BIOPSY SINGLE/MULTIPLE 06/25/08 PAST SURGICAL HISTORY OF 2006 D& C PAST SURGICAL HISTORY OF partial hysterectomy Social History Tobacco Use Smoking status: Never Smoker Smokeless tobacco: Never Used Vaping Use Vaping Use: Never used Substance Use Topics Alcohol use: Yes Alcohol/week: 0.0 standard drinks Comment: 3 glasses a month Drug use: No CURRENT OUTPATIENT MEDICATIONS: Current Outpatient Medications Medication Sig Dispense Refill traMADol (ULTRAM) 50 mg tablet take 1 tablet by mouth three times a day if needed for 7 days cholecalciferol (VITAMIN D3) 1,000 unit tab tablet Take 25 mcg by mouth. fluticasone (FLONASE) 50 mcg/actuation nasal spray Use 1 [place] in the nose as needed. magnesium oxide (MAG-OX) 400 mg (241.3 mg magnesium) tablet Take 400 mg by mouth. Riboflavin 25 mg tab Take 25 mg by mouth. buPROPion XL (WELLBUTRIN XL) 150 mg 24 hr tablet Take 150 mg by mouth once daily. esomeprazole (NEXIUM) 20 mg capsule take 1 capsule by mouth twice a day EVERY OTHER DAY verapamil SR (CALAN SR, ISOPTIN SR) 120 mg CR tablet Take by mouth. verapamil (CALAN, ISOPTIN) 80 mg tablet Take 1 tablet by mouth twice daily. verapamil SR (CALAN SR, ISOPTIN SR) 120 mg CR tablet Take 1 tablet by mouth daily at bedtime. esomeprazole (NEXIUM) 40 mg capsule Take 1 capsule by mouth daily before breakfast. 1/2 hr before meal. polyethylene glycol 3350 (MIRALAX, GLYCOLAX) 17 gram/dose powder Take 17 g by mouth once daily. (that is one (1) capful in 8oz of liquid each day) 527 g 11 bupropion hcl(WELLBUTRIN SR 150 MG TAB) Take by mouth. DO NOT CRUSH. SWALLOW WHOLE 0 Ipratropium [place] (ATROVENT) 21 mcg (0.03 %) nasal spray Use 2 Sprays in the nose every 12 hours. 30 mL 3 celecoxib (CELEBREX) 200 mg capsule Take by mouth. (Patient not taking: Reported on 01/10/2022 ) diclofenac (VOLTAREN) 1 % topical gel Apply 2 g to affected area. (Patient not taking: Reported on 01/31/2022 ) doxycycline hyclate (VIBRAMYCIN) 100 mg capsule Take 100 mg by mouth. (Patient not taking: Reported on 01/10/2022 ) eletriptan (RELPAX) 40 mg tablet 1 tablet as needed one time (Patient not taking: Reported on 01/31/2022) folic acid 400 mcg tablet Take 1 tablet by mouth. (Patient not taking: Reported on 01/10/2022 ) meloxicam (MOBIC) 15 mg tablet Take 1 tablet by mouth. (Patient not taking: Reported on 01/10/2022 ) XIFAXAN 550 mg tablet take 1 tablet by mouth three times a day for IBS-D (Patient not taking: Reported on 01/10/2022) DULoxetine (CYMBALTA) 60 mg capsule Take 60 mg by mouth once daily. (Patient not taking: Reported on 01/10/2022 ) DULoxetine (CYMBALTA) 20 mg capsule Take 2 capsules by mouth once daily. (Patient not taking: Reported on 01/31/2022 ) COMPOUNDED PRESCRIPTION imitrex as needed (Patient not taking: Reported on 01/31/2022) 0 No current facility-administered medications for this visit. ALLERGIES: ALLERGIES Allergen Reactions Naproxen GI Upset nausea Codeine Vomiting Dizziness and vomiting Levofloxacin Other: See Comments nausea REVIEW OF SYSTEMS: HEENT: sinus trouble RESPIRATORY: No cough, hemoptysis, recent chest infection, wheezing CONSTITUTIONALl: No acute distress. No weight loss or gain, no fevers or chills CARDIOVASCULAR: negative for chest pain, leg swelling or palpitations. GASTROINTESTINAL: Negative for abdominal discomfort, No blood in stools or black stools MUSCULOSKELETAL: negative for joint pain or swelling, back pain or muscle pain. NEUROLOGIC:Negative for focal numbness or weakness, headaches and dizziness or syncope. DERM/SKIN: no new rashes, hives, or skin eruptions. PSYCHIATRIC: Negative for sleep disturbance, mood disorder and recent psychosocial stressors HEMATOLOGIC/LYMPHATIC/IMMUNOLOGIC:N egative for cold or heat intolerance, polyuria, polydipsia and goiter. PHYSICAL EXAM: BP 119/61 Pulse 63 Temp (Src) 97.2 (Temporal Artery) Resp 16 Ht 5' 2 (1.58m) Wt 139 lb (63.1kg) SpO2 96% BMI 25.42 kg/(m^2). General appearance: Well appearing, alert, in no acute distress, well-hydrated, well nourished. HENT: External ears normal, canals clear, TM's normal Eyes: no scleral icterus, PERRLA, EOMS, no conjunctivitis Nose/Sinuses: Positive findings: mucosa erythematous and swollen, clear rhinorrhea Oropharynx: Lips, mucosa, and tongue normal, teeth and gums normal, oropharynx normal [place] Classification:Class II Respiratory: Lungs clear to auscultation. No wheezing, rhonchi, rales Cardiovascular: RRR without murmur, gallop, or rubs. No ectopy Gastroenterology: normal appearing abdomen on inspection Musculoskeletal: No joint pain, muscle weakness, or impaired gait Integumentary: Negative for lesions, rash, and itching. Psychiatric: Alert and oriented x 3. No mood disorders noted, calm affect. DATA: Diagnostic tests reviewed for today's visit were personally reviewed by me: Most recent labs and imaging results. No textual results found for the specified procedure(s). No question data found. Glucose (mg/dL) Date Value 12/04/2021 91 12/21/2011 91 Potassium (mmol/L) Date Value 12/04/2021 4.3 12/21/2011 3.8 Sodium (mmol/L) Date Value 12/04/2021 140 12/21/2011 140 Chloride (mmol/L) Date Value 12/04/2021 102 12/21/2011 104 CO2 (mmol/L) Date Value 12/04/2021 30 12/21/2011 27 Creatinine (mg/dL) Date Value 12/04/2021 0.82 12/21/2011 0.61 BUN (mg/dL) Date Value 12/04/2021 14 12/21/2011 14 Anion Gap (mmol/L) Date Value 12/04/2021 8 12/21/2011 9 Calcium (mg/dL) Date Value 12/21/2011 9.3 Calcium, Total (mg/dL) Date Value 12/04/2021 9.7 Protein, Total (g/dL) Date Value 12/04/2021 6.5 12/21/2011 6.7 Albumin (g/dL) Date Value 12/04/2021 4.6 12/21/2011 4.4 Bilirubin, Total (mg/dL) Date Value 12/04/2021 0.2 12/21/2011 0.2 Alkaline Phosphatase (U/L) Date Value 12/04/2021 75 12/21/2011 82 AST (U/L) Date Value 12/04/2021 16 12/21/2011 17 ALT (U/L) Date Value 12/04/2021 16 12/21/2011 18 WBC Date Value Ref Range Status 12/04/2021 13.56 (H) 3.70 - 11.00 k/uL Final RBC Date Value Ref Range Status 12/04/2021 4.47 3.90 - 5.20 m/uL Final Hemoglobin Date Value Ref Range Status 12/04/2021 14.5 11.5 - 15.5 g/dL Final Hematocrit Date Value Ref Range Status 12/04/2021 43.0 36.0 - 46.0 % Final MCV Date Value Ref Range Status 12/04/2021 96.2 80.0 - 100.0 fL Final MCH Date Value Ref Range Status 12/04/2021 32.4 26.0 - 34.0 pg Final MCHC Date Value Ref Range Status 12/04/2021 33.7 30.5 - 36.0 g/dL Final RDW-CV Date Value Ref Range Status 12/04/2021 12.7 11.5 - 15.0 % Final Platelet Count Date Value Ref Range Status 12/04/2021 236 150 - 400 k/uL Final MPV Date Value Ref Range Status 12/04/2021 10.8 9.0 - 12.7 fL Final Abs Neut (ANC) Date Value Ref Range Status 10/09/2021 2.57 1.45 - 7.50 k/uL Final Lymph % (Manual Diff) Date Value Ref Range Status 12/04/2021 56.0 % Final Abs Lymph Date Value Ref Range Status 10/09/2021 11.48 (H) 1.00 - 4.00 k/uL Final Coffee % (Manual Diff) Date Value Ref Range Status 12/04/2021 5.0 % Final Abs Coffee (Manual Diff) Date Value Ref Range Status 12/04/2021 0.68 <0.87 k/uL Final Eosin % (Manual Diff) Date Value Ref Range Status 12/04/2021 2.0 % Final Abs Eos (Manual Diff) Date Value Ref Range Status 12/04/2021 0.27 <0.46 k/uL Final Baso% Date Value Ref Range Status 10/09/2021 0.0 % Final Abs Baso (Manual Diff) Date Value Ref Range Status 12/04/2021 0.00 <0.11 k/uL Final IgG Date Value Ref Range Status 12/04/2021 633 (L) 700-1,600 mg/dL Final No follow-ups on file. (J01.91) Acute recurrent sinusitis, unspecified location (primary encounter diagnosis) (D72.820) Lymphocytosis (J31.0) Chronic rhinitis (J30.0) Vasomotor rhinitis (R53.81, R53.83) Malaise and fatigue (C91.10) CLL (chronic lymphocytic leukemia) ([facility]) PLAN: There are no Patient Instructions on file for this visit. Prevnar 20 today Check pneumococcal titers in 1 month Consider for additional Pneumovax depending on response to titers Early antibiotic intervention given underlying immunosuppressive effect of CLL Start ipratropium to reduce nasal congestion and drainage which has been a trigger for sinus infections. In the past I spent a total of 30 minutes on the date of the service which included preparing to see the patient, [id number] patient care, completing clinical documentation, obtaining and/or reviewing separately obtained history, performing a medically appropriate examination and counseling and educating the patient/family/caregiver. Tosha Disla MD documented in this encounter [facility] 01-08-2022 Miscellaneous Notes Pt informed. Addended by: TOSHA DISLA. on: 01/08/2022 12:54 PM Modules accepted: Orders Rx sent for Augmentin. Tosha Disla MD Pt believes she has sinus infection. (same symptoms of when she typically gets sinus infections) Drainage in back of throat, mild cough, and pressure in left ear. Pt taking Mucinex without relief. Pt has appt this with Dr. Disla. Pt requesting antibiotics. documented in this encounter [facility] 12-26-2021 History of Present illness Narrative Malgorzata Shine 1960 December 26, 2021 HPI: Malgorzata Shine is a 61 year old female who presents as a new referral from Dr. Disla for lymphocytosis. Per notes from Dr. Disla: I reviewed her recent blood work noted that she would benefit from Prevnar. She wishes to postpone this since she is babysitting multiple grandchildren in the next few days and does not want to be sore. She notes concerns that her lymphocyte count has remained elevated even when she is not sick. She is awaiting referral to hematology has an appointment in the next week or so. She sees him for recurrent sinusitis. Colonoscopy 12/12/15: MORELIA. No CBCs in system except 09/2021. ALC noted of 11.38 with WBC 15.10. Had some blood work done in [place] - has had this for years on her labs from PCP's office from before and was never told or had this worked up with the ALC being elevated. She is not sure how elevated though. Drinks alcohol once week - vodka (no wine due to migraines). Non smoker. Sinus infections - bad one February 2021. Last one was Sep 2021. Usually gets about 3-4 per year. Notices she gets sick easily. No real PNA or UTIs. Babysits her grandchildren. [place] weird before this past sinus infection. Says she was so fatigued and weak that she needed a nap. Describes as a crash . Says it has gotten better now. Lots of OA in joints. +NS - occasionally sheets but clothes for the most part. No weight loss. Eating and drinking ok. Has a spot with LAD on the L side of her neck. Interval History: Today she is here for follow up. Scratched her arm about 3 weeks ago and caused excoriations on her RUE that have now resolved. PAST MEDICAL HISTORY Diagnosis Date Abdominal pain Abdominal pain, epigastric Adjustment disorder with depressed mood Anemia, unspecified Anemia, unspecified Calculus of kidney right Constipation COVID-19 Esophagitis, unspecified Need for prophylactic hormone replacement therapy (postmenopausal) Osteoporosis Other forms of migraine Sinus infection Snoring Thyroiditis, unspecified PAST SURGICAL HISTORY Procedure Laterality Date COLONOSCOPY FLX DX W/COLLJ SPEC WHEN PFRMD 06/25/08 COLONOSCOPY FLX DX W/COLLJ SPEC WHEN PFRMD 12/12/15 Colonoscopy EGD TRANSORAL BIOPSY SINGLE/MULTIPLE 06/25/08 PAST SURGICAL HISTORY OF 2006 D& C PAST SURGICAL HISTORY OF partial hysterectomy Current Outpatient Medications Medication Sig Dispense Refill Ipratropium [place] (ATROVENT) 21 mcg (0.03 %) nasal spray Use 2 Sprays in the nose every 12 hours. 30 mL 3 traMADol (ULTRAM) 50 mg tablet take 1 tablet by mouth three times a day if needed for 7 days celecoxib (CELEBREX) 200 mg capsule Take by mouth. cholecalciferol (VITAMIN D3) 1,000 unit tab tablet Take 25 mcg by mouth. diclofenac (VOLTAREN) 1 % topical gel Apply 2 g to affected area. doxycycline hyclate (VIBRAMYCIN) 100 mg capsule Take 100 mg by mouth. eletriptan (RELPAX) 40 mg tablet 1 tablet as needed one time fluticasone (FLONASE) 50 mcg/actuation nasal spray Use in the nose. folic acid 400 mcg tablet Take 1 tablet by mouth. magnesium oxide (MAG-OX) 400 mg (241.3 mg magnesium) tablet Take 400 mg by mouth. meloxicam (MOBIC) 15 mg tablet Take 1 tablet by mouth. Riboflavin 25 mg tab Take 25 mg by mouth. XIFAXAN 550 mg tablet take 1 tablet by mouth three times a day for IBS-D buPROPion XL (WELLBUTRIN XL) 150 mg 24 hr tablet Take 150 mg by mouth once daily. DULoxetine (CYMBALTA) 60 mg capsule Take 60 mg by mouth once daily. esomeprazole (NEXIUM) 20 mg capsule take 1 capsule by mouth twice a day EVERY OTHER DAY verapamil SR (CALAN SR, ISOPTIN SR) 120 mg CR tablet Take by mouth. DULoxetine (CYMBALTA) 20 mg capsule Take 2 capsules by mouth once daily. verapamil (CALAN, ISOPTIN) 80 mg tablet Take 1 tablet by mouth twice daily. verapamil SR (CALAN SR, ISOPTIN SR) 120 mg CR tablet Take 1 tablet by mouth daily at bedtime. esomeprazole (NEXIUM) 40 mg capsule Take 1 capsule by mouth daily before breakfast. 1/2 hr before meal. polyethylene glycol 3350 (MIRALAX, GLYCOLAX) 17 gram/dose powder Take 17 g by mouth once daily. (that is one (1) capful in 8oz of liquid each day) 527 g 11 COMPOUNDED PRESCRIPTION imitrex as needed 0 bupropion hcl(WELLBUTRIN SR 150 MG TAB) one tab daily 0 No current facility-administered medications for this visit. ALLERGIES Allergen Reactions Naproxen GI Upset nausea Codeine Vomiting Dizziness and vomiting Levofloxacin Other: See Comments nausea FAMILY HISTORY Problem Relation Age of Onset Alcohol/Drug Father Hypertension Father other (Cancer- liver) Father Prostate Cancer Paternal Grandfather other (Diabetes- type I) Son Type I Stroke Paternal Grandmother Alzheimer's Disease Mother Thyroid Sister Arthritis Sister Hypertension Brother Diabetes Maternal Grandmother Social History Tobacco Use Smoking status: Never Smoker Smokeless tobacco: Never Used Vaping Use Vaping Use: Never used Substance Use Topics Alcohol use: Yes Alcohol/week: 0.0 standard drinks Comment: 3 glasses a month Drug use: No I have reviewed the PMHx, PSHx, social history and ROS on December 26, 2021 - all new information noted. Review of Systems: Constitutional: No fevers, chills, drenching night sweats or unintentional weight loss. +Some fatigue. HEENT: No yellowing of the eyes, no vision changes, no hearing loss or ear pain, no nosebleeds or drainage, no sore throat. +recurrent sinus infections. Neck: No complaints. Chest: No SOB or cough, no CARBAJAL, no hemoptysis, no wheezing. Breast: No complaints. Heart: No chest pain, pressure or tightness. No racing heartbeat. Abdominal: No pain or difficulty with swallowing, no N/V, no early satiety, no abdominal pain or bloating, no diarrhea or constipation, no change in bowel habits, no blood in the urine. Pain in the LUQ. Genitourinary: No pain or burning with urination, no incontinence, no blood in the urine. Extremities: no pain or swelling. Neurological: No headaches, no numbness or tingling in the extremities, no double vision. Skin: No rashes or ulcerations, no change in pigmentation. Nodes: Recent enlargement in her L side of her neck about 2 weeks ago. Heme: No easy bruising or bleeding, no yellowing of the eyes or darkening of urine. Psychiatric: no anxiety or depression. Immunologic: No recurrent or persistent infections of the sinuses, lungs or urinary tract. Endocrine: No hair or nail changes, no polyuria, polydipsia, or polyphagia. Appetite normal. I have performed the physical exam on December 26, 2021 - all new findings noted below. Physical Exam: BP 125/76 Pulse 67 Temp (Src) 97.3 (Tympanic) Ht 5' 2 (1.58m) SpO2 95% ECOG PS: 0 Pain Intensity: 0/10 General: Age-appropriate well developed. Appears well. HEENT: Normocephalic, no sclera icterus, external ears normal, oral cavity clear. Neck: Supple, no thyroid nodules, no JVD. Chest: Clear bilaterally, no wheezes, not labored. Heart: Normal S1 and S2, no abnormal sounds, peripheral pulses synchronized. Abdomen: Soft, nontender, nondistended, bowel sounds present, no organomegaly or mass, no rigidity. ?Splenomegaly /Rectal: deferred Extremities: No cyanosis, clubbing, gross deformities, or palpable cords. Neurological: Cranial nerves II through XII are intact bilaterally, strength normal in the upper and lower extremities, no focal deficits. Skin: Warm and dry with no rashes or ulcerations. Nodes: No palpable adenopathy in the cervical, supraclavicular, infraclavicular, or axillary regions. ? LN noted on L side of neck. Hematologic: no bruising or petechiae. Psychiatric: Alert and oriented x3. Emotional well-being assessment was performed. Pt denies depression, distress, and or problems with coping or adjustment. Labs CBC:No results for input(s): WBC, HB, HCT, PLT, MCV, RDWCV, NEUTP, ABSNEUT, LYMPHP, MONOP, EODINP in the last 168 hours. COAG: No results for input(s): APTT, INR in the last 168 hours. BMP: No results for input(s): GLUC, NA, K, CHLOR, CO2, ANION, BUN, CREAT in the last 168 hours. CHEM: No results for input(s): ALB, TPROT, CA, MG in the last 168 hours. Hospital Outpatient Visit on 12/13/2021 Component Date Value Radiology Result 12/13/2021 ACTIONABLE (A) Appointment on 12/04/2021 Component Date Value WBC 12/04/2021 13.56 (A) RBC 12/04/2021 4.47 Hemoglobin 12/04/2021 14.5 Hematocrit 12/04/2021 43.0 MCV 12/04/2021 96.2 MCH 12/04/2021 32.4 MCHC 12/04/2021 33.7 RDW-CV 12/04/2021 12.7 Platelet Count 12/04/2021 236 MPV 12/04/2021 10.8 NRBC 12/04/2021 0.0 Absolute nRBC 12/04/2021 <0.01 Diff Type 12/04/2021 Manual Flow Cytometry Order Sta* 12/04/2021 See Results in chart under F case ID LD 12/04/2021 232 (A) Protein, Total 12/04/2021 6.5 Albumin 12/04/2021 4.6 Calcium, Total 12/04/2021 9.7 Bilirubin, Total 12/04/2021 0.2 Alkaline Phosphatase 12/04/2021 75 AST 12/04/2021 16 ALT 12/04/2021 16 Glucose 12/04/2021 91 BUN 12/04/2021 14 Creatinine 12/04/2021 0.82 Sodium 12/04/2021 140 Potassium 12/04/2021 4.3 Chloride 12/04/2021 102 CO2 12/04/2021 30 Anion Gap 12/04/2021 8 (A) Estimated Glomerular Paul* 12/04/2021 80 IgG 12/04/2021 633 (A) IgA 12/04/2021 40 (A) IgM 12/04/2021 38 (A) Neut % (Manual Diff) 12/04/2021 37.0 ANC (Seg + Band) 12/04/2021 5.02 Lymph % (Manual Diff) 12/04/2021 56.0 Abs Lymphs (Manual Diff) 12/04/2021 7.59 (A) Coffee % (Manual Diff) 12/04/2021 5.0 Abs Coffee (Manual Diff) 12/04/2021 0.68 Eosin % (Manual Diff) 12/04/2021 2.0 Abs Eos (Manual Diff) 12/04/2021 0.27 Baso % (Manual Diff) 12/04/2021 0.0 Abs Baso (Manual Diff) 12/04/2021 0.00 Cells Counted 12/04/2021 100 Platelet Estimate 12/04/2021 Adequate Red Cell Morph 12/04/2021 Unremarkable Pathologist Interpretati* 12/04/2021 WBC differential indicative of: Absolute lymphocytosis suggests low grade lymphoproliferative disorder. Recommend correlation with flow cytometry. CBCDIF Pathologist Revie* 12/04/2021 Reviewed by Carole Haywood MD Case Report 12/04/2021 Value:Flow Cytometry Case: [id number] Authorizing Provider: Mary Gonzalez MD Collected: 12/04/2021 03:07 PM Ordering Location: LABORATORY MEDICINE Received: 12/05/2021 10:05 AM Pathologist: Peter Cruz MD, PhD Specimen: BLOOD Interpretation 12/04/2021 Value:This result contains rich text formatting which cannot be displayed here. Gross Description 12/04/2021 Lab Results Component Value Date LD 232 (H) 12/04/2021 No results found for: URICACID Lab Results Component Value Date IGA 40 (L) 12/04/2021 IGA 49 (L) 12/21/2011 Lab Results Component Value Date IGG 633 (L) 12/04/2021 IGG 698 (L) 10/09/2021 Lab Results Component Value Date IGM 38 (L) 12/04/2021 Radiology: CT n/c/a/p 12/13/21: MORELIA in the neck. 0.7 cm pleural-based nodule at the posterior aspect of the medial right lower lobe. Subtle groundglass opacity in the right lower lobe adjacent to the nodule. Comparison with any prior outside chest CT would be helpful to assess chronicity. If none are available follow-up CT chest in 3-4 months recommended. No intrathoracic lymphadenopathy. Mildly enlarged bilateral external iliac lymph nodes. Bilateral nephrolithiasis. No hydronephrosis. Pathology: - Flow cytometry 12/04/21: The findings are diagnostic of chronic lymphocytic leukemia/small lymphocytic lymphoma (CLL/SLL). Correlation with the clinical findings is suggested. Assessment and Plan: 1) CLL - noted on flow cytometry of peripheral blood. - CABRERA Stage 0 2) Possible splenomegaly - recommend an US of the spleen. - however CTs do not show this as of 12/13/21. 3) Chronic sinus infections - not necessary to do IVIG at this time. - will defer to Dr. Disla though as this could change. 4) Lung nodule - RLL - needs repeat CT in 12/2022. 5) Osteoporosis - Prolia thru [facility]. Got only 1 injection so far. I reviewed with the patient her diagnosis of CLL. I reviewed with the patient that she does not need treatment for her CLL. I also discussed that if treatment was warranted, that chemotherapy would the be treatment and we could meet to discuss further. The patient was able to ask questions and all were answered to her satisfaction. I would like to see her back in 3 months for results. I would hold off on IVIG for now. We discussed reasons to treat her including pancytopenia, B symptoms, doubling of ALC <12 mo time. Reviewed NCCN guidelines with her as well. Continue follow up with pain management for epidural injections. Medical Decision Making: Problems: Moderate: New problem with uncertain prognosis Data: Unique source(s) for external note(s) reviewed: 3+ Unique test result(s) reviewed: 3+ Unique test(s) ordered: 3+ Discussed management or test w/ external physician/QHCP/source Risk: Moderate: Moderate risk from testing/treatment Medical Decision Making Level: 4 - Moderate Mary Gonzalez MD documented in this encounter [facility] 12-15-2021 Miscellaneous Notes See 12/15 telephone encounter with results. So I am waiting for her CT results before I do anything. I may have them back tomorrow. Can try a small dose of motrin if tylenol doesn't help. Patient called in to see what she can do about her pain in her left upper abdominal area. She believes it is her spleen but is not sure. She states it is constant, sometimes stabbing pain. She is very uncomfortable and can't stand to have a bra on due to the pain. She just took some Tylenol but it has not started to give her any relief as of yet. Please advise. documented in this encounter [facility] 12-15-2021 Miscellaneous Notes Called patient with results. See additional telephone encounter. She will try the motrin or tylenol for abdominal discomfort. Call pt and let her know her CTs show no issues with her spleen. She does have 2 kidney stones so that may be her discomfort. No real enlarged LNs that would cause the pain either. documented in this encounter [facility] 12-13-2021 History of Present illness Narrative Radiology Service Progress Note DATE OF SERVICE: December 13, 2021 TIME: 4:27 PM PATIENT IDENTITY VERIFICATION COMPLETED USING TWO (2) STANDARD IDENTIFIERS: Name and Date of confirmed by patient verbally and Name and Date of confirmed by identification band. FALL SCREENING: Has the patient had 2 falls in the last year or 1 fall with injury or currently using an Ambulatory Assistive Device (Walker, Cane, Wheelchair, Crutches, etc.)? No PATIENT GENDER DATA: Female. status: : No status: NO. PATIENT RELEVANT IMPLANT DATA REVIEWED: Not Applicable ALLERGIES: Reviewed and unchanged CONTRAST ALLERGY: NO. EXAM: CT -CONTRAST INDUCED NEPHROPATHY RISK FACTORS: Patient age > 60 years CREATININE: Creatinine Date Value Ref Range Status 12/04/2021 0.82 0.58 - 0.96 mg/dL Final 12/21/2011 0.61 (L) 0.70 - 1.40 mg/dL Final Estimated Glomerular Filtration Rate Date Value Ref Range Status 12/04/2021 80 >=60 mL/min/1.73m Final Comment: Estimated Glomerular Filtration Rate (eGFR) is calculated using the 2020 CKD-EPI creatinine equation. This equation utilizes serum creatinine, sex, and age as parameters. The creatinine assay has traceable calibration to isotope dilution-mass spectrometry. Refer to KDIGO guidelines for clinical interpretation. In patients with unstable renal function, e.g. those with acute kidney injury, the eGFR may not accurately reflect actual GFR. eGFR- Date Value Ref Range Status 12/21/2011 >60 Final P.O.C.T. RESULTS: POC done: Yes, See Lab Tab December 13, 2021 TREATMENT: N/A PERIPHERAL IV DATA: 22g diffusics left antecubital RADIOLOGY DEPARTMENT: CT; Exam(s) Completed: Chest Abdomen Pelvis and Neck SIGNATURE: RT Mayra(R) PATIENT NAME: Malgorzata Shine DATE: December 13, 2021 TIME: 4:27 PM documented in this encounter [facility] 12-06-2021 Miscellaneous Notes Called patient. Transferred to centralized scheduling. Cancelled 12/08 ultrasound. Will keep 12/26 visit. Discussed with pt about her diagnosis of CLL. Reviewed the diagnosis with her. She does not meet criteria for treatment right now. Reviewed need for US to be changed to CTs given diagnosis and pt agreeable. Wants to do in [place]. Pt and I discussed need for potential IVIG in the future should she get more infections throughout this year. Ladies - schedule CTs and then call pt with appt. Ok to cancel US. Pt seen BW results from 12/04, but doesn't know what all they mean. Does she have leukemia? Lymphoma?. having US on Saturday. Very anxious. Please advise. Nichole Diaz MA documented in this encounter [facility] 12-04-2021 History of Present illness Narrative INITIAL CONSULT Malgorzata Shine 1960 December 04, 2021 Cancer Staging No matching staging information was found for the patient. - workup pending. HPI: Malgorzata Shine is a 61 year old female who presents as a new referral from Dr. Disla for lymphocytosis. Per notes from Dr. Disla: I reviewed her recent blood work noted that she would benefit from Prevnar. She wishes to postpone this since she is babysitting multiple grandchildren in the next few days and does not want to be sore. She notes concerns that her lymphocyte count has remained elevated even when she is not sick. She is awaiting referral to hematology has an appointment in the next week or so. She sees him for recurrent sinusitis. Colonoscopy 12/12/15: MORELIA. No CBCs in system except 09/2021. ALC noted of 11.38 with WBC 15.10. Today on exam, she feels well. Had some blood work done in [place] - has had this for years on her labs from PCP's office from before and was never told or had this worked up with the ALC being elevated. She is not sure how elevated though. Drinks alcohol once week - vodka (no wine due to migraines). Non smoker. Sinus infections - bad one February 2021. Last one was Sep 2021. Usually gets about 3-4 per year. Notices she gets sick easily. No real PNA or UTIs. Babysits her grandchildren. [place] weird before this past sinus infection. Says she was so fatigued and weak that she needed a nap. Describes as a crash . Says it has gotten better now. Lots of OA in joints. +NS - occasionally sheets but clothes for the most part. No weight loss. Eating and drinking ok. Has a spot with LAD on the L side of her neck. PAST MEDICAL HISTORY Diagnosis Date Abdominal pain Abdominal pain, epigastric Adjustment disorder with depressed mood Anemia, unspecified Anemia, unspecified Calculus of kidney right Constipation COVID-19 Esophagitis, unspecified Need for prophylactic hormone replacement therapy (postmenopausal) Osteoporosis Other forms of migraine Sinus infection Snoring Thyroiditis, unspecified PAST SURGICAL HISTORY Procedure Laterality Date COLONOSCOPY FLX DX W/COLLJ SPEC WHEN PFRMD 06/25/08 COLONOSCOPY FLX DX W/COLLJ SPEC WHEN PFRMD 12/12/15 Colonoscopy EGD TRANSORAL BIOPSY SINGLE/MULTIPLE 06/25/08 PAST SURGICAL HISTORY OF 2006 D& C PAST SURGICAL HISTORY OF partial hysterectomy Current Outpatient Medications Medication Sig Dispense Refill Ipratropium [place] (ATROVENT) 21 mcg (0.03 %) nasal spray Use 2 Sprays in the nose every 12 hours. 30 mL 3 traMADol (ULTRAM) 50 mg tablet take 1 tablet by mouth three times a day if needed for 7 days celecoxib (CELEBREX) 200 mg capsule Take by mouth. cholecalciferol (VITAMIN D3) 1,000 unit tab tablet Take 25 mcg by mouth. diclofenac (VOLTAREN) 1 % topical gel Apply 2 g to affected area. doxycycline hyclate (VIBRAMYCIN) 100 mg capsule Take 100 mg by mouth. (Patient not taking: Reported on 10/09/2021 ) eletriptan (RELPAX) 40 mg tablet 1 tablet as needed one time fluticasone (FLONASE) 50 mcg/actuation nasal spray Use in the nose. folic acid 400 mcg tablet Take 1 tablet by mouth. (Patient not taking: Reported on 10/09/2021 ) magnesium oxide (MAG-OX) 400 mg (241.3 mg magnesium) tablet Take 400 mg by mouth. meloxicam (MOBIC) 15 mg tablet Take 1 tablet by mouth. (Patient not taking: Reported on 10/09/2021 ) Riboflavin 25 mg tab Take 25 mg by mouth. XIFAXAN 550 mg tablet take 1 tablet by mouth three times a day for IBS-D buPROPion XL (WELLBUTRIN XL) 150 mg 24 hr tablet Take 150 mg by mouth once daily. DULoxetine (CYMBALTA) 60 mg capsule Take 60 mg by mouth once daily. (Patient not taking: Reported on 10/09/2021 ) esomeprazole (NEXIUM) 20 mg capsule take 1 capsule by mouth twice a day EVERY OTHER DAY verapamil SR (CALAN SR, ISOPTIN SR) 120 mg CR tablet Take by mouth. DULoxetine (CYMBALTA) 20 mg capsule Take 2 capsules by mouth once daily. verapamil (CALAN, ISOPTIN) 80 mg tablet Take 1 tablet by mouth twice daily. verapamil SR (CALAN SR, ISOPTIN SR) 120 mg CR tablet Take 1 tablet by mouth daily at bedtime. esomeprazole (NEXIUM) 40 mg capsule Take 1 capsule by mouth daily before breakfast. 1/2 hr before meal. (Patient not taking: Reported on 10/09/2021 ) polyethylene glycol 3350 (MIRALAX, GLYCOLAX) 17 gram/dose powder Take 17 g by mouth once daily. (that is one (1) capful in 8oz of liquid each day) 527 g 11 COMPOUNDED PRESCRIPTION imitrex as needed 0 bupropion hcl(WELLBUTRIN SR 150 MG TAB) one tab daily 0 No current facility-administered medications for this visit. ALLERGIES Allergen Reactions Naproxen GI Upset nausea Codeine Vomiting Dizziness and vomiting Levofloxacin Other: See Comments nausea FAMILY HISTORY Problem Relation Age of Onset Alcohol/Drug Father Hypertension Father other (Cancer- liver) Father Prostate Cancer Paternal Grandfather other (Diabetes- type I) Son Type I Stroke Paternal Grandmother Alzheimer's Disease Mother Thyroid Sister Arthritis Sister Hypertension Brother Diabetes Maternal Grandmother Social History Tobacco Use Smoking status: Never Smoker Smokeless tobacco: Never Used Vaping Use Vaping Use: Never used Substance Use Topics Alcohol use: Yes Alcohol/week: 0.0 standard drinks Comment: 3 glasses a month Drug use: No Review of Systems: Constitutional: No fevers, chills, drenching night sweats or unintentional weight loss. +Some fatigue. HEENT: No yellowing of the eyes, no vision changes, no hearing loss or ear pain, no nosebleeds or drainage, no sore throat. +recurrent sinus infections. Neck: No complaints. Chest: No SOB or cough, no CARBAJAL, no hemoptysis, no wheezing. Breast: No complaints. Heart: No chest pain, pressure or tightness. No racing heartbeat. Abdominal: No pain or difficulty with swallowing, no N/V, no early satiety, no abdominal pain or bloating, no diarrhea or constipation, no change in bowel habits, no blood in the urine. Pain in the LUQ. Genitourinary: No pain or burning with urination, no incontinence, no blood in the urine. Extremities: no pain or swelling. Neurological: No headaches, no numbness or tingling in the extremities, no double vision. Skin: No rashes or ulcerations, no change in pigmentation. Nodes: Recent enlargement in her L side of her neck about 2 weeks ago. Heme: No easy bruising or bleeding, no yellowing of the eyes or darkening of urine. Psychiatric: no anxiety or depression. Immunologic: No recurrent or persistent infections of the sinuses, lungs or urinary tract. Endocrine: No hair or nail changes, no polyuria, polydipsia, or polyphagia. Appetite normal. Physical Exam: BP 116/70 Pulse 73 Temp (Src) 97.3 (Tympanic) Ht 5' 2 (1.58m) Wt 143 lb 3.2 oz (65.0kg) SpO2 98% BMI 26.18 kg/(m^2). ECOG PS: 0 Pain Intensity: 0/10 General: Age-appropriate well developed. Appears well. HEENT: Normocephalic, no sclera icterus, external ears normal, oral cavity clear. Neck: Supple, no thyroid nodules, no JVD. Chest: Clear bilaterally, no wheezes, not labored. Heart: Normal S1 and S2, no abnormal sounds, peripheral pulses synchronized. Abdomen: Soft, nontender, nondistended, bowel sounds present, no organomegaly or mass, no rigidity. ?Splenomegaly /Rectal: deferred Extremities: No cyanosis, clubbing, gross deformities, or palpable cords. Neurological: Cranial nerves II through XII are intact bilaterally, strength normal in the upper and lower extremities, no focal deficits. Skin: Warm and dry with no rashes or ulcerations. Nodes: No palpable adenopathy in the cervical, supraclavicular, infraclavicular, or axillary regions. ? LN noted on L side of neck. Hematologic: no bruising or petechiae. Psychiatric: Alert and oriented x3. Emotional well-being assessment was performed. Pt denies depression, distress, and or problems with coping or adjustment. Labs CBC:No results for input(s): WBC, HB, HCT, PLT, MCV, RDWCV, NEUTP, ABSNEUT, LYMPHP, MONOP, EODINP in the last 168 hours. COAG: No results for input(s): APTT, INR in the last 168 hours. BMP: No results for input(s): GLUC, NA, K, CHLOR, CO2, ANION, BUN, CREAT in the last 168 hours. CHEM: No results for input(s): ALB, TPROT, CA, MG in the last 168 hours. Orders Only on 10/09/2021 Component Date Value WBC 10/09/2021 15.10 (A) RBC 10/09/2021 4.68 Hemoglobin 10/09/2021 14.8 Hematocrit 10/09/2021 46.5 (A) MCV 10/09/2021 99.4 MCH 10/09/2021 31.6 MCHC 10/09/2021 31.8 RDW-CV 10/09/2021 13.1 Platelet Count 10/09/2021 289 MPV 10/09/2021 11.2 Neut% 10/09/2021 17.0 Abs Neut (ANC) 10/09/2021 2.57 Lymph% 10/09/2021 76.0 Abs Lymph 10/09/2021 11.48 (A) Coffee% 10/09/2021 4.0 Abs Coffee 10/09/2021 0.60 Eosin% 10/09/2021 3.0 Abs Eosin 10/09/2021 0.45 Baso% 10/09/2021 0.0 Abs Baso 10/09/2021 0.00 ANC(includeSEG+BAND) 10/09/2021 2.57 Polychromasia 10/09/2021 Slight Red Cell Morph 10/09/2021 SEE COMMENT Platelet Estimate 10/09/2021 Platelet estimate adequate Diff Type 10/09/2021 Manual Diff Pneumo Serotype 1 IgG (P* 10/09/2021 0.43 Pneumo Serotype 3 IgG (P* 10/09/2021 0.24 Pneumo Serotype 4 IgG (P* 10/09/2021 0.08 Pneumo Serotype 5 IGG (P* 10/09/2021 1.68 Pneumo Serotype 6B IgG (* 10/09/2021 0.80 Pneumo Serotype 7F IgG (* 10/09/2021 1.04 Pneumo Serotype 8 IgG (P* 10/09/2021 1.27 Pneumo Serotype 9N IgG (* 10/09/2021 0.88 Pneumo Serotype 9V IGG (* 10/09/2021 0.51 Pneumo Serotype 12F IgG * 10/09/2021 0.06 Pneumo Serotype 14 IgG (* 10/09/2021 5.71 Pneumo Serotype 18C IgG * 10/09/2021 2.29 Pneumo Serotype 19F IgG * 10/09/2021 1.17 Pneumo Serotype 23F IgG * 10/09/2021 0.12 Pneumococcal Interpretat* 10/09/2021 SEE NOTE IgG 10/09/2021 698 (A) Radiology: Pathology: Assessment and Plan: 1) Lymphocytosis - noted to be only abnormality on CBC. - no previous comparisons. - recommend repeat CBC, flow cytometry for now. 2) Possible splenomegaly - recommend an US of the spleen. I reviewed with the patient her potential diagnosis of CLL. If flow confirms CLL, will need to do CTs to discuss if tx needed based on symptoms and/or LAD. If the flow confirms MBL, will need to continue on with US of the spleen. I reviewed with the patient briefly the potential that she does not need treatment if this is indeed truly CLL. I also discussed that if treatment was warranted, that chemotherapy would the be treatment and we could meet to discuss further. The patient was able to ask questions and all were answered to her satisfaction. I would like to see her back in 3 weeks to discuss her results. I spent a total of 60 minutes on the date of the service which included preparing to see the patient, [id number] patient care, completing clinical documentation, obtaining and/or reviewing separately obtained history, performing a medically appropriate examination, counseling and educating the patient/family/caregiver, ordering medications, tests, or procedures, independently interpreting results (not separately reported), communicating results to the patient/family/caregiver and care coordination (not separately reported). Mary Gonzalez MD documented in this encounter [facility] Diagnosis Lymphocytosis- Primary Lymphocytosis (symptomatic) Splenomegaly [facility] [place] [facility] Diagnosis Localized swelling, mass or lump of neck Swelling, mass, or lump in head and neck CLL (chronic lymphocytic leukemia) (HCC) Chronic lymphoid leukemia, without mention of having achieved remission [facility] Diagnosis APPOINTMENT CANCELLED- Primary [facility] [place] [facility]* Diagnosis Acute recurrent sinusitis, unspecified location- Primary Lymphocytosis Lymphocytosis (symptomatic) Chronic rhinitis Vasomotor rhinitis Allergic rhinitis, cause unspecified Malaise and fatigue Other malaise and fatigue CLL (chronic lymphocytic leukemia) (HCC) Chronic lymphoid leukemia, without mention of having achieved remission Hypogammaglobulinemia (HCC) Hypogammaglobulinaemia, unspecified Immunosuppressed status (HCC) Unspecified disorder of immune mechanism [facility] Acute recurrent sinusitis, unspecified location- Primary [facility] Diagnosis Acute recurrent sinusitis, unspecified location- Primary Chronic rhinitis CLL (chronic lymphocytic leukemia) (HCC) Chronic lymphoid leukemia, without mention of having achieved remission Malaise and fatigue Other malaise and fatigue Vasomotor rhinitis Allergic rhinitis, cause unspecified Hypogammaglobulinemia (HCC) Hypogammaglobulinaemia, unspecified Immunosuppressed status (HCC) Unspecified disorder of immune mechanism [facility] Diagnosis CLL (chronic lymphocytic leukemia) (HCC)- Primary Chronic lymphoid leukemia, without mention of having achieved remission Splenomegaly Hypogammaglobulinemia (HCC) Hypogammaglobulinaemia, unspecified [facility] Diagnosis Lung nodules Other nonspecific abnormal finding of lung field CLL (chronic lymphocytic leukemia) (HCC) Chronic lymphoid leukemia, without mention of having achieved remission [facility] Diagnosis Other chronic sinusitis Nasal drainage Other diseases of nasal cavity and sinuses [facility] Diagnosis Other chronic sinusitis [facility] Diagnosis CLL (chronic lymphocytic leukemia) (HCC)- Primary Chronic lymphoid leukemia, without mention of having achieved remission Lung nodules Other nonspecific abnormal finding of lung field [facility] Diagnosis Acute recurrent sinusitis, unspecified location- Primary Chronic rhinitis CLL (chronic lymphocytic leukemia) (HCC) Chronic lymphoid leukemia, without mention of having achieved remission Malaise and fatigue Other malaise and fatigue Vasomotor rhinitis Allergic rhinitis, cause unspecified Hypogammaglobulinemia (HCC) Hypogammaglobulinaemia, unspecified Immunosuppressed status (HCC) Unspecified disorder of immune mechanism Poor sleep hygiene Other specific disorder of sleep of nonorganic origin [facility] Diagnosis Acute recurrent sinusitis, unspecified location- Primary Hypogammaglobulinemia (HCC) Hypogammaglobulinaemia, unspecified CLL (chronic lymphocytic leukemia) (HCC) Chronic lymphoid leukemia, without mention of having achieved remission Vasomotor rhinitis Allergic rhinitis, cause unspecified [facility] [place] [facility] Diagnosis CLL (chronic lymphocytic leukemia) (HCC)- Primary Chronic lymphoid leukemia, without mention of having achieved remission Hypogammaglobulinemia (HCC) Hypogammaglobulinaemia, unspecified [facility] Diagnosis Acute recurrent sinusitis, unspecified location- Primary Hypogammaglobulinemia (HCC) Hypogammaglobulinaemia, unspecified CLL (chronic lymphocytic leukemia) (HCC) Chronic lymphoid leukemia, without mention of having achieved remission Vasomotor rhinitis Allergic rhinitis, cause unspecified Chronic rhinitis Malaise and fatigue Other malaise and fatigue Immunosuppressed status (HCC) Unspecified disorder of immune mechanism Poor sleep hygiene Other specific disorder of sleep of nonorganic origin [facility]* Diagnosis CLL (chronic lymphocytic leukemia) (HCC)- Primary Chronic lymphoid leukemia, without mention of having achieved remission Splenomegaly Hypogammaglobulinemia (HCC) Hypogammaglobulinaemia, unspecified [facility]* Diagnosis CLL (chronic lymphocytic leukemia) (HCC)- Primary Chronic lymphoid leukemia, without mention of having achieved remission Hypogammaglobulinemia (HCC) Hypogammaglobulinaemia, unspecified Splenomegaly Lung nodules Other nonspecific abnormal finding of lung field [facility] [place] [facility]* Diagnosis Acute recurrent sinusitis, unspecified location- Primary Hypogammaglobulinemia (HCC) Hypogammaglobulinaemia, unspecified CLL (chronic lymphocytic leukemia) (HCC) Chronic lymphoid leukemia, without mention of having achieved remission Vasomotor rhinitis Allergic rhinitis, cause unspecified Chronic rhinitis Malaise and fatigue Other malaise and fatigue Immunosuppressed status (HCC) Unspecified disorder of immune mechanism Lymphocytosis Lymphocytosis (symptomatic) documented in this encounter [facility] for referral (narrative)* Diagnostic Procedure Only (Routine) - Authorized Specialty Diagnoses / Procedures Referred By Teeteeac t Referred To Contact US IMAGING Diagnoses Lymphocytosis Splenomegaly Procedures US ABD SPLEEN US ABDOMINAL REAL TIME W/IMAGE LIMITED Mary Gonzalez MD [address] [facility] [address] [place] [address] Us Imaging Referral ID Status Reason Start Date Expiration Date Visits Requested Visits Authorized [id number] Authorized Auto-Generat ed Referral 12/04/2021 01/03/2023 1 1 [facility] Summary Purpose Family History No Family History Records FoundNo Family History Records FoundNo Family History Records FoundNo Family History Records Found Advance Directives No Advanced Directives Records FoundDocuments on File Type Date Recorded Patient Track Service Person Expl anation Advance Directive(s) 12/12/2015 9:01 AM Advance Directive(s) 12/08/2015 12:04 PM Documents on File Type Date Recorded Patient Track Service Person Expl anation Advance Directive(s) 12/12/2015 9:01 AM Advance Directive(s) 12/08/2015 12:04 PM Reason for Referral Specialty Diagnoses / Procedures Referred By Contac t Referred To Contact CT IMAGING Diagnoses Localized swelling, mass or lump of neck CLL (chronic lymphocytic leukemia) (HCC) Procedures CT CHEST W IVCON DIAGNOSTIC COMPUTED TOMOGRAPHY THORAX W/CONTRAST Mary Gonzalez MD [address] [facility] [address] [place] [address] Ct Imaging Referral ID Status Reason Start Date Expiration Date Visits Requested Visits Authorized [id number] Authorized Auto-Generat ed Referral 12/06/2021 01/05/2023 1 1 Specialty Diagnoses / Procedures Referred By Contac t Referred To Contact CT IMAGING Diagnoses Localized swelling, mass or lump of neck CLL (chronic lymphocytic leukemia) (HCC) Procedures CT ABD/PEL W IVCON CT ABD & PELVIS W/CONTRAST Mary Gonzalez MD [address] [facility] [address] [place] [address] Ct Imaging Referral ID Status Reason Start Date Expiration Date Visits Requested Visits Authorized [id number] Authorized Auto-Generat ed Referral 12/06/2021 01/05/2023 1 1 Specialty Diagnoses / Procedures Referred By Contac t Referred To Contact CT IMAGING Diagnoses Localized swelling, mass or lump of neck CLL (chronic lymphocytic leukemia) (HCC) Procedures CT NECK SOFT TISSUE W IVCON CT SOFT TISSUE NECK W/CONTRAST MATERIAL Mary Gonzalez MD [address] [facility] [address] [place] [address] Ct Imaging Referral ID Status Reason Start Date Expiration Date Visits Requested Visits Authorized [id number] Authorized Auto-Generat ed Referral 12/06/2021 01/05/2023 1 1 Referral ID Status Reason Start Date Expiration Date V isits Requested Visits Authorized [id number] Closed Auto-Generate d Referral 12/06/2021 01/05/2023 1 1 Referral ID Status Reason Start Date Expiration Date V isits Requested Visits Authorized [id number] Closed Auto-Generate d Referral 12/06/2021 01/05/2023 1 1 Referral ID Status Reason Start Date Expiration Date V isits Requested Visits Authorized [id number] Closed Auto-Generate d Referral 12/06/2021 01/05/2023 1 1 Specialty Diagnoses / Procedures Referred By Contac t Referred To Contact Ent - Otolaryngology Diagnoses Acute recurrent sinusitis, unspecified location Procedures CONSULT TO ENT OFFICE/OUTPATIENT [facility] 60-74 MINUTES Tosha Disla MD [address] [facility] [place] [address] Ansley Tolliver, [address] [place] [address] Referral ID Status Reason Start Date Expiration Date Visits Requested Visits Authorized [id number] Pending Review PCP Requested Referral 02/28/2022 02/28/2023 1 1 Specialty Diagnoses / Procedures Referred By Contac t Referred To Contact CT IMAGING Diagnoses Lung nodules CLL (chronic lymphocytic leukemia) (HCC) Procedures CT CHEST W IVCON DIAGNOSTIC COMPUTED TOMOGRAPHY THORAX W/CONTRAST Mary Gonzalez MD [address] [facility] [address] [place] [address] Ct Imaging Referral ID Status Reason Start Date Expiration Date V isits Requested Visits Authorized [id number] Closed Auto-Generate d Referral 04/03/2022 05/03/2023 1 1 Specialty Diagnoses / Procedures Referred By Contac t Referred To Contact CT IMAGING Diagnoses Other chronic sinusitis Procedures CT SINUS WO IVCON CT MAXILLOFACIAL W/O CONTRAST MATERIAL Ansley Tolliver DO [address] [place] [address] Ct Imaging Referral ID Status Reason Start Date Expiration Date Visits Requested Visits Authorized [id number] Authorized Auto-Generat ed Referral 05/25/2022 06/24/2023 1 1 Referral ID Status Reason Start Date Expiration Date V isits Requested Visits Authorized [id number] Closed Auto-Generate d Referral 05/25/2022 06/24/2023 1 1 Additional Source Comments INFORMATION SOURCE (unrecogn ized section and content) DATE CREATED AUTHOR AUTHOR'S ORGANIZ ATION 04/12/2020 [facility] DATE CREATED AUTHOR AUTHOR'S ORGANIZ ATION 06/24/2023 [facility] DATE CREATED AUTHOR AUTHOR'S ORGANIZ ATION 09/06/2023 [facility] Source Comments (unrecognize d section and content) In the event this informatio n is protected by the Federal Confidentiality of Alcohol and Drug Abuse Patient Records regulations: The Federal rules restrict any use of the information to criminally investigate or prosecute any alcohol or drug abuse patient.[facility] the event this information is protected by the Federal Confidentiality of Alcohol and Drug Abuse Patient Records regulations: The Federal rules restrict any use of the information to criminally investigate or prosecute any alcohol or drug abuse patient.[facility] the event this information is protected by the Federal Confidentiality of Alcohol and Drug Abuse Patient Records regulations: The Federal rules restrict any use of the information to criminally investigate or prosecute any alcohol or drug abuse patient.[facility] the event this information is protected by the Federal Confidentiality of Alcohol and Drug Abuse Patient Records regulations: The Federal rules restrict any use of the information to criminally investigate or prosecute any alcohol or drug abuse patient.[facility] the event this information is protected by the Federal Confidentiality of Alcohol and Drug Abuse Patient Records regulations: The Federal rules restrict any use of the information to criminally investigate or prosecute any alcohol or drug abuse patient.[facility] the event this information is protected by the Federal Confidentiality of Alcohol and Drug Abuse Patient Records regulations: The Federal rules restrict any use of the information to criminally investigate or prosecute any alcohol or drug abuse patient.[facility] the event this information is protected by the Federal Confidentiality of Alcohol and Drug Abuse Patient Records regulations: The Federal rules restrict any use of the information to criminally investigate or prosecute any alcohol or drug abuse patient.[facility] the event this information is protected by the Federal Confidentiality of Alcohol and Drug Abuse Patient Records regulations: The Federal rules restrict any use of the information to criminally investigate or prosecute any alcohol or drug abuse patient.[facility] the event this information is protected by the Federal Confidentiality of Alcohol and Drug Abuse Patient Records regulations: The Federal rules restrict any use of the information to criminally investigate or prosecute any alcohol or drug abuse patient.[facility] the event this information is protected by the Federal Confidentiality of Alcohol and Drug Abuse Patient Records regulations: The Federal rules restrict any use of the information to criminally investigate or prosecute any alcohol or drug abuse patient.[facility] the event this information is protected by the Federal Confidentiality of Alcohol and Drug Abuse Patient Records regulations: The Federal rules restrict any use of the information to criminally investigate or prosecute any alcohol or drug abuse patient.[facility] the event this information is protected by the Federal Confidentiality of Alcohol and Drug Abuse Patient Records regulations: The Federal rules restrict any use of the information to criminally investigate or prosecute any alcohol or drug abuse patient.[facility] the event this information is protected by the Federal Confidentiality of Alcohol and Drug Abuse Patient Records regulations: The Federal rules restrict any use of the information to criminally investigate or prosecute any alcohol or drug abuse patient.[facility] the event this information is protected by the Federal Confidentiality of Alcohol and Drug Abuse Patient Records regulations: The Federal rules restrict any use of the information to criminally investigate or prosecute any alcohol or drug abuse patient.[facility] the event this information is protected by the Federal Confidentiality of Alcohol and Drug Abuse Patient Records regulations: The Federal rules restrict any use of the information to criminally investigate or prosecute any alcohol or drug abuse patient.[facility] the event this information is protected by the Federal Confidentiality of Alcohol and Drug Abuse Patient Records regulations: The Federal rules restrict any use of the information to criminally investigate or prosecute any alcohol or drug abuse patient.[facility]burgIn the event this information is protected by the Federal Confidentiality of Alcohol and Drug Abuse Patient Records regulations: The Federal rules restrict any use of the information to criminally investigate or prosecute any alcohol or drug abuse patient.[facility] the event this information is protected by the Federal Confidentiality of Alcohol and Drug Abuse Patient Records regulations: The Federal rules restrict any use of the information to criminally investigate or prosecute any alcohol or drug abuse patient.[facility] the event this information is protected by the Federal Confidentiality of Alcohol and Drug Abuse Patient Records regulations: The Federal rules restrict any use of the information to criminally investigate or prosecute any alcohol or drug abuse patient.[facility] the event this information is protected by the Federal Confidentiality of Alcohol and Drug Abuse Patient Records regulations: The Federal rules restrict any use of the information to criminally investigate or prosecute any alcohol or drug abuse patient.[facility] the event this information is protected by the Federal Confidentiality of Alcohol and Drug Abuse Patient Records regulations: The Federal rules restrict any use of the information to criminally investigate or prosecute any alcohol or drug abuse patient.[facility]In the event this information is protected by the Federal Confidentiality of Alcohol and Drug Abuse Patient Records regulations: The Federal rules restrict any use of the information to criminally investigate or prosecute any alcohol or drug abuse patient.[facility] the event this information is protected by the Federal Confidentiality of Alcohol and Drug Abuse Patient Records regulations: The Federal rules restrict any use of the information to criminally investigate or prosecute any alcohol or drug abuse patient.[facility] the event this information is protected by the Federal Confidentiality of Alcohol and Drug Abuse Patient Records regulations: The Federal rules restrict any use of the information to criminally investigate or prosecute any alcohol or drug abuse patient.[facility]In the event this information is protected by the Federal Confidentiality of Alcohol and Drug Abuse Patient Records regulations: The Federal rules restrict any use of the information to criminally investigate or prosecute any alcohol or drug abuse patient.[facility]In the event this information is protected by the Federal Confidentiality of Alcohol and Drug Abuse Patient Records regulations: The Federal rules restrict any use of the information to criminally investigate or prosecute any alcohol or drug abuse patient.[facility]In the event this information is protected by the Federal Confidentiality of Alcohol and Drug Abuse Patient Records regulations: The Federal rules restrict any use of the information to criminally investigate or prosecute any alcohol or drug abuse patient.[facility] the event this information is protected by the Federal Confidentiality of Alcohol and Drug Abuse Patient Records regulations: The Federal rules restrict any use of the information to criminally investigate or prosecute any alcohol or drug abuse patient.[facility]In the event this information is protected by the Federal Confidentiality of Alcohol and Drug Abuse Patient Records regulations: The Federal rules restrict any use of the information to criminally investigate or prosecute any alcohol or drug abuse patient.[facility]In the event this information is protected by the Federal Confidentiality of Alcohol and Drug Abuse Patient Records regulations: The Federal rules restrict any use of the information to criminally investigate or prosecute any alcohol or drug abuse patient.[facility]In the event this information is protected by the Federal Confidentiality of Alcohol and Drug Abuse Patient Records regulations: The Federal rules restrict any use of the information to criminally investigate or prosecute any alcohol or drug abuse patient.[facility]In the event this information is protected by the Federal Confidentiality of Alcohol and Drug Abuse Patient Records regulations: The Federal rules restrict any use of the information to criminally investigate or prosecute any alcohol or drug abuse patient.[facility]In the event this information is protected by the Federal Confidentiality of Alcohol and Drug Abuse Patient Records regulations: The Federal rules restrict any use of the information to criminally investigate or prosecute any alcohol or drug abuse patient.[facility]In the event this information is protected by the Federal Confidentiality of Alcohol and Drug Abuse Patient Records regulations: The Federal rules restrict any use of the information to criminally investigate or prosecute any alcohol or drug abuse patient.[facility]In the event this information is protected by the Federal Confidentiality of Alcohol and Drug Abuse Patient Records regulations: The Federal rules restrict any use of the information to criminally investigate or prosecute any alcohol or drug abuse patient.[facility]In the event this information is protected by the Federal Confidentiality of Alcohol and Drug Abuse Patient Records regulations: The Federal rules restrict any use of the information to criminally investigate or prosecute any alcohol or drug abuse patient.[facility] Reason for Visit (unrecogniz ed section and content) Reason Comments 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 Specialty Diagnoses / Procedures Referred By Contac t Referred To Contact CT IMAGING Diagnoses Localized swelling, mass or lump of neck CLL (chronic lymphocytic leukemia) (HCC) Procedures CT CHEST W IVCON DIAGNOSTIC COMPUTED TOMOGRAPHY THORAX W/CONTRAST Mary Gonzalez MD [address] [facility] [address] [place] [address] Ct Imaging Referral ID Status Reason Start Date Expiration Date V isits Requested Visits Authorized [id number] Closed Auto-Generate d Referral 12/06/2021 01/05/2023 1 1 Reason Comments Results Reason Comments Symptoms Reason Comments Patient Question Reason Comments Sinus Problem Reason Comments Sinusitis Reason Comments Patient Update Patient Question Reason Comments Hypogammaglobulinemia Reason Comments Established Patient OV/lab Specialty Diagnoses / Procedures Referred By Contac t Referred To Contact CT IMAGING Diagnoses Lung nodules CLL (chronic lymphocytic leukemia) (HCC) Procedures CT CHEST W IVCON DIAGNOSTIC COMPUTED TOMOGRAPHY THORAX W/CONTRAST Mary Gonzalez MD [address] [facility] [address] [place] [address] Ct Imaging Referral ID Status Reason Start Date Expiration Date V isits Requested Visits Authorized [id number] Closed Auto-Generate d Referral 04/03/2022 05/03/2023 1 1 Reason Comments New Patient Sinuse Post-nasal Drip Dizziness Sore Throat Ear Problem Pain -Left Reason Comments Radiology CT Specialty Diagnoses / Procedures Referred By Contac t Referred To Contact CT IMAGING Diagnoses Other chronic sinusitis Procedures CT SINUS WO IVCON CT MAXILLOFACIAL W/O CONTRAST MATERIAL Anlsey Tolliver DO [address] [place] [address] Ct Imaging Referral ID Status Reason Start Date Expiration Date V isits Requested Visits Authorized [id number] Closed Auto-Generate d Referral 05/25/2022 06/24/2023 1 1 Reason Comments Established Patient OV/lab Reason Comments 4 month follow up Reason Onset Date Comments Refill Request 11/05/2022 Reason Comments Patient Update Reason Comments Clinical Update Reason Comments Returning Patient's Call Medication requ est Reason Comments Sinus Infection,frequent/recurring swollen glands Reason Comments Established Patient 4 month ov - lab res ults Discuss arthritis and joint pain - discuss referralAlso has pain in her salvador bones Reason Comments Medication Problem Reason Comments Established Patient Reason Comments Appointment Reason Comments Patient Question Pt would like a diff erent medication Care Teams (unrecognized sec tion and content) Credit Analyst Relationship Specialty Start Date End Date Satya Franklin MD PCP - General Family Practice 12/05/15 Credit Analyst Relationship Specialty Start Date End Date Satya Franklin MD PCP - General Family Practice 12/05/15 Credit Analyst Relationship Specialty Start Date End Date Satya Franklin MD PCP - General Family Practice 12/05/15 Credit Analyst Relationship Specialty Start Date End Date Satya Franklin MD PCP - General Family Practice 12/05/15 Credit Analyst Relationship Specialty Start Date End Date Satya Franklin MD PCP - General Family Practice 12/05/15 Credit Analyst Relationship Specialty Start Date End Date Satya Franklin MD PCP - General Family Practice 12/05/15 Credit Analyst Relationship Specialty Start Date End Date Satya Franklin MD PCP - General Family Practice 12/05/15 Credit Analyst Relationship Specialty Start Date End Date Satya Franklin MD PCP - General Family Practice 12/05/15 Mary Gonzalez MD [address] [facility] [address] [place] [id number] Attending Hematology/Oncology 01/31/22 Credit Analyst Relationship Specialty Start Date End Date Satya Franklin MD PCP - General Family Practice 12/05/15 Mary Gonzalez MD [address] [facility] [address] [place] [address] Attending Hematology/Oncology 01/31/22 Credit Analyst Relationship Specialty Start Date End Date Satya Franklin MD PCP - General Family Practice 12/05/15 Mary Gonzalez MD [address] [place] [address] Attending Hematology/Oncology 01/31/22 Credit Analyst Relationship Specialty Start Date End Date Satya Franklin MD PCP - General Family Practice 12/05/15 Mary Gonzalez MD [address] [address] [place] [address] Attending Hematology/Oncology 01/31/22 Credit Analyst Relationship Specialty Start Date End Date Satya Franklin MD PCP - General Family Practice 12/05/15 Credit Analyst Relationship Specialty Start Date End Date Satya Franklin MD PCP - General Family Practice 12/05/15 Mary Gonzalez MD [address] [place] [address] Attending Hematology/Oncology 01/31/22 Credit Analyst Relationship Specialty Start Date End Date Satya Franklin MD PCP - General Family Practice 12/05/15 Mary Gonzalez MD [address] [place] [address] Attending Hematology/Oncology 01/31/22 Credit Analyst Relationship Specialty Start Date End Date Satya Franklin MD PCP - General Family Practice 12/05/15 Mary Gonzalez MD [address] [place] [address] Attending Hematology/Oncology 01/31/22 Credit Analyst Relationship Specialty Start Date End Date Laya Hardin, DO [address] [place] [address] PCP - General Family Medicine 05/25/22 Mary Gonzlaez MD [address] [place] [address] Attending Hematology/Oncology 01/31/22 Credit Analyst Relationship Specialty Start Date End Date Laya Hardin, DO [address] [place] [address] PCP - General Family Medicine 05/25/22 Mary Gonzalez MD [address] [place] [address] Attending Hematology/Oncology 01/31/22 Credit Analyst Relationship Specialty Start Date End Date Laya Hardin, DO [address] [place] [address] PCP - General Family Medicine 05/25/22 Mary Gonzalez MD [address] [facility] [place] [address] Attending Hematology/Oncology 01/31/22 Credit Analyst Relationship Specialty Start Date End Date Satya Franklin MD PCP - General Family Medicine 12/05/15 05/24/22 Mary Gonzalez MD [address] [place] [address] Attending Hematology/Oncology 01/31/22 Credit Analyst Relationship Specialty Start Date End Date Laya Hardin, DO [address] [place] [address] PCP - General Family Medicine 05/25/22 Mary Gonzalez MD [address] [place] [address] Attending Hematology/Oncology 01/31/22 Credit Analyst Relationship Specialty Start Date End Date Laya Hardin, DO [address] [place] [address] PCP - General Family Medicine 05/25/22 Mary Gonzalez MD [address] [place] [address] Attending Hematology/Oncology 01/31/22 Credit Analyst Relationship Specialty Start Date End Date Laya Hardin, DO [address] [place] [address] PCP - General Family Medicine 05/25/22 Mary Gonzalez MD [address] [place] [address] Attending Hematology/Oncology 01/31/22 Credit Analyst Relationship Specialty Start Date End Date Laya Hardin, DO [address] [place] [address] PCP - General Family Medicine 05/25/22 Mary Gonzalez MD [address] [place] [address] Attending Hematology/Oncology 01/31/22 Credit Analyst Relationship Specialty Start Date End Date Laya Hardin, DO [address] [place] [address] PCP - General Family Medicine 05/25/22 Mary Gonzalez MD [address] [place] [address] Attending Hematology/Oncology 01/31/22 Credit Analyst Relationship Specialty Start Date End Date Laya Hardin DO [address] [place] [address] PCP - General Family Medicine 05/25/22 Mary Gonzalez MD [address] [place] [address] Attending Hematology/Oncology 01/31/22 Credit Analyst Relationship Specialty Start Date End Date Laya Hardin DO [address] [place] [address] PCP - General Family Medicine 05/25/22 Mary Gonzalez MD [address] [place] [address] Attending Hematology/Oncology 01/31/22 Credit Analyst Relationship Specialty Start Date End Date Laya Hardin DO [address] [facility] [address] [place] [address] PCP - General Family Medicine 05/25/22 Mary Gonzalez MD [address] [place] [address] Attending Hematology/Oncology 01/31/22 Credit Analyst Relationship Specialty Start Date End Date Laya Hardin DO [address] [place] [address] PCP - General Family Medicine 05/25/22 Mary Gonzalez MD [address] [place] [address] Attending Hematology/Oncology 01/31/22 Credit Analyst Relationship Specialty Start Date End Date Laya Hardin DO [address] [place] [address] PCP - General Family Medicine 05/25/22 Mary Gonzalez MD [address] [place] [address] Attending Hematology/Oncology 01/31/22 Credit Analyst Relationship Specialty Start Date End Date Laya Hardin DO [address] [place] [address] PCP - General Family Medicine 05/25/22 Mary Gonzalez MD [address] [place] [address] Attending Hematology/Oncology 01/31/22 Credit Analyst Relationship Specialty Start Date End Date Laya Hardin DO [address] [place] [address] PCP - General Family Medicine 05/25/22 Mary Gonzalez MD [address] [place] [address] Attending Hematology/Oncology 01/31/22 Credit Analyst Relationship Specialty Start Date End Date Laya Hardin DO [address] [facility] [address] [place] [address] PCP - General Family Medicine 05/25/22 Mary Gonzalez MD [address] [place] [address] Attending Hematology/Oncology 01/31/22 Credit Analyst Relationship Specialty Start Date End Date Laya Hardin DO [address] [place], [place] [address] PCP - General Family Medicine 05/25/22 Mary Gonzalez MD [address] [place] [address] Attending Hematology/Oncology 01/31/22 FOR RECORDS PERTAINING TO PATIENTS WHO ARE OR HAVE BEEN ENROLLED IN A CHEMICAL DEPENDENCY/SUBSTANCEABUSE PROGRAM, SOME INFORMATION MAY BE OMITTED. This clinical summary was aggregated from multiple sources. Caution should be exercised in using it in the provision of clinical care. This summary normalizes information from multiple sources, and as a consequence, information in this document may materially change the coding, format and clinical context of patient data. In addition, data may be omitted in some cases. CLINICAL DECISIONS SHOULD BE BASED ON THE PRIMARY CLINICAL RECORDS. [facility]. provides no warranty or guarantee of the accuracy or completeness of information in this document.
[2023-09-13 18:34] LABS: T4 Free Direct 0.89 ng/dL (0.76-1.46); Thyroid Stim Hormone (TSH) 0.59 uIU/mL (0.358-3.74)
[2023-09-13 18:55] LABS: Vitamin D,25 Hydroxy 52.6 ng/mL
[2023-09-15 10:07] LABS: Thyroid Peroxidase AB < 9 IU/mL (0-34)
== END | disposition home or self-care (01) ==
LOC: MTLAB 16:22
PROVIDERS: PCP Family Medicine; Referring Provider Family Medicine; Visit Provider Family Medicine
DX: E04.1 Nontoxic single thyroid nodule (principal); E55.9 Vitamin D deficiency, unspecified
CPT/HCPCS: 82306; 84439; 84443; 86376

== ENCOUNTER 2024-04-14 08:30 | Outpatient (RCR) | payer OTHER, SELFPAY ==
--- NOTE | 2024-03-26 09:25 | HP.OTEVAL_ITS ---
Patient's Visit Information Visit Information Visit Information: MALGORZATA PATTERSON is a 64 year old F, referred to Occupational Therapy by CORI BRUSH, with a diagnosis of L trapezium with suspensionplasty. Date of Evaluation: 03/26/24 Occupational Therapist: Pat Sheikh Subjective Subjective: pt presented with sx on 02/19/24 with removal of L trapezium with suspensionplasty of L thumb. 5 weeks 1 day post op today. pt was in long arm thumb spica for 2 weeks, then moved to hand based CMC orthosis. F/u visit with surgeon in another 2 weeks at [facility] with Dr. Mahoney. She is wearing hand based CMC all the time other than to shower including at night. 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 Pain is more of an ache in L thumb. Indep at home with ADLs, slower to fasten buttons and hanging laundry. 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 Pt likes to ride her bike and is unable to do that at this time. N&T across volar PIP of D2-5. Scar feels good but sensitive. Pain L thumb: Current Pain Intensity: 2 Pain Intensity Range: 5 Objective Objective/Observation: pt presenting with hand based CMC orthosis to prevent CMC motion throughout the day. pt wears at all times including at night. ROM Wrist: L WE65/WF45 R WE65/WF60 MP: L 40, R 43 IP: L 54, R 60 Radial Abduction: L -25/45, R -20/45 Palmar Abduction: L -20/40, R -20/50 Strength Cash Applications Associate: L 25#, R 45# Lateral Pinch: L 4#, R 14# Tripod Pinch: L 4#, R 8# Nine Hole Peg Right: 26 Left: 33 In-Hand Manipulation Finger to Palm Translation: Moderate - Left Palm to Finger Translation: Normal - Left Quick DASH-Disab of Arm,Shoulder& Hand Quick DASH Score: 34.0900 Goals Goal:: pt to demo improved L fitness attendant strength by 15# by d/c for greater use of L hand during household bilateral tasks. Goal:: pt to demo improved L CMC PA by 8* for greater ability to reach and hold larger objects with L hand by 3 weeks. pt to demo improved L wrist flexion by 10* for greater ease of buttoning buttons on donned shirt by d/c. Goal:: pt to demo good compliance with scar desensitization strategies to promote proper healing and circulation to incision site. Goal:: pt to demo improved overall indep at home with ADLs/IADLs with decreased DASH score by 15 points by d/c. Rehabilitation General Assessment: Pt presenting with s/p surgical removal of L trapezium with suspensionplasty d/t severe arthritis in L CMC joint. Pt presenting with mild pain/soreness when using L hand and currently wearing hand based CMC orthosis to limit motion of CMC joint. pt is 5 weeks 1 day post op on this date with no known restrictions from doctor. pt with limitations in fitness attendant strength, AROM and indep in IADLs. Pt would benefit from skilled OT services x2/week for 4 weeks for initial POC in order to improve fitness attendant/pinch strength, L CMC AROM and pain reduction to improve overall indep in ADL/IADLs such as buttoning shirts, biking, and playing with grandchildren without pain. Rehabilitation Potential: Good Anticipated Interventions Anticipated Interventions: A/AAROM/PROM, Strengthening, Scar Care, Massage, Triggerpoint Release, Desensitization, Orthoses and Fine Motor Coord/Oliverio Visit Plan Frequency: 2x /Week Duration: 4 Weeks General Plan: x2/week for 4 weeks for initial POC to improve AROM, strength, and overall indep. TEXT: Thank you for the opportunity to evaluate your patient. For Medicare and Medicare HMO plans, please review the plan of care and approve it. It will need to be FAXED BACK to us at [phone] for Medicare purposes. Please let me know if there are questions or concerns regarding this plan of care. Physician Signature: Date:
--- NOTE | 2024-03-31 09:30 | OTREVAL_ITS ---
Re-Evaluation Intro: CORI BRUSH, It has been my pleasure to treat MALGORZATA PATTERSON over the last 2 visits for L trapezium with suspensionplasty. Please see the progress note below for an update on the occupational therapy plan of care! Subjective Subjective: pt arrives states she is doing well- pt arrives s/p 5 weeks and 6 days s/p from a CMC arthroplasty- pt arrives with short orthosis on- pt states she is sleeping in the long thumb spica at times. Objective Objective/Function: left wrist 55/30 left CMC 10* left MP 20 left IP 40* PA 35* RA WNL pt demo with a left Hyper ext of MPJ with motion- this was pts just seen 5 days ago- would like to transition to thumb stabilization she will be 6 weeks s/p tomorrow- do you want to transition her to a soft comfort cool thumb cmc support to wean out to ridged orthosis pt does report positional tingling median nerve distribution- therapist advised decrease tightness of orthosis and avoid prolonged pressure- Plan Plan Frequency: 2x /Week Duration: 4 Weeks Visits in this POC: 8 Plan: pt to cont. with POC. 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 Goal:: pt to demo improved L CMC PA by 8* for greater ability to reach and hold larger objects with L hand by 3 weeks. pt to demo improved L wrist flexion by 10* for greater ease of buttoning buttons on donned shirt by d/c. Goal:: pt to demo good compliance with scar desensitization strategies to promote proper healing and circulation to incision site. Goal:: pt to demo improved overall indep at home with ADLs/IADLs with decreased DASH score by 15 points by d/c. Anticipated Interventions Anticipated Interventions Anticipated Interventions: A/AAROM/PROM, Strengthening, Scar Care, Massage, Triggerpoint Release, Desensitization, Orthoses and Fine Motor Coord/Oliverio Re-Evaluation Ending Re-evaluation ending: Please do not hesitate to contact me at [phone] by phone or if you have questions or concerns regarding this new plan of care! Sincerely, Shanika Carbajal OTR/L, CHT
--- NOTE | 2024-04-14 13:17 | HP.OTDCSUM ---
Discharge Summary D/C Summary: It has been my pleasure to treat MALGORZATA PATTERSON under orders from CORI BRUSH, for the diagnosis of L trapezium with suspensionplasty for a total of 4 visit(s). Please see the following information for a summary of their discharge status. Overall Improvement % Improvement: 90 Objective Objective/Function: left wrist 60/45 CMC 30* MP 20* IP 60* L communications program manager 40# L lat pinch 10# L tripod pinch 8# Goals Patient Goals: Regain Mobility, Regain Strength, Decrease Pain, Improve Fine Motor Skills, Use Hand/Wrist/Arm Normally Again, Increase ROM, Be More Independent in ADLS, Decrease Sensitivity, Resume Former Household Responsibilities (Cooking,Cleaning,Yard, etc.) and Resume Hobbies Goal:: pt to demo improved L communications program manager strength by 15# by d/c for greater use of L hand during household bilateral tasks. ( goal met) Goal:: pt to demo improved L CMC PA by 8* for greater ability to reach and hold larger objects with L hand by 3 weeks. (goal met) pt to demo improved L wrist flexion by 10* for greater ease of buttoning buttons on donned shirt by d/c. ( goal met) Goal:: pt to demo good compliance with scar desensitization strategies to promote proper healing and circulation to incision site. (goal met) Goal:: pt to demo improved overall indep at home with ADLs/IADLs with decreased DASH score by 15 points by d/c. Plan Plan: D/C with [facility] D/C Information Discharge Comments: pt states she is ready to be discharged at this time. pt has tolerated therapy well and made gains. pt demo understanding of home program and agrees to POC. d/c sentence: If there are questions or concerns regarding this patient's occupational therapy, please fell free to call me at [phone]. Thank you for the referral of this patient. Sincerely, Shanika Carbajal, OTR/L, CHT
== END 2024-04-14 19:00 | disposition home or self-care (01) ==
LOC: OT 08:30
PROVIDERS: PCP Family Medicine
DX: M18.12 Unilateral primary osteoarthritis of first carpometacarpal joint, left hand (principal)
CPT/HCPCS: 97110; 97140; 97165; 97530

== ENCOUNTER → 2024-08-26 | Outpatient (CLI) | payer OTHER, SELFPAY ==
[2024-08-26 18:06] LABS: Absolute Lymphocyte Count 10.45 X10^3/uL (0.83-4.51); Absolute Neutrophil Count 3.5 X10^3/uL (2.0-7.7); Basophil% 0.7 % (0-1); Eosinophil# 0.36 X10^3/uL; Eosinophils% 2.4 % (0-5); Hematocrit 44.9 % (37-47); Lymphocyte # 10.45 X10^3/ul (0.83-4.51); Lymphocyte % 68.5 % (19-41); Mean Corp Hgb Conc 33.4 g/dL (32-36); Mean Corpuscular Hgb 31.8 pg (27.0-32.0); Mean Corpuscular Volume 95.1 fL (81-99); Mean Platelet Vol. 11.2 fl (6.2-12.0); Monocyte# 0.84 X10^3/uL; Monocyte% 5.5 % (0-10); NRBC Flagged by Analyzer 0 % (0-5); Neutrophil # 3.47 X10^3/uL (2.7-7.7); Neutrophil % 22.7 % (47-70); POSITIVE DIFFERENTIAL YES; POSITIVE MORPHOLOGY YES; Platelet Count 282 K/mm3 (150-450); RBC Distribution Width CV 12.9 % (11.6-14.6); RBC Distribution Width SD 44.8 fl (35.1-43.9); Red Blood Count 4.72 M/mm3 (4.2-5.4); White Blood Count 15.3 K/mm3 (4.4-11.0)
[2024-08-26 18:29] LABS: Differential Indicated SCAN CRITERIA MET
[2024-08-26 18:45] LABS: ALB/GLOB Ratio 1.2 RATIO (0.9-2.4); AST(SGOT) 12 U/L (15-37); Alanine Aminotransfer ALT/SGPT 26 U/L (13-56); Albumin, Serum 3.8 g/dL (3.2-5.0); Alkaline Phosphatase 125 U/L (45-117); Anion Gap 5 (5-15); BUN 18 mg/dL (7-18); Calcium,Total 9.3 mg/dL (8.5-10.1); Chloride 106 mmol/L (98-107); Creatinine, Serum 0.67 mg/dL (0.55-1.02); EST Glomerular Filtration Rate 94 mL/min (>60); Est Glom Filt Rate - Afr Amer 114 mL/min (>60); Globulin 3.2 g/dL (2.2-4.2); Glucose 77 mg/dL (74-106); Potassium 3.8 mmol/L (3.5-5.1); Rheumatoid Factor < 10.0 IU/mL (<15); Sodium Level 138 mmol/L (136-145); Thyroid Stim Hormone (TSH) 0.957 uIU/mL (0.358-3.740)
[2024-08-26 19:30] LABS: Erythrocyte Sedimentation Rate 6 mm/hr (0-30)
[2024-08-26 22:03] LABS: Atypical Lymphocyte 2+ %
[2024-08-26 22:04] LABS: Anisocytosis 1+; Platelet Morphology GIANT
[2024-08-27 00:50] LABS: Vitamin D,25 Hydroxy 63.8 ng/mL
== END | disposition home or self-care (01) ==
PROVIDERS: PCP Family Medicine; Referring Provider Family Medicine; Visit Provider Family Medicine
DX: M19.049 Primary osteoarthritis, unspecified hand (principal); R53.83 Other fatigue
CPT/HCPCS: 36415; 80053; 82306; 84443; 85025; 85652; 86431

== ENCOUNTER → 2024-09-18 | Outpatient (CLI) | payer OTHER, MEDICARE, SELFPAY ==
--- NOTE | 2024-09-18 14:52 | CT_ITS ---
EXAM: CT ABDOMEN AND PELVIS WITH INTRAVENOUS CONTRAST CLINICAL INDICATION: Left upper quadrant pain x6 months. TECHNIQUE: Helically acquired images were obtained of the abdomen and pelvis with intravenous contrast. This CT exam was performed using one or more of the following dose reduction techniques: automated exposure control, adjustment of the mA and/or kV according to patient size, and/or use of iterative reconstruction technique. CONTRAST: 75 mL of IV Isovue-300. Oral Readi-CAT contrast. RADIATION DOSE: CTDIvol = 11.16 mGy, DLP = 734.86 mGy-cm COMPARISON: CT abdomen and pelvis without contrast 11/12/2019. FINDINGS: LOWER THORAX: Unremarkable. Lung bases are clear. No cardiomegaly. No significant pericardial effusion. ABDOMEN: LIVER: Unremarkable. Homogeneous. No focal mass. GALLBLADDER AND BILE DUCTS: Unremarkable. No calcified gallstones. No gallbladder distention or wall edema. No intra- or extrahepatic biliary ductal dilation. PANCREAS: Unremarkable. No focal cystic or solid mass. SPLEEN: Unremarkable. Normal size without focal cystic or solid mass. ADRENALS: Unremarkable. No nodules. KIDNEYS AND URETERS: Nonobstructing stones in both kidneys. Decreased number of stones in the left kidney. No hydronephrosis in both kidneys. No mass or cyst in both kidneys. Normal renal size and position. STOMACH AND BOWEL: Unremarkable. No stomach or bowel distention. No focal inflammatory change. PELVIS: APPENDIX: Normal. BLADDER: Unremarkable. REPRODUCTIVE: Unremarkable as visualized. No mass. ABDOMEN and PELVIS: INTRAPERITONEAL SPACE: Unremarkable. No ascites or other fluid collection. No free air. BONES/JOINTS: Pronounced L5-S1 disc space height narrowing with degenerative vacuum phenomenon and endplate sclerosis. No suspicious lytic or blastic abnormality. SOFT TISSUES: Unremarkable. No discrete abdominal or pelvic wall hernia. VASCULATURE: Unremarkable. Abdominal aorta is non-dilated. LYMPH NODES: Unremarkable. No enlarged lymph nodes. CT/Abdomen/Pelvis WITH Contrast IMPRESSION: 1. No acute findings in the abdomen and pelvis. 2. Nonobstructing stones in both kidneys. Decreased number of stones in the left kidney. No hydronephrosis. Electronically Signed: Eligio Garcia MD at 10:06 [facility] ,
== END | disposition home or self-care (01) ==
PROVIDERS: PCP Family Medicine
DX: R10.9 Unspecified abdominal pain (principal)
CPT/HCPCS: 74177; Q9967

== ENCOUNTER → 2024-11-20 | Outpatient (CLI) | payer MEDICARE, OTHER, SELFPAY ==
--- NOTE | 2024-11-20 08:50 | RAD_ITS ---
EXAM: XR Abdomen, 1 View CLINICAL INDICATION: DORIAN STONES TECHNIQUE: Frontal supine view of the abdomen/pelvis. COMPARISON: No relevant prior studies available. FINDINGS: GASTROINTESTINAL TRACT: Fecal retention in the colon consistent with constipation. No dilation. ORGANS: Right renal calculi largest measuring up to 4 mm. Left renal calculi, largest measuring up to 2 mm. BONES/JOINTS: Unremarkable. No acute fracture. RAD/Abdomen Single View IMPRESSION: 1. Fecal retention in the colon consistent with constipation. 2. Bilateral nephrolithiasis. Reading Location: [facility]
== END | disposition home or self-care (01) ==
LOC: RAD 08:36
PROVIDERS: PCP Family Medicine; Referring Provider Urology; Visit Provider Urology
DX: N20.0 Calculus of kidney (principal)
CPT/HCPCS: 74018

== ENCOUNTER → 2024-12-25 | Outpatient (CLI) | payer MEDICARE, OTHER, SELFPAY ==
--- NOTE | 2024-12-25 12:50 | MRI_ITS ---
PROCEDURE: SPINE LUMBAR (ROUTINE) 12/25/2024 REASON FOR EXAM: Chronic low back pain. Hip pain TECHNIQUE: Multiplanar and multisequence images were obtained without IV contrast administration. COMPARISON: Plain film imaging dated 11/23/2024 FINDINGS: There is loss of normal lordosis of the upper lumbar spine, which could be positional versus muscle spasm. Moderate degenerative disc and endplate changes seen at the L5-S1 level. Mild disc desiccation and some height loss involving the L1-2 and L2-3 levels. Remaining lumbar intervertebral discs appear relatively well hydrated. The conus medullaris terminates posterior to the L2 level. Distal cord and cauda equina appear intact. Paraspinal soft tissues appear within normal limits. Disc levels as follows: T10-11, T11-12, T12-L1: Evaluated on sagittal imaging only. No disc herniation, central spinal or neural foraminal stenosis L1-2: Mild broad-based disc bulge. Mild facet arthrosis and ligamentum flavum thickening. No significant central spinal or neural foraminal stenosis bilaterally L2-3: Mild broad-based disc bulge. Mild facet arthrosis and ligamentum flavum thickening. No significant central spinal or neural foraminal stenosis bilaterally. L3-4: Mild broad-based disc bulge. Mild facet arthrosis and ligamentum flavum thickening. No significant central spinal or neural foraminal stenosis bilaterally L4-5: Broad-based disc bulge. Facet arthrosis and ligamentum flavum thickening. No significant central spinal or neural foraminal stenosis bilaterally L5-S1: Broad-based disc osteophyte complex, eccentric towards the right, contacts the exiting L5 nerve root on the right, in the extraforaminal location. Superimposed central disc protrusion mildly contacts the traversing S1 nerve roots. Moderate facet arthrosis and mild ligamentum flavum thickening. No significant central spinal stenosis. Moderate to severe right and mild left neural foraminal stenosis. MRI/Spine Lumbar (Routine) IMPRESSION: 1. At the L5-S1 level, moderate degenerative disc and endplate changes, with a broad-based disc osteophyte complex eccentric towards the right, contacting the exiting L5 nerve root on the right. Superimp osed central disc protrusion mildly contacts the traversing S1 nerve roots. Facet arthrosis and mild ligamentum flavum thickeni ng contributes to moderate to severe right and mild left neural foraminal stenosis. No central spinal stenosis. 2. Additional multilevel disc bulges throughout the remaining lumbar spine, wit hout significant central spinal or neural foraminal stenosis bilaterally. 3. Loss of normal lordosis of the upper lumbar spine, which could be positional versus muscle spasm. 4. Additional findings, as above Reading Location[facility] Technologies[facility]
== END | disposition home or self-care (01) ==
LOC: MRI 12:17
PROVIDERS: PCP Family Medicine; Referring Provider Student in an Organized Health Care Education/Training Program; Visit Provider Student in an Organized Health Care Education/Training Program
DX: M51.369 Other intervertebral disc degeneration, lumbar region without mention of lumbar back pain or lower extremity pain (principal)
CPT/HCPCS: 72148

== ENCOUNTER → 2025-01-01 | Outpatient (CLI) | payer MEDICARE, OTHER, SELFPAY ==
--- NOTE | 2025-01-01 15:28 | RAD_ITS ---
EXAM: LEFT TIBIA AND FIBULA CLINICAL HISTORY: LEFT SORIANO PAIN COMPARISON: NO RELEVANT PRIOR. TECHNIQUE: AP AND LATERAL. FINDINGS: Bones: No fractures or other osseous abnormalities. Joints: No subluxations or dislocations. Soft tissues: Unremarkable. RAD/Tibia & Fibula 2 Views IMPRESSION: No acute osseous or other abnormalities. Reading Location: [facility]
== END | disposition home or self-care (01) ==
LOC: MTRAD 15:28
PROVIDERS: PCP Family Medicine; Referring Provider Family Medicine; Visit Provider Family Medicine
DX: M79.662 Pain in left lower leg (principal)
CPT/HCPCS: 73590

== ENCOUNTER 2025-01-07 12:00 | Outpatient (RCR) | payer MEDICARE, OTHER, SELFPAY ==
--- NOTE | 2024-12-08 14:33 | HP.PTEVAL ---
Patient's Visit Information Visit Information Visit Information: MALGORZATA PATTERSON is a 64 year old F referred to Physical Therapy by CHANTEL Biswas with a diagnosis of LOW BACK PAIN AND LUMBAR DDD. Date of Evaluation: 12/08/24 Physical Therapist: Clare Andrea PT, Cert MDT Visit Plan Frequency: 2-3x /Week Duration: 4-6 Months Plan: Neutral Spine Core Stability Exercises and Dorian LE Hip Flexor, Hamstring and Calf Stretching to help reduce stress to the Lumbar Spine with all Daily Activities. Dorian LE Strengthening. Instruction in Proper Posture Control, Body Mechanics, and Appropriate Activity Modifications. HEP Instruction. Subjective Subjective: Work/Leisure: RETIRED. BABYSITTING TWICE A WEEK, 8 HOURS A DAY. ONE DAY FOR A 3 YEAR OLD AND ONE DAY FOR A 1 YEAR OLD. 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 HIRES HOUSEWORK. CARRIES LAUNDRY UPSTAIRS. Present symptoms: MID AND LOW BACK PAIN DOWN INTO VERY LOW BACK ALMOST TO TAILBONE. PATIENT DENIES DORIAN LE PAIN, NUMBNESS AND TINGLING. INTERMITTENT PAIN RADIATING INTO HIPS DORIAN. Present since: ABOUT 15 YEARS AGO Pain Scale: WORST 8/10, LEAST 2/10 Currently: 2/10 Is it getting better, worse or staying the same: STAYING THE SAME Commenced as a result of: NO APPARENT REASON Symptoms at onset: LOW BACK PAIN Worse: BENDING, LIFTING, BABYSITTING, WALKING TOO FAST ON TREADMILL AND WALKING TOO FAST IN GENERAL, PUMPING ARMS WALKING MAKES IT WORSE, CARRYING LAUNDRY UP STEPS, COLD WEATHER, TWISTING TOO QUICKLY. Better: HOLDING ON TO STABILIZE UPPER BODY HELPS, TYLONOL, HEAT REALLY FEELS GOOD, ALTERNATING WITH ICE CAN HELP TOO, TRAMADOL, STRETCHING HELPS A LOT(DESCRIBES LUMBAR FLEXION,HS AND PIRIFORMIS TYPE STRETCHING THAT SHE READ ABOUT). Disturbed sleep: SOMETIMES Previous history/Previous treatment: PAIN INJECTIONS FROM DR. BARRY WITH THE LAST ONE BEING ABOUT 2 YEARS AGO - TEMPORARY RELIEF. PAIN MEDICATION. H/O CHIROPRACTIC - VERY LITTLE - MOST RECENT WAS ABOUT 2 YEARS AGO - STATES SHE HEARD SHE SHOULDN'T CONTINUE BECAUSE SHE HAS OSTEOPOROSIS. NO BACK SURGERY. H/O AQUATIC PHYSICAL THERAPY HERE AT [facility] 7-8 YEARS AGO WITH SOME BENEFIT. H/O DX OF T/S SPINAL STENOSIS FROM CHIROPRACTOR. Treatment this episode: PAIN MEDICATION Coughing/sneezing/straining: DENIES INCREASED PAIN. Gait: TIME AND DISTANCE LIMITED BY PAIN. STRUGGLE TO STAND UP TALL. Bowel or Bladder Dysfunction: NO Accidents: NO Unexplained weight loss: NO Imagin11/23/24: LUMBAR XRAY - FINDINGS: Four views of the lumbar spine were obtained. Bones are osteopenic. Included portions of the pelvis and proximal femurs are intact. Several pelvic phleboliths. No acute fracture or focal subluxation in the lumbar spine on the neutral lateral projection. Mild/moderate multilevel degenerative disc and facet disease in the lumbar spine. No evidence of instability on flexion and extension views. RAD/L/S Spine Min 4 Views IMPRESSION: Osteopenia. No acute bony abnormality of the lumbar spine. Mild/moderate multilevel degenerative disc and facet disease in the lumbar spine. No evidence of instability on flexion and extension views. If there is persistent pain or clinical concern, short-term follow-up MRI evaluation may be considered. PMH/Recent major surgery: CLL LEUKEMIA, OSTEOPOROSIS, OA, THUMB SURGERY. STATES SHE IS ON BLOOD PRESSURE MEDICATION FOR MIGRAINES. Objective Objective: Sitting/Standing Posture: INCREASED LORDOSIS AND ANTERIOR PELVIC TILT IN STANDING. NO RELEVANT LATERAL LUMBAR SHIFT. Active Correction of posture: PATIENT ABLE TO PARTIALLY CORRECT AND THIS DOES REDUCE HER PAIN SOME. SHE REPORTS SHE HAS BEEN TAUGHT TO DO THIS IN THE PAST WITH SOME BENEFIT. Other Observations: INDEP GAIT AND TRANSFERS. ABLE TO TRANSFER INDEP;LY SIT TO STAND WITHOUT UE ASSIST. MILD TOEING OUT WITH GAIT BUT EVEN STRIDE LENGTH AND WEIGHT BEARING TIME. HYPERLORDOSIS WITH GAIT. Sensory deficit: DORIAN LE LIGHT TOUCH SENSATION GROSSLY INTACT AND SYMMETRICAL ROM deficit: DORIAN LE CALF, HS, HIP FLEXOR, AND HIP ROTATOR TIGHTNESS. PATIENT MATT WITH DECREASED DORIAN HIP IR ROM BUT NOT PAINFRUL WITH TESTING TODAY. Motor deficit: DORIAN LE STRENGTH GROSSLY 5/5 WITH MMT'ING EXCEPT HIPS 4/5 Reflexes: 2+ DORIAN LE'S. Dural Signs: NEGATIVE DORIAN LE'S. Lumbar mvmt loss: flex - MIN ext - MOD - DECREASES - NB R SG - MOD L SG - MOD - INCREASES - NW Core strength: POOR Palpation: TENDERNESS WITH PALPATION FROM L3 TO COCCYX. ALSO TENDER DORIAN SI JT REGIONS. TENDERNESS DORIAN GREATER TROCH REGIONS WELL. TREATMENT: NEUROMUSCULAR REEDUCATION - RETRAINING OF MVMT AND POSTURE FOR SITTING, LYING AND STANDING ACTIVITIES. Balance/Special Test Scores Oswestry Low Back Score: 20 Goals Goal 1:: DECREASE C/O BACK PAIN BY AT LEAST 50% TO EASE ADL'S Goal Time Frame: 4-6 Weeks Goal 2:: IMPROVE PERSONAL CARE, LIFTING, WALKING, SITTING, STANDING, SLEEP, SOCIAL LIFE, AND HOMEMAKING FUNCTION WITH AT LEAST 5 POINT IMPROVEMENT IN BACK OSWESTRY SCORE. Goal Time Frame: 4-6 Weeks Goal 3:: INSTRUCT IN PROPHYLAXIS Goal Time Frame: 4-6 Weeks Rehabilitation Potential Physical Therapy Diagnosis: C/O BACK PAIN WITH CORE AND LE WEAKNESS AND STIFFNESS LIMITING ADL'S. Rehabilitation Potential: Good Anticipated Interventions Patient/Client Instruction: Educate patient on: Condition, Plan of Care and Risk Factors For the Purpose of:: To improve self management Therapeutic Exercise to Include: Strength training, Body mechanics, Postural training, Flexibilty training, Neuromotor development, In an aquatic setting and Dynamic Lumbar Stabilization For the Purpose of:: To decrease pain, To improve muscle performance and motor function, To increase tolerance to activity/condition/position, To improve ability of physical actions for home/community/work/leisure, To improve gait and locomotor functions, To increase flexibility/ROM and To improve self management Cryotherapy (ice pack, ice massage): Yes Thermo therapy (hot pack): Yes Ultrasound (thermal/non thermal): Yes For the Purpose of:: To decrease pain, To decrease swelling/inflammation and To improve nutrient delivery to tissue Text: Thank you for the opportunity to evaluate your patient. For Medicare and Medicare HMO plans, please review the plan of care and approve it. It will need to be FAXED BACK to us at [phone] for Medicare purposes. For Medicare only, by signing this I certify the plan of care. Please let me know if there are questions or concerns regarding this plan of care. Physician Signature: Date:
== END 2025-01-07 19:00 | disposition home or self-care (01) ==
LOC: PT 12:00
PROVIDERS: PCP Family Medicine; Referring Provider Student in an Organized Health Care Education/Training Program; Visit Provider Student in an Organized Health Care Education/Training Program
DX: M51.369 Other intervertebral disc degeneration, lumbar region without mention of lumbar back pain or lower extremity pain (principal); M54.50 Low back pain, unspecified
CPT/HCPCS: 97112; 97162; 97530

== ENCOUNTER → 2025-01-07 | Outpatient (CLI) | payer MEDICARE, OTHER, SELFPAY ==
--- NOTE | 2025-01-07 14:30 | BD_ITS ---
PROCEDURE: DEXA BONE DENSITY STUDY 01/07/2025 REASON FOR EXAM: PAIN F, age 64 y/o . Postmenopausal. TECHNIQUE: DEXA scan of sites with data reported below. Scanner utilized: IMASTE. REFERENCE LINKS: ISCD Adult Positions COMPARISON: NONE FINDINGS: BMD and T-SCORES Lumbar spine: 0.820 g/cm2, T-score -2.1 Levels: L1 through L4 Left femoral neck: 0.499 g/cm2, T-score -3.2 Left total hip: 0.638 g/cm2, T-score -2.5 Right femoral neck: 0.520 g/cm2, T-score -3.0 Right total hip: 0.669 g/cm2, T-score -2.2 The World Health Organization has defined the following categories based on bone density: Normal bone density: T-score equal to or greater than -1.0 Osteopenia: T-score between -1.0 and -2.5 Osteoporosis: T-score equal to or less than -2.5 FRAX (or Comparable) Fracture Risk Assessment: 10 Year Probability of Fracture: Major Osteoporotic Fracture: 43% Hip Fracture: 12% (Note: FRAX is not to be reported in setting of normal range bone density, osteoporosis on DEXA, known history of osteoporosis, prior osteoporotic hip or vertebral fracture, or for any patient undergoing pharmacological treatment for bone loss.) The National Osteoporosis Foundation (NOF) recommends pharmacological treatment for patients with a FRAX 10-year risk of 3% or higher for a hip fracture, or 20% or higher for a major osteoporotic fracture, to prevent osteoporosis and reduce fracture risk. The patient does meet the pharmacological treatment recommendations for prevention of osteoporosis. BD/Dexa Bone Density Study IMPRESSION: OSTEOPOROSIS. Recommend follow-up as clinically warranted. Reading Location: [id number]
== END | disposition home or self-care (01) ==
LOC: OPBD 14:30
PROVIDERS: PCP Family Medicine; Referring Provider Student in an Organized Health Care Education/Training Program; Visit Provider Student in an Organized Health Care Education/Training Program
DX: M81.0 Age-related osteoporosis without current pathological fracture (principal)
CPT/HCPCS: 77080

== ENCOUNTER → 2025-01-29 | Outpatient (CLI) | payer MEDICARE, OTHER, SELFPAY ==
--- NOTE | 2025-01-29 17:07 | RAD_ITS ---
PROCEDURE: ANKLE MIN 3 VIEWS 01/29/2025 REASON FOR EXAM: ANKLE INJURY TECHNIQUE: 3 views of the left ankle FINDINGS: No fracture or dislocation. The joint spaces appear within limits. RAD/Ankle min 3 Views IMPRESSION: No fracture or dislocation. If symptoms persist, may follow-up with repeat harsh ging in 7-10 days as warranted Reading Location: [id number]
== END | disposition home or self-care (01) ==
LOC: MTRAD 17:02
PROVIDERS: PCP Family Medicine; Referring Provider Family Medicine; Visit Provider Family Medicine
DX: M25.579 Pain in unspecified ankle and joints of unspecified foot (principal)
CPT/HCPCS: 73610

== ENCOUNTER → 2025-02-05 | Outpatient (CLI) | payer MEDICARE, OTHER, SELFPAY ==
--- NOTE | 2025-02-05 12:53 | CT_ITS ---
PROCEDURE: LIMITED CHEST CT CARDIAC ONLY REASON FOR EXAM: Screening for coronary artery disease. TECHNIQUE: Supine chest CT without contrast, high resolution CT (HRCT) protocol. Coronal and Sagittal reconstruction series were provided. One or more dose reduction techniques were used (e.g., Automated exposure control, adjustment of the mA and/or kV according to patient size, use of iterative reconstruction technique). Dose report: CTDI L volume: 12.19 mGy. DLP: 170.66 COMPARISON: None FINDINGS: Hardware: None Lymph nodes: Unremarkable. Heart and Vasculature: Normal heart size. No pericardial effusion. Coronary Artery Calcifications: Absent Lungs and Airways: Minimal linear scarring at the lung bases. Pleura: No pleural effusion. Upper Abdomen: Unremarkable. Bones: Bone windows are unremarkable. CT/Limited Chest CT Cardiac Only IMPRESSION: Coronary artery calcification (CAC) is is absent Reading Location: [place] [id number]
--- NOTE | 2025-02-22 18:35 | CA.SCORE ---
Calcium Scoring Date of Study:: 02/05/25 Indications Indications: FH Coronary Calcium Scoring: High-resolution Computed Tomographic imaging of the chest was performed on [02/05/25 ], with particular attention paid to the coronary arteries. Images from the examination were analyzed for the presence and extent of coronary artery calcification , using coronary calcium quantification software. The patient tolerated the procedure well and there were no complications. The results of the coronary calcification analysis are provided below. Findings Coronary Artery Left Main (LM): 0 Left Anterior Descending (LAD): 0 Left Circumflex (LCX): 0 Right Coronary Artery (RCA): 0 Total Agatston Score: 0 Percentile Rankin Calcium Scoring Interpretation: Different methods to categorize the overall amount of coronary plaque. Overall amount CAC SIS Visual of coronary plaque P1 Mild -100 <2 1-2 vessels with mild amount of plaque P2 Moderate 101-300 3-4 1-2 vessels with moderate amount, 3 vessels with mild amount of plaque P3 Severe 301-999 5-7 3 vessels with moderate amount, 1 vessel with severe amount of plaque P4 Extensive >1000 >8 2-3 vessels with severe amount of plaque Conclusion: No atherosclerotic plaquing noted
== END | disposition home or self-care (01) ==
LOC: CT 12:51
PROVIDERS: PCP Family Medicine; Referring Provider Family Medicine; Visit Provider Family Medicine
DX: Z71.89 Other specified counseling (principal)
CPT/HCPCS: 75571; 76380

== ENCOUNTER → 2025-02-05 | Outpatient (CLI) | payer MEDICARE, OTHER, SELFPAY ==
[2025-02-05 20:50] LABS: Ferritin 83 ng/mL (22-378); Thyroid Stim Hormone (TSH) 0.251 uIU/mL (0.300-4.200); Vitamin D,25 Hydroxy 46.3 ng/mL (30-100)
[2025-02-06 00:15] LABS: Iron 79 ug/dL (50-170)
[2025-02-06 08:19] LABS: Vitamin B12 1216 pg/mL (180-914)
== END | disposition home or self-care (01) ==
LOC: MTLAB 16:43
PROVIDERS: PCP Family Medicine
DX: R53.83 Other fatigue (principal)
CPT/HCPCS: 36415; 82306; 82607; 82728; 83540; 84443

== ENCOUNTER → 2025-02-09 | Outpatient (CLI) | payer MEDICARE, OTHER, SELFPAY ==
[2025-02-09 12:55] LABS: Free T3 2.7 pg/mL (2.18-3.98)
== END | disposition home or self-care (01) ==
LOC: MFPLAB 11:00
PROVIDERS: PCP Family Medicine; Referring Provider Family Medicine; Visit Provider Family Medicine
DX: R79.89 Other specified abnormal findings of blood chemistry (principal)
CPT/HCPCS: 36415; 84432; 84439; 84481; 86800

== ENCOUNTER → 2025-02-11 | Outpatient (CLI) | payer MEDICARE, OTHER, SELFPAY ==
--- NOTE | 2025-02-11 11:53 | US_ITS ---
PROCEDURE: THYROID 02/11/2025 REASON FOR EXAM: THYROID NODULE TECHNIQUE: High-frequency thyroid ultrasound, including grayscale and color-flow images. REFERENCE LINKS: TI-RADS Chart: [email or web address] TI-RADS Calculator Tool with Reference Images: [email or web address] COMPARISON: Thyroid ultrasound 04/18/2021 FINDINGS: Right thyroid lobe size: 5.8 x 1.8 x 2.1 cm Left thyroid lobe size: 4.6 x 1.7 x 1.9 cm Isthmus: 0.3 cm Background parenchymal echotexture is mildly heterogeneous. Nodules: 1. Lobe: Right, Location: Mid to lower, Size: 0.4 x 0.2 x 0.3 cm, Stability: Stable Composition: Cystic or mostly cystic (+0) Echogenicity: Anechoic (+0) Margin: Smooth (+0) Shape: Wider than tall (+0) Echogenic Foci: Peripheral calcification (+2) TI-RADS: 2 2. Location: Isthmus, Size: 0.4 x 0.2 x 0.4 cm, Stability: N/A Composition: Cystic or mostly cystic (+0) Echogenicity: Anechoic (+0) Margin: Smooth (+0) Shape: Wider than tall (+0) Echogenic Foci: None (+0) TI-RADS: 1 3. Lobe: Left, Location: Upper, Size: 0.7 x 0.5 x 0.5 cm, Stability: Stable Composition: Mixed cystic and solid (+1) Echogenicity: Hypoechoic (+2) Margin: Smooth (+0) Shape: Wider than tall (+0) Echogenic Foci: None (+0) TI-RADS: 3 US/Thyroid IMPRESSION: 1. No suspicious nodularity per ACR TI-RADS guidelines. 2. Mildly heterogeneous thyroid parenchyma, which may represent underlying thy roid disease. Reading Location: [id number]
== END | disposition home or self-care (01) ==
LOC: US 11:52
PROVIDERS: PCP Family Medicine; Referring Provider Family Medicine; Visit Provider Family Medicine
DX: E04.1 Nontoxic single thyroid nodule (principal)
CPT/HCPCS: 76536

== ENCOUNTER → 2025-04-01 | Outpatient (CLI) | payer MEDICARE, OTHER, SELFPAY ==
[2025-04-01 16:03] LABS: Hematocrit 45.8 % (37-47); Hemoglobin 14.7 g/dL (12.0-15.0); Immature Granulocytes Count 0.020 X10^3/uL (0.0-0.0); Mean Corp Hgb Conc 32.1 g/dL (32-36); Mean Corpuscular Volume 97.4 fL (81-99); Mean Platelet Vol. 11.2 fl (6.2-12.0); NRBC Flagged by Analyzer 0 % (0-5); POSITIVE DIFFERENTIAL YES; Platelet Count 277 K/mm3 (150-450); RBC Distribution Width CV 13.2 % (11.6-14.6); RBC Distribution Width SD 47.4 fl (35.1-43.9); Red Blood Count 4.70 M/mm3 (4.2-5.4); White Blood Count 14.3 K/mm3 (4.4-11.0)
[2025-04-01 16:07] LABS: CRP < 3.00 mg/L (0.0-3.0)
[2025-04-01 16:08] LABS: Differential Indicated SCAN CRITERIA MET
[2025-04-01 18:14] LABS: Differential Comment SCANNED
[2025-04-05 14:08] LABS: ANTINUCLEAR ANTIBODIES DIRECT Negative (Negative)
== END | disposition home or self-care (01) ==
LOC: MFPLAB 11:20
PROVIDERS: PCP Family Medicine; Visit Provider Family Medicine
DX: M25.50 Pain in unspecified joint (principal); M19.90 Unspecified osteoarthritis, unspecified site
CPT/HCPCS: 36415; 85025; 85652; 86038; 86140; 86431; 86618

== ENCOUNTER → 2025-05-13 | Outpatient (CLI) | payer MEDICARE, OTHER, SELFPAY ==
--- NOTE | 2025-05-13 10:42 | RAD_ITS ---
EXAM: XR Left Hand Complete, 3 or More Views CLINICAL INDICATION: LEFT HAND PAIN TECHNIQUE: Frontal, lateral and oblique views of the left hand. COMPARISON: No relevant prior studies available. FINDINGS: BONES/JOINTS: Anchors at the base of the 2nd metacarpal. Mild degenerative changes of the distal interphalangeal joints. No acute fracture. No dislocation. SOFT TISSUES: Soft tissue swelling. RAD/Hand Min 3 Views IMPRESSION: 1. Soft tissue swelling. 2. Degenerative changes as above. Reading Location: [id number]
== END | disposition home or self-care (01) ==
LOC: MTRAD 10:40
PROVIDERS: PCP Family Medicine; Referring Provider Family Medicine; Visit Provider Family Medicine
DX: M79.642 Pain in left hand (principal)
CPT/HCPCS: 73130

== ENCOUNTER → 2025-08-03 | Outpatient (CLI) | payer MEDICARE, OTHER, SELFPAY ==
--- NOTE | 2025-08-03 15:26 | BI_ITS ---
EXAM: SCRN MAMM (CAD)W/HALEY BILAT DATE: 08/03/2025 CLINICAL HISTORY: F, Age 65 y/o , BREAST CANCER TECHNIQUE: Procedure Code: [id number] Modality: MG Procedure: SCRN MAMM (CAD)W/HALEY BILAT COMPARISON: Prior exam(s) dated 10/23/2021. FINDINGS: TISSUE DENSITY: The breasts are heterogeneously dense, which may obscure small masses. Bilateral Breast Mammographic Findings: No significant masses, calcifications or other abnormalities are identified. Benign-appearing round and punctate calcifications are seen in both breasts. BI/SCRN MAMM (CAD)W/HALEY BILAT IMPRESSION: Benign screening mammogram OVERALL FINAL ASSESSMENT BI-RADS 2: BENIGN RECOMMENDATION: Routine annual follow-up in 1 Year Additional Recommendation none A letter with findings and recommendations will be mailed to the patient. Reading Location: [id number]
== END | disposition home or self-care (01) ==
LOC: OPBI 15:25
PROVIDERS: PCP Family Medicine
DX: Z12.31 Encounter for screening mammogram for malignant neoplasm of breast (principal)
CPT/HCPCS: 77063; 77067

== ENCOUNTER → 2025-08-25 | Outpatient (CLI) | payer MEDICARE, OTHER, SELFPAY ==
--- NOTE | 2025-08-25 09:54 | RAD_ITS ---
PROCEDURE: CHEST PA AND LATERAL 08/25/2025 REASON FOR EXAM: COUGH SIX WEEKS AND PAIN ON RIGHT SIDE TECHNIQUE: Procedure Code: RADCXR Modality: DX Procedure: CHEST PA AND LATERAL FINDINGS: No focal consolidation. No pleural effusion or pneumothorax. Cardiac silhouette is within normal limits. No acute fractures. RAD/Chest PA and Lateral IMPRESSION: No focal consolidations. Reading Location: [id number]
== END | disposition home or self-care (01) ==
LOC: MTRAD 09:54
PROVIDERS: PCP Family Medicine
DX: R05.9 Cough, unspecified (principal)
CPT/HCPCS: 71046